=== PATIENT | male | born 1945 | race Caucasian/White ===

== ENCOUNTER → 2018-01-15 | Outpatient (CLI) | payer OTHER ==
--- NOTE | 2018-01-15 17:44 | DIAGNOSTIC IMAGING REPORT ---
ULTRASOUND BILATERAL LOWER EXTREMITY VENOUS CLINICAL HISTORY: Lower extremity edema. COMPARISON STUDY: No priors. TECHNIQUE: Real-time, grayscale, and color Doppler sonography of the deep veins of the right and left lower extremity was performed from the inguinal crease to the calf. Compression and augmentation were utilized. FINDINGS: There is no sonographic evidence of deep venous thrombosis identified in the right or left lower extremity. The common femoral, superficial femoral, and popliteal veins are patent and normally compressible bilaterally. The greater saphenous vein and the profunda femoris vein at the junction with the common femoral vein are clear in both legs. The visualized calf veins are patent bilaterally. IMPRESSION: There is no sonographic evidence of deep venous thrombosis identified in the right or left lower extremity. Electronically signed by: Abdirashid Santana M.D. 01/15/2018 5:43 PM Dictated Date/Time: 01/15/2018 5:43 PM
== END | disposition home or self-care (01) ==
LOC: C.ULTR 16:15
PROVIDERS: ATTEND Internal Medicine
DX: M79.89 Other specified soft tissue disorders (principal); R79.89 Other specified abnormal findings of blood chemistry

== ENCOUNTER 2020-04-12 11:17 | Observation (INO) ==
--- NOTE | 2020-04-12 11:36 | Emergency Department Note ---
Impression & Plan Acute GI bleeding, Current use of [employer] anticoagulation, Chronic atrial fibrillation, Melena, Supratherapeutic INR ED Provider Note NAME: VEL CAPUTO AGE: 74 SEX: M : 1945 ARRIVES VIA: Ambulance INFORMANT: Patient ED PROVIDER(S): Parth Salcido DO CHIEF COMPLAINT: weak HPI: Patient is a 74-year-old gentleman who was seen and evaluated by his PCP today. He has been feeling very weak and rundown. He gets lightheaded/dizzy as well when he is up moving around. He has noted some dark tarry stools as well. He takes Coumadin for his A. fib. PCP performed a rectal exam and notes he is grossly heme positive. He was referred into the ER. He also admits that he has been having belly pain in the right lower quadrant for the past 5 days. Notes it has gradually getting worse each day. No vomiting. ROS: See above HPI for pertinent positives & negatives. A total of 10 systems reviewed and were otherwise negative. PAST MEDICAL HISTORY:See Below PAST SURGICAL HISTORY:See Below FAMILY HISTORY:See Below SOCIAL HISTORY:See Below HOME MEDICATIONS:See Below ALLERGIES:See Below VITALS:See Below PHYSICAL EXAMINATION: GENERAL: Sitting up in bed, alert, well appearing, well nourished, no distress, non-toxic EYE EXAM: normal conjunctiva. OROPHARYNX: no exudate, no erythema, lips, buccal mucosa, and tongue normal and mucous membranes are moist NECK: supple, no nuchal rigidity, no adenopathy, non-tender LUNGS: Clear to auscultation. Normal chest wall mechanics HEART: no murmurs, S1 normal and S2 normal ABDOMEN: abdomen soft, acutely tender in right lower quadrant, normo-active bowel sounds, no masses, no rebound or guarding. BACK: Back is symmetrical on inspection and there is no deformity, no midline tenderness, no CVA tenderness. SKIN: no rashes and no bruising UPPER EXTREMITIES: upper extremities are grossly normal. LOWER EXTREMITIES: No pitting edema. NEURO EXAM: Normal sensorium, cranial nerves II-XII grossly intact, normal speech, no gross weakness of arms, no gross weakness of legs. MEDICAL DECISION MAKING: Patient is a 74-year-old male sent in by his PCP with heme positive stools and feeling weak and rundown and dizzy for the past 3 days. IV was established blood work was obtained. Labs show a mild leukopenia at 3.3 thousand. Mild anemia 12,000. INR was significantly elevated at 7.4 and is on Coumadin for A. fib. BMP with mild hypokalemia. Magnesium was slightly low as well. LFTs bilirubin and troponin was negative. TSH was elevated. Patient was typed and screened. Patient was given 10 units IV vitamin K with the elevated INR and heme positive stools after discussion at bedside. Patient was updated and given a dose of Zosyn as the CT abdomen pelvis showed diverticulitis. Do favor that this is likely the cause of the bleeding. Held on Protonix secondary to this. Pain has been present for 5 days. Patient was updated and discussed with hospitalist for further evaluation. Triage Nursing notes reviewed. Prior medical records reviewed Vital Signs: reviewed and remarkable for no significant abnormalities Differential diagnosis: Differential diagnoses includes but is not limited to gastritis, peptic ulcer disease, GERD, gallbladder disease, pancreatitis, small bowel obstruction, acute coronary syndrome, pericarditis, ischemic bowel, irritable bowel disease, irritable bowel syndrome, appendicitis, diverticulitis, malignancy, hernia, urinary tract infection, torsion, perforation, trauma, infectious. ER treatment provided: See below Diagnostics interpreted by me: ECG: A. fib rate of 63 Normal axis No PVCs Normal QTC Cardiac Monitoring: An order was placed for continuous cardiac monitoring. The monitor shows a rate of 68 with sinus rhythm. Laboratory studies: As stated above and show below. Imaging studies: CT abdomen pelvis is unremarkable with exception of diverticulitis Consultation(s): D/w the hospitalist for further evaluation ED COURSE: Procedures: none Critical Care: None Past Med/Surg History Medical History (Updated 04/12/20 @ 16:39 by Parth Salcido DO) BPH (benign prostatic hyperplasia) Chronic atrial fibrillation Chronic heart failure with preserved ejection fraction (HFpEF) COPD (chronic obstructive pulmonary disease) Current use of shelter anticoagulation Depression with anxiety HLD (hyperlipidemia) HTN (hypertension) ALLEY (obstructive sleep apnea) Intolerant to CPAP Prolonged QT interval Surgical History (Updated 04/12/20 @ 15:00 by Cristina Roberto PA-C) History of cataract extraction History of colonoscopy History of total left hip arthroplasty Family History (Updated 04/12/20 @ 15:00 by Cristina Roberto PA-C) Father Stroke Mother Stroke Social History (Updated 04/12/20 @ 15:20 by Cristina Roberto PA-C) Smoking Status: Former smoker Tobacco Type: Cigarettes Years Smoked: 18; Cigarettes Per Day: 15; Smoking End Date: 1986; Hx Alcohol Use: Yes Alcohol type: hard liquor Alcohol Intake Frequency: 4 or More x per/Week Alcohol Intake Frequency Comment: 3-4 drinks nightly Hx Substance Use: No Preferred Language: Moroccan Feels Safe at Home: Yes Allergies Allergies Allergy/AdvReac Type Severity Reaction Status Date / Time cephalexin [From Keflex] AdvReac Hives Unverified 04/12/20 13:19 Home Meds Home Medications Medication Instructions Recorded Confirmed albuterol sulfate 2 puff INHALATION Q4H PRN 04/12/20 04/12/20 atorvastatin 10 mg PO DAILY 04/12/20 04/12/20 azelastine 1 spray INTRANASAL BID 04/12/20 04/12/20 buspirone 15 mg PO BID 04/12/20 04/12/20 cetirizine [Zyrtec] 5 mg PO DAILY 04/12/20 04/12/20 cyanocobalamin (vitamin B-12) 1,000 mcg PO DAILY 04/12/20 04/12/20 [Vitamin B-12] fluoxetine 10 mg PO DAILY 04/12/20 04/12/20 fluticasone propionate [Flovent 2 puff INHALATION BID 04/12/20 04/12/20 HFA] furosemide 20 mg PO DAILY 04/12/20 04/12/20 gabapentin 100 mg PO BID 04/12/20 04/12/20 levothyroxine 50 mcg PO MOTUWETHFRSA 04/12/20 04/12/20 levothyroxine 100 mcg PO CARBAJAL 04/12/20 04/12/20 magnesium oxide 400 mg PO DAILY 04/12/20 04/12/20 multivitamin with minerals 1 tab PO DAILY 04/12/20 04/12/20 [Multiple Vitamin-Minerals] potassium chloride 20 meq PO DAILY 04/12/20 04/12/20 tamsulosin 0.4 mg PO HS 04/12/20 04/12/20 trazodone 100 mg PO HS 04/12/20 04/12/20 triamcinolone acetonide 1 applic TOPICAL BID 04/12/20 04/12/20 umeclidinium-vilanterol [Anoro 1 inh INHALATION DAILY 04/12/20 04/12/20 Ellipta] verapamil 180 mg PO BID 04/12/20 04/12/20 warfarin See Rx Instructions .ROUTE .COMPLEX 04/12/20 04/12/20 Results & Data (ED) Vital Signs Vital Signs - 24 hr 04/12/20 11:22 04/12/20 11:24 04/12/20 11:47 Temperature 36.2 C L Temperature Source Oral Pulse Rate 64 70 70 Pulse Rate from SpO2 Sensor 63 68 Pulse Rhythm Irregular Pulse Strength Normal Respiratory Rate 17 24 20 Respiratory Effort / Characteristics Non-Labored Respiratory Depth Normal Respiratory Pattern Regular Blood Pressure 127/71 127/71 Blood Pressure Mean 86 89 Blood Pressure Position Sitting Pulse Oximetry 93 94 93 Oxygen Delivery Method Room Air Sepsis Recent Fever Within 48 Hours No Sepsis New/Unexplained Change in Mental Status No Sepsis Action Taken by Nursing No Action Required 04/12/20 11:50 04/12/20 12:00 04/12/20 12:10 Temperature Temperature Source Pulse Rate 65 85 63 Pulse Rate from SpO2 Sensor 64 64 Pulse Rhythm Pulse Strength Respiratory Rate 19 23 19 Respiratory Effort / Characteristics Respiratory Depth Respiratory Pattern Blood Pressure Blood Pressure Mean Blood Pressure Position Pulse Oximetry 94 95 Oxygen Delivery Method Sepsis Recent Fever Within 48 Hours Sepsis New/Unexplained Change in Mental Status Sepsis Action Taken by Nursing 04/12/20 12:20 04/12/20 12:30 04/12/20 12:40 Temperature Temperature Source Pulse Rate 66 64 67 Pulse Rate from SpO2 Sensor 69 62 67 Pulse Rhythm Pulse Strength Respiratory Rate 16 17 14 Respiratory Effort / Characteristics Respiratory Depth Respiratory Pattern Blood Pressure Blood Pressure Mean Blood Pressure Position Pulse Oximetry 90 94 91 Oxygen Delivery Method Sepsis Recent Fever Within 48 Hours Sepsis New/Unexplained Change in Mental Status Sepsis Action Taken by Nursing 04/12/20 12:50 04/12/20 13:00 04/12/20 13:31 Temperature Temperature Source Pulse Rate 65 104 H 96 H Pulse Rate from SpO2 Sensor 65 70 63 Pulse Rhythm Pulse Strength Respiratory Rate 20 24 17 Respiratory Effort / Characteristics Respiratory Depth Respiratory Pattern Blood Pressure 134/66 Blood Pressure Mean 87 Blood Pressure Position Pulse Oximetry 94 93 96 Oxygen Delivery Method Sepsis Recent Fever Within 48 Hours Sepsis New/Unexplained Change in Mental Status Sepsis Action Taken by Nursing 04/12/20 13:38 04/12/20 13:40 04/12/20 13:50 Temperature Temperature Source Pulse Rate 67 66 62 Pulse Rate from SpO2 Sensor 65 64 66 Pulse Rhythm Pulse Strength Respiratory Rate 18 18 18 Respiratory Effort / Characteristics Respiratory Depth Respiratory Pattern Blood Pressure 126/66 Blood Pressure Mean 86 Blood Pressure Position Pulse Oximetry 96 96 95 Oxygen Delivery Method Sepsis Recent Fever Within 48 Hours Sepsis New/Unexplained Change in Mental Status Sepsis Action Taken by Nursing 04/12/20 14:00 04/12/20 14:01 Temperature Temperature Source Pulse Rate 64 65 Pulse Rate from SpO2 Sensor 69 63 Pulse Rhythm Pulse Strength Respiratory Rate 17 17 Respiratory Effort / Characteristics Respiratory Depth Respiratory Pattern Blood Pressure 124/68 Blood Pressure Mean 80 Blood Pressure Position Pulse Oximetry 95 95 Oxygen Delivery Method Sepsis Recent Fever Within 48 Hours Sepsis New/Unexplained Change in Mental Status Sepsis Action Taken by Nursing Laboratory Data Result diagrams: 04/12/20 Unknown 04/12/20 Unknown Lab Results 04/12/20 Range/Units 11:30 Blood Type O Positive Antibody Screen NEGATIVE Administered Medications Potassium Chloride/Sodium Chloride (Normal Saline W/20 Meq Kcl) 20 meq in 1,000 mls @ 75 mls/hr IV .[id number] MAXIMILIANO Stop: 04/13/20 05:19 Last Admin: 04/12/20 16:13 Dose: 75 mls/hr Documented by: [id number] Discontinued Medications Gabapentin (Gabapentin 600 Mg Tab) 1,200 mg PO NOW ONE Stop: 04/12/20 16:01 Last Admin: 04/12/20 16:18 Dose: 1,200 mg Documented by: [id number] Phytonadione 10 mg/ Sodium (Chloride) 51 mls @ 102 mls/hr IV ONE ONE Stop: 04/12/20 13:58 Last Infusion: 04/12/20 14:54 Dose: 0 mls/hr Documented by: [id number] Admin: 04/12/20 14:08 Dose: 102 mls/hr Documented by: [id number] Piperacillin Sod/Tazobactam Sod (Zosyn) 4.5 gm in 120 mls @ 240 mls/hr IV NOW ONE Stop: 04/12/20 14:24 Last Infusion: 04/12/20 15:26 Dose: 0 mls/hr Documented by: [id number] Admin: 04/12/20 14:12 Dose: 240 mls/hr Documented by: [id number] Ioversol (Ioversol 100ml) 93 ml IV ONCE ONE Stop: 04/12/20 13:30 Last Admin: 04/12/20 13:29 Dose: 93 ml Documented by: [id number] Discharge Plan Visit Data Chief Complaint: Abdominal Pain Stated Complaint: abdominal pain ED Provider: Parth Salcido Discharge Problem: Acute GI bleeding, Current use of shelter anticoagulation, Chronic atrial fibrillation, Melena, Supratherapeutic INR Patient Disposition: Admitted As Inpatient Discharge Instructions Interventions: ED Discharge Assessment Last Done: 04/12/20 15:01
[2020-04-12 12:22] LABS: Basophils # (auto) 0.01 K/uL (0-0.2); Basophils % (auto) 0.3 %; Eosinophils # (auto) 0.11 K/uL (0-0.5); Eosinophils % (auto) 3.3 %; Hematocrit (blood only) 35.9 % (42-52); Hemoglobin 12.1 g/dL (14.0-18.0); Lymphocytes # (auto) 1.09 K/uL (1.2-3.4); Mean Corpuscular Hemoglobin 36.2 pg (25-34); Mean Corpuscular Hgb Conc 33.7 g/dL (32-36); Mean Corpuscular Volume 107.5 fL (80-100); Mean Platelet Volume 9.6 fL (7.4-10.4); Monocytes # (auto) 0.42 K/uL (0.11-0.59); Monocytes % (auto) 12.7 %; Neutrophils # (auto) 1.67 K/uL (1.4-6.5); Neutrophils % (auto) 50.7 %; Nucleated RBC # (auto) 0.04 K/uL (0-0); Nucleated RBC % (auto) 1.2 %; Platelet Count 167 K/uL (130-400); RDW Coefficient of Variation 14.5 % (11.5-14.5); RDW Standard Deviation 56.2 fL (36.4-46.3); Red Blood Count 3.34 M/uL (4.7-6.1)
[2020-04-12 12:42] LABS: Partial Thromboplastin Ratio 2.8; Prothrombin Time 70.3 Seconds (9.0-12.0)
[2020-04-12 12:45] LABS: Alanine Aminotransferase 30 U/L (12-78); Albumin Level 2.7 gm/dl (3.4-5.0); Aspartate Aminotransferase 55 U/L (15-37); BUN Creatinine Ratio 7.4 (10-20); Blood Urea Nitrogen 8 mg/dl (7-18); Calcium 8.4 mg/dl (8.5-10.1); Carbon Dioxide 30 mmol/L (21-32); Chloride 96 mmol/L (98-107); Creatinine Clr Calc Pharmacy 69.8 ml/min; Est GFR (African American) 75.9; Est GFR (Non-African American) 65.5; Glucose 122 mg/dl (70-99); Lipase 31 U/L (73-393); Potassium 3.3 mmol/L (3.5-5.1); Sodium 135 mmol/L (136-145)
[2020-04-12 12:49] LABS: Albumin Globulin Ratio 0.8 (0.9-2); Alkaline Phosphatase 144 U/L (45-117); Globulin 3.4 gm/dl (2.5-4.0); Total Protein 6.1 gm/dl (6.4-8.2); Troponin I < 0.015 ng/ml (0-0.045)
[2020-04-12 13:01] LABS: INR 7.4 (0.9-1.1)
[2020-04-12] MEDS ORDERED: PHYTONADIONE 10 MG in SODIUM CHLORIDE 0.9% 50 ML IV ONE (13:29)
[2020-04-12] MEDS ORDERED: IOVERSOL 100ml IV ONE (13:29)
--- NOTE | 2020-04-12 13:40 | CT Scan Report ---
CT abd pelvis IV con only CLINICAL HISTORY: Right lower quadrant abdominal pain. Gastrointestinal hemorrhage. COMPARISON STUDY: None. TECHNIQUE: Patient was scanned in a dynamic helical fashion during intravenous administration of 93 c c of Optiray 320 A dose lowering technique was utilized adhering to the principles of ALARA. CT DOSE: 882.67 mGy.cm FINDINGS: Lower chest: There is a small left pleural effusion and trace right pleural effusion. There are basil ar opacities, likely atelectatic. Liver: There is hepatic steatosis. The portal and hepatic veins appear patent. Gallbladder: Unremarkable. Spleen: Normal in size and attenuation. Pancreas: Unremarkable. Adrenal glands: Unremarkable. Kidneys: There is a 2.5 mm upper pole right renal calculus. There is lower pole left renal scarring. There is a 4 cm left renal cyst. A 9 mm left renal hypodensity likely represents an additional cyst. Bowel: There are no transition zones indicate bowel obstruction. There is no evidence of acute append icitis. There is andrade colonic diverticulosis. Minimal diverticulitis is suspected at the descending si gmoid junction. Peritoneum: There is no intraperitoneal free air or abdominal ascites. Vasculature: There is no evidence of abdominal aortic aneurysm. There are moderate aorta iliac athero matous changes. Adenopathy: None. Pelvic viscera: The bladder, and pelvic viscera are unremarkable. Skeletal structures: There are postsurgical changes of a total left hip arthroplasty. There is a jorge ggressive appearing mixed lytic and sclerotic lesion within the right femoral head. IMPRESSION: 1. No evidence of bowel obstruction. No evidence of free air 2. Nonobstructing 2.5 mm upper pole right renal calculus 3. Normal appendix 4. Pandiverticulosis. Minimal diverticulitis at the descending sigmoid junction 5. Small left pleural effusion and trace right pleural effusion. 6. Hepatic steatosis ACT 112: Negative or not required by law. Electronically signed by: Jeremías Palomo M.D. 04/12/2020 1:39 PM
[2020-04-12] MEDS ORDERED: PIPERACILL/TAZOBAC CONSULT ACTIVE PRN (13:55)
[2020-04-12] MEDS ORDERED: PIPERACILLIN/TAZOBACTAM 4.5 GM/120 ML BAG IV ONE (13:55)
[2020-04-12] MEDS ORDERED: POTASSIUM CHLORIDE / WTR 10 MEQ/100 ML PLCT IV SCH (14:30)
--- NOTE | 2020-04-12 14:47 | History & Physical Report ---
Date of Service April 12, 2020 Assessment & Plan (1) Melena: (2) Supratherapeutic INR: (3) Sigmoid diverticulitis: This is a 74-year-old male who has significant past medical history of chronic atrial fibrillation anticoagulated on warfarin, chronic HFpEF, HTN, HLD, COPD, ALLEY intolerant to CPAP, BPH, depression with anxiety, prolonged QT syndrome who presents to ED secondary to fatigue and melena x3 weeks. Concern for GIB in setting of supratherapeutic INR, anemia, alcohol abuse and [address] with evidence of sigmoid diverticulitis. admit to med tele received 10mg IV vit K in ED repeat H/H q6h - first at 1900, repeat INR @ 1900 IV zosyn - dosed per pharmacy consult GI NPO except sips/chips with strict NPO after midnight covid 19 screen in event pt requires endoscopy gentle IVF while NPO stools for FOBT (4) Anemia: H/H 15.4/42.2 12/2019 H&H 12.1 and 35.9 today, macrocytic hyperchromic anemia work up with 1900 labs folate, b12, iron studies H/H likely reduced in setting of melena x 3 weeks and supratherapeutic INR (5) Chronic atrial fibrillation: Rate controlled atrial fibrillation On warfarin for thrombotic control INR supratherapeutic at 7.4 Hold warfarin, IV vitamin K given in ED Repeat INR at 1900, goal 2-3 (6) Chronic heart failure with preserved ejection fraction (HFpEF): Currently patient euvolemic Daily weights, strict I's and O's -heart healthy and low-sodium diet when able to tolerate p.o. Patient is on verapamil and Lasix Hold Lasix for now in setting of volume depletion due to suspected GI bleed Monitor daily and resume as able (7) HTN (hypertension): Blood pressure controlled on verapamil and Lasix Hold Lasix (8) Alcohol abuse: encourage ETOH cessation AWSS protocol gabapentin taper, prn ativan hold home dose of gabapentin while on taper (9) HLD (hyperlipidemia): Continue statin (10) COPD (chronic obstructive pulmonary disease): No acute exacerbation Continue Flovent and Anoro (11) BPH (benign prostatic hyperplasia): Continue Flomax (12) Prolonged QT interval: QTC 589ms avoid QTC prolonging medications follows [facility] (13) DVT prophylaxis: SCD/TEDS hold wafarin Disposition: admit to [facility] tele Follow up: PCP Dr. Faulkner upon discharge PT was seen and examined in collaboration with Dr. Plunkett, please see addendum History of Present Illness Chief Complaint: Fatigue and melena x 3 weeks. Primary Care Provider: Lidia Faulkner MD This is a 74-year-old male who has significant past medical history of chronic atrial fibrillation anticoagulated on warfarin, chronic HFpEF, HTN, HLD, COPD, ALLEY intolerant to CPAP, BPH, depression with anxiety, prolonged QT syndrome who presents to ED secondary to fatigue and melena x3 weeks. He was initially seen by PCP today due to the above complaints had positive FOBT and was referred to ED for further evaluation. He states he has not felt well for the past few months. Over the last 3 weeks he has had increased fatigue and melena. He was having approximately 1 bowel movement daily until the past week where he has been having loose diarrhea. Over the past 2 to 3 days he also developed subsequent left lower quadrant abdominal discomfort. Pain was nonradiating, nothing made it better or worse and he denies any hematochezia. Yesterday when he wiped he did notice scant bright red blood on toilet paper but associated that to hemorrhoid. Otherwise no bright red blood per rectum. He denies any recent fever, chills, sweats, chest pain, shortness breath at rest, emesis, hemoptysis, hematemesis, dysuria, increased urgency or frequency with urination. He does have history of COPD and therefore he does have a chronic cough. He feels cough is at baseline. He does have chronic SIDDIQUI and feels this is slightly worse than usual. Approximately 6 weeks ago he admits to a syncopal episode and he did not seek medical treatment. He feels it was for a few minutes. He denies hitting his head, but had rosanna loss of consciousness. He admits to occasionally feeling, "woozy." Symptoms occur whenever he goes from sitting to standing too quickly. He believes this is what happened when he passed out 6 weeks ago. In ED patient remained hemodynamically stable. H&H 12.1 and 35.9, platelet 167, INR elevated 7.4, K3.3, sodium 135, BUN 8, creatinine 1.11, albumin 2.7. CT abdomen pelvis revealed minimal sigmoid diverticulitis, pandiverticulosis, no free air or obstruction. In ED he received 10 mg IV vitamin K and was started on IV Zosyn. Allergies Allergy/AdvReac Type Severity Reaction Status Date / Time cephalexin [From Keflex] AdvReac Hives Unverified 04/12/20 13:19 Home Medications Home Medications Medication Instructions Recorded Confirmed Type albuterol sulfate 2 puff INHALATION Q4H PRN 04/12/20 04/12/20 History atorvastatin 10 mg PO DAILY 04/12/20 04/12/20 History azelastine 1 spray INTRANASAL BID 04/12/20 04/12/20 History buspirone 15 mg PO BID 04/12/20 04/12/20 History cetirizine [Zyrtec] 5 mg PO DAILY 04/12/20 04/12/20 History cyanocobalamin (vitamin B-12) 1,000 mcg PO DAILY 04/12/20 04/12/20 History [Vitamin B-12] fluoxetine 10 mg PO DAILY 04/12/20 04/12/20 History fluticasone propionate [Flovent 2 puff INHALATION BID 04/12/20 04/12/20 History HFA] furosemide 20 mg PO DAILY 04/12/20 04/12/20 History gabapentin 100 mg PO BID 04/12/20 04/12/20 History levothyroxine 50 mcg PO MOTUWETHFRSA 04/12/20 04/12/20 History levothyroxine 100 mcg PO CARBAJAL 04/12/20 04/12/20 History magnesium oxide 400 mg PO DAILY 04/12/20 04/12/20 History multivitamin with minerals 1 tab PO DAILY 04/12/20 04/12/20 History [Multiple Vitamin-Minerals] potassium chloride 20 meq PO DAILY 04/12/20 04/12/20 History tamsulosin 0.4 mg PO HS 04/12/20 04/12/20 History trazodone 100 mg PO HS 04/12/20 04/12/20 History triamcinolone acetonide 1 applic TOPICAL BID 04/12/20 04/12/20 History umeclidinium-vilanterol [Anoro 1 inh INHALATION DAILY 04/12/20 04/12/20 History Ellipta] verapamil 180 mg PO BID 04/12/20 04/12/20 History warfarin See Rx Instructions .ROUTE .COMPLEX 04/12/20 04/12/20 History Past Med/Surg History Medical History (Updated 04/12/20 @ 15:25 by Cristina Roberto PA-C) BPH (benign prostatic hyperplasia) Chronic atrial fibrillation Chronic heart failure with preserved ejection fraction (HFpEF) COPD (chronic obstructive pulmonary disease) 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 Depression with anxiety HLD (hyperlipidemia) HTN (hypertension) ALLEY (obstructive sleep apnea) Intolerant to CPAP Prolonged QT interval Surgical History (Updated 04/12/20 @ 15:00 by Cristina Roberto PA-C) History of cataract extraction History of colonoscopy History of total left hip arthroplasty Family History (Updated 04/12/20 @ 15:00 by Cristina Roberto PA-C) Father Stroke Mother Stroke Social History (Updated 04/12/20 @ 15:20 by Cristina Roberto PA-C) Smoking Status: Former smoker Tobacco Type: Cigarettes Years Smoked: 18; Cigarettes Per Day: 15; Smoking End Date: 1986; Hx Alcohol Use: Yes Alcohol type: hard liquor Alcohol Intake Frequency: 4 or More x per/Week Alcohol Intake Frequency Comment: 3-4 drinks nightly Hx Substance Use: No Preferred Language: Kyrgyz Feels Safe at Home: Yes Review of Systems Review of Systems: All systems reviewed & are unremarkable except as noted in HPI & below Physical Exam Physical Exam: Constitutional: WD/WN, male, vitals as above, NAD, sitting up in bed, pleasant, conversing easily Head: Normocephalic, Atraumatic Eyes: PERRL, conjunctivae normal on right, left lateral subconjunctival hemorrhage, anicteric sclerae ENMT: external ear and nose normal, oropharynx normal Neck: trachea midline, no thyromegaly normal visual inspection Respiratory: normal respiratory effort, lungs clear to auscultation, no wheeze, rales, rhonchi. Normal insp/exp effort, no accessory muscle use Cardiovascular: Irregular rate, irregular rhythm, no murmur, no edema Vessels: no JVD or carotid bruit Chest: normal inspection of chest Abdomen: Distended abdomen, normal bowel sounds, firm, tender to palpation left lower quadrant, no rebound, no guarding, no rigidity, no hepatosplenomegaly Musculoskeletal: no cyanosis or clubbing, extremities motor strength 5/5 Skin: no rashes, warm and dry normal turgor Neurologic: PERRL, EOMI, accommodation nl, no face palsy, no dysarthria CN's II-XI intact bilaterally and moves all extremities Psychiatric: A+Ox3, euthymic affect : deferred Results & Data Results & Data ([facility]) Vital Signs (Past 12 Hours) Vital Signs Temp Pulse Resp BP Pulse Ox 04/12/20 14:20 60 16 96 04/12/20 14:13 60 19 116/60 94 04/12/20 14:10 67 13 94 04/12/20 14:01 65 17 95 04/12/20 14:00 64 17 124/68 95 04/12/20 13:50 62 18 95 04/12/20 13:40 66 18 96 04/12/20 13:38 67 18 126/66 96 04/12/20 13:31 96 H 17 96 04/12/20 13:00 104 H 24 134/66 93 04/12/20 12:50 65 20 94 04/12/20 12:40 67 14 91 04/12/20 12:30 64 17 94 04/12/20 12:20 66 16 90 04/12/20 12:10 63 19 95 04/12/20 12:00 85 23 04/12/20 11:50 65 19 94 04/12/20 11:47 70 20 93 04/12/20 11:24 36.2 C L 70 24 127/71 94 04/12/20 11:22 64 17 127/71 93 Laboratory Results Short CBC 04/12/20 04/12/20 Range/Units Unknown Unknown WBC 3.30 L (4.8-10.8) K/uL Hgb 12.1 L (14.0-18.0) g/dL Hct 35.9 L (42-52) % Plt Count 167 (130-400) K/uL Creatinine 1.11 (0.6-1.4) mg/dl BMP 04/12/20 Unknown Sodium 135 L Potassium 3.3 L Chloride 96 L Carbon Dioxide 30 BUN 8 Creatinine 1.11 Glucose 122 H Calcium 8.4 L Cardiac Enzymes 04/12/20 Range/Units Unknown Troponin I < 0.015 (0-0.045) ng/ml Liver Function 04/12/20 Range/Units Unknown Total Bilirubin 1.0 (0.2-1) mg/dl AST 55 H (15-37) U/L ALT 30 (12-78) U/L Alkaline Phosphatase 144 H (45-117) U/L Albumin 2.7 L (3.4-5.0) gm/dl Diagnostic Findings CT abd/pelvis: FINDINGS: Lower chest: There is a small left pleural effusion and trace right pleural effusion. There are basilar opacities, likely atelectatic. Liver: There is hepatic steatosis. The portal and hepatic veins appear patent. Gallbladder: Unremarkable. Spleen: Normal in size and attenuation. Pancreas: Unremarkable. Adrenal glands: Unremarkable. Kidneys: There is a 2.5 mm upper pole right renal calculus. There is lower pole left renal scarring. There is a 4 cm left renal cyst. A 9 mm left renal hypodensity likely represents an additional cyst. Bowel: There are no transition zones indicate bowel obstruction. There is no evidence of acute appendicitis. There is andrade colonic diverticulosis. Minimal diverticulitis is suspected at the descending sigmoid junction. Peritoneum: There is no intraperitoneal free air or abdominal ascites. Vasculature: There is no evidence of abdominal aortic aneurysm. There are moderate aorta iliac atheromatous changes. Adenopathy: None. Pelvic viscera: The bladder, and pelvic viscera are unremarkable. Skeletal structures: There are postsurgical changes of a total left hip arthroplasty. There is a nonaggressive appearing mixed lytic and sclerotic lesion within the right femoral head. IMPRESSION: 1. No evidence of bowel obstruction. No evidence of free air 2. Nonobstructing 2.5 mm upper pole right renal calculus 3. Normal appendix 4. Pandiverticulosis. Minimal diverticulitis at the descending sigmoid junction 5. Small left pleural effusion and trace right pleural effusion. 6. Hepatic steatosis Medications Administered Discontinued Medications Phytonadione 10 mg/ Sodium (Chloride) 51 mls @ 102 mls/hr IV ONE ONE Stop: 04/12/20 13:58 Last Infusion: 04/12/20 14:54 Dose: 0 mls/hr Documented by: [id number] Admin: 04/12/20 14:08 Dose: 102 mls/hr Documented by: [id number] Piperacillin Sod/Tazobactam Sod (Zosyn) 4.5 gm in 120 mls @ 240 mls/hr IV NOW ONE Stop: 04/12/20 14:24 Last Admin: 04/12/20 14:12 Dose: 240 mls/hr Documented by: [id number] Ioversol (Ioversol 100ml) 93 ml IV ONCE ONE Stop: 04/12/20 13:30 Last Admin: 04/12/20 13:29 Dose: 93 ml Documented by: [id number] ECG Rate (beats per minute): 63 Rhythm: atrial fibrillation Findings: + prolonged QT (589ms) Code Status & VTE Plan Code Status Full Code VTE Prophylaxis Plan VTE Prophylaxis will be ordered: Yes Reason for no VTE drug order: Contraindicated Supervising Physician Co-Signing Physician Notes Attending addendum The patient was seen and examined in the emergency room He has been complaining of melena for the last 2 to 3 weeks and one occasion of bright red blood after wiping He complains some abdominal discomfort specially right lower quadrant without any fever and/or chills On examination He is obese and lying in bed without any apparent distress He has been hemodynamically stable Chest-clear to auscultate bilaterally Heart-S1-S2, irregular, no murmur appreciated Abdomen-mildly distended but soft, mildly tender in the right lower quadrant without any guarding and no rigidity Extremities-trace to 1+ edema bilaterally 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
[2020-04-12 15:36] LABS: Thyroid Stimulating Hormone 13.6 uIu/ml (0.300-4.500)
[2020-04-12] MEDS ORDERED: LORazepam 1 MG TAB PO PRN (15:41)
[2020-04-12] MEDS ORDERED: GABAPENTIN 1200MG ALCOHOL WITHDRAWAL LOAD PO STA (15:41)
[2020-04-12] MEDS ORDERED: ALBUTEROL HFA 8 GM INHALER INH PRN (15:41)
[2020-04-12 15:55] LABS: Magnesium 1.7 mg/dl (1.8-2.4)
[2020-04-12] MEDS ORDERED: NSS + 20MEQ KCL 20 MEQ/1,000 ML BAG IV SCH (16:00)
[2020-04-12] MEDS ORDERED: GABAPENTIN 600 MG TAB PO ONE (16:00)
[2020-04-12] MEDS ORDERED: PANTOPRAZOLE BOLUS/DRIP 1 EA IV STA (16:03)
[2020-04-12] MEDS ORDERED: PANTOprazole 80 MG in DEXTROSE 5% 100 ML IV ONE (16:15)
[2020-04-12] MEDS: PANTOprazole 40 MG in DEXTROSE 5% 100 ML IV SCH ×2 (17:29→23:38)
[2020-04-12] MEDS: POTASSIUM CHLORIDE / WTR 10 MEQ/100 ML PLCT IV SCH ×2 (17:30→18:52)
[2020-04-12] MEDS ORDERED: MAGNESIUM SULFATE / D5W 1 GM/100 ML BAG IV ONE (18:00)
[2020-04-12] MEDS: ACETAMINOPHEN 325 MG TAB PO PRN (18:22)
[2020-04-12 19:18] LABS: Hematocrit (blood only) 32.6 % (42-52); Hemoglobin 11.2 g/dL (14.0-18.0)
[2020-04-12 19:26] LABS: Prothrombin Time 30.2 Seconds (9.0-12.0)
[2020-04-12 19:40] LABS: Ferritin 239.5 ng/ml (8-388)
[2020-04-12] MEDS: busPIRone 15 MG TAB PO SCH (20:56)
[2020-04-12] MEDS: PIPERACILLIN/TAZOBACTAM 3.375 GM in DEXTROSE 5% 100 ML IV SCH (20:56)
[2020-04-12] MEDS: VERAPAMIL HCL 180 MG TABCR PO SCH (20:57)
[2020-04-12] MEDS: TAMSULOSIN HCL 0.4 MG CAP PO SCH (20:57)
[2020-04-12] MEDS: traZODone HCL 100 MG TAB PO SCH (20:57)
[2020-04-12] MEDS: GABAPENTIN 600 MG TAB PO SCH (20:58)
[2020-04-12] MEDS ORDERED: GABAPENTIN 100 MG CAP PO SCH ×2 (21:00)
[2020-04-13 01:14] LABS: Hematocrit (blood only) 33.7 % (42-52); Hemoglobin 11.1 g/dL (14.0-18.0)
[2020-04-13 01:15] LABS: Hematocrit (blood only) 32.8 % (42-52); Hemoglobin 11.1 g/dL (14.0-18.0); Mean Corpuscular Hemoglobin 36.3 pg (25-34); Mean Corpuscular Hgb Conc 33.8 g/dL (32-36); Mean Corpuscular Volume 107.2 fL (80-100); Mean Platelet Volume 9.2 fL (7.4-10.4); Nucleated RBC # (auto) 0.04 K/uL (0-0); Nucleated RBC % (auto) 1.4 %; Platelet Count 143 K/uL (130-400); RDW Coefficient of Variation 14.9 % (11.5-14.5); RDW Standard Deviation 56.3 fL (36.4-46.3); Red Blood Count 3.06 M/uL (4.7-6.1); White Blood Count 3.08 K/uL (4.8-10.8)
[2020-04-13 01:29] LABS: INR 2.2 (0.9-1.1); Prothrombin Time 21.9 Seconds (9.0-12.0)
[2020-04-13 01:34] LABS: Albumin Level 2.3 gm/dl (3.4-5.0); BUN Creatinine Ratio 6.7 (10-20); Creatinine Clr Calc Pharmacy 71.7 ml/min; Est GFR (African American) 78.5; Est GFR (Non-African American) 67.7; Potassium 3.2 mmol/L (3.5-5.1)
[2020-04-13 01:37] LABS: Albumin Globulin Ratio 0.8 (0.9-2); Bilirubin,Total 0.9 mg/dl (0.2-1); Total Protein 5.3 gm/dl (6.4-8.2)
[2020-04-13] MEDS ORDERED: Nursing to Pharmacy Communication SCH (03:15)
[2020-04-13] MEDS: PANTOprazole 40 MG in DEXTROSE 5% 100 ML IV SCH ×2 (04:52→15:35)
[2020-04-13] MEDS: GABAPENTIN 600 MG TAB PO SCH ×3 (04:52→20:17)
[2020-04-13] MEDS: PIPERACILLIN/TAZOBACTAM 3.375 GM in DEXTROSE 5% 100 ML IV SCH ×3 (04:52→20:17)
[2020-04-13] MEDS: LEVOTHYROXINE SODIUM 50 MCG TABLET PO SCH (05:47)
--- NOTE | 2020-04-13 06:24 | Electrocardiogram Report ---
Test Reason : Blood Pressure : / mmHG Vent. Rate : 063 BPM Atrial Rate : 234 BPM P-R Int : 000 ms QRS Dur : 092 ms QT Int : 576 ms P-R-T Axes : 000 033 017 degrees QTc Int : 589 ms Atrial fibrillation Prolonged QT Abnormal ECG When compared with ECG of 29-MAY-1999 09:49, Atrial fibrillation has replaced Sinus rhythm Questionable change in QRS duration QT has lengthened Confirmed by Dinesh Webster ([id number]) on 04/13/2020 6:23:58 AM Referred By: Confirmed By:Dinesh Webster
--- NOTE | 2020-04-13 08:53 | Gastrointestinal Consultation ---
Date of Consultation April 13, 2020 Assessment & Plan (1) Melena: (2) Supratherapeutic INR: (3) Sigmoid diverticulitis: (4) Anemia: Pt is a 74 y/o male admitted for symptomatic anemia, melena in setting of Coumadin use for Afib and supratherapeutic INR which had since been reversed. Incidentally noted on CT scan is also L sided uncomplicated diverticulitis. Risk factors for GI bleed - ETOH uses, denies NSAIDs or hx of PUD - Monitor blood ct, transfuse prn - Keep NPO for EGD eval by Dr. Fields today - Continue PPI gtt - Avoid NSAIDs - Recommend ETOH cessation - F/U FA, B12 levels, iron studies for anemia workup - Cipro/Flagyl IV antibx for diverticulitis which can be converted to PO upon DC. Would recommend repeat colonoscopy in 4-6 weeks given exam last year was done w/o adequate prep - TSH 13, defer Levothyroxine adjustment to primary team/PCP Supervising Physician Co-Signing Physician Notes I performed a history and physical examination of the patient today, including specifically on physical exam - soft abdomen. I have discussed the patient's management with the advanced practitioner. Please refer to the nurse practitioner's note for the documented findings and plan of care. EGD today. Colonoscopy as OP in 6 weeks. History of Present Illness Reason for Consultation: Melena, Diverticulitis Requesting Physician: Dr. Stevie Helton Attending Physician: Dr. Carlos Fields History of Present Illness Pt is a 74 y/o male, w PMHx of Afib on Coumadin, HTN, HLD, COPD, ALLEY , BPH, depression, anxiety who was referred by PCP today after seen in clinic for fatigue for last 3 weeks and noted to have also black soft stools x 1 week. Stools were FOBT + when checked in PCP's office. He denies associated fever, chills, dizziness, CP, increased SOB from baseline. He does c/o mild L sided abd pain. Needed to take laxatives last week but denies iron or PeptoBismol uses. Upon evaluation, noted to have macrocytic anemia - baseline Hgb 13, now 11. INR supratherapeutic at 7, reversed w Vit K now down to 2.2. Overnight, blood ct remains stable. BUN/Cr normal. CT abd/pelvis showed signs of mild descending & sigmoid junction diverticulitis. His last colonoscopy was in 08/2018 - hyperplastic polyps found but suggested 2 yr recall due to inadequate prep. Pt denies current tobacco uses. + 2-3 wine at night. Denies NSAIDs uses Denies hx of colorectal ca or PUD. Allergies Allergy/AdvReac Type Severity Reaction Status Date / Time cephalexin [From Keflex] AdvReac Hives Unverified 04/12/20 13:19 Home Medications Home Medications Medication Instructions Recorded Confirmed Type albuterol sulfate 2 puff INHALATION Q4H PRN 04/12/20 04/12/20 History atorvastatin 10 mg PO DAILY 04/12/20 04/12/20 History azelastine 1 spray INTRANASAL BID 04/12/20 04/12/20 History buspirone 15 mg PO BID 04/12/20 04/12/20 History cetirizine [Zyrtec] 5 mg PO DAILY 04/12/20 04/12/20 History cyanocobalamin (vitamin B-12) 1,000 mcg PO DAILY 04/12/20 04/12/20 History [Vitamin B-12] fluoxetine 10 mg PO DAILY 04/12/20 04/12/20 History fluticasone propionate [Flovent 2 puff INHALATION BID 04/12/20 04/12/20 History HFA] furosemide 20 mg PO DAILY 04/12/20 04/12/20 History gabapentin 100 mg PO BID 04/12/20 04/12/20 History levothyroxine 50 mcg PO MOTUWETHFRSA 04/12/20 04/12/20 History levothyroxine 100 mcg PO CARBAJAL 04/12/20 04/12/20 History magnesium oxide 400 mg PO DAILY 04/12/20 04/12/20 History multivitamin with minerals 1 tab PO DAILY 04/12/20 04/12/20 History [Multiple Vitamin-Minerals] potassium chloride 20 meq PO DAILY 04/12/20 04/12/20 History tamsulosin 0.4 mg PO HS 04/12/20 04/12/20 History trazodone 100 mg PO HS 04/12/20 04/12/20 History triamcinolone acetonide 1 applic TOPICAL BID 04/12/20 04/12/20 History umeclidinium-vilanterol [Anoro 1 inh INHALATION DAILY 04/12/20 04/12/20 History Ellipta] verapamil 180 mg PO BID 04/12/20 04/12/20 History warfarin See Rx Instructions .ROUTE .COMPLEX 04/12/20 04/12/20 History Patient History Medical History BPH (benign prostatic hyperplasia) Chronic atrial fibrillation Chronic heart failure with preserved ejection fraction (HFpEF) COPD (chronic obstructive pulmonary disease) Current use of custodial anticoagulation Depression with anxiety HLD (hyperlipidemia) HTN (hypertension) ALLEY (obstructive sleep apnea) Intolerant to CPAP Prolonged QT interval Surgical History History of cataract extraction History of colonoscopy History of total left hip arthroplasty Family History Father Stroke Mother Stroke Social History Smoking Status: Former smoker Tobacco Type: Cigarettes Years Smoked: 18; Smoking End Date: 1986; Hx Alcohol Use: Yes Alcohol type: wine and hard liquor Alcohol Intake Frequency: 4 or More x per/Week Alcohol Intake Frequency Comment: 3-4 drinks nightly Hx Substance Use: No Preferred Language: Chinese Communication Ability: Effective Load Blocker Required: No Beliefs That Will Affect Care: None Current Living Situation: Alone Other Information That Helps Us Care for You: No Feels Safe at Home: Yes Safety Concerns: Feels Safe At This Time Assistive Devices: Cane and Glasses Review of Systems Review of Systems: All systems reviewed & are unremarkable except as noted in HPI & below Physical Exam Constitutional: WD/WN, vitals as above well groomed, cooperative and comfortable Eyes: PERRL, conjunctivae normal, anicteric sclerae ENMT: external ear and nose normal, oropharynx normal Respiratory: normal respiratory effort, lungs clear to auscultation Cardiovascular: RRR, no murmur, no edema Gastrointestinal (Abdomen): Inspection/Auscultation: + hypoactive bowel sounds Percussion/Palpation: + abdomen tender (LLQ, RLQ areas) and abdomen soft Skin: no rashes, warm and dry no jaundice Neurologic: Motor/Sensory: + tremor (resting tremor on R hand noted) and + asterixis Psychiatric: A+Ox3, euthymic affect Lymphatic: no lymphedema Results & Data ([facility]) Vital Signs (Past 12 Hours) Vital Signs Temp Pulse Resp BP Pulse Ox 04/13/20 07:37 36.6 C 68 18 115/68 91 04/13/20 04:00 36.5 C 68 20 109/66 92 04/12/20 23:25 37.1 C 68 20 108/68 92 04/12/20 20:42 36.5 C 63 18 109/61 92
--- NOTE | 2020-04-13 09:10 | Anesthesiology Consultation ---
Date of Service April 13, 2020 Assessment & Plan Chart Review Chart Review: Acceptable Risk for Surgery Consults Requested none History Surgery Operation Date: 04/13/20 16:00 Proposed Procedures p Esophagogastroduodenoscopy Dr Fields - Carlos Fields MD Height/Weight Height: 5 ft 11 in Weight: 92.5 kg Allergies Allergy/AdvReac Type Severity Reaction Status Date / Time cephalexin [From Keflex] AdvReac Hives Unverified 04/12/20 13:19 Medications Home Medications Medication Instructions Recorded Confirmed Last Taken albuterol sulfate 2 puff INHALATION Q4H PRN 04/12/20 04/12/20 Unknown atorvastatin 10 mg PO DAILY 04/12/20 04/12/20 Unknown azelastine 1 spray INTRANASAL BID 04/12/20 04/12/20 Unknown buspirone 15 mg PO BID 04/12/20 04/12/20 Unknown cetirizine [Zyrtec] 5 mg PO DAILY 04/12/20 04/12/20 Unknown cyanocobalamin (vitamin B-12) 1,000 mcg PO DAILY 04/12/20 04/12/20 Unknown [Vitamin B-12] fluoxetine 10 mg PO DAILY 04/12/20 04/12/20 Unknown fluticasone propionate [Flovent 2 puff INHALATION BID 04/12/20 04/12/20 Unknown HFA] furosemide 20 mg PO DAILY 04/12/20 04/12/20 Unknown gabapentin 100 mg PO BID 04/12/20 04/12/20 Unknown levothyroxine 50 mcg PO MOTUWETHFRSA 04/12/20 04/12/20 Unknown levothyroxine 100 mcg PO CARBAJAL 04/12/20 04/12/20 Unknown magnesium oxide 400 mg PO DAILY 04/12/20 04/12/20 Unknown multivitamin with minerals 1 tab PO DAILY 04/12/20 04/12/20 Unknown [Multiple Vitamin-Minerals] potassium chloride 20 meq PO DAILY 04/12/20 04/12/20 Unknown tamsulosin 0.4 mg PO HS 04/12/20 04/12/20 Unknown trazodone 100 mg PO HS 04/12/20 04/12/20 Unknown triamcinolone acetonide 1 applic TOPICAL BID 04/12/20 04/12/20 Unknown umeclidinium-vilanterol [Anoro 1 inh INHALATION DAILY 04/12/20 04/12/20 Unknown Ellipta] verapamil 180 mg PO BID 04/12/20 04/12/20 Unknown warfarin See Rx Instructions .ROUTE .COMPLEX 04/12/20 04/12/20 Unknown Active Medications Generic Name Dose Route Start Last Admin Trade Name Freq PRN Reason Stop Dose Admin Acetaminophen 650 mg 04/12/20 15:41 04/12/20 18:22 Acetaminophen 325 Mg Tab PO 05/12/20 15:40 650 mg Q4H PRN Administration Pain or Fever Buspirone HCl 15 mg 04/12/20 21:00 04/12/20 20:56 Buspirone 15 Mg Tab PO 05/12/20 20:59 15 mg BID MAXIMILIANO Administration Piperacillin Sod/Tazobactam 115 mls @ 28.75 mls/hr 04/12/20 20:00 04/13/20 04:52 Sod 3.375 gm/ Dextrose IV 04/22/20 19:59 28.8 mls/hr Q8H MAXIMILIANO Administration Protocol Pantoprazole Sodium 40 mg/ 100 mls @ 20 mls/hr 04/12/20 16:19 04/13/20 04:52 Dextrose IV 05/12/20 16:18 8 mg/hr Q5H MAXIMILIANO 20 mls/hr Administration 8 MG/HR Levothyroxine Sodium 50 mcg 04/13/20 06:30 04/13/20 05:47 Levothyroxine Sodium 50 Mcg Tablet PO 05/13/20 06:29 50 mcg [id number] MAXIMILIANO Administration Miscellaneous 1 ea 04/12/20 16:00 04/13/20 00:23 Azelastine 137 Mcg - Order Awaiting Action N/A 05/12/20 15:59 Not Given QS MAXIMILIANO Tamsulosin HCl 0.4 mg 04/12/20 21:00 04/12/20 20:57 Tamsulosin Hcl 0.4 Mg Cap PO 05/12/20 20:59 0.4 mg HS MAXIMILIANO Administration Trazodone HCl 100 mg 04/12/20 21:00 04/12/20 20:57 Trazodone Hcl 100 Mg Tab PO 05/12/20 20:59 100 mg HS MAXIMILIANO Administration Verapamil HCl 180 mg 04/12/20 21:00 04/12/20 20:57 Verapamil Hcl 180 Mg Tabcr PO 05/12/20 20:59 180 mg BID MAXIMILIANO Administration NPO Date Last Intake of Fluids: 04/12/20 Time Last Intake of Fluids: 23:00 Date Last Intake of Solids: 04/11/20 Time Last Intake of Solids: 14:00 Past Medical History Medical History BPH (benign prostatic hyperplasia) Chronic atrial fibrillation Chronic heart failure with preserved ejection fraction (HFpEF) COPD (chronic obstructive pulmonary disease) Current use of assisted anticoagulation Depression with anxiety HLD (hyperlipidemia) HTN (hypertension) ALLEY (obstructive sleep apnea) Intolerant to CPAP Prolonged QT interval Past Family History Family History Father Stroke Mother Stroke Past Surgical History Surgical History History of cataract extraction History of colonoscopy History of total left hip arthroplasty Social History Smoking Status: Former smoker Smoking End Date: 1986 Hx Alcohol Use: Yes Alcohol type: wine and hard liquor alcohol intake frequency: 0-2 drinks per day Alcohol Intake Frequency Comment: glass or two of wine with supper, sometimes a "hardball" Hx Substance Use: No substance use type: does not use Physical Exam Vital Signs Last Vital Signs Temp 36.5 C 04/13/20 09:07 Pulse 64 04/13/20 09:07 Resp 18 04/13/20 09:07 BP 112/66 04/13/20 09:07 Pulse Ox 93 04/13/20 09:07 Testing Laboratory Results 04/13/20 00:58 04/13/20 00:58 PT 21.9 Seconds (9.0-12.0) H 04/13/20 00:58 INR 2.2 (0.9-1.1) H 04/13/20 00:58 APTT 79.0 Seconds (21.0-31.0) H* 04/12/20 Unknown Blood Type O Positive 04/12/20 11:30 Antibody Screen NEGATIVE 04/12/20 11:30
--- NOTE | 2020-04-13 09:28 | History & Physical Bridge Note ---
Date of Service April 13, 2020 History & Physical Bridge Note I have examined the patient, reviewed the History & Physical and in the interval since the performance of the History & Physical I have noted the following changes of clinical significance: no changes noted
[2020-04-13] MEDS ORDERED: LIDOCAINE HCL 2% 2 ML VIAL/AMP(20MG/ML) INFIL ONE (10:07)
[2020-04-13] MEDS ORDERED: PROPOFOL IV EMULSION 10 MG/ML 20 ML VIAL IV ONE (10:07)
--- NOTE | 2020-04-13 10:45 | GI REPORT ---
Patient Name: Wilber Isbell Procedure Date: 04/13/2020 10:02 AM Date of : 1945 Admit Type: Inpatient Age: 74 Gender: Male Attending MD: Carlos Fields MD Procedure: Upper GI endoscopy Providers: Carlos Fields MD Referring MD: Stevie Helton Indications: Melena Medicines: Propofol per Anesthesia Complications: No immediate complications. Estimated Blood Loss: Estimated blood loss: none. Procedure: Pre-Anesthesia Assessment: - Prior to the procedure, a History and Physical was performed, and patient medications, allergies and sensitivities were reviewed. The patient's tolerance of previous anesthesia was reviewed. - The risks and benefits of the procedure and the sedation options and risks were discussed with the patient. All questions were answered and informed consent was obtained. - Patient identification and proposed procedure were verified prior to the procedure by the physician and the nurse. The procedure was verified in the procedure room. - Pre-procedure physical examination revealed no contraindications to sedation. After obtaining informed consent, the endoscope was passed under direct vision. Throughout the procedure, the patient's blood pressure, pulse, and oxygen saturations were monitored continuously.The upper GI endoscopy was accomplished without difficulty. The patient tolerated the procedure well. The Endoscope was introduced through the mouth, and advanced to the second part of duodenum. Findings: The Z-line was irregular and was found 40 cm from the incisors. Biopsies were taken with a cold forceps for histology. Verification of patient identification for the specimen was done by the physician and nurse using the patient's name and date. A few localized small erosions with no bleeding and no stigmata of recent bleeding were found in the gastric antrum. Otherwise, the body has erythema consistent with gastritis. The duodenal bulb and second portion of the duodenum were normal. Impression: - Z-line irregular, 40 cm from the incisors. Biopsied to r/o Arana's. - Erosive gastropathy with no bleeding and no stigmata of recent bleeding. - Normal duodenal bulb and second portion of the duodenum. Recommendation: - Return patient to hospital weeks for ongoing care. - Avoid NSAIDs. - PO PPI for 4 weeks. - Recall GI if needed. Carlos Fields MD 04/13/2020 10:45:08 AM This report has been signed electronically. Note Initiated On: 04/13/2020 10:02 AM Number of Addenda: 0 I attest to the content of the Intraoperative Record and orders documented therein, exceptions below {[id number]}
[2020-04-13] MEDS: CETIRIZINE HCL 10 MG TABLET PO SCH (11:19)
[2020-04-13] MEDS: UMECLIDINIUM/VILANTEROL 62.5/25MCG 7 PUFFS/INHALER INH SCH (11:19)
[2020-04-13] MEDS: FLUTICASONE FUROATE 200MCG 14 PUFFS/INHALER INH SCH (11:19)
[2020-04-13] MEDS: FLUoxetine HCL 10 MG CAP PO SCH (11:20)
[2020-04-13] MEDS: CYANOCOBALAMIN 500 MCG TABLET (VITAMIN B-12) PO SCH (11:20)
[2020-04-13] MEDS: VERAPAMIL HCL 180 MG TABCR PO SCH ×2 (11:21→20:18)
[2020-04-13] MEDS: ATORVASTATIN 10 MG TAB PO SCH (11:21)
[2020-04-13] MEDS: busPIRone 15 MG TAB PO SCH ×2 (11:21→20:18)
[2020-04-13] MEDS: MAGNESIUM OXIDE 400 MG TAB PO SCH (11:22)
[2020-04-13] MEDS: MULTIVITAMIN TAB PO SCH (11:22)
[2020-04-13] MEDS: POTASSIUM CHLORIDE 20 MEQ TABCR PO SCH (11:22)
[2020-04-13 13:01] LABS: Hematocrit (blood only) 33.8 % (42-52); Hemoglobin 11.2 g/dL (14.0-18.0)
--- NOTE | 2020-04-13 13:15 | Anesthesiology Progress Note ---
Date of Service April 13, 2020 Anesthesia Post Procedure Vital Signs Vital Signs: Temp Pulse Pulse Resp BP BP BP 04/13/20 11:38 36.8 C 85 20 115/77 04/13/20 11:02 80 17 120/67 04/13/20 10:48 70 16 100/55 L 04/13/20 10:37 73 18 101/60 04/13/20 09:07 36.5 C 64 18 112/66 04/13/20 07:37 36.6 C 68 18 115/68 04/13/20 04:00 36.5 C 68 20 109/66 04/12/20 23:25 37.1 C 68 20 108/68 04/12/20 20:42 36.5 C 63 18 109/61 04/12/20 16:00 80 04/12/20 15:36 36.7 C 70 18 120/65 04/12/20 14:20 60 16 04/12/20 14:13 60 19 116/60 04/12/20 14:10 67 13 04/12/20 14:01 65 17 04/12/20 14:00 64 17 124/68 04/12/20 13:50 62 18 04/12/20 13:40 66 18 04/12/20 13:38 67 18 126/66 04/12/20 13:31 96 H 17 Pulse Ox 04/13/20 11:38 93 04/13/20 11:02 98 04/13/20 10:48 98 04/13/20 10:37 94 04/13/20 09:07 93 04/13/20 07:37 91 04/13/20 04:00 92 04/12/20 23:25 92 04/12/20 20:42 92 04/12/20 16:00 04/12/20 15:36 93 04/12/20 14:20 96 04/12/20 14:13 94 04/12/20 14:10 94 04/12/20 14:01 95 04/12/20 14:00 95 04/12/20 13:50 95 04/12/20 13:40 96 04/12/20 13:38 96 04/12/20 13:31 96 Pain Intensity Right Upper Abdomen: Pain Intensity: 2 Transfer of Care Handoff Completed per policy Notes Mental Status: alert / awake / arousable and participated in evaluation Patient Amnestic to Procedure: Yes Nausea / Vomiting: adequately controlled Pain: adequately controlled Airway Patency, RR, SpO2: stable & adequate BP & HR: stable & adequate Hydration State: stable & adequate Anesthetic Complications: no major complications apparent
[2020-04-13 15:32] LABS: Folate (Folic Acid) 5.96 ng/ml (>5.38)
[2020-04-13] MEDS: traZODone HCL 100 MG TAB PO SCH (20:18)
[2020-04-13] MEDS: PANTOprazole 40 MG TAB PO SCH (20:19)
[2020-04-13] MEDS: TAMSULOSIN HCL 0.4 MG CAP PO SCH (20:20)
--- NOTE | 2020-04-13 23:21 | Hospitalist Progress Note ---
Date of Service April 13, 2020 Assessment & Plan (1) Acute GI bleeding: Recent melena with documented heme + stools. On warfarin for AF with elevated INR. Hemorrhagic disorder due to extrinsic circulating anticoagulants. Daily alcohol consumption. Received IV pantoprazole. Hgb 12.1 --> 11.1. GI consulted. EGD demonstrated irregular Z-line and erosive gastropathy without active bleeding. Continue PPI. Avoidance of alcoholic beverages. (2) Sigmoid diverticulitis: CT demonstrated sigmoid diverticulitis without evidence of abscess or perfora tion. Continue piperacillin / tazobactam. (3) Supratherapeutic INR: INR 7.4 day of admission. Received vitamin K. INR today 2.2. Follow. (4) Chronic heart failure with preserved ejection fraction (HFpEF): Compensated. (5) Chronic atrial fibrillation: Rate controlled on verapamil. Warfarin on hold due to GI bleeding. (6) HTN (hypertension): Continue verapamil. (7) COPD (chronic obstructive pulmonary disease): Stable. (8) Hypokalemia: K 3.2. IV and PO replacement. Follow. (9) Alcohol abuse: No signs / symptoms of withdrawal. Continue alcohol withdrawal protocol. (10) DVT prophylaxis: On warfarin, initially with supratherapeutic INR. SCD's when INR < 2. Ambulate. (11) Discharge planning issues: Anticipated discharge to home. Internal Medicine follow-up with Dr. Lidia Faulkner. Admission and Anticipated Discharge Date Admission Date: April 12, 2020 Subjective Recheck for GI bleeding and abdominal pain. Patient seen in their room around 1520. EGD went well today. No nausea or vomiting. LLQ abdominal pain improved. No bowel movement today. Review of Systems: Constitutional- no fever. Cardiac- no chest pain. Pulmonary- no cough; chronic dyspnea secondary to COPD GI- as noted above. - no urinary symptoms. Otherwise, as noted above. Physical Exam Constitutional: no acute distress Respiratory: no respiratory distress Auscultation: lungs clear to auscultation bilaterally Cardiovascular: Rate/Rhythm: regular rate and regular rhythm Vessels: no JVD Extremities: no calf tenderness and no edema Gastrointestinal (Abdomen): Inspection/Auscultation: normal bowel sounds Percussion/Palpation: + abdomen tender (mild LLQ tenderness without rebound or guarding) and abdomen soft Musculoskeletal: Extremities: no cyanosis Skin: no rashes, warm and dry Psychiatric: Orientation: alert and oriented x 3 Results & Data Results & Data ([facility]) Vital Signs (Past 12 Hours) Vital Signs Temp Pulse Pulse Resp BP BP Pulse Ox 04/13/20 19:00 36.4 C L 67 18 107/68 96 04/13/20 16:44 69 04/13/20 15:00 36.4 C L 67 18 100/61 94 04/13/20 11:38 36.8 C 85 20 115/77 93 Laboratory Results 04/13/20 12:53 04/13/20 00:58
[2020-04-14] MEDS ORDERED: ZOLPIDEM TARTRATE 5 MG TAB PO PRN (00:15)
[2020-04-14] MEDS: PIPERACILLIN/TAZOBACTAM 3.375 GM in DEXTROSE 5% 100 ML IV SCH ×3 (04:15→20:40)
[2020-04-14] MEDS: GABAPENTIN 600 MG TAB PO SCH ×2 (04:16→15:56)
--- NOTE | 2020-04-14 05:12 | Electrocardiogram Report ---
Test Reason : Blood Pressure : / mmHG Vent. Rate : 066 BPM Atrial Rate : 000 BPM P-R Int : 000 ms QRS Dur : 088 ms QT Int : 512 ms P-R-T Axes : 000 040 014 degrees QTc Int : 537 ms Atrial fibrillation Cannot rule out Anterior infarct , age undetermined Prolonged QT Abnormal ECG When compared with ECG of 12-APR-2020 11:37, Nonspecific T wave abnormality, worse in Anterior leads Confirmed by Dinesh Webster ([id number]) on 04/14/2020 5:11:52 AM Referred By: REFERRED SELF Confirmed By:Dinesh Webster
[2020-04-14] MEDS: LEVOTHYROXINE SODIUM 50 MCG TABLET PO SCH (06:23)
[2020-04-14 06:39] LABS: Hematocrit (blood only) 34.8 % (42-52); Hemoglobin 11.5 g/dL (14.0-18.0); Mean Corpuscular Hemoglobin 35.9 pg (25-34); Mean Corpuscular Volume 108.8 fL (80-100); Mean Platelet Volume 9.3 fL (7.4-10.4); Nucleated RBC # (auto) 0.02 K/uL (0-0); Nucleated RBC % (auto) 0.5 %; Platelet Count 137 K/uL (130-400); RDW Coefficient of Variation 15.1 % (11.5-14.5); RDW Standard Deviation 58.8 fL (36.4-46.3); White Blood Count 4.16 K/uL (4.8-10.8)
[2020-04-14 07:12] LABS: BUN Creatinine Ratio 6.5 (10-20); Calcium 7.7 mg/dl (8.5-10.1); Creatinine Clr Calc Pharmacy 67.7 ml/min; Est GFR (African American) 76.8; Est GFR (Non-African American) 66.2; Magnesium 2.2 mg/dl (1.8-2.4); Potassium 3.5 mmol/L (3.5-5.1)
[2020-04-14 07:14] LABS: INR 2.3 (0.9-1.1); Prothrombin Time 22.9 Seconds (9.0-12.0)
[2020-04-14] MEDS: VERAPAMIL HCL 180 MG TABCR PO SCH ×2 (08:07→20:37)
[2020-04-14] MEDS: CYANOCOBALAMIN 500 MCG TABLET (VITAMIN B-12) PO SCH (08:07)
[2020-04-14] MEDS: ATORVASTATIN 10 MG TAB PO SCH (08:07)
[2020-04-14] MEDS: busPIRone 15 MG TAB PO SCH ×2 (08:07→20:36)
[2020-04-14] MEDS: POTASSIUM CHLORIDE 20 MEQ TABCR PO SCH (08:07)
[2020-04-14] MEDS: FLUoxetine HCL 10 MG CAP PO SCH (08:07)
[2020-04-14] MEDS: UMECLIDINIUM/VILANTEROL 62.5/25MCG 7 PUFFS/INHALER INH SCH (08:08)
[2020-04-14] MEDS: CETIRIZINE HCL 10 MG TABLET PO SCH (08:08)
[2020-04-14] MEDS: MAGNESIUM OXIDE 400 MG TAB PO SCH (08:08)
[2020-04-14] MEDS: FLUTICASONE FUROATE 200MCG 14 PUFFS/INHALER INH SCH (08:08)
[2020-04-14] MEDS: MULTIVITAMIN TAB PO SCH (08:08)
[2020-04-14] MEDS: PANTOprazole 40 MG TAB PO SCH ×2 (08:17→20:38)
[2020-04-14] MEDS: FUROSEMIDE 20 MG TAB PO SCH (10:21)
[2020-04-14] MEDS: ACETAMINOPHEN 325 MG TAB PO PRN (15:57)
[2020-04-14 18:03] LABS: Cdiff Antigen Positive; Cdiff Toxin A+B Negative Cdiff Toxin (Negative)
[2020-04-14] MEDS: TAMSULOSIN HCL 0.4 MG CAP PO SCH (20:38)
[2020-04-14] MEDS: traZODone HCL 100 MG TAB PO SCH (20:38)
[2020-04-14] MEDS ORDERED: DIPHENOXYLATE/ATROPINE 2.5/0.025MG TAB PO PRN (21:12)
--- NOTE | 2020-04-14 21:12 | Hospitalist Progress Note ---
Date of Service April 14, 2020 Assessment & Plan (1) Acute GI bleeding: Recent melena with documented heme + stools. On warfarin for AF with elevated INR. Hemorrhagic disorder due to extrinsic circulating anticoagulants. Daily alcohol consumption. Received IV pantoprazole. Hgb 12.1 --> 11.1. GI consulted. EGD demonstrated irregular Z-line and erosive gastropathy without active bleeding. Hgb today = 11.5. Continue PPI. Avoidance of alcoholic beverages. (2) Sigmoid diverticulitis: CT demonstrated sigmoid diverticulitis without evidence of abscess or perforation. Continue piperacillin / tazobactam. (3) Supratherapeutic INR: INR 7.4 day of admission. Received vitamin K. INR today 2.3. Follow. (4) Chronic heart failure with preserved ejection fraction (HFpEF): Compensated. (5) Chronic atrial fibrillation: Rate controlled on verapamil. Warfarin on hold due to GI bleeding. (6) HTN (hypertension): Continue verapamil. (7) COPD (chronic obstructive pulmonary disease): Stable. (8) Hypokalemia: K as low as 3.2. IV and PO replacement.\ K today = 3.5. Follow. (9) Alcohol abuse: No signs / symptoms of withdrawal. Continue alcohol withdrawal protocol. (10) Diarrhea: Had some diarrhea prior to admission. 4 loose stools today. Check stool for C diff. (11) DVT prophylaxis: On warfarin, initially with supratherapeutic INR. SCD's when INR < 2. Ambulate. (12) Discharge planning issues: Anticipated discharge to home. Internal Medicine follow-up with Dr. Lidia Faulkner. Admission and Anticipated Discharge Date Admission Date: April 12, 2020 Subjective Recheck for GI bleeding and abdominal pain. Patient seen in their room around 1530. No nausea or vomiting. LLQ abdominal pain persists. 4 loose bowel movements today with fecal incontinence. Stools not as dark as they were; no gross blood. No tremors or sweats. Review of Systems: Constitutional- no fever. Cardiac- no chest pain. Pulmonary- no cough; chronic dyspnea secondary to COPD GI- as noted above. - no urinary symptoms. Otherwise, as noted above. Physical Exam Constitutional: no acute distress Respiratory: no respiratory distress Auscultation: lungs clear to auscultation bilaterally Cardiovascular: Rate/Rhythm: regular rate and regular rhythm Vessels: no JVD Extremities: no calf tenderness and no edema Gastrointestinal (Abdomen): Inspection/Auscultation: normal bowel sounds Percussion/Palpation: + abdomen tender (mild LLQ tenderness without rebound or guarding) and abdomen soft Musculoskeletal: Extremities: no cyanosis Skin: no rashes, warm and dry Psychiatric: Orientation: alert and oriented x 3 Results & Data Results & Data ([facility]) Vital Signs (Past 12 Hours) Vital Signs Temp Pulse Pulse Resp BP Pulse Ox 04/14/20 20:25 36.6 C 75 23 112/67 95 04/14/20 15:13 69 04/14/20 11:28 36.5 C 78 18 104/66 92 Laboratory Results 04/14/20 06:25 04/14/20 06:25
[2020-04-15] MEDS: ACETAMINOPHEN 325 MG TAB PO PRN ×3 (00:19→22:37)
[2020-04-15] MEDS: PIPERACILLIN/TAZOBACTAM 3.375 GM in DEXTROSE 5% 100 ML IV SCH ×3 (05:04→20:21)
[2020-04-15] MEDS: GABAPENTIN 600 MG TAB PO SCH (05:04)
[2020-04-15] MEDS: LEVOTHYROXINE SODIUM 50 MCG TABLET PO SCH (05:05)
[2020-04-15 06:26] LABS: Hemoglobin 11.6 g/dL (14.0-18.0); Mean Corpuscular Hemoglobin 36.4 pg (25-34); Mean Corpuscular Hgb Conc 33.1 g/dL (32-36); Mean Corpuscular Volume 109.7 fL (80-100); Mean Platelet Volume 9.5 fL (7.4-10.4); Nucleated RBC # (auto) 0.02 K/uL (0-0); Nucleated RBC % (auto) 0.4 %; Platelet Count 152 K/uL (130-400); RDW Coefficient of Variation 15.6 % (11.5-14.5); RDW Standard Deviation 60.1 fL (36.4-46.3); Red Blood Count 3.19 M/uL (4.7-6.1); White Blood Count 5.06 K/uL (4.8-10.8)
[2020-04-15 06:37] LABS: INR 1.7 (0.9-1.1); Prothrombin Time 17.8 Seconds (9.0-12.0)
[2020-04-15 07:02] LABS: BUN Creatinine Ratio 8.1 (10-20); Calcium 8.1 mg/dl (8.5-10.1); Creatinine Clr Calc Pharmacy 70.5 ml/min; Est GFR (African American) 78.5; Est GFR (Non-African American) 67.7; Potassium 3.4 mmol/L (3.5-5.1)
[2020-04-15] MEDS: UMECLIDINIUM/VILANTEROL 62.5/25MCG 7 PUFFS/INHALER INH SCH (08:09)
[2020-04-15] MEDS: PANTOprazole 40 MG TAB PO SCH ×2 (08:09→20:22)
[2020-04-15] MEDS: FLUoxetine HCL 10 MG CAP PO SCH (08:09)
[2020-04-15] MEDS: MULTIVITAMIN TAB PO SCH (08:09)
[2020-04-15] MEDS: VERAPAMIL HCL 180 MG TABCR PO SCH ×2 (08:09→20:22)
[2020-04-15] MEDS: CYANOCOBALAMIN 500 MCG TABLET (VITAMIN B-12) PO SCH (08:09)
[2020-04-15] MEDS: FUROSEMIDE 20 MG TAB PO SCH (08:09)
[2020-04-15] MEDS: ATORVASTATIN 10 MG TAB PO SCH (08:09)
[2020-04-15] MEDS: POTASSIUM CHLORIDE 20 MEQ TABCR PO SCH (08:09)
[2020-04-15] MEDS: MAGNESIUM OXIDE 400 MG TAB PO SCH (08:09)
[2020-04-15] MEDS: busPIRone 15 MG TAB PO SCH ×2 (08:09→20:22)
[2020-04-15] MEDS: CETIRIZINE HCL 10 MG TABLET PO SCH (08:09)
[2020-04-15] MEDS: FLUTICASONE FUROATE 200MCG 14 PUFFS/INHALER INH SCH (08:09)
--- NOTE | 2020-04-15 19:14 | Hospitalist Progress Note ---
Date of Service April 15, 2020 Assessment & Plan (1) Acute GI bleeding: Recent melena with documented heme + stools. On warfarin for AF with elevated INR. Hemorrhagic disorder due to extrinsic circulating anticoagulants. Daily alcohol consumption. Received IV pantoprazole. Hgb 12.1 --> 11.1. GI consulted. EGD demonstrated irregular Z-line and erosive gastropathy without active bleeding. Hgb today = 11.6. Continue PPI. Avoidance of alcoholic beverages recommended. (2) Sigmoid diverticulitis: CT demonstrated sigmoid diverticulitis without evidence of abscess or perforation. Continue piperacillin / tazobactam. (3) Supratherapeutic INR: INR 7.4 day of admission. Received vitamin K. INR today 1.7. Follow. (4) Chronic heart failure with preserved ejection fraction (HFpEF): Compensated. (5) Chronic atrial fibrillation: Rate controlled on verapamil. Warfarin on hold due to GI bleeding. (6) HTN (hypertension): Continue verapamil. (7) COPD (chronic obstructive pulmonary disease): Stable. (8) Hypokalemia: K as low as 3.2. IV and PO replacement.\ K today = 3.4. Follow. (9) Alcohol abuse: More anxious today. Also has headache and diffuse body aches. Last drink was about 5 days ago. Continue alcohol withdrawal protocol. (10) Diarrhea: Several loose stools 04/14. C diff gene +, but toxin negative. Probably does not have C diff colitis. Diarrhea improved. (11) DVT prophylaxis: On warfarin, initially with supratherapeutic INR. SCD's when INR < 2. Ambulate. (12) Discharge planning issues: Anticipated discharge to home. Internal Medicine follow-up with Dr. Lidia Faulkner. Admission and Anticipated Discharge Date Admission Date: April 12, 2020 Subjective Recheck for GI bleeding and other problems. Patient seen in their room around 1140. Headache. Anxious. Diffuse myalgias. No nausea or vomiting. LLQ abdominal pain improved. No loose stools this morning. Review of Systems: Constitutional- no fever. Cardiac- no chest pain. Pulmonary- no cough; chronic dyspnea secondary to COPD GI- as noted above. - no urinary symptoms. Otherwise, as noted above. Physical Exam Constitutional: no acute distress Respiratory: no respiratory distress Auscultation: lungs clear to auscultation bilaterally Cardiovascular: Rate/Rhythm: regular rate and regular rhythm Vessels: no JVD Extremities: no calf tenderness and no edema Gastrointestinal (Abdomen): Inspection/Auscultation: normal bowel sounds Percussion/Palpation: + abdomen tender (mild LLQ tenderness without rebound or guarding) and abdomen soft Musculoskeletal: Extremities: no cyanosis Skin: no rashes, warm and dry Psychiatric: Orientation: alert and oriented x 3 Affect: + anxious affect Results & Data Results & Data ([facility]) Vital Signs (Past 12 Hours) Vital Signs Temp Pulse Pulse Resp BP Pulse Ox 04/15/20 16:26 36.4 C L 71 18 122/69 93 04/15/20 15:09 66 04/15/20 12:06 36.6 C 65 17 109/64 94 04/15/20 08:17 36.6 C 73 17 114/68 93 04/15/20 08:00 70 Laboratory Results Laboratory Results - last 24 hr 04/15/20 04/15/20 04/15/20 05:54 05:54 05:54 WBC 5.06 RBC 3.19 L Hgb 11.6 L Hct 35.0 L MCV 109.7 H MCH 36.4 H MCHC 33.1 RDW Std Deviation 60.1 H RDW Coeff of Vijaya 15.6 H Plt Count 152 MPV 9.5 Absolute Nucleated RBC 0.02 H Nucleated RBC % (auto) 0.4 PT 17.8 H INR 1.7 H Sodium 136 Potassium 3.4 L Chloride 100 Carbon Dioxide 30 Anion Gap 6.0 BUN 9 Creatinine 1.08 Est Cr Clr Drug Dosing 70.5 Est GFR ( Amer) 78.5 Est GFR (Non-Af Amer) 67.7 BUN/Creatinine Ratio 8.1 L Glucose 92 Calcium 8.1 L
[2020-04-15] MEDS: traZODone HCL 100 MG TAB PO SCH (20:23)
[2020-04-15] MEDS: TAMSULOSIN HCL 0.4 MG CAP PO SCH (20:23)
[2020-04-16] MEDS: PIPERACILLIN/TAZOBACTAM 3.375 GM in DEXTROSE 5% 100 ML IV SCH ×3 (03:11→20:33)
[2020-04-16] MEDS ORDERED: GABAPENTIN 600 MG TAB PO SCH (04:00)
[2020-04-16 05:43] LABS: Hematocrit (blood only) 32.6 % (42-52); Hemoglobin 10.9 g/dL (14.0-18.0); Mean Corpuscular Hemoglobin 36.7 pg (25-34); Mean Corpuscular Hgb Conc 33.4 g/dL (32-36); Mean Corpuscular Volume 109.8 fL (80-100); Mean Platelet Volume 9.4 fL (7.4-10.4); Platelet Count 137 K/uL (130-400); RDW Coefficient of Variation 15.8 % (11.5-14.5); RDW Standard Deviation 61.7 fL (36.4-46.3); Red Blood Count 2.97 M/uL (4.7-6.1); White Blood Count 5.48 K/uL (4.8-10.8)
[2020-04-16 06:08] LABS: BUN Creatinine Ratio 10.6 (10-20); Calcium 7.8 mg/dl (8.5-10.1); Creatinine Clr Calc Pharmacy 74.8 ml/min; Est GFR (African American) 86.2; Est GFR (Non-African American) 74.3; Potassium 3.7 mmol/L (3.5-5.1)
[2020-04-16] MEDS ORDERED: LEVOTHYROXINE SODIUM 100 MCG TABLET PO SCH (06:30)
[2020-04-16] MEDS: FLUTICASONE FUROATE 200MCG 14 PUFFS/INHALER INH SCH (07:45)
[2020-04-16] MEDS: VERAPAMIL HCL 180 MG TABCR PO SCH ×2 (07:45→22:35)
[2020-04-16] MEDS: UMECLIDINIUM/VILANTEROL 62.5/25MCG 7 PUFFS/INHALER INH SCH (07:45)
[2020-04-16] MEDS: busPIRone 15 MG TAB PO SCH ×2 (07:45→22:36)
[2020-04-16] MEDS: MAGNESIUM OXIDE 400 MG TAB PO SCH (07:46)
[2020-04-16] MEDS: FUROSEMIDE 20 MG TAB PO SCH (07:46)
[2020-04-16] MEDS: CETIRIZINE HCL 10 MG TABLET PO SCH (07:46)
[2020-04-16] MEDS: PANTOprazole 40 MG TAB PO SCH ×2 (07:46→22:34)
[2020-04-16] MEDS: CYANOCOBALAMIN 500 MCG TABLET (VITAMIN B-12) PO SCH (07:46)
[2020-04-16] MEDS: FLUoxetine HCL 10 MG CAP PO SCH (07:46)
[2020-04-16] MEDS: ATORVASTATIN 10 MG TAB PO SCH (07:46)
[2020-04-16] MEDS: POTASSIUM CHLORIDE 20 MEQ TABCR PO SCH (07:46)
[2020-04-16] MEDS: MULTIVITAMIN TAB PO SCH (07:46)
--- NOTE | 2020-04-16 13:14 | XRay Report ---
XR chest 2V PA/lateral HISTORY: 74 years-old Male cough acute cough COMPARISON: CT abdomen and pelvis 04/12/2020 TECHNIQUE: PA and lateral views of the chest FINDINGS: Cardiac silhouette is mildly enlarged. Calcified plaque of the thoracic aortic arch. Small pleural ef fusions. No pneumothorax, overt pulmonary edema or airspace consolidation typical for pneumonia. Mild dependent left lung base opacities. Degenerative changes of the shoulders and spine. Bones appear gr ossly intact. IMPRESSION: 1. Cardiomegaly without overt pulmonary edema. 2. Small pleural effusions with left lung base opacities suggestive of probable atelectasis. ACT 112: Negative or not required by law. The above report was generated using voice recognition software. It may contain grammatical, syntax o r spelling errors. Electronically signed by: Soren Lorenzo M.D. 04/16/2020 1:13 PM
[2020-04-16] MEDS: ACETAMINOPHEN 325 MG TAB PO PRN ×2 (13:30→22:34)
--- NOTE | 2020-04-16 19:10 | Hospitalist Progress Note ---
Date of Service April 16, 2020 Assessment & Plan (1) Acute GI bleeding: Recent melena with documented heme + stools. On warfarin for AF with elevated INR. Hemorrhagic disorder due to extrinsic circulating anticoagulants. Daily alcohol consumption. Received IV pantoprazole. Hgb 12.1 --> 11.1. GI consulted. EGD demonstrated irregular Z-line and erosive gastropathy without active bleeding. Hgb today = 10.9. Continue PPI. Avoidance of alcoholic beverages recommended. (2) Sigmoid diverticulitis: CT demonstrated sigmoid diverticulitis without evidence of abscess or perforation. Continue piperacillin / tazobactam. (3) Supratherapeutic INR: INR 7.4 day of admission. Received vitamin K. INR yesterday 1.7. Follow. (4) Chronic heart failure with preserved ejection fraction (HFpEF): Compensated. Continue furosemide. (5) Chronic atrial fibrillation: Rate controlled on verapamil. Warfarin on hold due to GI bleeding. (6) HTN (hypertension): Continue verapamil. (7) COPD (chronic obstructive pulmonary disease): Stable. (8) Hypokalemia: K as low as 3.2. IV and PO replacement. K today = 3.7. Follow. (9) Alcohol abuse: Headache and anxiety possibly due to alcohol withdrawal. Last drink was about 6 days ago. Symptoms improved. Continue alcohol withdrawal protocol. (10) Diarrhea: Several loose stools 04/14. C diff gene +, but toxin negative. Probably does not have C diff colitis. Diarrhea improved. (11) Cough: New complaint of cough 04/16. SARS-CoV-2 negative x 2. No infiltrates on chest x-ray. Basilar atelectasis was noted. Incentive spirometry. (12) DVT prophylaxis: On warfarin, initially with supratherapeutic INR. SCD's when INR < 2. Ambulate. (13) Discharge planning issues: Anticipated discharge to home. Internal Medicine follow-up with Dr. Lidia Faulkner. Admission and Anticipated Discharge Date Admission Date: April 12, 2020 Subjective Recheck for GI bleeding and other problems. Patient seen in their room around 1010. Headache improved. Less anxious. Myalgias improved. No nausea or vomiting. LLQ abdominal pain persists. Soft stools this morning without melena or hematochezia. Nonproductive cough- new. Dyspnea at baseline. Review of Systems: Constitutional- no fever. Cardiac- no chest pain. Pulmonary- as noted above GI- as noted above. - chronic urinary hesitancy and frequency. Otherwise, as noted above. Physical Exam Constitutional: no acute distress Respiratory: no respiratory distress Auscultation: + rhonchi (few) and + wheezes (mild) Cardiovascular: Rate/Rhythm: regular rate and regular rhythm Vessels: no JVD Extremities: no calf tenderness and no edema Gastrointestinal (Abdomen): Inspection/Auscultation: normal bowel sounds Percussion/Palpation: + abdomen tender (mild LLQ tenderness without rebound or guarding) and abdomen soft Musculoskeletal: Extremities: no cyanosis Skin: no rashes, warm and dry Psychiatric: Orientation: alert and oriented x 3 Affect: + anxious affect Results & Data Results & Data ([facility]) Vital Signs (Past 12 Hours) Vital Signs Temp Pulse Pulse Resp BP Pulse Ox 04/16/20 14:51 72 04/16/20 10:21 65 04/16/20 07:38 36.5 C 71 18 124/72 95 Laboratory Results Laboratory Results - last 24 hr 04/16/20 04/16/20 04/16/20 05:26 05:26 Unknown WBC 5.48 RBC 2.97 L Hgb 10.9 L Hct 32.6 L MCV 109.8 H MCH 36.7 H MCHC 33.4 RDW Std Deviation 61.7 H RDW Coeff of Vijaya 15.8 H Plt Count 137 MPV 9.4 Sodium 136 Potassium 3.7 Chloride 102 Carbon Dioxide 30 Anion Gap 4.0 BUN 11 Creatinine 1.00 Est Cr Clr Drug Dosing 74.8 Est GFR ( Amer) 86.2 Est GFR (Non-Af Amer) 74.3 BUN/Creatinine Ratio 10.6 Glucose 97 Calcium 7.8 L Total Creatine Kinase 44 COVID-19 Eval Order Covid19 Done at [facility] COVID-19 PCR 04/16/20 Unknown WBC RBC Hgb Hct MCV MCH MCHC RDW Std Deviation RDW Coeff of Vijaya Plt Count MPV Sodium Potassium Chloride Carbon Dioxide Anion Gap BUN Creatinine Est Cr Clr Drug Dosing Est GFR ( Amer) Est GFR (Non-Af Amer) BUN/Creatinine Ratio Glucose Calcium Total Creatine Kinase COVID-19 Eval Order COVID-19 PCR NEGATIVE Diagnostic Findings CHEST X-RAY (reviewed by undersigned and formally interpreted by Radiology) FINDINGS: Cardiac silhouette is mildly enlarged. Calcified plaque of the thoracic aortic arch. Small pleural effusions. No pneumothorax, overt pulmonary edema or airspace consolidation typical for pneumonia. Mild dependent left lung base opacities. Degenerative changes of the shoulders and spine. Bones appear grossly intact. IMPRESSION: 1. Cardiomegaly without overt pulmonary edema. 2. Small pleural effusions with left lung base opacities suggestive of probable atelectasis. Electronically signed by: Soren Lorenzo M.D. 04/16/2020 1:13 PM
[2020-04-16] MEDS ORDERED: LORazepam 0.5 MG/1 ML VIAL IV STA (20:58)
[2020-04-16] MEDS: TAMSULOSIN HCL 0.4 MG CAP PO SCH (22:36)
[2020-04-16] MEDS: traZODone HCL 100 MG TAB PO SCH (22:37)
[2020-04-17] MEDS: ACETAMINOPHEN 325 MG TAB PO PRN ×2 (02:55→11:52)
[2020-04-17] MEDS: PIPERACILLIN/TAZOBACTAM 3.375 GM in DEXTROSE 5% 100 ML IV SCH (04:45)
[2020-04-17] MEDS: LEVOTHYROXINE SODIUM 50 MCG TABLET PO SCH (06:50)
[2020-04-17 07:24] LABS: Hematocrit (blood only) 33.8 % (42-52); Hemoglobin 11.2 g/dL (14.0-18.0); Mean Corpuscular Hemoglobin 36.5 pg (25-34); Mean Corpuscular Hgb Conc 33.1 g/dL (32-36); Mean Corpuscular Volume 110.1 fL (80-100); Mean Platelet Volume 9.4 fL (7.4-10.4); Platelet Count 173 K/uL (130-400); RDW Coefficient of Variation 15.7 % (11.5-14.5); RDW Standard Deviation 62.7 fL (36.4-46.3); Red Blood Count 3.07 M/uL (4.7-6.1); White Blood Count 4.58 K/uL (4.8-10.8)
[2020-04-17 07:58] LABS: BUN Creatinine Ratio 12.2 (10-20); Calcium 8.7 mg/dl (8.5-10.1); Creatinine Clr Calc Pharmacy 75.6 ml/min; Est GFR (African American) 87.2; Est GFR (Non-African American) 75.2; Potassium 3.5 mmol/L (3.5-5.1)
[2020-04-17] MEDS: UMECLIDINIUM/VILANTEROL 62.5/25MCG 7 PUFFS/INHALER INH SCH (08:44)
[2020-04-17] MEDS: CETIRIZINE HCL 10 MG TABLET PO SCH (08:44)
[2020-04-17] MEDS: FLUTICASONE FUROATE 200MCG 14 PUFFS/INHALER INH SCH (08:44)
[2020-04-17] MEDS: CYANOCOBALAMIN 500 MCG TABLET (VITAMIN B-12) PO SCH (08:44)
[2020-04-17] MEDS: FUROSEMIDE 20 MG TAB PO SCH (08:44)
[2020-04-17] MEDS: MAGNESIUM OXIDE 400 MG TAB PO SCH (08:45)
[2020-04-17] MEDS: PANTOprazole 40 MG TAB PO SCH (08:45)
[2020-04-17] MEDS: ATORVASTATIN 10 MG TAB PO SCH (08:45)
[2020-04-17] MEDS: MULTIVITAMIN TAB PO SCH (08:45)
[2020-04-17] MEDS: VERAPAMIL HCL 180 MG TABCR PO SCH (08:45)
[2020-04-17] MEDS: POTASSIUM CHLORIDE 20 MEQ TABCR PO SCH (08:45)
[2020-04-17] MEDS: FLUoxetine HCL 10 MG CAP PO SCH (08:45)
[2020-04-17] MEDS: busPIRone 15 MG TAB PO SCH (09:04)
--- NOTE | 2020-04-17 12:48 | Hospitalist Progress Note ---
Date of Service April 17, 2020 Assessment & Plan (1) Acute GI bleeding: Recent melena with documented heme + stools. On warfarin for AF with elevated INR. Hemorrhagic disorder due to extrinsic circulating anticoagulants. Daily alcohol consumption. Received IV pantoprazole. Hgb 12.1 --> 11.1. GI consulted. EGD demonstrated irregular Z-line and erosive gastropathy without active bleeding. Day of discharge = 10.9. Continue PPI x 1 month per GI. Avoidance of ASA, NSAID's, and alcoholic beverages recommended. (2) Sigmoid diverticulitis: CT demonstrated sigmoid diverticulitis without evidence of abscess or perforation. Received piperacillin / tazobactam with improvement. Discharge on amoxicillin / clavulanic acid to complete 10 day course of therapy. Colonoscopy recommended in 4-6 weeks. (3) Supratherapeutic INR: INR 7.4 day of admission. Received vitamin K. INR 04/15 was 1.7. Follow. (4) Chronic heart failure with preserved ejection fraction (HFpEF): Compensated. Continue furosemide. (5) Chronic atrial fibrillation: Rate controlled on verapamil. Warfarin held due to GI bleeding. Resuming warfarin at time of discharge. Ongoing monitoring and management per [facility]. (6) HTN (hypertension): Continue verapamil. (7) COPD (chronic obstructive pulmonary disease): Stable. (8) Hypokalemia: K as low as 3.2. IV and PO replacement. K today = 3.5. Continue KCl 20 mEq daily. Follow. (9) Alcohol abuse: Drinks on a daily basis. Headache and anxiety possibly due to alcohol withdrawal. Managed per alcohol withdrawal protocol with gabapentin taper. Symptoms improved. Abstention recommended. (10) Diarrhea: Several loose stools 04/14. C diff gene +, but toxin negative. Probably does not have C diff colitis (per negative toxin). Diarrhea improved. (11) Cough: New complaint of cough 04/16. SARS-CoV-2 negative x 2. No infiltrates on chest x-ray. Basilar atelectasis was noted. Incentive spirometry. Prescribed doxycycline for bronchitis. (12) DVT prophylaxis: On warfarin, initially with supratherapeutic INR. SCD's initiated when INR < 2. Ambulate. (13) Discharge planning issues: Discharge to home. Internal Medicine follow-up with Dr. Lidia Faulkner. Ongoing INR monitoring and management of warfarin per [facility]. Outpatient colonoscopy in 4-6 weeks to be arranged. Admission and Anticipated Discharge Date Admission Date: April 12, 2020 Subjective Recheck for GI bleeding and other problems. Patient seen in their room around 1040. Headache essentially resolved. Less anxious. No nausea or vomiting. LLQ abdominal pain resolved. Passed stool this morning without diarrhea, melena, or hematochezia. Mild nonproductive cough. Dyspnea at baseline. Review of Systems: Constitutional- no fever. Cardiac- no chest pain. Pulmonary- as noted above GI- as noted above. - chronic urinary hesitancy and frequency. Otherwise, as noted above. Physical Exam Constitutional: no acute distress Respiratory: no respiratory distress Auscultation: + wheezes (mild) Cardiovascular: Rate/Rhythm: regular rate and regular rhythm Vessels: no JVD Extremities: no calf tenderness and no edema Gastrointestinal (Abdomen): normal bowel sounds, soft, nontender, no hepatosplenomegaly Musculoskeletal: Extremities: no cyanosis Skin: no rashes, warm and dry Psychiatric: Orientation: alert and oriented x 3 Results & Data Results & Data ([facility]) Vital Signs (Past 12 Hours) Vital Signs Temp Pulse Resp BP Pulse Ox 04/17/20 11:20 74 18 145/69 H 97 04/17/20 07:29 36.4 C L 64 18 142/65 H 95 04/17/20 02:56 36.4 C L 68 18 134/80 95 04/17/20 02:02 36.4 C L 82 20 120/69 94 Laboratory Results 04/17/20 07:00 04/17/20 07:00
--- NOTE | 2020-04-18 02:43 | Discharge Summary ---
Date of Service Date of Admission: 04/12/20 Date of Discharge: 04/17/20 Admission HPI Per Admitting Provider This is a 74-year-old male who has significant past medical history of chronic atrial fibrillation anticoagulated on warfarin, chronic HFpEF, HTN, HLD, COPD, ALLEY intolerant to CPAP, BPH, depression with anxiety, prolonged QT syndrome who presents to ED secondary to fatigue and melena x3 weeks. He was initially seen by PCP today due to the above complaints had positive FOBT and was referred to ED for further evaluation. He states he has not felt well for the past few months. Over the last 3 weeks he has had increased fatigue and melena. He was having approximately 1 bowel movement daily until the past week where he has been having loose diarrhea. Over the past 2 to 3 days he also developed subsequent left lower quadrant abdominal discomfort. Pain was nonradiating, nothing made it better or worse and he denies any hematochezia. Yesterday when he wiped he did notice scant bright red blood on toilet paper but associated that to hemorrhoid. Otherwise no bright red blood per rectum. He denies any recent fever, chills, sweats, chest pain, shortness breath at rest, emesis, hemoptysis, hematemesis, dysuria, increased urgency or frequency with urination. He does have history of COPD and therefore he does have a chronic cough. He feels cough is at baseline. He does have chronic SIDDIQUI and feels this is slightly worse than usual. Approximately 6 weeks ago he admits to a syncopal episode and he did not seek medical treatment. He feels it was for a few minutes. He denies hitting his head, but had rosanna loss of consciousness. He admits to occasionally feeling, "woozy." Symptoms occur whenever he goes from sitting to standing too quickly. He believes this is what happened when he passed out 6 weeks ago. In ED patient remained hemodynamically stable. H&H 12.1 and 35.9, platelet 167, INR elevated 7.4, K3.3, sodium 135, BUN 8, creatinine 1.11, albumin 2.7. CT abdomen pelvis revealed minimal sigmoid diverticulitis, pandiverticulosis, no free air or obstruction. In ED he received 10 mg IV vitamin K and was started on IV Zosyn. Principal Diagnosis gastrointestinal bleeding associated with elevated INR due to warfarin therapy OTHER ACUTE DIAGNOSES: elevated INR sigmoid diverticulitis hypokalemia Discharge Data Allergies Allergy/AdvReac Type Severity Reaction Status Date / Time cephalexin [From Keflex] AdvReac Hives Unverified 04/12/20 13:19 Consultations 04/12/20 13:55 ED Decision to Admit Stat 04/12/20 14:38 Consult Gastroenterology Routine Procedures Performed Operation Date: 04/13/20 16:00 Actual Procedures p EGD Biopsy Cytology - Carlos Fields MD Ordered Studies 04/12/20 11:38 CT abd pelvis IV con only Stat Hospital Course (1) Acute GI bleeding: Recent melena with documented heme + stools. On warfarin for AF with elevated INR of 7.4.. Hemorrhagic disorder due to extrinsic circulating anticoagulants. Daily alcohol consumption. Received vitamin K and IV pantoprazole. Hgb 12.1 --> 11.1. GI consulted. EGD demonstrated irregular Z-line and erosive gastropathy without active bleeding. Day of discharge = 11.2. Continue PPI x 1 month per GI. Avoidance of ASA, NSAID's, and alcoholic beverages recommended. (2) Sigmoid diverticulitis: CT demonstrated sigmoid diverticulitis without evidence of abscess or perforation. Received piperacillin / tazobactam with improvement. Discharge on amoxicillin / clavulanic acid to complete 10 day course of therapy. Colonoscopy recommended in 4-6 weeks. (3) Supratherapeutic INR: INR 7.4 day of admission. Received vitamin K. INR 04/15 was 1.7. Follow. (4) Chronic heart failure with preserved ejection fraction (HFpEF): Compensated. Continue furosemide. (5) Chronic atrial fibrillation: Rate controlled on verapamil. Warfarin held due to GI bleeding. Resuming warfarin at time of discharge at reduced dose of 2.5 mg daily. Ongoing monitoring and management per [facility]. (6) HTN (hypertension): Continue verapamil. (7) COPD (chronic obstructive pulmonary disease): Stable. (8) Hypokalemia: K as low as 3.2. IV and PO replacement. K today = 3.5. Continue KCl 20 mEq daily. Follow. (9) Alcohol abuse: Drinks on a daily basis. Headache and anxiety possibly due to alcohol withdrawal. Managed per alcohol withdrawal protocol with gabapentin taper. Symptoms improved. Abstention recommended. (10) Diarrhea: Several loose stools 04/14. C diff gene +, but toxin negative. Probably does not have C diff colitis (per negative toxin). Diarrhea improved. (11) Cough: New complaint of cough 04/16. SARS-CoV-2 negative x 2. No infiltrates on chest x-ray. Basilar atelectasis was noted. Incentive spirometry. Prescribed doxycycline for bronchitis. (12) DVT prophylaxis: On warfarin, initially with supratherapeutic INR. SCD's initiated when INR < 2. Ambulate. (13) Discharge planning issues: Discharge to home. Internal Medicine follow-up with Dr. Lidia Faulkner. Ongoing INR monitoring and management of warfarin per [facility]. Outpatient colonoscopy in 4-6 weeks to be arranged. Total Time Total Time Spent Total Time Spent (In Minutes): 40 Discharge Plan Discharge Items Patient Disposition: Home - Self-Care Reason For Visit: abdominal pain Discharge Diagnosis: gastritis- inflammation of stomach diverticulitis Activity: Resume your previous activity Non-emergency contact: Primary Care Provider, Hospitalist and Archeologist Classical Call non-emergency contact if: you have any medication questions and your symptoms worsen Follow-up/Referrals: Lidia Faulkner MD [Primary Care Provider] - (Date & Time 04/20/2020 11:00 AM Provider Lidia Faulkner MD Department General Internal Medicine [facility] ) Diet: Heart Healthy Addtl Attending Provider Instructions: MEDICATION CHANGES: Resume warfarin (Coumadin) on Friday04/18/20 at new dose of 2.5 mg daily. Further instructions per [facility]. amoxicillin / clavulanic acid (Augmentin) 875 mg twice a day with food (for diverticulitis) doxycycline 100 mg twice a day (for bronchitis) pantoprazole (Protonix) 40 mg daily for 1 month SUMMARY OF TEST RESULTS: INR was 7.4 on 04/12/20. INR was 1.7 on 04/15/20. EGD (upper endoscopy) showed gastritis (irritation of stomach lining). CT scan showed diverticulitis of colon. It also showed a small stone in the right kidney and cysts in the left kidney. COVID-19 tests on 04/12/20 and 04/16/20 were negative. TSH (thyroid test) was abnormal, but this could be temporary. Continue the same dose of levothyroxine for now. Please ask Dr. Faulkner to recheck thyroid testing in 1 month. RECOMMENDATIONS FOR FOLLOW-UP: Colonoscopy recommended in 4-6 weeks. OTHER INSTRUCTIONS: Best to avoid alcoholic beverages because of your stomach problems. If you drink, no not drink excessively. Avoid medications that can irritate the stomach like aspirin, ibuprofen (Advil and Motrin), naproxen (Aleve), and similar medications. Most antibiotics can cause diarrhea, sometimes due to a type of bacteria called C diff. Your stool test showed that you carry the bacteria in your intestine, but that toxin was not being produced. Eating yogurt or taking probiotics may help prevent diarrhea. A stool sample should be checked if you have 3 or more loose stools / day. Seek medical attention if you have: * temperature above 101 * chest pain or trouble breathing * abdominal pain, nausea, vomiting * diarrhea, dark stools or bloody stools * any unanswered questions or concerns Call 911 if symptoms are severe. Please take good care of yourself. Call if you have any questions or problems. You can reach a [facility] hospitalist on duty at [facility] 24 hours a day by calling [phone]. My cell # is [phone]. Pending Studies at Discharge: No Stand-Alone Forms: My [facility], Smoking Cessation Medications and DC Order Prescriptions: New amoxicillin-pot clavulanate 875-125 mg tablet 1 tab PO BID Qty: 10 RF: 0 doxycycline monohydrate 100 mg capsule 100 mg PO BID Qty: 10 RF: 0 pantoprazole 40 mg tablet,delayed release (DR/EC) 40 mg PO DAILY Qty: 30 RF: 0 Continued cetirizine [Zyrtec] 10 mg Tablet 5 mg PO DAILY RF: 0 atorvastatin 10 mg tablet 10 mg PO DAILY RF: 0 verapamil 180 mg tablet extended release 180 mg PO BID RF: 0 cyanocobalamin (vitamin B-12) [Vitamin B-12] 1,000 mcg Tablet 1,000 mcg PO DAILY RF: 0 triamcinolone acetonide 0.1 % cream 1 applic TOPICAL BID RF: 0 potassium chloride 20 mEq tablet,ER particles/crystals 20 meq PO DAILY RF: 0 tamsulosin 0.4 mg capsule 0.4 mg PO HS RF: 0 trazodone 100 mg Tablet 100 mg PO HS RF: 0 levothyroxine 50 mcg tablet 50 mcg PO MOTUWETHFRSA RF: 0 fluoxetine 10 mg capsule 10 mg PO DAILY RF: 0 furosemide 20 mg tablet 20 mg PO DAILY RF: 0 gabapentin 100 mg capsule 100 mg PO BID RF: 0 azelastine 137 mcg (0.1 %) aerosol,spray 1 spray INTRANASAL BID RF: 0 multivitamin with minerals [Multiple Vitamin-Minerals] Tablet 1 tab PO DAILY RF: 0 albuterol sulfate 90 mcg/actuation HFA aerosol inhaler 2 puff INHALATION Q4H PRN (Reason: Wheezing) RF: 0 Flovent HFA 110 mcg/actuation HFA aerosol inhaler 2 puff INHALATION BID RF: 0 buspirone 15 mg tablet 15 mg PO BID RF: 0 Anoro Ellipta 62.5-25 mcg/actuation Blister With Device 1 inh INHALATION DAILY RF: 0 magnesium oxide 400 mg magnesium Tablet 400 mg PO DAILY RF: 0 levothyroxine 50 mcg Tablet 100 mcg PO CARBAJAL RF: 0 Changed warfarin 5 mg tablet See Rx Instructions .ROUTE .COMPLEX Qty: 0 RF: 0 Discharge Orders: Discharge Order (Routine); Ordered 04/17/20 Ordered By: Stevie Helton Admission Data Admit Date/Time: 04/12/20 14:08 Attending Provider: Stevie Helton Admit Provider: Kaushik Plunkett Primary Care Provider: Lidia Faulkner Other Providers: Kaushik Plunkett ; Carlos Fields Other Interventions: Discharge Summary Assessment (RN) Last Done: 04/17/20 13:11
== END 2020-04-17 14:05 | disposition home or self-care (01) ==
LOC: ED 11:17 → INTOOBSV 14:08 → 2N 14:08 → SUATTDRO 14:08
DX: G47.33 Obstructive sleep apnea (adult) (pediatric); Z88.1 Allergy status to other antibiotic agents; D68.8 Other specified coagulation defects; J44.9 Chronic obstructive pulmonary disease, unspecified; Z79.899 Other long term (current) drug therapy; R05 Cough; Z79.52 Long term (current) use of systemic steroids; I48.20 Chronic atrial fibrillation, unspecified; K57.32 Diverticulitis of large intestine without perforation or abscess without bleeding; I10 Essential (primary) hypertension; K29.70 Gastritis, unspecified, without bleeding; I50.9 Heart failure, unspecified; Z79.890 Hormone replacement therapy; N40.0 Benign prostatic hyperplasia without lower urinary tract symptoms; Z79.51 Long term (current) use of inhaled steroids; K31.9 Disease of stomach and duodenum, unspecified; Z87.891 Personal history of nicotine dependence; E78.5 Hyperlipidemia, unspecified; E87.6 Hypokalemia; Z79.01 Long term (current) use of anticoagulants; R94.31 Abnormal electrocardiogram [ECG] [EKG]

== ENCOUNTER 2020-05-15 10:18 | Observation (INO) ==
[2020-05-15 11:09] LABS: Basophils # (auto) 0.02 K/uL (0-0.2); Basophils % (auto) 0.4 %; Eosinophils # (auto) 0.12 K/uL (0-0.5); Eosinophils % (auto) 2.4 %; Hematocrit (blood only) 38.1 % (42-52); Hemoglobin 13.1 g/dL (14.0-18.0); Immature Granulocytes # (auto) 0.02 K/uL (0.00-0.02); Immature Granulocytes % (auto) 0.4 %; Lymphocytes # (auto) 1.11 K/uL (1.2-3.4); Lymphocytes % (auto) 22.2 %; Mean Corpuscular Hemoglobin 35.8 pg (25-34); Mean Corpuscular Hgb Conc 34.4 g/dL (32-36); Mean Corpuscular Volume 104.1 fL (80-100); Mean Platelet Volume 10.5 fL (7.4-10.4); Monocytes # (auto) 0.44 K/uL (0.11-0.59); Monocytes % (auto) 8.8 %; Neutrophils # (auto) 3.28 K/uL (1.4-6.5); Neutrophils % (auto) 65.8 %; Nucleated RBC # (auto) 0.03 K/uL (0-0); Nucleated RBC % (auto) 0.7 %; Platelet Count 147 K/uL (130-400); RDW Coefficient of Variation 14.1 % (11.5-14.5); RDW Standard Deviation 53.3 fL (36.4-46.3); Red Blood Count 3.66 M/uL (4.7-6.1); White Blood Count 4.99 K/uL (4.8-10.8)
--- NOTE | 2020-05-15 11:12 | Electrocardiogram Report ---
Test Reason : Blood Pressure : / mmHG Vent. Rate : 062 BPM Atrial Rate : 062 BPM P-R Int : 000 ms QRS Dur : 088 ms QT Int : 512 ms P-R-T Axes : 000 022 004 degrees QTc Int : 519 ms Atrial fibrillation Prolonged QT Abnormal ECG When compared with ECG of 13-APR-2020 07:19, Nonspecific T wave abnormality no longer evident in Anterior leads Confirmed by Eugene Beckham ([id number]) on 05/15/2020 11:12:20 AM Referred By: Lidia Faulkner Confirmed By:Adrián Beckham
[2020-05-15 11:16] LABS: iSTAT Creatinine 1.1 mg/dl (0.6-1.3); iSTAT Hemoglobin 12.6 g/dl (14.0-18.0); iSTAT Ionized Calcium 1.12 mmol/l (1.12-1.32); iSTAT Potassium 3.9 mmol/L (3.3-5.0)
[2020-05-15] MEDS ORDERED: PANTOprazole 80 MG in DEXTROSE 5% 100 ML IV ONE (11:16)
[2020-05-15] MEDS ORDERED: PANTOPRAZOLE BOLUS/DRIP 1 EA IV STA (11:16)
[2020-05-15 11:30] LABS: Alanine Aminotransferase 28 U/L (12-78); Albumin Level 3.1 gm/dl (3.4-5.0); Aspartate Aminotransferase 45 U/L (15-37); BUN Creatinine Ratio 17.2 (10-20); Blood Urea Nitrogen 17 mg/dl (7-18); Calcium 9.3 mg/dl (8.5-10.1); Carbon Dioxide 28 mmol/L (21-32); Chloride 98 mmol/L (98-107); Creatinine Clr Calc Pharmacy 75.8 ml/min; Est GFR (African American) 86.6; Est GFR (Non-African American) 74.7; Glucose 122 mg/dl (70-99); Partial Thromboplastin Ratio 2.3; Prothrombin Time 70.8 Seconds (9.0-12.0); Sodium 135 mmol/L (136-145)
[2020-05-15 11:34] LABS: Albumin Globulin Ratio 0.9 (0.9-2); Alkaline Phosphatase 130 U/L (45-117); Bilirubin,Total 0.9 mg/dl (0.2-1); Globulin 3.6 gm/dl (2.5-4.0); INR 7.5 (0.9-1.1); Partial Thromboplastin Time 64.6 Seconds (21.0-31.0); Total Protein 6.7 gm/dl (6.4-8.2); Troponin I < 0.015 ng/ml (0-0.045)
[2020-05-15] MEDS ORDERED: IOVERSOL 100ml IV ONE (11:47)
[2020-05-15] MEDS ORDERED: PHYTONADIONE 10 MG in SODIUM CHLORIDE 0.9% 50 ML IV ONE (11:55)
--- NOTE | 2020-05-15 12:03 | CT Scan Report ---
CT abd pelvis IV con only CLINICAL HISTORY: Abdominal pain and bloody stools COMPARISON STUDY: 04/12/2020 TECHNIQUE: The patient was scanned in a dynamic helical fashion during intravenous administration of 93 cc of Optiray 320 A dose lowering technique was utilized adhering to the principles of ALARA. CT DOSE: 925.51 mGycm FINDINGS: Lower chest: There is a small left pleural effusion. There is a 5 mm solid left lower lobe pulmonary nodule. There is a 6 mm groundglass opacity within the right middle lobe. Liver: There is hepatic steatosis. There is mild hepatomegaly. No focal hepatic masses are visualized . Gallbladder: Unremarkable. Spleen: Spleen is top normal in size. There is a stable very subtle 1 cm hypodensity within the centr al spleen. Pancreas: Unremarkable. Adrenal glands: Unremarkable. Kidneys: There are foci of left renal cortical scarring. There is upper pole left renal cyst. There i s a 3 mm upper pole right renal calculus. There is no hydronephrosis. Bowel: There are no transition zones indicate bowel obstruction. There is colonic diverticulosis. The re is no evidence of acute diverticulitis. There is no evidence of acute appendicitis. Peritoneum: There is no intraperitoneal free air or abdominal ascites. There is a small fat-containin g umbilical hernia Vasculature: There is no evidence of abdominal aortic aneurysm. There are moderate aortoiliac atherom atous changes. Adenopathy: Left-sided mesenteric lymph nodes are the upper limits of normal in size. Pelvic viscera: There is mild prostatomegaly. There is bladder wall thickening with minimal perivesic al stranding. Skeletal structures: No destructive lesions are visualized. There are postsurgical changes of a total left hip arthroplasty. IMPRESSION: 1. No evidence of bowel obstruction. No evidence of free air 2. Right-sided nephrolithiasis 3. No evidence of acute appendicitis 4. Diverticulosis. No current evidence of acute diverticulitis 5. Hepatic steatosis 6. Small left pleural effusion 7. Bladder wall thickening and minimal perivesical stranding. While this is likely secondary to chron ic bladder outlet obstruction, cystitis cannot be excluded. ACT 112: Negative or not required by law. Electronically signed by: Jeremías Palomo M.D. 05/15/2020 12:02 PM
[2020-05-15] MEDS: PANTOprazole 40 MG in DEXTROSE 5% 100 ML IV SCH ×3 (12:10→21:15)
--- NOTE | 2020-05-15 13:00 | History & Physical Report ---
Date of Service May 15, 2020 Assessment & Plan (1) Melena: (2) Supratherapeutic INR: This is a 75 yo M with a PMH of chronic A fib on anticoagulation, diastolic heart failure, depression, COPD, BPH and other medical problems listed below who presents from coumadin clinic with supratherapeutic INR and melena x 3 weeks. -Melena x 3 weeks - coumadin held for past 6 days but INR >7 -Admitted last month for GI bleed, found to have erosive gastropathy with no bleeding on EGD -On coumadin for chronic A Fib- dose reduced on previous discharge -Today's H/H stable at 13.1/38.1 Discussed with GI who plan for EGD in AM -Reverse coumadin with goal INR <2 for procedure. IV Vitamin K 10mg IV x 1 given in ED -Covid-19 antigen test negative -Repeat H&H and INR labwork pending for 1800 -Clear liquids today, strict NPO after midnight -Continue PPI bolus and drip -GI planning for outpatient colonoscopy as scheduled (3) Alcohol abuse: Endorsing 2 mixed drinks every night with heavier alcohol use in the past. -Alcohol withdrawal protocol,banana bag, gabapentin protocol, PRN IV ativan at risk protocol (4) Chronic atrial fibrillation: Holding coumadin. Continue verapamil BID (5) Chronic heart failure with preserved ejection fraction (HFpEF): Appears euvolemic on exam. CXR pending. Has been taking Lasix 20mg daily -Awaiting orthostatics, CXR before determining need for IV fluids (6) Depression with anxiety: Continue SSRI, buspirone (7) BPH (benign prostatic hyperplasia): Continue tamsulosin (8) COPD (chronic obstructive pulmonary disease): At baseline. Continue home Anoro Ellipta and Flovent (9) HLD (hyperlipidemia): Continue statin (10) ALLEY (obstructive sleep apnea): Intolerant to CPAP (11) DVT prophylaxis: SCDs in setting of melena Code status: FULL PCP: Lucie Dispo: Admitted to PCU. Patient seen in collaboration with Dr. Helton. Please see addendum. History of Present Illness Chief Complaint: Melena Primary Care Provider: Lidia Faulkner MD This is a 75 yo M with a PMH of chronic A fib on anticoagulation, diastolic heart failure, depression, COPD, BPH and other medical problems listed below who presents from coumadin clinic with supratherapeutic INR and dark stool x 3 weeks. Was recently hospitalized for GI bleed in setting of elevated INR and EGD showed erosive gastropathy with no bleeding. Was discharged home at reduced dose of Coumadin with arrangements made for outpatient colonoscopy. Since then, patient reports dark stools for the past few weeks. Was instructed to stop coumadin 1 week ago in setting of dark stools. Today, had large bowel movement that was black and tarry. INR >7. Has also felt "woozy". Denies any visual changes, chest pain or palpitations. No shortness of breath beyond baseline COPD. Has some fullness in abdomen but denies any pain. No nausea or vomiting. No dysuria. History of heavy alcohol use. Endorsing 2 mixed drinks each night, with last drink at 2100 last evening. Denies tobacco use. Follows with [facility] gastroenterology. Last EGD was on admission in March with erosive gastropathy with no bleeding. Most recent colonoscopy was in August 2018 with hyperplastic polyps. Allergies Allergy/AdvReac Type Severity Reaction Status Date / Time trazodone AdvReac Severe prolonged Verified 05/15/20 15:21 QTc cephalexin [From Keflex] AdvReac Hives Unverified 05/15/20 10:41 Home Medications Medication Instructions Recorded Confirmed Type Anoro Ellipta 1 inh INHALATION DAILY 04/12/20 05/15/20 History Flovent HFA 2 puff INHALATION BID 04/12/20 05/15/20 History albuterol sulfate 2 puff INHALATION Q4H PRN 04/12/20 05/15/20 History atorvastatin 10 mg PO DAILY 04/12/20 05/15/20 History azelastine 1 spray INTRANASAL BID 04/12/20 05/15/20 History buspirone 15 mg PO BID 04/12/20 05/15/20 History cetirizine [Zyrtec] 5 mg PO DAILY 04/12/20 05/15/20 History cyanocobalamin (vitamin B-12) 1,000 mcg PO DAILY 04/12/20 05/15/20 History [Vitamin B-12] fluoxetine 10 mg PO DAILY 04/12/20 05/15/20 History furosemide 20 mg PO DAILY 04/12/20 05/15/20 History gabapentin 100 mg PO BID 04/12/20 05/15/20 History magnesium oxide 400 mg PO DAILY 04/12/20 05/15/20 History multivitamin with minerals 1 tab PO DAILY 04/12/20 05/15/20 History [Multiple Vitamin-Minerals] potassium chloride 20 - 40 meq PO DAILY 04/12/20 05/15/20 History tamsulosin 0.4 mg PO HS 04/12/20 05/15/20 History trazodone 100 mg PO HS 04/12/20 05/15/20 History triamcinolone acetonide 1 applic TOPICAL BID 04/12/20 05/15/20 History verapamil 180 mg PO BID 04/12/20 05/15/20 History pantoprazole 40 mg PO DAILY #30 tab 04/17/20 05/15/20 Rx warfarin See Rx Instructions .ROUTE 04/17/20 05/15/20 Rx .COMPLEX #0 tab levothyroxine 88 mcg PO DAILY 05/15/20 05/15/20 History spironolactone 12.5 mg PO DAILY 05/15/20 05/15/20 History Past Med/Surg History Medical History BPH (benign prostatic hyperplasia) Chronic atrial fibrillation Chronic heart failure with preserved ejection fraction (HFpEF) COPD (chronic obstructive pulmonary disease) 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 Depression with anxiety HLD (hyperlipidemia) HTN (hypertension) ALLEY (obstructive sleep apnea) Intolerant to CPAP Prolonged QT interval Surgical History History of cataract extraction History of colonoscopy History of total left hip arthroplasty Family History Father Stroke Mother Stroke Social History Smoking Status: Former smoker Tobacco Type: Cigarettes Years Smoked: 18; Hx Alcohol Use: Yes Alcohol type: wine and hard liquor Alcohol Intake Frequency: 4 or More x per/Week Alcohol Intake Frequency Comment: 3-4 drinks nightly Hx Substance Use: No Preferred Language: Montenegrin Communication Ability: Effective 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 Physical Exam Physical Exam: General Appearance: WD/WN, vitals as above, NAD, sitting up in bed, pleasant, conversing easily Head: normocephalic, atraumatic Eyes: normal inspection, PERRL, conjunctivae normal, anicteric sclerae ENT: external ear and nose normal, oropharynx normal Neck: normal visual inspection, trachea midline, no thyromegaly Respiratory: normal respiratory effort, lungs clear to auscultation, no wheeze, rales, rhonchi. No accessory muscle use Cardiovascular: irregular rate & rhythm, no murmur appreciated, normal p eripheral pulses, no BLE edema. Vessels: no JVD Chest: normal inspection of chest Abdomen/GI: normal bowel sounds, soft with mild distension, nontender, no hepatosplenomegaly Extremities/Musculoskeletal: no cyanosis or clubbing, extremities motor strength 5/5 Neurologic: PERRL, EOMI, accommodation nl, no face palsy, no dysarthria, CN's II-XI intact bilaterally and moves all extremities Psychiatric: A+Ox3, euthymic affect Skin: no rashes, normal color, warm/dry Results & Data Results & Data ([facility]) Vital Signs (Past 12 Hours) Vital Signs Temp Pulse Pulse Resp BP BP Pulse Ox 05/15/20 12:26 75 18 133/65 92 05/15/20 10:56 95 05/15/20 10:23 36.5 C 74 20 160/94 H 95 Laboratory Results Short CBC 05/15/20 05/15/20 05/15/20 Range/Units 10:55 10:55 10:55 WBC 4.99 (4.8-10.8) K/uL RBC 3.66 L (4.7-6.1) M/uL Hgb 13.1 L (14.0-18.0) g/dL POC Hgb (14.0-18.0) g/dl Hct 38.1 L (42-52) % POC Hct (42-52) % MCV 104.1 H (80-100) fL MCH 35.8 H (25-34) pg MCHC 34.4 (32-36) g/dL RDW Std Deviation 53.3 H (36.4-46.3) fL RDW Coeff of Vijaya 14.1 (11.5-14.5) % Plt Count 147 (130-400) K/uL MPV 10.5 H (7.4-10.4) fL Immature Gran % (Auto) 0.4 % Neut % (Auto) 65.8 % Lymph % (Auto) 22.2 % [place] % (Auto) 8.8 % Eos % (Auto) 2.4 % Baso % (Auto) 0.4 % Neut # (Auto) 3.28 (1.4-6.5) K/uL Lymph # (Auto) 1.11 L (1.2-3.4) K/uL [place] # (Auto) 0.44 (0.11-0.59) K/uL Eos # (Auto) 0.12 (0-0.5) K/uL Baso # (Auto) 0.02 (0-0.2) K/uL Immature Gran # (Auto) 0.02 (0.00-0.02) K/uL Absolute Nucleated RBC 0.03 H (0-0) K/uL Nucleated RBC % (auto) 0.7 % PT 70.8 H (9.0-12.0) Seconds INR 7.5 H* (0.9-1.1) APTT 64.6 H* (21.0-31.0) Seconds PTT Ratio 2.3 POC Sodium (135-144) mmol/L Sodium (136-145) mmol/L POC Potassium (3.3-5.0) mmol/L Potassium (3.5-5.1) mmol/L POC Chloride (101-112) mmol/L Chloride (98-107) mmol/L Carbon Dioxide (21-32) mmol/L POC Total CO2 (24-31) mmol/L Anion Gap (3-11) POC Anion Gap (16-25) mmol/L POC BUN (7-18) mg/dl BUN (7-18) mg/dl Creatinine (0.6-1.4) mg/dl POC Creatinine (0.6-1.3) mg/dl Est Cr Clr Drug Dosing ml/min Est GFR ( Amer) Est GFR (Non-Af Amer) BUN/Creatinine Ratio (10-20) Glucose (70-99) mg/dl POC Glucose (other) (70-99) mg/dl Calcium (8.5-10.1) mg/dl POC Ioniz Calcium Zoie (1.12-1.32) mmol/l Total Bilirubin (0.2-1) mg/dl AST (15-37) U/L ALT (12-78) U/L Alkaline Phosphatase (45-117) U/L Troponin I (0-0.045) ng/ml Total Protein (6.4-8.2) gm/dl Albumin (3.4-5.0) gm/dl Globulin (2.5-4.0) gm/dl Albumin/Globulin Ratio (0.9-2) POC Stool Occult Blood (Negative) SARS-CoV-2 Ag (Rapid) (Negative) Blood Type O Positive Antibody Screen NEGATIVE 05/15/20 05/15/20 05/15/20 Range/Units 10:55 11:04 11:26 WBC (4.8-10.8) K/uL RBC (4.7-6.1) M/uL Hgb (14.0-18.0) g/dL POC Hgb 12.6 L (14.0-18.0) g/dl Hct (42-52) % POC Hct 37 L (42-52) % MCV (80-100) fL MCH (25-34) pg MCHC (32-36) g/dL RDW Std Deviation (36.4-46.3) fL RDW Coeff of Vijaya (11.5-14.5) % Plt Count (130-400) K/uL MPV (7.4-10.4) fL Immature Gran % (Auto) % Neut % (Auto) % Lymph % (Auto) % [place] % (Auto) % Eos % (Auto) % Baso % (Auto) % Neut # (Auto) (1.4-6.5) K/uL Lymph # (Auto) (1.2-3.4) K/uL [place] # (Auto) (0.11-0.59) K/uL Eos # (Auto) (0-0.5) K/uL Baso # (Auto) (0-0.2) K/uL Immature Gran # (Auto) (0.00-0.02) K/uL Absolute Nucleated RBC (0-0) K/uL Nucleated RBC % (auto) % PT (9.0-12.0) Seconds INR (0.9-1.1) APTT (21.0-31.0) Seconds PTT Ratio POC Sodium 132 L (135-144) mmol/L Sodium 135 L (136-145) mmol/L POC Potassium 3.9 (3.3-5.0) mmol/L Potassium 4.0 (3.5-5.1) mmol/L POC Chloride 95 L (101-112) mmol/L Chloride 98 (98-107) mmol/L Carbon Dioxide 28 (21-32) mmol/L POC Total CO2 30 (24-31) mmol/L Anion Gap 9.0 (3-11) POC Anion Gap 12.0 L (16-25) mmol/L POC BUN 16 (7-18) mg/dl BUN 17 (7-18) mg/dl Creatinine 0.99 (0.6-1.4) mg/dl POC Creatinine 1.1 (0.6-1.3) mg/dl Est Cr Clr Drug Dosing 75.8 ml/min Est GFR ( Amer) 86.6 Est GFR (Non-Af Amer) 74.7 BUN/Creatinine Ratio 17.2 (10-20) Glucose 122 H (70-99) mg/dl POC Glucose (other) 128 H (70-99) mg/dl Calcium 9.3 (8.5-10.1) mg/dl POC Ioniz Calcium Zoie 1.12 (1.12-1.32) mmol/l Total Bilirubin 0.9 (0.2-1) mg/dl AST 45 H (15-37) U/L ALT 28 (12-78) U/L Alkaline Phosphatase 130 H (45-117) U/L Troponin I < 0.015 (0-0.045) ng/ml Total Protein 6.7 (6.4-8.2) gm/dl Albumin 3.1 L (3.4-5.0) gm/dl Globulin 3.6 (2.5-4.0) gm/dl Albumin/Globulin Ratio 0.9 (0.9-2) POC Stool Occult Blood (Negative) SARS-CoV-2 Ag (Rapid) Negative (Negative) Blood Type Antibody Screen 05/15/20 Range/Units 11:40 WBC (4.8-10.8) K/uL RBC (4.7-6.1) M/uL Hgb (14.0-18.0) g/dL POC Hgb (14.0-18.0) g/dl Hct (42-52) % POC Hct (42-52) % MCV (80-100) fL MCH (25-34) pg MCHC (32-36) g/dL RDW Std Deviation (36.4-46.3) fL RDW Coeff of Vijaya (11.5-14.5) % Plt Count (130-400) K/uL MPV (7.4-10.4) fL Immature Gran % (Auto) % Neut % (Auto) % Lymph % (Auto) % [place] % (Auto) % Eos % (Auto) % Baso % (Auto) % Neut # (Auto) (1.4-6.5) K/uL Lymph # (Auto) (1.2-3.4) K/uL [place] # (Auto) (0.11-0.59) K/uL Eos # (Auto) (0-0.5) K/uL Baso # (Auto) (0-0.2) K/uL Immature Gran # (Auto) (0.00-0.02) K/uL Absolute Nucleated RBC (0-0) K/uL Nucleated RBC % (auto) % PT (9.0-12.0) Seconds INR (0.9-1.1) APTT (21.0-31.0) Seconds PTT Ratio POC Sodium (135-144) mmol/L Sodium (136-145) mmol/L POC Potassium (3.3-5.0) mmol/L Potassium (3.5-5.1) mmol/L POC Chloride (101-112) mmol/L Chloride (98-107) mmol/L Carbon Dioxide (21-32) mmol/L POC Total CO2 (24-31) mmol/L Anion Gap (3-11) POC Anion Gap (16-25) mmol/L POC BUN (7-18) mg/dl BUN (7-18) mg/dl Creatinine (0.6-1.4) mg/dl POC Creatinine (0.6-1.3) mg/dl Est Cr Clr Drug Dosing ml/min Est GFR ( Amer) Est GFR (Non-Af Amer) BUN/Creatinine Ratio (10-20) Glucose (70-99) mg/dl POC Glucose (other) (70-99) mg/dl Calcium (8.5-10.1) mg/dl POC Ioniz Calcium Zoie (1.12-1.32) mmol/l Total Bilirubin (0.2-1) mg/dl AST (15-37) U/L ALT (12-78) U/L Alkaline Phosphatase (45-117) U/L Troponin I (0-0.045) ng/ml Total Protein (6.4-8.2) gm/dl Albumin (3.4-5.0) gm/dl Globulin (2.5-4.0) gm/dl Albumin/Globulin Ratio (0.9-2) POC Stool Occult Blood Positive A (Negative) SARS-CoV-2 Ag (Rapid) (Negative) Blood Type Antibody Screen [facility] 05/15/20 10:55 Sodium 135 L Potassium 4.0 Chloride 98 Carbon Dioxide 28 BUN 17 Creatinine 0.99 Glucose 122 H Calcium 9.3 Cardiac Enzymes 05/15/20 Range/Units 10:55 Troponin I < 0.015 (0-0.045) ng/ml Liver Function 05/15/20 Range/Units 10:55 Total Bilirubin 0.9 (0.2-1) mg/dl AST 45 H (15-37) U/L ALT 28 (12-78) U/L Alkaline Phosphatase 130 H (45-117) U/L Albumin 3.1 L (3.4-5.0) gm/dl Diagnostic Findings Ct abd/pelvis: IMPRESSION: 1. No evidence of bowel obstruction. No evidence of free air 2. Right-sided nephrolithiasis 3. No evidence of acute appendicitis 4. Diverticulosis. No current evidence of acute diverticulitis 5. Hepatic steatosis 6. Small left pleural effusion 7. Bladder wall thickening and minimal perivesical stranding. While this is likely secondary to chronic bladder outlet obstruction, cystitis cannot be excluded. ECG Rhythm: atrial fibrillation Findings: + prolonged QT Change: no significant change Supervising Physician Co-Signing Physician Notes HISTORY: Record reviewed. Patient interviewed and examined in his room. Care coordinated with Mami Tan PA-C. Please refer to her documentation for complete history. Briefly, 75 YO male with history of chronic AF on warfarin, diastolic heart failure, and other problems as noted. Hospitalized at [facility] 04/12/20 with GI bleeding. INR was elevated. Warfarin was held and then resumed at reduced dose. EGD demonstrated gastritis. CT demonstrated diverticulitis and pt was treated with course of antibiotics. Arrangements were made for colonoscopy in 4-6 weeks. Had some loose stools. C diff gene + / toxin negative. Therefore, not treated for C diff colitis. Discharged to home 04/17. Returned to ED today with several days of dark stools and black stools today. Feels weak and lightheaded. + nausea, no emesis. Drinks daily. Uses occasional ibuprofen. EXAM: General- no distress Lungs- clear to auscultation; no respiratory distress Cardiovascular- RRR; no murmur; no gallop; no JVD; no pretibial edema Abdomen- + bowel sounds, distended, soft, nontender Extremities- no cyanosis; no calf tenderness Neuro- alert, oriented Skin- warm & dry DATA: Hgb 13.1 Plts 147,000 INR 7.5 Na 135 BUN 17, creat 0.99. Other lab studies as noted EKG performed at 1053 reviewed and demonstrated AF at 60 / minute, QTc 520 msec. ASSESSMENT AND PLAN: GI BLEED Recurrent GI bleed with melena. Recent EGD demonstrated gastritis. No history of cirrhosis or portal hypertension. Continues to drink daily and uses occasional ibuprofen. INR elevated on warfarin. H/H stable. Hemodynamically stable; not orthostatic. Received vitamin K for elevated INR. Received IV pantoprazole bolus / infusion. Monitor H/H. GI consulted. CHRONIC AF Rate controlled on verapamil. On warfarin with elevated INR & GI bleed. Resume warfarin at reduced dose when OK from GI perspective. DIASTOLIC CHF Clinically compensated. Hold furosemide in light of GI bleed. ALCOHOL CONSUMPTION Drinks daily. Had moderate alcohol withdrawal during last hospitalization. IV thiamine & MVI. Gabapentin protocol for alcohol withdrawal. Importance of abstinence discussed- will need ongoing support. PROLONGED QTc QTc 519 msec. Avoid meds with QT prolongation whenever possible. Currently on trazodone 100 mg daily- taper and discontinue. Please refer to EVELYN Tan's documentation for discussion of other issues.
--- NOTE | 2020-05-15 13:35 | Communication Note ---
Date of Service: May 15, 2020 HISTORY: Record reviewed. Patient interviewed and examined. Care coordinated with Mami Tan PA-C. Please refer to her documentation for complete history. Briefly, 75 YO male with history of chronic AF on warfarin, diastolic heart failure, and other problems as noted. Hospitalized at [facility] 04/12/20 with GI bleeding. INR was elevated. Warfarin was held and then resumed at reduced dose. EGD demonstrated gastritis. CT demonstrated diverticulitis and pt was treated with course of antibiotics. Arrangements were made for colonoscopy in 4-6 weeks. Had some loose stools. C diff gene + / toxin negative. Therefore, not treated for C diff colitis. Discharged to home 11.2. Returned to ED today with several days of dark stools and black stools today. Feels weak and lightheaded. + nausea, no emesis. Drinks daily. Uses occasional ibuprofen. EXAM: General- no distress Lungs- clear to auscultation; no respiratory distress Cardiovascular- RRR; no murmur; no gallop; no JVD; no pretibial edema Abdomen- + bowel sounds, distended, soft, nontender Extremities- no cyanosis; no calf tenderness Neuro- alert, oriented Skin- warm & dry DATA: Hgb 13.1 Plts 147,000 INR 7.5 Na 135 BUN 17, creat 0.99. Other lab studies as noted EKG performed at 1053 reviewed and demonstrated AF at 60 / minute, QTc 520 msec. ASSESSMENT AND PLAN: GI BLEED Recurrent GI bleed with melena. Recent EGD demonstrated gastritis. No history of cirrhosis or portal hypertension. Continues to drink daily and uses occasional ibuprofen. INR elevated on warfarin. H/H stable. Hemodynamically stable; not orthostatic. Received vitamin K for elevated INR. Received IV pantoprazole bolus / infusion. Monitor H/H. GI consulted. CHRONIC AF Rate controlled on verapamil. On warfarin with elevated INR & GI bleed. Resume warfarin at reduced dose when OK from GI perspective. DIASTOLIC CHF Clinically compensated. Hold furosemide in light of GI bleed. ALCOHOL CONSUMPTION Drinks daily. Had moderate alcohol withdrawal during last hospitalization. IV thiamine & MVI. Gabapentin protocol for alcohol withdrawal. Importance of abstinence discussed- will need ongoing support. PROLONGED QTc QTc 519 msec. Avoid meds with QT prolongation whenever possible. Currently on trazodone 100 mg daily- taper and discontinue. Please refer to EVEYLN Tan's documentation for discussion of other issues.
--- NOTE | 2020-05-15 14:08 | Gastrointestinal Consultation ---
Date of Consultation May 15, 2020 Assessment & Plan (1) Acute GI bleedin75 year old male admitted w/ melena x 1 months, supratherapeutic INR > 7, stable HGB and vital signs. He had EGD last month with similar presentation and was planned for OP colonoscopy next week here with fatigue, dark tarry stools NPO after midnight COVID-19 test Hold coumadin Reverse INR < 2 Trend HGB Monitor and document stools Transfuse HGB less than 7 IV PPI bolus and drip No NSAIDs Plan for EGD 05/16/2020 Will plan for colonoscopy as scheduled for OP Thank you for allowing us to participate in the care of this patient. Please call with any acute changes, questions or concerns. Please see addendum below with additional recommendation from my supervising physician. Supervising Physician Co-Signing Physician Notes I have seen and examined the patient and discussed the management with BREA Delgado. Consult for melena - ? recent nsaid use. PE - alert and oriented, heent - perrla, Pulm - normal excursion of lungs, abd - soft nt nd +bs Hgb stable, no bun rise, INR supratherapeutic covid negative EGD tomorrow if INR is reversed to goal of 1.5-2 for further evaluation of melena. Last egd in 03/05. History of Present Illness Reason for Consultation: dark stools Requesting Physician: Danie Attending Physician: Stevie Helton MD History of Present Illness 75 year old male w/ PMHx of Afib on Coumadin, HTN, HLD, COPD, ALLEY , BPH, depression, anxiety who presents through the ED for evaluation of dark stools - GI asked to evaluate as ED noted melena. Pt was seen and evaluated, chart r aletha. notes dark stools x 1 months. Last admission reviewed. Underwent CT at that time which showed diverticulitis. Had EGD inpatient w/ plan for OP Colonoscopy which is scheduled next week. notes he went home and had continued dark, tarry stools which appeared worse last evening. Fatigued. No lightheadedness dizziness, CP, SOB. No fever, chills, CP. HGB 13, BUN WNL, INR 7 His last EGD was in 03/2020 Z-line irregular, 40 cm from the incisors. Biopsied to r/o Arana's. Erosive gastropathy with no bleeding and no stigmata of recent bleeding.Normal duodenal bulb and second portion of the duodenum. His last colonoscopy was in 08/2018 - hyperplastic polyps found but suggested 2 yr recall due to inadequate prep. Pt denies current tobacco uses. Previously reported ETOH use wine at night Denies NSAIDs uses Denies hx of colorectal ca or PUD. Allergies Allergy/AdvReac Type Severity Reaction Status Date / Time cephalexin [From Keflex] AdvReac Hives Unverified 05/15/20 10:41 Home Medications Medication Instructions Recorded Confirmed Type Anoro Ellipta 1 inh INHALATION DAILY 04/12/20 05/15/20 History Flovent HFA 2 puff INHALATION BID 04/12/20 05/15/20 History albuterol sulfate 2 puff INHALATION Q4H PRN 04/12/20 05/15/20 History atorvastatin 10 mg PO DAILY 04/12/20 05/15/20 History azelastine 1 spray INTRANASAL BID 04/12/20 05/15/20 History buspirone 15 mg PO BID 04/12/20 05/15/20 History cetirizine [Zyrtec] 5 mg PO DAILY 04/12/20 05/15/20 History cyanocobalamin (vitamin B-12) 1,000 mcg PO DAILY 04/12/20 05/15/20 History [Vitamin B-12] fluoxetine 10 mg PO DAILY 04/12/20 05/15/20 History furosemide 20 mg PO DAILY 04/12/20 05/15/20 History gabapentin 100 mg PO BID 04/12/20 05/15/20 History magnesium oxide 400 mg PO DAILY 04/12/20 05/15/20 History multivitamin with minerals 1 tab PO DAILY 04/12/20 05/15/20 History [Multiple Vitamin-Minerals] potassium chloride 20 - 40 meq PO DAILY 04/12/20 05/15/20 History tamsulosin 0.4 mg PO HS 04/12/20 05/15/20 History trazodone 100 mg PO HS 04/12/20 05/15/20 History triamcinolone acetonide 1 applic TOPICAL BID 04/12/20 05/15/20 History verapamil 180 mg PO BID 04/12/20 05/15/20 History pantoprazole 40 mg PO DAILY #30 tab 04/17/20 05/15/20 Rx warfarin See Rx Instructions .ROUTE 04/17/20 05/15/20 Rx .COMPLEX #0 tab levothyroxine 88 mcg PO DAILY 05/15/20 05/15/20 History spironolactone 12.5 mg PO DAILY 05/15/20 05/15/20 History Patient History Medical History BPH (benign prostatic hyperplasia) Chronic atrial fibrillation Chronic heart failure with preserved ejection fraction (HFpEF) COPD (chronic obstructive pulmonary disease) Current use of shelter anticoagulation Depression with anxiety HLD (hyperlipidemia) HTN (hypertension) ALLEY (obstructive sleep apnea) Intolerant to CPAP Prolonged QT interval Surgical History History of cataract extraction History of colonoscopy History of total left hip arthroplasty Family History Father Stroke Mother Stroke Social History Smoking Status: Former smoker Tobacco Type: Cigarettes Years Smoked: 18; Hx Alcohol Use: Yes Alcohol type: wine and hard liquor Alcohol Intake Frequency: 4 or More x per/Week Alcohol Intake Frequency Comment: 3-4 drinks nightly Hx Substance Use: No Preferred Language: Slovenian Communication Ability: Effective [employer] Consultant Required: No Beliefs That Will Affect Care: None marital status: Current Living Situation: Alone Feels Safe at Home: Yes Safety Concerns: Feels Safe At This Time Assistive Devices: Cane and Glasses Review of Systems Constitutional: + fatigue; no fever and no chills Respiratory: no cough Cardiovascular: no chest pain Gastrointestinal: + change in stools and + melena; no abdominal pain, no coffee ground emesis, no hematemesis and no blood in stools Physical Exam Constitutional: well nourished; no acute distress Neck: trachea midline Respiratory: normal respiratory effort Cardiovascular: Rate/Rhythm: regular rate Gastrointestinal (Abdomen): normal bowel sounds, soft, nontender, no hepatosplenomegaly Results & Data ([facility]) Vital Signs (Past 12 Hours) Vital Signs Temp Pulse Pulse Resp BP BP Pulse Ox 05/15/20 12:26 75 18 133/65 92 05/15/20 10:56 95 05/15/20 10:23 36.5 C 74 20 160/94 H 95 Laboratory Results 05/15/20 05/15/20 05/15/20 Range/Units 11:40 11:26 11:04 WBC (4.8-10.8) K/uL RBC (4.7-6.1) M/uL Hgb (14.0-18.0) g/dL POC Hgb 12.6 L (14.0-18.0) g/dl Hct (42-52) % POC Hct 37 L (42-52) % MCV (80-100) fL MCH (25-34) pg MCHC (32-36) g/dL RDW Std Deviation (36.4-46.3) fL RDW Coeff of Vijaya (11.5-14.5) % Plt Count (130-400) K/uL MPV (7.4-10.4) fL Immature Gran % (Auto) % Neut % (Auto) % Lymph % (Auto) % [place] % (Auto) % Eos % (Auto) % Baso % (Auto) % Neut # (Auto) (1.4-6.5) K/uL Lymph # (Auto) (1.2-3.4) K/uL [place] # (Auto) (0.11-0.59) K/uL Eos # (Auto) (0-0.5) K/uL Baso # (Auto) (0-0.2) K/uL Immature Gran # (Auto) (0.00-0.02) K/uL Absolute Nucleated RBC (0-0) K/uL Nucleated RBC % (auto) % PT (9.0-12.0) Seconds INR (0.9-1.1) APTT (21.0-31.0) Seconds PTT Ratio POC Sodium 132 L (135-144) mmol/L Sodium (136-145) mmol/L POC Potassium 3.9 (3.3-5.0) mmol/L Potassium (3.5-5.1) mmol/L POC Chloride 95 L (101-112) mmol/L Chloride (98-107) mmol/L Carbon Dioxide (21-32) mmol/L POC Total CO2 30 (24-31) mmol/L Anion Gap (3-11) POC Anion Gap 12.0 L (16-25) mmol/L POC BUN 16 (7-18) mg/dl BUN (7-18) mg/dl Creatinine (0.6-1.4) mg/dl POC Creatinine 1.1 (0.6-1.3) mg/dl Est Cr Clr Drug Dosing ml/min Est GFR ( Amer) Est GFR (Non-Af Amer) BUN/Creatinine Ratio (10-20) Glucose (70-99) mg/dl POC Glucose (other) 128 H (70-99) mg/dl Calcium (8.5-10.1) mg/dl POC Ioniz Calcium Zoie 1.12 (1.12-1.32) mmol/l Total Bilirubin (0.2-1) mg/dl AST (15-37) U/L ALT (12-78) U/L Alkaline Phosphatase (45-117) U/L Troponin I (0-0.045) ng/ml Total Protein (6.4-8.2) gm/dl Albumin (3.4-5.0) gm/dl Globulin (2.5-4.0) gm/dl Albumin/Globulin Ratio (0.9-2) POC Stool Occult Blood Positive A (Negative) SARS-CoV-2 Ag (Rapid) Negative (Negative) Blood Type Antibody Screen 05/15/20 05/15/20 05/15/20 Range/Units 10:55 10:55 10:55 WBC 4.99 (4.8-10.8) K/uL RBC 3.66 L (4.7-6.1) M/uL Hgb 13.1 L (14.0-18.0) g/dL POC Hgb (14.0-18.0) g/dl Hct 38.1 L (42-52) % POC Hct (42-52) % MCV 104.1 H (80-100) fL MCH 35.8 H (25-34) pg MCHC 34.4 (32-36) g/dL RDW Std Deviation 53.3 H (36.4-46.3) fL RDW Coeff of Vijaya 14.1 (11.5-14.5) % Plt Count 147 (130-400) K/uL MPV 10.5 H (7.4-10.4) fL Immature Gran % (Auto) 0.4 % Neut % (Auto) 65.8 % Lymph % (Auto) 22.2 % [place] % (Auto) 8.8 % Eos % (Auto) 2.4 % Baso % (Auto) 0.4 % Neut # (Auto) 3.28 (1.4-6.5) K/uL Lymph # (Auto) 1.11 L (1.2-3.4) K/uL [place] # (Auto) 0.44 (0.11-0.59) K/uL Eos # (Auto) 0.12 (0-0.5) K/uL Baso # (Auto) 0.02 (0-0.2) K/uL Immature Gran # (Auto) 0.02 (0.00-0.02) K/uL Absolute Nucleated RBC 0.03 H (0-0) K/uL Nucleated RBC % (auto) 0.7 % PT 70.8 H (9.0-12.0) Seconds INR 7.5 H* (0.9-1.1) APTT 64.6 H* (21.0-31.0) Seconds PTT Ratio 2.3 POC Sodium (135-144) mmol/L Sodium 135 L (136-145) mmol/L POC Potassium (3.3-5.0) mmol/L Potassium 4.0 (3.5-5.1) mmol/L POC Chloride (101-112) mmol/L Chloride 98 (98-107) mmol/L Carbon Dioxide 28 (21-32) mmol/L POC Total CO2 (24-31) mmol/L Anion Gap 9.0 (3-11) POC Anion Gap (16-25) mmol/L POC BUN (7-18) mg/dl BUN 17 (7-18) mg/dl Creatinine 0.99 (0.6-1.4) mg/dl POC Creatinine (0.6-1.3) mg/dl Est Cr Clr Drug Dosing 75.8 ml/min Est GFR ( Amer) 86.6 Est GFR (Non-Af Amer) 74.7 BUN/Creatinine Ratio 17.2 (10-20) Glucose 122 H (70-99) mg/dl POC Glucose (other) (70-99) mg/dl Calcium 9.3 (8.5-10.1) mg/dl POC Ioniz Calcium Zoie (1.12-1.32) mmol/l Total Bilirubin 0.9 (0.2-1) mg/dl AST 45 H (15-37) U/L ALT 28 (12-78) U/L Alkaline Phosphatase 130 H (45-117) U/L Troponin I < 0.015 (0-0.045) ng/ml Total Protein 6.7 (6.4-8.2) gm/dl Albumin 3.1 L (3.4-5.0) gm/dl Globulin 3.6 (2.5-4.0) gm/dl Albumin/Globulin Ratio 0.9 (0.9-2) POC Stool Occult Blood (Negative) SARS-CoV-2 Ag (Rapid) (Negative) Blood Type Antibody Screen 05/15/20 Range/Units 10:55 WBC (4.8-10.8) K/uL RBC (4.7-6.1) M/uL Hgb (14.0-18.0) g/dL POC Hgb (14.0-18.0) g/dl Hct (42-52) % POC Hct (42-52) % MCV (80-100) fL MCH (25-34) pg MCHC (32-36) g/dL RDW Std Deviation (36.4-46.3) fL RDW Coeff of Vijaya (11.5-14.5) % Plt Count (130-400) K/uL MPV (7.4-10.4) fL Immature Gran % (Auto) % Neut % (Auto) % Lymph % (Auto) % [place] % (Auto) % Eos % (Auto) % Baso % (Auto) % Neut # (Auto) (1.4-6.5) K/uL Lymph # (Auto) (1.2-3.4) K/uL [place] # (Auto) (0.11-0.59) K/uL Eos # (Auto) (0-0.5) K/uL Baso # (Auto) (0-0.2) K/uL Immature Gran # (Auto) (0.00-0.02) K/uL Absolute Nucleated RBC (0-0) K/uL Nucleated RBC % (auto) % PT (9.0-12.0) Seconds INR (0.9-1.1) APTT (21.0-31.0) Seconds PTT Ratio POC Sodium (135-144) mmol/L Sodium (136-145) mmol/L POC Potassium (3.3-5.0) mmol/L Potassium (3.5-5.1) mmol/L POC Chloride (101-112) mmol/L Chloride (98-107) mmol/L Carbon Dioxide (21-32) mmol/L POC Total CO2 (24-31) mmol/L Anion Gap (3-11) POC Anion Gap (16-25) mmol/L POC BUN (7-18) mg/dl BUN (7-18) mg/dl Creatinine (0.6-1.4) mg/dl POC Creatinine (0.6-1.3) mg/dl Est Cr Clr Drug Dosing ml/min Est GFR ( Amer) Est GFR (Non-Af Amer) BUN/Creatinine Ratio (10-20) Glucose (70-99) mg/dl POC Glucose (other) (70-99) mg/dl Calcium (8.5-10.1) mg/dl POC Ioniz Calcium Zoie (1.12-1.32) mmol/l Total Bilirubin (0.2-1) mg/dl AST (15-37) U/L ALT (12-78) U/L Alkaline Phosphatase (45-117) U/L Troponin I (0-0.045) ng/ml Total Protein (6.4-8.2) gm/dl Albumin (3.4-5.0) gm/dl Globulin (2.5-4.0) gm/dl Albumin/Globulin Ratio (0.9-2) POC Stool Occult Blood (Negative) SARS-CoV-2 Ag (Rapid) (Negative) Blood Type O Positive Antibody Screen NEGATIVE
[2020-05-15] MEDS ORDERED: LORazepam 1 MG/2 ML VIAL IV PRN (14:11)
[2020-05-15] MEDS ORDERED: GABAPENTIN 1200MG ALCOHOL WITHDRAWAL LOAD PO STA (14:11)
[2020-05-15] MEDS ORDERED: GABAPENTIN 600 MG TAB PO ONE (14:30)
[2020-05-15] MEDS ORDERED: MULTI-VITAMIN INFUSION 10 ML, THIAMINE HCL 100 MG, FOLIC ACID 1 MG in SODIUM CHLORIDE 0... IV ONE (14:45)
[2020-05-15] MEDS ORDERED: ALBUTEROL HFA 8 GM INHALER INH PRN (15:27)
[2020-05-15] MEDS ORDERED: LORazepam 0.5 MG/1 ML VIAL IV PRN (15:42)
--- NOTE | 2020-05-15 16:15 | XRay Report ---
SINGLE VIEW CHEST CLINICAL HISTORY: GI bleeding. Generalized abdominal pain. FINDINGS: An AP, portable, upright chest radiograph is compared to study dated 04/16/2020 and correlat ed with abdominal CT performed the same day 05/15/2020. The heart is enlarged noting atherosclerotic calcification of the thoracic aorta. The pulmonary vasculature is noncongested. There is a small left pleural effusion and bibasilar atelectasis. No airspace consolidation is seen typical for pneumonia No pneumothorax is identified. The skeletal structures are osteopenic. The bony thorax is grossly int act. IMPRESSION: 1. Cardiomegaly without radiographic evidence of congestive failure. 2. Small left pleural effusion. This has decreased from 04/16/2020. ACT 112: Negative or not required by law. Electronically signed by: Abdirashid Santana M.D. 05/15/2020 4:14 PM
[2020-05-15 18:54] LABS: Hematocrit (blood only) 34.7 % (42-52); Hemoglobin 11.6 g/dL (14.0-18.0)
[2020-05-15 19:10] LABS: INR 2.3 (0.9-1.1); Prothrombin Time 23.5 Seconds (9.0-12.0)
[2020-05-15] MEDS: TRIAMCINOLONE ACET 0.1% CR 15 GM TUBE TOP SCH (20:47)
[2020-05-15] MEDS: traZODone HCL 50 MG TAB PO SCH (20:47)
[2020-05-15] MEDS: VERAPAMIL HCL 180 MG TABCR PO SCH (20:47)
[2020-05-15] MEDS: GABAPENTIN 100 MG CAP PO SCH (20:48)
[2020-05-15] MEDS: busPIRone 15 MG TAB PO SCH (20:49)
[2020-05-15] MEDS: GABAPENTIN 600 MG TAB PO SCH (20:49)
[2020-05-15] MEDS: TAMSULOSIN HCL 0.4 MG CAP PO SCH (20:50)
[2020-05-15] MEDS ORDERED: traZODone HCL 100 MG TAB PO SCH (21:00)
[2020-05-15] MEDS ORDERED: PHYTONADIONE 5 MG TAB PO ONE (21:00)
[2020-05-16] MEDS: PANTOprazole 40 MG in DEXTROSE 5% 100 ML IV SCH ×2 (01:47→07:20)
[2020-05-16] MEDS: LEVOTHYROXINE SODIUM 88 MCG TABLET PO SCH (06:47)
[2020-05-16] MEDS: GABAPENTIN 600 MG TAB PO SCH ×3 (06:47→22:20)
[2020-05-16 07:37] LABS: Hematocrit (blood only) 34.7 % (42-52); Hemoglobin 11.6 g/dL (14.0-18.0); Mean Corpuscular Hemoglobin 35.4 pg (25-34); Mean Corpuscular Hgb Conc 33.4 g/dL (32-36); Mean Corpuscular Volume 105.8 fL (80-100); Mean Platelet Volume 9.9 fL (7.4-10.4); Nucleated RBC # (auto) 0.02 K/uL (0-0); Nucleated RBC % (auto) 0.6 %; Platelet Count 109 K/uL (130-400); RDW Coefficient of Variation 14.5 % (11.5-14.5); Red Blood Count 3.28 M/uL (4.7-6.1); White Blood Count 3.87 K/uL (4.8-10.8)
[2020-05-16 07:43] LABS: INR 1.4 (0.9-1.1); Prothrombin Time 14.2 Seconds (9.0-12.0)
[2020-05-16 08:17] LABS: Albumin Globulin Ratio 0.8 (0.9-2); Albumin Level 2.6 gm/dl (3.4-5.0); BUN Creatinine Ratio 14.7 (10-20); Bilirubin,Total 1.1 mg/dl (0.2-1); Calcium 8.7 mg/dl (8.5-10.1); Creatinine Clr Calc Pharmacy 89.8 ml/min; Est GFR (Non-African American) 87.1; Globulin 3.1 gm/dl (2.5-4.0); Potassium 3.4 mmol/L (3.5-5.1); Total Protein 5.7 gm/dl (6.4-8.2)
--- NOTE | 2020-05-16 08:21 | Gastroenterology Progress Note ---
Date of Service May 16, 2020 Assessment & Plan Admission and Anticipated Discharge Date Admission Date: May 15, 2020 Supervising Physician Co-Signing Physician Notes I have seen and examined the patient. Slight drop in hgb, inr reversed. EGD for evaluation of melena on admission - none since admission, hgb drop from 13 to 11, normal bun, inr normal this morning. Subjective No concerns NPO no further BM INR reversed HGB trickling down No abd pain, nausea, vomiting Review of Systems Constitutional: no fever and no chills Respiratory: no cough Cardiovascular: no chest pain Gastrointestinal: no abdominal pain Physical Exam Constitutional: well nourished; no acute distress Neck: trachea midline Respiratory: normal respiratory effort Cardiovascular: Rate/Rhythm: regular rate Gastrointestinal (Abdomen): normal bowel sounds, soft, nontender, no hepatosplenomegaly Results & Data ([facility]) Vital Signs (Past 12 Hours) Vital Signs Temp Pulse Pulse Resp BP Pulse Ox 05/16/20 08:16 36.8 C 78 18 141/63 H 96 05/16/20 02:55 36.5 C 72 18 133/63 92 05/15/20 23:50 36.2 C L 68 64 18 116/64 93 Laboratory Results 05/16/20 05/16/20 05/16/20 Range/Units 07:18 07:17 07:17 WBC (4.8-10.8) K/uL RBC (4.7-6.1) M/uL Hgb (14.0-18.0) g/dL POC Hgb (14.0-18.0) g/dl Hct (42-52) % POC Hct (42-52) % MCV (80-100) fL MCH (25-34) pg MCHC (32-36) g/dL RDW Std Deviation (36.4-46.3) fL RDW Coeff of Vijaya (11.5-14.5) % Plt Count (130-400) K/uL MPV (7.4-10.4) fL Immature Gran % (Auto) % Neut % (Auto) % Lymph % (Auto) % [place] % (Auto) % Eos % (Auto) % Baso % (Auto) % Neut # (Auto) (1.4-6.5) K/uL Lymph # (Auto) (1.2-3.4) K/uL [place] # (Auto) (0.11-0.59) K/uL Eos # (Auto) (0-0.5) K/uL Baso # (Auto) (0-0.2) K/uL Immature Gran # (Auto) (0.00-0.02) K/uL Absolute Nucleated RBC (0-0) K/uL Nucleated RBC % (auto) % PT 14.2 H (9.0-12.0) Seconds INR 1.4 H (0.9-1.1) APTT (21.0-31.0) Seconds PTT Ratio POC Sodium (135-144) mmol/L Sodium 137 (136-145) mmol/L POC Potassium (3.3-5.0) mmol/L Potassium 3.4 L (3.5-5.1) mmol/L POC Chloride (101-112) mmol/L Chloride 99 (98-107) mmol/L Carbon Dioxide 29 (21-32) mmol/L POC Total CO2 (24-31) mmol/L Anion Gap 9.0 (3-11) POC Anion Gap (16-25) mmol/L POC BUN (7-18) mg/dl BUN 12 (7-18) mg/dl Creatinine 0.82 (0.6-1.4) mg/dl POC Creatinine (0.6-1.3) mg/dl Est Cr Clr Drug Dosing 89.8 ml/min Est GFR ( Amer) 101.0 Est GFR (Non-Af Amer) 87.1 BUN/Creatinine Ratio 14.7 (10-20) Glucose 116 H (70-99) mg/dl POC Glucose 129 H (70-99) mg/dl POC Glucose (other) (70-99) mg/dl Calcium 8.7 (8.5-10.1) mg/dl POC Ioniz Calcium Zoie (1.12-1.32) mmol/l Total Bilirubin 1.1 H (0.2-1) mg/dl AST 33 (15-37) U/L ALT 20 (12-78) U/L Alkaline Phosphatase 96 (45-117) U/L Troponin I (0-0.045) ng/ml Total Protein 5.7 L (6.4-8.2) gm/dl Albumin 2.6 L (3.4-5.0) gm/dl Globulin 3.1 (2.5-4.0) gm/dl Albumin/Globulin Ratio 0.8 L (0.9-2) POC Stool Occult Blood (Negative) Hepatitis C Ab Screen (Neg) SARS-CoV-2 Ag (Rapid) (Negative) Blood Type Antibody Screen 05/16/20 05/15/20 05/15/20 Range/Units 07:17 Unknown 18:33 WBC 3.87 L (4.8-10.8) K/uL RBC 3.28 L (4.7-6.1) M/uL Hgb 11.6 L (14.0-18.0) g/dL POC Hgb (14.0-18.0) g/dl Hct 34.7 L (42-52) % POC Hct (42-52) % MCV 105.8 H (80-100) fL MCH 35.4 H (25-34) pg MCHC 33.4 (32-36) g/dL RDW Std Deviation 56.0 H (36.4-46.3) fL RDW Coeff of Vijaya 14.5 (11.5-14.5) % Plt Count 109 L (130-400) K/uL MPV 9.9 (7.4-10.4) fL Immature Gran % (Auto) % Neut % (Auto) % Lymph % (Auto) % [place] % (Auto) % Eos % (Auto) % Baso % (Auto) % Neut # (Auto) (1.4-6.5) K/uL Lymph # (Auto) (1.2-3.4) K/uL [place] # (Auto) (0.11-0.59) K/uL Eos # (Auto) (0-0.5) K/uL Baso # (Auto) (0-0.2) K/uL Immature Gran # (Auto) (0.00-0.02) K/uL Absolute Nucleated RBC 0.02 H (0-0) K/uL Nucleated RBC % (auto) 0.6 % PT 23.5 H (9.0-12.0) Seconds INR 2.3 H (0.9-1.1) APTT (21.0-31.0) Seconds PTT Ratio POC Sodium (135-144) mmol/L Sodium (136-145) mmol/L POC Potassium (3.3-5.0) mmol/L Potassium (3.5-5.1) mmol/L POC Chloride (101-112) mmol/L Chloride (98-107) mmol/L Carbon Dioxide (21-32) mmol/L POC Total CO2 (24-31) mmol/L Anion Gap (3-11) POC Anion Gap (16-25) mmol/L POC BUN (7-18) mg/dl BUN (7-18) mg/dl Creatinine (0.6-1.4) mg/dl POC Creatinine (0.6-1.3) mg/dl Est Cr Clr Drug Dosing ml/min Est GFR ( Amer) Est GFR (Non-Af Amer) BUN/Creatinine Ratio (10-20) Glucose (70-99) mg/dl POC Glucose (70-99) mg/dl POC Glucose (other) (70-99) mg/dl Calcium (8.5-10.1) mg/dl POC Ioniz Calcium Zoie (1.12-1.32) mmol/l Total Bilirubin (0.2-1) mg/dl AST (15-37) U/L ALT (12-78) U/L Alkaline Phosphatase (45-117) U/L Troponin I (0-0.045) ng/ml Total Protein (6.4-8.2) gm/dl Albumin (3.4-5.0) gm/dl Globulin (2.5-4.0) gm/dl Albumin/Globulin Ratio (0.9-2) POC Stool Occult Blood (Negative) Hepatitis C Ab Screen Neg (Neg) SARS-CoV-2 Ag (Rapid) (Negative) Blood Type Antibody Screen 05/15/20 05/15/20 05/15/20 Range/Units 18:33 11:40 11:26 WBC (4.8-10.8) K/uL RBC (4.7-6.1) M/uL Hgb 11.6 L (14.0-18.0) g/dL POC Hgb (14.0-18.0) g/dl Hct 34.7 L (42-52) % POC Hct (42-52) % MCV (80-100) fL MCH (25-34) pg MCHC (32-36) g/dL RDW Std Deviation (36.4-46.3) fL RDW Coeff of Vijaya (11.5-14.5) % Plt Count (130-400) K/uL MPV (7.4-10.4) fL Immature Gran % (Auto) % Neut % (Auto) % Lymph % (Auto) % [place] % (Auto) % Eos % (Auto) % Baso % (Auto) % Neut # (Auto) (1.4-6.5) K/uL Lymph # (Auto) (1.2-3.4) K/uL [place] # (Auto) (0.11-0.59) K/uL Eos # (Auto) (0-0.5) K/uL Baso # (Auto) (0-0.2) K/uL Immature Gran # (Auto) (0.00-0.02) K/uL Absolute Nucleated RBC (0-0) K/uL Nucleated RBC % (auto) % PT (9.0-12.0) Seconds INR (0.9-1.1) APTT (21.0-31.0) Seconds PTT Ratio POC Sodium (135-144) mmol/L Sodium (136-145) mmol/L POC Potassium (3.3-5.0) mmol/L Potassium (3.5-5.1) mmol/L POC Chloride (101-112) mmol/L Chloride (98-107) mmol/L Carbon Dioxide (21-32) mmol/L POC Total CO2 (24-31) mmol/L Anion Gap (3-11) POC Anion Gap (16-25) mmol/L POC BUN (7-18) mg/dl BUN (7-18) mg/dl Creatinine (0.6-1.4) mg/dl POC Creatinine (0.6-1.3) mg/dl Est Cr Clr Drug Dosing ml/min Est GFR ( Amer) Est GFR (Non-Af Amer) BUN/Creatinine Ratio (10-20) Glucose (70-99) mg/dl POC Glucose (70-99) mg/dl POC Glucose (other) (70-99) mg/dl Calcium (8.5-10.1) mg/dl POC Ioniz Calcium Zoie (1.12-1.32) mmol/l Total Bilirubin (0.2-1) mg/dl AST (15-37) U/L ALT (12-78) U/L Alkaline Phosphatase (45-117) U/L Troponin I (0-0.045) ng/ml Total Protein (6.4-8.2) gm/dl Albumin (3.4-5.0) gm/dl Globulin (2.5-4.0) gm/dl Albumin/Globulin Ratio (0.9-2) POC Stool Occult Blood Positive A (Negative) Hepatitis C Ab Screen (Neg) SARS-CoV-2 Ag (Rapid) Negative (Negative) Blood Type Antibody Screen 05/15/20 05/15/20 05/15/20 Range/Units 11:04 10:55 10:55 WBC (4.8-10.8) K/uL RBC (4.7-6.1) M/uL Hgb (14.0-18.0) g/dL POC Hgb 12.6 L (14.0-18.0) g/dl Hct (42-52) % POC Hct 37 L (42-52) % MCV (80-100) fL MCH (25-34) pg MCHC (32-36) g/dL RDW Std Deviation (36.4-46.3) fL RDW Coeff of Vijaya (11.5-14.5) % Plt Count (130-400) K/uL MPV (7.4-10.4) fL Immature Gran % (Auto) % Neut % (Auto) % Lymph % (Auto) % [place] % (Auto) % Eos % (Auto) % Baso % (Auto) % Neut # (Auto) (1.4-6.5) K/uL Lymph # (Auto) (1.2-3.4) K/uL [place] # (Auto) (0.11-0.59) K/uL Eos # (Auto) (0-0.5) K/uL Baso # (Auto) (0-0.2) K/uL Immature Gran # (Auto) (0.00-0.02) K/uL Absolute Nucleated RBC (0-0) K/uL Nucleated RBC % (auto) % PT 70.8 H (9.0-12.0) Seconds INR 7.5 H* (0.9-1.1) APTT 64.6 H* (21.0-31.0) Seconds PTT Ratio 2.3 POC Sodium 132 L (135-144) mmol/L Sodium 135 L (136-145) mmol/L POC Potassium 3.9 (3.3-5.0) mmol/L Potassium 4.0 (3.5-5.1) mmol/L POC Chloride 95 L (101-112) mmol/L Chloride 98 (98-107) mmol/L Carbon Dioxide 28 (21-32) mmol/L POC Total CO2 30 (24-31) mmol/L Anion Gap 9.0 (3-11) POC Anion Gap 12.0 L (16-25) mmol/L POC BUN 16 (7-18) mg/dl BUN 17 (7-18) mg/dl Creatinine 0.99 (0.6-1.4) mg/dl POC Creatinine 1.1 (0.6-1.3) mg/dl Est Cr Clr Drug Dosing 75.8 ml/min Est GFR ( Amer) 86.6 Est GFR (Non-Af Amer) 74.7 BUN/Creatinine Ratio 17.2 (10-20) Glucose 122 H (70-99) mg/dl POC Glucose (70-99) mg/dl POC Glucose (other) 128 H (70-99) mg/dl Calcium 9.3 (8.5-10.1) mg/dl POC Ioniz Calcium [place] 1.12 (1.12-1.32) mmol/l Total Bilirubin 0.9 (0.2-1) mg/dl AST 45 H (15-37) U/L ALT 28 (12-78) U/L Alkaline Phosphatase 130 H (45-117) U/L Troponin I < 0.015 (0-0.045) ng/ml Total Protein 6.7 (6.4-8.2) gm/dl Albumin 3.1 L (3.4-5.0) gm/dl Globulin 3.6 (2.5-4.0) gm/dl Albumin/Globulin Ratio 0.9 (0.9-2) POC Stool Occult Blood (Negative) Hepatitis C Ab Screen (Neg) SARS-CoV-2 Ag (Rapid) (Negative) Blood Type Antibody Screen 05/15/20 05/15/20 Range/Units 10:55 10:55 WBC 4.99 (4.8-10.8) K/uL RBC 3.66 L (4.7-6.1) M/uL Hgb 13.1 L (14.0-18.0) g/dL POC Hgb (14.0-18.0) g/dl Hct 38.1 L (42-52) % POC Hct (42-52) % MCV 104.1 H (80-100) fL MCH 35.8 H (25-34) pg MCHC 34.4 (32-36) g/dL RDW Std Deviation 53.3 H (36.4-46.3) fL RDW Coeff of Vijaya 14.1 (11.5-14.5) % Plt Count 147 (130-400) K/uL MPV 10.5 H (7.4-10.4) fL Immature Gran % (Auto) 0.4 % Neut % (Auto) 65.8 % Lymph % (Auto) 22.2 % [place] % (Auto) 8.8 % Eos % (Auto) 2.4 % Baso % (Auto) 0.4 % Neut # (Auto) 3.28 (1.4-6.5) K/uL Lymph # (Auto) 1.11 L (1.2-3.4) K/uL [place] # (Auto) 0.44 (0.11-0.59) K/uL Eos # (Auto) 0.12 (0-0.5) K/uL Baso # (Auto) 0.02 (0-0.2) K/uL Immature Gran # (Auto) 0.02 (0.00-0.02) K/uL Absolute Nucleated RBC 0.03 H (0-0) K/uL Nucleated RBC % (auto) 0.7 % PT (9.0-12.0) Seconds INR (0.9-1.1) APTT (21.0-31.0) Seconds PTT Ratio POC Sodium (135-144) mmol/L Sodium (136-145) mmol/L POC Potassium (3.3-5.0) mmol/L Potassium (3.5-5.1) mmol/L POC Chloride (101-112) mmol/L Chloride (98-107) mmol/L Carbon Dioxide (21-32) mmol/L POC Total CO2 (24-31) mmol/L Anion Gap (3-11) POC Anion Gap (16-25) mmol/L POC BUN (7-18) mg/dl BUN (7-18) mg/dl Creatinine (0.6-1.4) mg/dl POC Creatinine (0.6-1.3) mg/dl Est Cr Clr Drug Dosing ml/min Est GFR ( Amer) Est GFR (Non-Af Amer) BUN/Creatinine Ratio (10-20) Glucose (70-99) mg/dl POC Glucose (70-99) mg/dl POC Glucose (other) (70-99) mg/dl Calcium (8.5-10.1) mg/dl POC Ioniz Calcium [place] (1.12-1.32) mmol/l Total Bilirubin (0.2-1) mg/dl AST (15-37) U/L ALT (12-78) U/L Alkaline Phosphatase (45-117) U/L Troponin I (0-0.045) ng/ml Total Protein (6.4-8.2) gm/dl Albumin (3.4-5.0) gm/dl Globulin (2.5-4.0) gm/dl Albumin/Globulin Ratio (0.9-2) POC Stool Occult Blood (Negative) Hepatitis C Ab Screen (Neg) SARS-CoV-2 Ag (Rapid) (Negative) Blood Type O Positive Antibody Screen NEGATIVE
--- NOTE | 2020-05-16 08:25 | Anesthesiology Consultation ---
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 Mendy Brooke MD Operation Date: 05/16/20 16:40 Proposed Procedures p Esophagogastroduodenoscopy Dr Diamond Fields MD Height/Weight Height: 5 ft 10 in Weight: 91.4 kg Allergies Allergy/AdvReac Type Severity Reaction Status Date / Time trazodone AdvReac Severe prolonged Verified 05/15/20 15:21 QTc cephalexin [From Keflex] AdvReac Hives Verified 05/15/20 15:31 Medications Home Medications Medication Instructions Recorded Confirmed Last Taken Anoro Ellipta 1 inh INHALATION DAILY 04/12/20 05/15/20 05/15/20 Flovent HFA 2 puff INHALATION BID 04/12/20 05/15/20 05/15/20 albuterol sulfate 2 puff INHALATION Q4H PRN 04/12/20 05/15/20 Unknown atorvastatin 10 mg PO DAILY 04/12/20 05/15/20 05/15/20 azelastine 1 spray INTRANASAL BID 04/12/20 05/15/20 05/15/20 buspirone 15 mg PO BID 04/12/20 05/15/20 05/15/20 cetirizine [Zyrtec] 5 mg PO DAILY 04/12/20 05/15/20 05/15/20 cyanocobalamin (vitamin B-12) 1,000 mcg PO DAILY 04/12/20 05/15/20 05/15/20 [Vitamin B-12] fluoxetine 10 mg PO DAILY 04/12/20 05/15/20 05/15/20 furosemide 20 mg PO DAILY 04/12/20 05/15/20 05/15/20 gabapentin 100 mg PO BID 04/12/20 05/15/20 05/15/20 magnesium oxide 400 mg PO DAILY 04/12/20 05/15/20 05/15/20 multivitamin with minerals 1 tab PO DAILY 04/12/20 05/15/20 05/15/20 [Multiple Vitamin-Minerals] potassium chloride 20 - 40 meq PO DAILY 04/12/20 05/15/2005/15/20 tamsulosin 0.4 mg PO HS 04/12/20 05/15/20 05/14/20 trazodone 100 mg PO HS 04/12/20 05/15/20 05/14/20 triamcinolone acetonide 1 applic TOPICAL BID 04/12/20 05/15/20 05/15/20 verapamil 180 mg PO BID 04/12/20 05/15/20 05/15/20 pantoprazole 40 mg PO DAILY #30 tab 04/17/20 05/15/20 05/15/20 levothyroxine 88 mcg PO DAILY 05/15/20 05/15/20 05/15/20 spironolactone 12.5 mg PO DAILY 05/15/20 05/15/20 05/15/20 warfarin 2.5 mg PO SUMOTUWETHSA@1600 05/15/20 05/15/20 Unknown warfarin [Coumadin] 5 mg PO FR@1600 05/15/20 05/15/20 Unknown Active Medications Generic Name Dose Route Start Last Admin Trade Name Freq PRN Reason Stop Dose Admin Buspirone HCl 15 mg 05/15/20 21:00 05/15/20 20:49 Buspirone 15 Mg Tab PO 06/14/20 20:59 15 mg BID MAXIMILIANO Administration Gabapentin 100 mg 05/15/20 21:00 05/15/20 20:48 Gabapentin 100 Mg Cap PO 06/14/20 20:59 100 mg BID MAXIMILIANO Administration Pantoprazole Sodium 40 mg/ 100 mls @ 20 mls/hr 05/15/20 11:31 05/16/20 07:20 Dextrose IV 06/14/20 11:30 8 mg/hr Q5H MAXIMILIANO 20 mls/hr Administration 8 MG/HR Levothyroxine Sodium 88 mcg 05/16/20 06:30 05/16/20 06:47 Levothyroxine Sodium 88 Mcg Tablet PO 06/15/20 06:29 Not Given DAILYBB MAXIMILIANO Miscellaneous 1 ea 05/15/20 16:00 05/16/20 00:17 Azelastine- Order Awaiting Action N/A 06/14/20 15:59 Not Given QS MAXIMILIANO Tamsulosin HCl 0.4 mg 05/15/20 21:00 05/15/20 20:50 Tamsulosin Hcl 0.4 Mg Cap PO 06/14/20 20:59 0.4 mg HS MAXIMILIANO Administration Trazodone HCl 50 mg 05/15/20 21:00 05/15/20 20:47 Trazodone Hcl 50 Mg Tab PO 06/14/20 20:59 50 mg HS MAXIMILIANO Administration Triamcinolone Acetonide 1 appln 05/15/20 21:00 05/15/20 20:47 Triamcinolone Acet 0.1% Cr 15 Gm Tube TOP 06/14/20 20:59 Not Given BID MAXIMILIANO Verapamil HCl 180 mg 05/15/20 21:00 05/15/20 20:47 Verapamil Hcl 180 Mg Tabcr PO 06/14/20 20:59 180 mg BID MAXIMILIANO Administration Past Medical History Medical History BPH (benign prostatic hyperplasia) Chronic atrial fibrillation Chronic heart failure with preserved ejection fraction (HFpEF) COPD (chronic obstructive pulmonary disease) 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 Depression with anxiety HLD (hyperlipidemia) HTN (hypertension) ALLEY (obstructive sleep apnea) Intolerant to CPAP Prolonged QT interval Past Family History Family History Father Stroke Mother Stroke Past Surgical History Surgical History History of cataract extraction History of colonoscopy History of total left hip arthroplasty Social History Smoking Status: Former smoker Hx Alcohol Use: Yes Alcohol type: wine and hard liquor alcohol intake frequency: 0-2 drinks per day Hx Substance Use: No substance use type: does not use Physical Exam Vital Signs Last Vital Signs Temp 98.2 F 05/16/20 08:16 Pulse 78 05/16/20 08:16 Resp 18 05/16/20 08:16 BP 141/63 H 05/16/20 08:16 Pulse Ox 96 05/16/20 08:16 Testing Laboratory Results 05/16/20 07:17 05/16/20 07:17 PT 14.2 Seconds (9.0-12.0) H 05/16/20 07:17 INR 1.4 (0.9-1.1) H 05/16/20 07:17 APTT 64.6 Seconds (21.0-31.0) H* 05/15/20 10:55 Blood Type O Positive 05/15/20 10:55 Antibody Screen NEGATIVE 05/15/20 10:55 05/16/20 07:18 POC Glucose 129 H Electrocardiogram Date: 05/16/20 Atrial fibrillation, rate 62 bpm Prolonged QT Abnormal ECG When compared with ECG of 13-APR-2020 07:19, Nonspecific T wave abnormality no longer evident in Anterior leads Confirmed by Eugene Beckham ([id number]) on 05/15/2020 11:12:20 AM
[2020-05-16] MEDS ORDERED: PROPOFOL IV EMULSION 10 MG/ML 20 ML VIAL IV ONE (08:58)
[2020-05-16] MEDS ORDERED: LIDOCAINE HCL 2% 2 ML VIAL/AMP(20MG/ML) INFIL ONE (08:58)
[2020-05-16] MEDS ORDERED: LEVOTHYROXINE SODIUM 88 MCG TABLET PO SCH (09:00)
[2020-05-16] MEDS ORDERED: FLUoxetine HCL 10 MG CAP PO SCH (09:00)
[2020-05-16] MEDS ORDERED: FUROSEMIDE 20 MG TAB PO SCH (09:00)
--- NOTE | 2020-05-16 09:16 | GI REPORT ---
Patient Name: Wilber Isbell Procedure Date: 05/16/2020 8:46 AM Date of : 1945 Admit Type: Inpatient Age: 75 Gender: Male Attending MD: Belkys Brooke M.d. Procedure: Upper GI endoscopy Providers: Belkys Brooke M.d. Referring MD: Arely Feldman Md Indications: Melena Medicines: Propofol per Anesthesia, Lidocaine Complications: No immediate complications. Estimated Blood Loss: Estimated blood loss: none. Procedure: Pre-Anesthesia Assessment: - Patient identification and proposed procedure were verified prior to the procedure by the physician, the nurse and the anesthesiologist. The procedure was verified in the pre-procedure area. - Prior to the procedure, a History and Physical was performed, and patient medications, allergies and sensitivities were reviewed. The patient's tolerance of previous anesthesia was reviewed. - The risks and benefits of the procedure and the sedation options and risks were discussed with the patient. All questions were answered and informed consent was obtained. After obtaining informed consent, the endoscope was passed under direct vision. Throughout the procedure, the patient's blood pressure, pulse, and oxygen saturations were monitored continuously. The Endoscope was introduced through the mouth and advanced to the second part of duodenum. The upper GI endoscopy was accomplished without difficulty. The patient tolerated the procedure well. Findings: The examined esophagus appeared normal, variable Z line the variability that appeared to be less than 1 cm. No evidence of varices. The examined stomach appeared normal. No evidence of varices. Localized mild inflammation characterized by erythema was found in the gastric antrum. The duodenal bulb and second portion of the duodenum appeared normal. Impression: - Normal esophagus. - Normal stomach. - Antral gastritis. - Normal duodenal bulb and second portion of the duodenum. Recommendation: - Return to the floor. - Continue PPI once daily. - Advance diet today. Davidson Villalta M.d. 05/16/2020 9:16:00 AM This report has been signed electronically. Note Initiated On: 05/16/2020 8:46 AM Number of Addenda: 0 I attest to the content of the Intraoperative Record and orders documented therein, exceptions below {[id number]}
--- NOTE | 2020-05-16 09:37 | Anesthesiology Progress Note ---
Date of Service May 16, 2020 Anesthesia Post Procedure Vital Signs Vital Signs: Temp Pulse Pulse Pulse Resp BP BP 05/16/20 09:36 63 05/16/20 09:33 65 16 05/16/20 09:18 79 16 05/16/20 08:32 98.2 F 64 18 05/16/20 08:16 98.2 F 78 18 05/16/20 02:55 97.7 F 72 18 05/15/20 23:50 97.2 F L 68 64 18 05/15/20 20:00 98.4 F 63 18 05/15/20 15:35 98.2 F 66 18 132/68 05/15/20 13:50 97.7 F 67 20 133/73 05/15/20 12:26 75 18 133/65 05/15/20 10:56 05/15/20 10:23 97.7 F 74 20 160/94 H BP Pulse Ox 05/16/20 09:36 05/16/20 09:33 125/68 94 05/16/20 09:18 114/53 L 93 05/16/20 08:32 125/62 92 05/16/20 08:16 141/63 H 96 05/16/20 02:55 133/63 92 05/15/20 23:50 116/64 93 05/15/20 20:00 116/67 90 05/15/20 15:35 95 05/15/20 13:50 94 05/15/20 12:26 92 05/15/20 10:56 95 05/15/20 10:23 95 Pain Intensity Abdomen: Pain Intensity: 3 Left Abdomen: Pain Intensity: 3 Transfer of Care Handoff Completed per policy Notes Mental Status: alert / awake / arousable and participated in evaluation Patient Amnestic to Procedure: Yes Nausea / Vomiting: adequately controlled Pain: adequately controlled Airway Patency, RR, SpO2: stable & adequate BP & HR: stable & adequate Hydration State: stable & adequate Anesthetic Complications: no major complications apparent and Pt Satisfied with anesthetic care
[2020-05-16] MEDS: POTASSIUM CHLORIDE CRTAB 20 MEQ TABCR PO SCH (10:23)
[2020-05-16] MEDS: CETIRIZINE HCL 10 MG TABLET PO SCH (10:23)
[2020-05-16] MEDS: MULTIVITAMIN TAB PO SCH (10:24)
[2020-05-16] MEDS: GABAPENTIN 100 MG CAP PO SCH ×2 (10:24→20:27)
[2020-05-16] MEDS: busPIRone 15 MG TAB PO SCH ×2 (10:24→20:27)
[2020-05-16] MEDS: VERAPAMIL HCL 180 MG TABCR PO SCH ×2 (10:25→20:27)
[2020-05-16] MEDS: SPIRONOLACTONE 12.5 MG TAB PO SCH (10:25)
[2020-05-16] MEDS: ATORVASTATIN 10 MG TAB PO SCH (10:25)
[2020-05-16] MEDS: CYANOCOBALAMIN 500 MCG TABLET (VITAMIN B-12) PO SCH (10:25)
[2020-05-16] MEDS: MAGNESIUM OXIDE 400 MG TAB PO SCH (10:26)
[2020-05-16] MEDS: TRIAMCINOLONE ACET 0.1% CR 15 GM TUBE TOP SCH ×2 (10:26→20:26)
[2020-05-16] MEDS: UMECLIDINIUM/VILANTEROL 62.5/25MCG 7 PUFFS/INHALER INH SCH (10:26)
[2020-05-16] MEDS: FLUTICASONE FUROATE 200MCG 14 PUFFS/INHALER INH SCH (10:27)
--- NOTE | 2020-05-16 11:29 | Emergency Department Note ---
History of Present Illness General Chief complaint: GI Assessment Stated complaint: BLACK STOOL, REF BY DOC Time Seen by Provider: 05/15/20 10:32 Source: patient, RN notes reviewed and old records reviewed Mode of arrival: ambulatory Limitations: no limitations History of Present Illness Provider Complaint: + melena Onset (ago): 3 day(s) Pain Consistency: + intermittent Severity: mild Maximum Pain Intensity: 4 Current Pain Intensity: 4 Relieved By: + rest Exacerbated By: + movement Context: + history of GI bleed, + alcohol abuse and + anticoagulant use Associated symptoms: + abdominal pain; no vomiting, no fever, no chills, no headaches and no loss of appetite Treatments Prior to Arrival: + none HPI Narrative: This 75-year-old male who presents emergency department over concerns of the patient has melena. Patient has known alcohol abuse. He was sent in from the Coumadin clinic over concerns about the melena. The patient was admitted to the hospital over a month ago for the same things. The patient is complaining of abdominal pain on physical examination that radiates into his back. He reports movement makes the pain worse he describes the pain as a burning sensation. Home Medications Medication Instructions Recorded Confirmed Type Anoro Ellipta 1 inh INHALATION DAILY 04/12/20 05/15/20 History Flovent HFA 2 puff INHALATION BID 04/12/20 05/15/20 History albuterol sulfate 2 puff INHALATION Q4H PRN 04/12/20 05/15/20 History atorvastatin 10 mg PO DAILY 04/12/20 05/15/20 History azelastine 1 spray INTRANASAL BID 04/12/20 05/15/20 History buspirone 15 mg PO BID 04/12/20 05/15/20 History cetirizine [Zyrtec] 5 mg PO DAILY 04/12/20 05/15/20 History cyanocobalamin (vitamin B-12) 1,000 mcg PO DAILY 04/12/20 05/15/20 History [Vitamin B-12] fluoxetine 10 mg PO DAILY 04/12/20 05/15/20 History furosemide 20 mg PO DAILY 04/12/20 05/15/20 History gabapentin 100 mg PO BID 04/12/20 05/15/20 History magnesium oxide 400 mg PO DAILY 04/12/20 05/15/20 History multivitamin with minerals 1 tab PO DAILY 04/12/20 05/15/20 History [Multiple Vitamin-Minerals] potassium chloride 20 - 40 meq PO DAILY 04/12/20 05/15/20 History tamsulosin 0.4 mg PO HS 04/12/20 05/15/20 History trazodone 100 mg PO HS 04/12/20 05/15/20 History triamcinolone acetonide 1 applic TOPICAL BID 04/12/20 05/15/20 History verapamil 180 mg PO BID 04/12/20 05/15/20 History pantoprazole 40 mg PO DAILY #30 tab 04/17/20 05/15/20 Rx levothyroxine 88 mcg PO DAILY 05/15/20 05/15/20 History spironolactone 12.5 mg PO DAILY 05/15/20 05/15/20 History warfarin 2.5 mg PO SUMOTUWETHSA@1600 05/15/20 05/15/20 History warfarin [Coumadin] 5 mg PO FR@1600 05/15/20 05/15/20 History Allergies Allergy/AdvReac Type Severity Reaction Status Date / Time trazodone AdvReac Severe prolonged Verified 05/16/20 08:38 QTc cephalexin [From Keflex] AdvReac Hives Verified 05/16/20 08:38 Past Med/Surg History Medical History BPH (benign prostatic hyperplasia) Chronic atrial fibrillation Chronic heart failure with preserved ejection fraction (HFpEF) COPD (chronic obstructive pulmonary disease) Current use of fpc anticoagulation Depression with anxiety HLD (hyperlipidemia) HTN (hypertension) ALLEY (obstructive sleep apnea) Intolerant to CPAP Prolonged QT interval Surgical History History of cataract extraction History of colonoscopy History of total left hip arthroplasty Family History Father Stroke Mother Stroke Social History Smoking Status: Former smoker Tobacco Type: Cigarettes Years Smoked: 18; Hx Alcohol Use: Yes Alcohol type: wine and hard liquor Alcohol Intake Frequency: 4 or More x per/Week Alcohol Intake Frequency Comment: 3-4 drinks nightly Hx Substance Use: No Preferred Language: Indonesian Communication Ability: Effective Building Carpenter Required: No Beliefs That Will Affect Care: None marital status: Current Living Situation: Alone Feels Safe at Home: Yes Safety Concerns: Feels Safe At This Time Assistive Devices: Denture - Upper, Denture - Lower and Glasses Review of Systems A total of 10 systems reviewed and were otherwise negative Physical Exam Vital Signs: Vital Signs - 24 hr 05/15/20 12:26 Pulse Rate [Left F genesis] 75 Respiratory Rate 18 Blood Pressure [Le ft Arm] 133/65 Blood Pressure Sheryl n [Left Arm] 87 Pulse Oximetry 92 Oxygen Delivery Me thod Room Air Physical Exam: VITAL SIGNS - Vital signs and nursing notes were reviewed. GENERAL - 75-year-old male appearing stated age who is in no acute distress. Communicates well with provider and answers questions appropriately. SKIN - Without rashes. HEAD - NC/AT. EYES - PERRL with EOMI bilaterally. Sclera anicteric. Palpebral conjunctiva pink and moist with no injection noted. EARS - No deformities of external structures noted on gross examination bilaterally. No pain elicited with palpation of the tragus bilaterally. External auditory canals without discharge or otorrhea. Tympanic membranes pearly pang without retraction or bulging. No fluid or purulent material visualized behind the TM. Handle of malleus, umbo, cone of light, pars tensa/flaccid all easily visualized. NOSE - Midline and without cyanosis. No epistaxis or purulent drainage noted. Septum midline without deviation or septal hematoma noted. MOUTH/OROPHARYNX - Without perioral cyanosis. Buccal mucosa pink and moist and without leukoplakia. Tongue midline with equal elevation of palate bilaterally. No tonsillar hypertrophy, erythema, or exudates noted. dentition noted. NECK - Neck with FROM. Supple to palpation. lymphadenopathy noted. No nuchal rigidity. LUNGS - Chest wall symmetric without accessory muscle use, intercostals retractions, or central cyanosis. Normal vesicular breath sounds CTA B/L. No wheezes, rales, or rhonchi appreciated. CARDIAC - RRR with S1/S2. No murmur, rubs, or gallops appreciated. ABDOMEN - Abdominal contour without pulsations or visible masses. BS normoactive all four quadrants. No tenderness, palpable masses, hepatosplenome gino, or ascites noted. RECTAL: Black tarry stool on exam, heme positive EXTREMITIES - No clubbing or peripheral cyanosis. No pretibial edema present. +3/5 radial, posterior tibial, and dorsalis pedis pulses palpated throughout. +5/5 strength noted in UE/LE bilaterally. NEUROLOGIC - Cranial nerves II through XII grossly intact. Sensory intact to light touch throughout. Patellar reflexes +2/4. PSYCH - A&Ox3 and cooperates fully with examiner. Pt is very pleasant and interacts well with examiner. Course Administered Medications Atorvastatin Calcium (Atorvastatin 10 Mg Tab) 10 mg PO DAILY MAXIMILIANO Stop: 06/15/20 08:59 Last Admin: 05/16/20 10:25 Dose: 10 mg Documented by: [id number] Buspirone HCl (Buspirone 15 Mg Tab) 15 mg PO BID MAXIMILIANO Stop: 06/14/20 20:59 Last Admin: 05/16/20 10:24 Dose: 15 mg Documented by: [id number] Admin: 05/15/20 20:49 Dose: 15 mg Documented by: [id number] Cetirizine HCl (Cetirizine Hcl 10 Mg Tablet) 5 mg PO DAILY MAXIMILIANO Stop: 06/15/20 08:59 Last Admin: 05/16/20 10:23 Dose: 5 mg Documented by: [id number] Cyanocobalamin (Cyanocobalamin 500 Mcg Tablet (Vitamin B-12)) 1,000 mcg PO DAILY MAXIMILIANO Stop: 06/15/20 08:59 Last Admin: 05/16/20 10:25 Dose: 1,000 mcg Documented by: [id number] Fluoxetine HCl (Fluoxetine Hcl 10 Mg Cap) 10 mg PO DAILY MAXIMILIANO Stop: 06/15/20 08:59 Last Admin: 05/16/20 10:23 Dose: 10 mg Documented by: [id number] Fluticasone Furoate (Fluticasone Furoate 200mcg 14 Puffs/Inhaler) 1 puffs INH DAILY MAXIMILIANO Stop: 06/15/20 08:59 Last Admin: 05/16/20 10:27 Dose: 1 puffs Documented by: [id number] Gabapentin (Gabapentin 100 Mg Cap) 100 mg PO BID MAXIMILIANO Stop: 06/14/20 20:59 Last Admin: 05/16/20 10:24 Dose: 100 mg Documented by: [id number] Admin: 05/15/20 20:48 Dose: 100 mg Documented by: [id number] Pantoprazole Sodium 40 mg/ (Dextrose) 100 mls @ 20 mls/hr IV Q5H MAXIMILIANO Stop: 06/14/20 11:30 Last Infusion: 05/16/20 10:00 Dose: 8 mg/hr, 20 mls/hr Documented by: [id number] Infusion: 05/16/20 08:15 Dose: 0 mg/hr, 0 mls/hr Documented by: [id number] Admin: 05/16/20 07:20 Dose: 8 mg/hr, 20 mls/hr Documented by: [id number] Infusion: 05/16/20 06:47 Dose: 8 mg/hr, 20 mls/hr Documented by: [id number] Admin: 05/16/20 01:47 Dose: 8 mg/hr, 20 mls/hr Documented by: [id number] Infusion: 05/16/20 01:47 Dose: 8 mg/hr, 20 mls/hr Documented by: [id number] Admin: 05/15/20 21:15 Dose: 8 mg/hr, 20 mls/hr Documented by: [id number] Infusion: 05/15/20 21:15 Dose: 8 mg/hr, 20 mls/hr Documented by: [id number] Admin: 05/15/20 16:55 Dose: 8 mg/hr, 20 mls/hr Documented by: [id number] Infusion: 05/15/20 16:55 Dose: 8 mg/hr, 20 mls/hr Documented by: [id number] Admin: 05/15/20 12:10 Dose: 8 mg/hr, 20 mls/hr Documented by: [id number] Levothyroxine Sodium (Levothyroxine Sodium 88 Mcg Tablet) 88 mcg PO DAILYBB MAXIMILIANO Stop: 06/15/20 06:29 Last Admin: 05/16/20 06:47 Dose: Not Given Documented by: [id number] Magnesium Oxide (Magnesium Oxide 400 Mg Tab) 400 mg PO DAILY MAXIMILIANO Stop: 06/15/20 08:59 Last Admin: 05/16/20 10:26 Dose: 400 mg Documented by: [id number] Miscellaneous (Azelastine- Order Awaiting Action) 1 ea N/A QS MAXIMILIANO Stop: 06/14/20 15:59 Last Admin: 05/16/20 09:39 Dose: Not Given Documented by: [id number] Admin: 05/16/20 00:17 Dose: Not Given Documented by: [id number] Admin: 05/15/20 16:56 Dose: Not Given Documented by: [id number] Multivitamins (Multivitamin Tab) 1 tab PO QAM MAXIMILIANO Stop: 06/15/20 08:59 Last Admin: 05/16/20 10:24 Dose: 1 tab Documented by: [id number] Potassium Chloride (Potassium Chloride Crtab 20 Meq Tabcr) 20 meq PO DAILY MAXIMILIANO Stop: 06/15/20 08:59 Last Admin: 05/16/20 10:23 Dose: 20 meq Documented by: [id number] Spironolactone (Spironolactone 12.5 Mg Tab) 12.5 mg PO DAILY MAXIMILIANO Stop: 06/15/20 08:59 Last Admin: 05/16/20 10:25 Dose: 12.5 mg Documented by: [id number] Tamsulosin HCl (Tamsulosin Hcl 0.4 Mg Cap) 0.4 mg PO HS MAXIMILIANO Stop: 06/14/20 20:59 Last Admin: 05/15/20 20:50 Dose: 0.4 mg Documented by: [id number] Trazodone HCl (Trazodone Hcl 50 Mg Tab) 50 mg PO HS MAXIMILIANO Stop: 06/14/20 20:59 Last Admin: 05/15/20 20:47 Dose: 50 mg Documented by: [id number] Triamcinolone Acetonide (Triamcinolone Acet 0.1% Cr 15 Gm Tube) 1 appln TOP BID MAXIMILIANO Stop: 06/14/20 20:59 Last Admin: 05/16/20 10:26 Dose: Not Given Documented by: [id number] Admin: 05/15/20 20:47 Dose: Not Given Documented by: [id number] Umeclidinium/Vilanterol (Umeclidinium/Vilanterol 62.5/25mcg 7 Puffs/Inhaler) 1 puffs INH DAILY MAXIMILIANO Stop: 06/15/20 08:59 Last Admin: 05/16/20 10:26 Dose: 1 puffs Documented by: [id number] Verapamil HCl (Verapamil Hcl 180 Mg Tabcr) 180 mg PO BID MAXIMILIANO Stop: 06/14/20 20:59 Last Admin: 05/16/20 10:25 Dose: 180 mg Documented by: [id number] Admin: 05/15/20 20:47 Dose: 180 mg Documented by: [id number] Discontinued Medications Gabapentin (Gabapentin 600 Mg Tab) 1,200 mg PO NOW ONE Stop: 05/15/20 14:31 Last Admin: 05/15/20 16:11 Dose: 1,200 mg Documented by: [id number] Gabapentin (Gabapentin 600 Mg Tab) 600 mg PO [id number] MAXIMILIANO Stop: 05/16/20 06:01 Last Admin: 05/16/20 06:47 Dose: Not Given Documented by: [id number] Admin: 05/15/20 20:49 Dose: 600 mg Documented by: [id number] Pantoprazole Sodium (Protonix Bolus/Drip) 0 mls @ 1 mls/hr IV ONE STA Stop: 05/15/20 11:17 Last Admin: 05/15/20 12:13 Dose: Not Given Documented by: [id number] Pantoprazole Sodium 80 mg/ (Dextrose) 120 mls @ 400 mls/hr IV NOW ONE Stop: 05/15/20 11:33 Last Infusion: 05/15/20 12:25 Dose: 0 mls/hr, 0 mls/hr Documented by: [id number] Admin: 05/15/20 12:10 Dose: 400 mls/hr, 400 mls/hr Documented by: [id number] Phytonadione 10 mg/ Sodium (Chloride) 51 mls @ 102 mls/hr IV ONE ONE Stop: 05/15/20 12:24 Last Infusion: 05/15/20 13:15 Dose: 0 mls/hr Documented by: [id number] Admin: 05/15/20 12:40 Dose: 102 mls/hr Documented by: [id number] Multivitamins 10 ml/ Thiamine HCl 100 mg/ Folic Acid 1 mg/Sodium Chloride 1,011.2 mls @ 200 mls/hr IV .Q5H4M ONE Stop: 05/15/20 19:48 Last Infusion: 05/15/20 19:54 Dose: 0 mls/hr Documented by: [id number] Admin: 05/15/20 14:46 Dose: 200 mls/hr Documented by: [id number] Ioversol (Ioversol 100ml) 93 ml IV ONCE ONE Stop: 05/15/20 11:48 Last Admin: 05/15/20 11:47 Dose: 93 ml Documented by: [id number] Lidocaine HCl (Lidocaine Hcl 2% 2 Ml Vial/Amp(20mg/Ml)) Confirm Administered Dose 4 ml INFIL .STK-MED ONE Stop: 05/16/20 08:59 Last Admin: 05/16/20 10:27 Dose: Not Given Documented by: [id number] Phytonadione (Phytonadione 5 Mg Tab) 5 mg PO NOW ONE Stop: 05/15/20 21:01 Last Admin: 05/15/20 20:46 Dose: 5 mg Documented by: [id number] Propofol (Propofol Iv Emulsion 10 Mg/Ml 20 Ml Vial) Confirm Administered Dose 400 mg IV .STK-MED ONE Stop: 05/16/20 08:59 Last Admin: 05/16/20 10:27 Dose: Not Given Documented by: [id number] Medical Decision Making Differential Diagnosis + hemorrhoids, + infectious diarrhea, + esophageal varices, + gastritis, + Sarah-Page syndrome, + Upper gastrointestinal hemorrhage, + Lower gastrointestinal hemorrhage, + hematochezia, + melena, + AVM, + coagulopathy, + colitis, + inflammatory bowel disease, + esophagitis, + peptic ulcer disease, + variceal bleed and + epistaxis Medical Records Attestation: I reviewed the patient's medical records. Home Medications Current Medication List: was personally reviewed by me Laboratory Data Attestation: I reviewed the patient's lab results. Result diagrams: 05/16/20 07:17 05/16/20 07:17 Lab Results 05/15/20 05/15/20 05/15/20 Range/Units 10:55 10:55 10:55 WBC 4.99 (4.8-10.8) K/uL RBC 3.66 L (4.7-6.1) M/uL Hgb 13.1 L (14.0-18.0) g/dL POC Hgb (14.0-18.0) g/dl Hct 38.1 L (42-52) % POC Hct (42-52) % MCV 104.1 H (80-100) fL MCH 35.8 H (25-34) pg MCHC 34.4 (32-36) g/dL RDW Std Deviation 53.3 H (36.4-46.3) fL RDW Coeff of Vijaya 14.1 (11.5-14.5) % Plt Count 147 (130-400) K/uL MPV 10.5 H (7.4-10.4) fL Immature Gran % (Auto) 0.4 % Neut % (Auto) 65.8 % Lymph % (Auto) 22.2 % [place] % (Auto) 8.8 % Eos % (Auto) 2.4 % Baso % (Auto) 0.4 % Neut # (Auto) 3.28 (1.4-6.5) K/uL Lymph # (Auto) 1.11 L (1.2-3.4) K/uL [place] # (Auto) 0.44 (0.11-0.59) K/uL Eos # (Auto) 0.12 (0-0.5) K/uL Baso # (Auto) 0.02 (0-0.2) K/uL Immature Gran # (Auto) 0.02 (0.00-0.02) K/uL Absolute Nucleated RBC 0.03 H (0-0) K/uL Nucleated RBC % (auto) 0.7 % PT 70.8 H (9.0-12.0) Seconds INR 7.5 H* (0.9-1.1) APTT 64.6 H* (21.0-31.0) Seconds PTT Ratio 2.3 POC Sodium (135-144) mmol/L Sodium (136-145) mmol/L POC Potassium (3.3-5.0) mmol/L Potassium (3.5-5.1) mmol/L POC Chloride (101-112) mmol/L Chloride (98-107) mmol/L Carbon Dioxide (21-32) mmol/L POC Total CO2 (24-31) mmol/L Anion Gap (3-11) POC Anion Gap (16-25) mmol/L POC BUN (7-18) mg/dl BUN (7-18) mg/dl Creatinine (0.6-1.4) mg/dl POC Creatinine (0.6-1.3) mg/dl Est Cr Clr Drug Dosing ml/min Est GFR ( Amer) Est GFR (Non-Af Amer) BUN/Creatinine Ratio (10-20) Glucose (70-99) mg/dl POC Glucose (other) (70-99) mg/dl Calcium (8.5-10.1) mg/dl POC Ioniz Calcium Zoie (1.12-1.32) mmol/l Total Bilirubin (0.2-1) mg/dl AST (15-37) U/L ALT (12-78) U/L Alkaline Phosphatase (45-117) U/L Troponin I (0-0.045) ng/ml Total Protein (6.4-8.2) gm/dl Albumin (3.4-5.0) gm/dl Globulin (2.5-4.0) gm/dl Albumin/Globulin Ratio (0.9-2) POC Stool Occult Blood (Negative) SARS-CoV-2 Ag (Rapid) (Negative) Blood Type O Positive Antibody Screen NEGATIVE 05/15/20 05/15/20 05/15/20 Range/Units 10:55 11:04 11:26 WBC (4.8-10.8) K/uL RBC (4.7-6.1) M/uL Hgb (14.0-18.0) g/dL POC Hgb 12.6 L (14.0-18.0) g/dl Hct (42-52) % POC Hct 37 L (42-52) % MCV (80-100) fL MCH (25-34) pg MCHC (32-36) g/dL RDW Std Deviation (36.4-46.3) fL RDW Coeff of Vijaya (11.5-14.5) % Plt Count (130-400) K/uL MPV (7.4-10.4) fL Immature Gran % (Auto) % Neut % (Auto) % Lymph % (Auto) % [place] % (Auto) % Eos % (Auto) % Baso % (Auto) % Neut # (Auto) (1.4-6.5) K/uL Lymph # (Auto) (1.2-3.4) K/uL [place] # (Auto) (0.11-0.59) K/uL Eos # (Auto) (0-0.5) K/uL Baso # (Auto) (0-0.2) K/uL Immature Gran # (Auto) (0.00-0.02) K/uL Absolute Nucleated RBC (0-0) K/uL Nucleated RBC % (auto) % PT (9.0-12.0) Seconds INR (0.9-1.1) APTT (21.0-31.0) Seconds PTT Ratio POC Sodium 132 L (135-144) mmol/L Sodium 135 L (136-145) mmol/L POC Potassium 3.9 (3.3-5.0) mmol/L Potassium 4.0 (3.5-5.1) mmol/L POC Chloride 95 L (101-112) mmol/L Chloride 98 (98-107) mmol/L Carbon Dioxide 28 (21-32) mmol/L POC Total CO2 30 (24-31) mmol/L Anion Gap 9.0 (3-11) POC Anion Gap 12.0 L (16-25) mmol/L POC BUN 16 (7-18) mg/dl BUN 17 (7-18) mg/dl Creatinine 0.99 (0.6-1.4) mg/dl POC Creatinine 1.1 (0.6-1.3) mg/dl Est Cr Clr Drug Dosing 75.8 ml/min Est GFR ( Amer) 86.6 Est GFR (Non-Af Amer) 74.7 BUN/Creatinine Ratio 17.2 (10-20) Glucose 122 H (70-99) mg/dl POC Glucose (other) 128 H (70-99) mg/dl Calcium 9.3 (8.5-10.1) mg/dl POC Ioniz Calcium Zoie 1.12 (1.12-1.32) mmol/l Total Bilirubin 0.9 (0.2-1) mg/dl AST 45 H (15-37) U/L ALT 28 (12-78) U/L Alkaline Phosphatase 130 H (45-117) U/L Troponin I < 0.015 (0-0.045) ng/ml Total Protein 6.7 (6.4-8.2) gm/dl Albumin 3.1 L (3.4-5.0) gm/dl Globulin 3.6 (2.5-4.0) gm/dl Albumin/Globulin Ratio 0.9 (0.9-2) POC Stool Occult Blood (Negative) SARS-CoV-2 Ag (Rapid) Negative (Negative) Blood Type Antibody Screen 05/15/20 Range/Units 11:40 WBC (4.8-10.8) K/uL RBC (4.7-6.1) M/uL Hgb (14.0-18.0) g/dL POC Hgb (14.0-18.0) g/dl Hct (42-52) % POC Hct (42-52) % MCV (80-100) fL MCH (25-34) pg MCHC (32-36) g/dL RDW Std Deviation (36.4-46.3) fL RDW Coeff of Vijaya (11.5-14.5) % Plt Count (130-400) K/uL MPV (7.4-10.4) fL Immature Gran % (Auto) % Neut % (Auto) % Lymph % (Auto) % [place] % (Auto) % Eos % (Auto) % Baso % (Auto) % Neut # (Auto) (1.4-6.5) K/uL Lymph # (Auto) (1.2-3.4) K/uL [place] # (Auto) (0.11-0.59) K/uL Eos # (Auto) (0-0.5) K/uL Baso # (Auto) (0-0.2) K/uL Immature Gran # (Auto) (0.00-0.02) K/uL Absolute Nucleated RBC (0-0) K/uL Nucleated RBC % (auto) % PT (9.0-12.0) Seconds INR (0.9-1.1) APTT (21.0-31.0) Seconds PTT Ratio POC Sodium (135-144) mmol/L Sodium (136-145) mmol/L POC Potassium (3.3-5.0) mmol/L Potassium (3.5-5.1) mmol/L POC Chloride (101-112) mmol/L Chloride (98-107) mmol/L Carbon Dioxide (21-32) mmol/L POC Total CO2 (24-31) mmol/L Anion Gap (3-11) POC Anion Gap (16-25) mmol/L POC BUN (7-18) mg/dl BUN (7-18) mg/dl Creatinine (0.6-1.4) mg/dl POC Creatinine (0.6-1.3) mg/dl Est Cr Clr Drug Dosing ml/min Est GFR ( Amer) Est GFR (Non-Af Amer) BUN/Creatinine Ratio (10-20) Glucose (70-99) mg/dl POC Glucose (other) (70-99) mg/dl Calcium (8.5-10.1) mg/dl POC Ioniz Calcium Zoie (1.12-1.32) mmol/l Total Bilirubin (0.2-1) mg/dl AST (15-37) U/L ALT (12-78) U/L Alkaline Phosphatase (45-117) U/L Troponin I (0-0.045) ng/ml Total Protein (6.4-8.2) gm/dl Albumin (3.4-5.0) gm/dl Globulin (2.5-4.0) gm/dl Albumin/Globulin Ratio (0.9-2) POC Stool Occult Blood Positive A (Negative) SARS-CoV-2 Ag (Rapid) (Negative) Blood Type Antibody Screen Imaging Data My Impression: [facility], [phone] XRay Report Patient: VEL CAPUTOAdmit Date: 05/15/20MR#: [id number]: [address]Acct ID:[id number]: Date: 6City Zip: [place] [id number]: 75Location: 2SSex: MRoom/Bed: [id number] Phy: Stevie Helton, GALAiagnosis: MELENA, SUPRATHERAPEUTIC INRPri Phy: Lidia Faulkner MDService Date: 05/15/20Fam Phy:Interpreting Phy: Abdirashid Santana MDAdmit Phy: Stevie Helton MD Ordering Phy: Mami Tan PA-C cc: ~ SINGLE VIEW CHEST CLINICAL HISTORY: GI bleeding. Generalized abdominal pain. FINDINGS: An AP, portable, upright chest radiograph is compared to study dated 04/16/2020 and correlated with abdominal CT performed the same day 05/15/2020. The heart is enlarged noting atherosclerotic calcification of the thoracic aorta. The pulmonary vasculature is noncongested. There is a small left pleural effusion and bibasilar atelectasis. No airspace consolidation is seen typical for pneumonia No pneumothorax is identified. The skeletal structures are osteopenic. The bony thorax is grossly intact. IMPRESSION: 1. Cardiomegaly without radiographic evidence of congestive failure. 2. Small left pleural effusion. This has decreased from 04/16/2020. ACT 112: Negative or not required by law. Electronically signed by: Abdirashid Santana M.D. 05/15/2020 4:14 PM Dictated: 05/15/20 1612Transcribed: 05/15/20 1612 [facility], [phone] CT Scan Report Patient: VEL CAPUTOAdmit Date: 05/15/20#: [id number]: [address]Acct ID:[id number]: [facility] Zip[facility] [place] [phone]: 75Location: EDSex: MRoom/Bed:Att Phy:Diagnosis: BLACK STOOL, REF BY DOCPri Phy: Lidia Faulkner MDService Date: 05/15/20Fam Phy:Interpreting Phy: Jeremías Palomo MDAdmit Phy: Ordering Phy: Cruz Stokes MD cc: ~ CT abd pelvis IV con only CLINICAL HISTORY: Abdominal pain and bloody stools COMPARISON STUDY: 04/12/2020 TECHNIQUE: The patient was scanned in a dynamic helical fashion during intravenous administration of 93 cc of Optiray 320 A dose lowering technique was utilized adhering to the principles of ALARA. CT DOSE: 925.51 mGycm FINDINGS: Lower chest: There is a small left pleural effusion. There is a 5 mm solid left lower lobe pulmonary nodule. There is a 6 mm groundglass opacity within the right middle lobe. Liver: There is hepatic steatosis. There is mild hepatomegaly. No focal hepatic masses are visualized. Gallbladder: Unremarkable. Spleen: Spleen is top normal in size. There is a stable very subtle 1 cm hypodensity within the central spleen. Pancreas: Unremarkable. Adrenal glands: Unremarkable. Kidneys: There are foci of left renal cortical scarring. There is upper pole left renal cyst. There is a 3 mm upper pole right renal calculus. There is no hydronephrosis. Bowel: There are no transition zones indicate bowel obstruction. There is colonic diverticulosis. There is no evidence of acute diverticulitis. There is no evidence of acute appendicitis. Peritoneum: There is no intraperitoneal free air or abdominal ascites. There is a small fat-containing umbilical hernia Vasculature: There is no evidence of abdominal aortic aneurysm. There are moderate aortoiliac atheromatous changes. Adenopathy: Left-sided mesenteric lymph nodes are the upper limits of normal in size. Pelvic viscera: There is mild prostatomegaly. There is bladder wall thickening with minimal perivesical stranding. Skeletal structures: No destructive lesions are visualized. There are postsurgical changes of a total left hip arthroplasty. IMPRESSION: 1. No evidence of bowel obstruction. No evidence of free air 2. Right-sided nephrolithiasis 3. No evidence of acute appendicitis 4. Diverticulosis. No current evidence of acute diverticulitis 5. Hepatic steatosis 6. Small left pleural effusion 7. Bladder wall thickening and minimal perivesical stranding. While this is likely secondary to chronic bladder outlet obstruction, cystitis cannot be excluded. ACT 112: Negative or not required by law. Electronically signed by: Jeremías Palomo M.D. 05/15/2020 12:02 PM Dictated: 05/15/20 1152Transcribed: 05/15/20 115 ECG Data Indication: other Rate (beats per minute): 62 Rhythm: atrial fibrillation Findings: no ST depression and no ST elevation Comparison ECG Date: from (04/13/2020) Change: no significant change MDM Narrative This 75-year-old male sent in from the Coumadin clinic over concerns with the patient has melena on physical examination. His INR was found to be grossly elevated at over 7. Based on this the patient was given 10 mg of vitamin K. He was typed and screened and started on a Protonix bolus and drip. I did discuss the case with gastroenterology. They are requesting that the patient be admitted to the medicine service. Patient is in agreement with the treatment plan. Patient was seen and evaluated as above in room A11. Review was performed of nursing notes and vital signs. I did review pertinent previous visits and patient history. After obtaining a thorough history and physical examination the above work up was performed. An order was placed for continuous cardiac monitoring. The monitor shows a rate of 62 with Afib rhythm. The patient was evaluated during a period of high volume and high acuity while the hospital was at overcapacity during the global COVID-19 pandemic, and that diagnosis was suspected/considered upon their initial presentation. Their evaluation, treatment and testing was consistent with current guidelines for patients who present with complaints or symptoms that may be related to COVID- 19. Impression & Plan Melena, Chronic atrial fibrillation, Current use of fpc anticoagulation, Supratherapeutic INR Critical Care Time I have personally spent greater than 30 minutes of critical care time in the direct management of this patient. This includes bedside care, interpretation of diagnostic studies, and testing, discussion with consultants, patient, and family members, and other required patient management activities. This 30 minutes is in excess of all separately billable procedures. 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
--- NOTE | 2020-05-16 11:33 | Hospitalist Progress Note ---
Date of Service May 16, 2020 Assessment & Plan (1) Melena: (2) Supratherapeutic INR: Upper GI bleed in a patient on warfarin therapy 75 yo M with a PMH of chronic A fib on anticoagulation, diastolic heart failure, depression, COPD, BPH and other medical problems listed below who presents from coumadin clinic with supratherapeutic INR and melena x 3 weeks. -Melena x 3 weeks - coumadin held for past 6 days but INR >7 -Admitted last month for GI bleed, found to have erosive gastropathy with no bleeding on EGD -On coumadin for chronic A Fib- dose reduced on previous discharge -On admission, H/H stable at 13.1/38.1 -Got Vit K for reversal -Covid-19 antigen test negative -Was started on PPI drip -Got EGD this morning. Reports noted gastritis -GI recommendations noted - To do PPI daily, resume anticoagulation and f/u outpatient for colonoscopy. - IV PPI discontinued and po started -Will hold off resuming warfarin today and monitor Hb -Patient reports he already has colonoscopy schedule on 05/26 (3) Alcohol abuse: Endorsing 2 mixed drinks every night with heavier alcohol use in the past. -Counselled patient about staying away from alcohol. He stated he plans to quit (4) Chronic atrial fibrillation: Holding coumadin. Rate controlled Continue verapamil BID (5) Chronic heart failure with preserved ejection fraction (HFpEF): Currently euvolemic Continue home meds Furosemide on hold for now (6) Depression with anxiety: Continue SSRI, buspirone (7) BPH (benign prostatic hyperplasia): Continue tamsulosin (8) COPD (chronic obstructive pulmonary disease): Stable Continue home Anoro Ellipta and Flovent (9) HLD (hyperlipidemia): Continue statin (10) ALLEY (obstructive sleep apnea): Intolerant to CPAP (11) DVT prophylaxis: SCDs in setting of melena Code status: FULL Admission and Anticipated Discharge Date Admission Date: May 15, 2020 Subjective Patient seen and examined this morning on returning from EGD Patient currently reports only mild left sided upper abd pain No chest pain, cough, SOB Has not had BM this morning Denied palpitations Reports chronic exertional dyspnea due to his COPD Denied dizziness or headache Denied nausea, vomiting Physical Exam Constitutional: + well hydrated; no acute distress Eyes: PERRL, conjunctivae normal, anicteric sclerae ENMT: external ear and nose normal, oropharynx normal Respiratory: normal respiratory effort, lungs clear to auscultation Cardiovascular: Rate/Rhythm: + irregularly irregular Extremities: no edema S1 S2 Gastrointestinal (Abdomen): normal bowel sounds, soft, nontender, no hepatosplenomegaly Musculoskeletal: no cyanosis or clubbing, extremities motor strength 5/5 Neurologic: PERRL, EOMI, accommodation nl, no face palsy, no dysarthria Psychiatric: A+Ox3, euthymic affect Results & Data Results & Data ([facility]) Vital Signs (Past 12 Hours) Vital Signs Temp Pulse Pulse Pulse Resp BP BP 05/16/20 10:03 36.6 C 62 18 125/69 05/16/20 09:48 60 16 108/59 L 05/16/20 09:36 63 05/16/20 09:33 65 16 125/68 05/16/20 09:18 79 16 114/53 L 05/16/20 08:32 36.8 C 64 18 125/62 05/16/20 08:16 36.8 C 78 18 141/63 H 05/16/20 02:55 36.5 C 72 18 133/63 05/15/20 23:50 36.2 C L 68 64 18 116/64 Pulse Ox 05/16/20 10:03 93 05/16/20 09:48 94 05/16/20 09:36 05/16/20 09:33 94 05/16/20 09:18 93 05/16/20 08:32 92 05/16/20 08:16 96 05/16/20 02:55 92 05/15/20 23:50 93 Laboratory Results Laboratory Results - last 24 hr 05/15/20 05/15/20 05/15/20 10:55 10:55 10:55 WBC RBC Hgb Hct MCV MCH MCHC RDW Std Deviation RDW Coeff of Vijaya Plt Count MPV Absolute Nucleated RBC Nucleated RBC % (auto) PT 70.8 H INR 7.5 H* APTT 64.6 H* PTT Ratio 2.3 Sodium 135 L Potassium 4.0 Chloride 98 Carbon Dioxide 28 Anion Gap 9.0 BUN 17 Creatinine 0.99 Est Cr Clr Drug Dosing 75.8 Est GFR ( Amer) 86.6 Est GFR (Non-Af Amer) 74.7 BUN/Creatinine Ratio 17.2 Glucose 122 H POC Glucose Calcium 9.3 Total Bilirubin 0.9 AST 45 H ALT 28 Alkaline Phosphatase 130 H Troponin I < 0.015 Total Protein 6.7 Albumin 3.1 L Globulin 3.6 Albumin/Globulin Ratio 0.9 POC Stool Occult Blood Hepatitis C Ab Screen SARS-CoV-2 Ag (Rapid) Blood Type O Positive Antibody Screen NEGATIVE 05/15/20 05/15/20 05/15/20 11:26 11:40 18:33 WBC RBC Hgb 11.6 L Hct 34.7 L MCV MCH MCHC RDW Std Deviation RDW Coeff of Vijaya Plt Count MPV Absolute Nucleated RBC Nucleated RBC % (auto) PT INR APTT PTT Ratio Sodium Potassium Chloride Carbon Dioxide Anion Gap BUN Creatinine Est Cr Clr Drug Dosing Est GFR ( Amer) Est GFR (Non-Af Amer) BUN/Creatinine Ratio Glucose POC Glucose Calcium Total Bilirubin AST ALT Alkaline Phosphatase Troponin I Total Protein Albumin Globulin Albumin/Globulin Ratio POC Stool Occult Blood Positive A Hepatitis C Ab Screen SARS-CoV-2 Ag (Rapid) Negative Blood Type Antibody Screen 05/15/20 05/15/20 05/16/20 18:33 Unknown 07:17 WBC 3.87 L RBC 3.28 L Hgb 11.6 L Hct 34.7 L MCV 105.8 H MCH 35.4 H MCHC 33.4 RDW Std Deviation 56.0 H RDW Coeff of Vijaya 14.5 Plt Count 109 L MPV 9.9 Absolute Nucleated RBC 0.02 H Nucleated RBC % (auto) 0.6 PT 23.5 H INR 2.3 H APTT PTT Ratio Sodium Potassium Chloride Carbon Dioxide Anion Gap BUN Creatinine Est Cr Clr Drug Dosing Est GFR ( Amer) Est GFR (Non-Af Amer) BUN/Creatinine Ratio Glucose POC Glucose Calcium Total Bilirubin AST ALT Alkaline Phosphatase Troponin I Total Protein Albumin Globulin Albumin/Globulin Ratio POC Stool Occult Blood Hepatitis C Ab Screen Neg SARS-CoV-2 Ag (Rapid) Blood Type Antibody Screen 05/16/20 05/16/20 05/16/20 07:17 07:17 07:18 WBC RBC Hgb Hct MCV MCH MCHC RDW Std Deviation RDW Coeff of Vijaya Plt Count MPV Absolute Nucleated RBC Nucleated RBC % (auto) PT 14.2 H INR 1.4 H APTT PTT Ratio Sodium 137 Potassium 3.4 L Chloride 99 Carbon Dioxide 29 Anion Gap 9.0 BUN 12 Creatinine 0.82 Est Cr Clr Drug Dosing 89.8 Est GFR ( Amer) 101.0 Est GFR (Non-Af Amer) 87.1 BUN/Creatinine Ratio 14.7 Glucose 116 H POC Glucose 129 H Calcium 8.7 Total Bilirubin 1.1 H AST 33 ALT 20 Alkaline Phosphatase 96 Troponin I Total Protein 5.7 L Albumin 2.6 L Globulin 3.1 Albumin/Globulin Ratio 0.8 L POC Stool Occult Blood Hepatitis C Ab Screen SARS-CoV-2 Ag (Rapid) Blood Type Antibody Screen
[2020-05-16] MEDS: PANTOprazole 40 MG TAB PO SCH (12:12)
[2020-05-16] MEDS: ACETAMINOPHEN 325 MG TAB PO PRN ×2 (13:05→20:31)
--- NOTE | 2020-05-16 15:44 | Electrocardiogram Report ---
Test Reason : Blood Pressure : / mmHG Vent. Rate : 064 BPM Atrial Rate : 075 BPM P-R Int : 000 ms QRS Dur : 090 ms QT Int : 544 ms P-R-T Axes : 000 023 014 degrees QTc Int : 561 ms Atrial fibrillation Prolonged QT Abnormal ECG Confirmed by Eugene Beckham ([id number]) on 05/16/2020 3:44:01 PM Referred By: Lidia Faulkner Confirmed By:Adrián Beckham
--- NOTE | 2020-05-16 16:32 | XRay Report ---
ABDOMEN 2 VIEWS HISTORY: Assess left abd pain. Got EGD this AM COMPARISON: Abdomen and pelvis CT 05/15/2020. FINDINGS: There is no pneumoperitoneum or pneumatosis. A few mildly dilated gas-filled loops of large and small bowel are seen within the abdomen. This could represent a mild ileus. No evidence for rena l obstruction. No change in the left total hip arthroplasty with the extruded cement. Calcifications in the deep pelvis likely represent phleboliths. Vascular calcifications are noted. Small left pleura l effusion, unchanged. Right upper quadrant density density likely corresponds to the enlarged liver as seen on the recent CT. IMPRESSION: A few mildly dilated gas-filled loops of large and small bowel are seen within the abdomen. This coul d represent a mild ileus. No evidence for bowel obstruction. ACT 112: Negative or not required by law. Electronically signed by: Tavon Faulkner M.D. 05/16/2020 4:31 PM
--- NOTE | 2020-05-16 16:36 | XRay Report ---
XR chest 2V PA/lateral HISTORY: Please get upright XR. Assess left sided pain. EGD COMPARISON: Chest 05/15/2020. FINDINGS: No pneumothorax. Small bilateral pleural effusions. The heart remains mildly enlarged. Biba silar linear densities favor subsegmental atelectasis. The upper lung zones are clear. No evidence fo r pulmonary edema. IMPRESSION: 1. Small bilateral pleural effusions. 2. Stable mild cardiomegaly. ACT 112: Negative or not required by law. Electronically signed by: Tavon Faulkner M.D. 05/16/2020 4:34 PM
[2020-05-16] MEDS: traZODone HCL 50 MG TAB PO SCH (20:27)
[2020-05-16] MEDS: TAMSULOSIN HCL 0.4 MG CAP PO SCH (20:27)
[2020-05-17] MEDS: GABAPENTIN 600 MG TAB PO SCH ×2 (06:43→17:46)
[2020-05-17] MEDS: LEVOTHYROXINE SODIUM 88 MCG TABLET PO SCH (06:44)
[2020-05-17 08:10] LABS: Hematocrit (blood only) 36.1 % (42-52); Hemoglobin 12.2 g/dL (14.0-18.0); Mean Corpuscular Hemoglobin 36.2 pg (25-34); Mean Corpuscular Hgb Conc 33.8 g/dL (32-36); Mean Corpuscular Volume 107.1 fL (80-100); Platelet Count 121 K/uL (130-400); RDW Coefficient of Variation 14.7 % (11.5-14.5); RDW Standard Deviation 56.8 fL (36.4-46.3); Red Blood Count 3.37 M/uL (4.7-6.1); White Blood Count 3.62 K/uL (4.8-10.8)
[2020-05-17 08:18] LABS: INR 1.1 (0.9-1.1); Prothrombin Time 11.9 Seconds (9.0-12.0)
[2020-05-17] MEDS: GABAPENTIN 100 MG CAP PO SCH ×2 (08:25→21:16)
[2020-05-17] MEDS: CETIRIZINE HCL 10 MG TABLET PO SCH (08:25)
[2020-05-17] MEDS: ATORVASTATIN 10 MG TAB PO SCH (08:25)
[2020-05-17] MEDS: busPIRone 15 MG TAB PO SCH ×2 (08:25→21:15)
[2020-05-17] MEDS: PANTOprazole 40 MG TAB PO SCH (08:25)
[2020-05-17] MEDS: CYANOCOBALAMIN 500 MCG TABLET (VITAMIN B-12) PO SCH (08:25)
[2020-05-17] MEDS: MULTIVITAMIN TAB PO SCH (08:26)
[2020-05-17] MEDS: POTASSIUM CHLORIDE CRTAB 20 MEQ TABCR PO SCH (08:26)
[2020-05-17] MEDS: SPIRONOLACTONE 12.5 MG TAB PO SCH (08:26)
[2020-05-17] MEDS: MAGNESIUM OXIDE 400 MG TAB PO SCH (08:26)
[2020-05-17] MEDS: VERAPAMIL HCL 180 MG TABCR PO SCH ×2 (08:26→21:16)
[2020-05-17] MEDS: FLUTICASONE FUROATE 200MCG 14 PUFFS/INHALER INH SCH (08:26)
[2020-05-17] MEDS: UMECLIDINIUM/VILANTEROL 62.5/25MCG 7 PUFFS/INHALER INH SCH (08:26)
[2020-05-17] MEDS: TRIAMCINOLONE ACET 0.1% CR 15 GM TUBE TOP SCH ×2 (08:27→21:17)
[2020-05-17 08:40] LABS: BUN Creatinine Ratio 10.5 (10-20); Calcium 9.1 mg/dl (8.5-10.1); Creatinine Clr Calc Pharmacy 85.9 ml/min; Est GFR (Non-African American) 85.4; Potassium 3.4 mmol/L (3.5-5.1)
[2020-05-17] MEDS ORDERED: POTASSIUM CHLORIDE CRTAB 20 MEQ TABCR PO ONE (09:18)
[2020-05-17] MEDS: THIAMINE HCL 100 MG TAB PO SCH (10:41)
[2020-05-17] MEDS: FOLIC ACID 1 MG TAB PO SCH (10:41)
--- NOTE | 2020-05-17 12:52 | CT Scan Report ---
ABDOMEN AND PELVIS CT WITHOUT CONTRAST CT DOSE: 875.39 mGycm HISTORY: Acute left lower quadrant abdominal pain LLQ abdominal pain/tenderness TECHNIQUE: Multiaxial CT images of the abdomen and pelvis were performed without contrast. A dose lo wering technique was utilized adhering to the principles of ALARA. COMPARISON STUDY: CT abdomen and pelvis 05/15/2020 FINDINGS: Small pleural effusions have mildly increased in size from comparison. Dependent bibasilar opacities favor compressive atelectasis. There is an indeterminate irregular 10 mm opacity of the medial basal segment right lower lobe on image 40 series 3, possibly reflective of atelectasis/scarring. No pneuma tosis or pneumoperitoneum. Cardiomegaly. Trace pericardial effusion. Coronary artery calcifications. Spleen measures the upper limits of normal in size. Limited evaluation of the solid abdominal organs without the use of IV contrast. Mildly atrophic pancreas. Unremarkable adrenal glands. Hepatic steato sis with hepatomegaly. Unremarkable gallbladder. Mild nonspecific bilateral perinephric stranding. 3 mm nonobstructing calculus of the superior pole r ight kidney. No ureteral calculi or obstructive uropathy. Cortical scarring and parenchymal thinning of the lateral left kidney. 4.1 cm cyst of the superior pole left kidney. Prostate is upper limits of normal in size. Mild urinary bladder wall thickening. Streak artifact from left hip total joint arth roplasty limits evaluation of the pelvis. Extensive calcified plaque of the abdominal aorta. There is no aneurysm or adenopathy. No bowel obstruction or bowel wall thickening. Colonic diverticulosis. There is no CT evidence of acu te diverticulitis. Visualized appendix appears noninflamed. Small fat filled periumbilical hernia. Le ft hip total joint arthroplasty. There is chronic appearing dehiscence involving the medial wall of t he left acetabulum with surrounding cement material extending into the left hemipelvis. There is asso ciated atrophy of the left obturator internus. Subchondral sclerosis of the right femoral head sugges ts avascular necrosis without articular collapse. IMPRESSION: 1. No bowel obstruction or bowel wall thickening. 2. Nonobstructing right nephrolithiasis. 3. Colonic diverticulosis without acute diverticulitis. 4. Hepatomegaly with hepatic steatosis. 5. Increased size of the small pleural effusions with dependent bibasilar consolidation suggestive of compressive atelectasis. 6. Additional findings as above. ACT 112: Negative or not required by law. The above report was generated using voice recognition software. It may contain grammatical, syntax o r spelling errors. Electronically signed by: Soren Lorenzo M.D. 05/17/2020 12:51 PM
[2020-05-17] MEDS: DOCUSATE SODIUM 100 MG CAP PO SCH ×2 (12:59→21:15)
[2020-05-17] MEDS ORDERED: FUROSEMIDE 20 MG in SYRINGE 0 ML IV ONE (13:30)
--- NOTE | 2020-05-17 14:24 | Electrocardiogram Report ---
Test Reason : Blood Pressure : / mmHG Vent. Rate : 074 BPM Atrial Rate : 000 BPM P-R Int : 000 ms QRS Dur : 082 ms QT Int : 450 ms P-R-T Axes : 000 -05 008 degrees QTc Int : 499 ms Atrial fibrillation Prolonged QT Nonspecific ST abnormality Abnormal ECG When compared with ECG of 16-MAY-2020 06:19, Nonspecific T wave abnormality now evident in Anterior leads QT has shortened Confirmed by Eugene Beckham ([id number]) on 05/17/2020 2:24:07 PM Referred By: Lidia Faulkner Confirmed By:Adrián Beckham
[2020-05-17] MEDS ORDERED: WARFARIN SOD 2 MG TAB PO SCH (16:00)
--- NOTE | 2020-05-17 19:23 | Hospitalist Progress Note ---
Date of Service May 17, 2020 Assessment & Plan (1) Melena: (2) Supratherapeutic INR: Patient is a 75-year-old male with H/O chronic A fib on anticoagulation, diastolic heart failure, depression, COPD, BPH and other medical problems listed below who presents from coumadin clinic with supratherapeutic INR and melena x 3 weeks. Melena Supratherapeutic INR Hemorrhagic disorder d/t extrinsic circulating anticoagulant/Coumadin -CT ABD:No evidence of bowel obstruction. No evidence of free air. Right-sided nephrolithiasis. No evidence of acute appendicitis. Diverticulosis. No current evidence of acute diverticulitis. Hepatic steatosis. Small left pleural effusion. Bladder wall thickening and minimal perivesical stranding. While this is likely secondary to chronic bladder outlet obstruction, cystitis cannot be excluded. --S/P EGD:Normal esophagus. Normal stomach. Antral gastritis. Normal duodenal bulb and second portion of the duodenum. --Appreciate GI input --Received vitamin K --Was on PPI drip Continue PPI daily Plan for colonoscopy as outpatient Okay to resume Coumadin as per GI Monitor H&H Needs follow-up with GI and Coumadin clinic upon discharge Monitor INR (3) Alcohol abuse: Consult to quit drinking Continue thiamine, folic acid Monitor for any withdrawal (4) Chronic atrial fibrillation: Continue verapamil BID Resume Coumadin (5) Chronic heart failure with preserved ejection fraction (HFpEF): Currently euvolemic Continue home meds Resume Furosemide (6) Depression with anxiety: Continue SSRI, buspirone (7) BPH (benign prostatic hyperplasia): Continue tamsulosin (8) COPD (chronic obstructive pulmonary disease): Stable No signs of exacerbation Continue home Anoro Ellipta and Flovent (9) HLD (hyperlipidemia): Continue statin (10) ALLEY (obstructive sleep apnea): Intolerant to CPAP (11) DVT prophylaxis: SCDs Re: Melena Code status: FULL Disposition Expected discharge home when medically stable. Admission and Anticipated Discharge Date Admission Date: May 15, 2020 Subjective Patient is seen and examined at bedside Reports constipation No melena today States having left upper quadrant minimal discomfort Discussed with gastroenterology today Denies chest pain, shortness of breath, dizziness, nausea Hemoglobin stable Offers no other complaints Review of Systems Review of Systems: All systems reviewed & are unremarkable except as noted in HPI & below Physical Exam Physical Exam: Physical Exam: Vitals signs as noted above General Appearance:Moderately built and nourished, no apparent distress Head: normocephalic, Atraumatic Eyes: normal inspection, EOMI Neck: supple, Trachea midline Respiratory/Chest: Decreased breath sounds, CTA, No accessory muscle use Cardiovascular: Irregularly irregular,No murmur Abdomen/GI:Soft, Non tender, mildly distended, Bowel sounds present Extremities/Musculoskelatal:normal inspection, trace edema Neurologic/Psych:AAOX3, grossly no focal neurological deficits Skin: normal color, warm Results & Data Results & Data ([facility]) Vital Signs (Past 12 Hours) Vital Signs Temp Pulse Pulse Pulse Resp BP Pulse Ox 05/17/20 19:13 36.5 C 71 14 126/66 95 05/17/20 15:09 65 05/17/20 15:00 36.7 C 67 16 132/76 98 05/17/20 11:00 36.6 C 74 18 131/60 96 Laboratory Results Short CBC 05/17/20 Range/Units 07:49 WBC 3.62 L (4.8-10.8) K/uL Hgb 12.2 L (14.0-18.0) g/dL Hct 36.1 L (42-52) % Plt Count 121 L (130-400) K/uL BMP 05/17/20 07:49 Sodium 136 Potassium 3.4 L Chloride 100 Carbon Dioxide 29 BUN 9 Creatinine 0.86 Glucose 129 H Calcium 9.1
[2020-05-17] MEDS: ACETAMINOPHEN 325 MG TAB PO PRN (21:14)
[2020-05-17] MEDS: TAMSULOSIN HCL 0.4 MG CAP PO SCH (21:16)
[2020-05-18] MEDS: GABAPENTIN 600 MG TAB PO SCH (05:27)
[2020-05-18] MEDS: LEVOTHYROXINE SODIUM 88 MCG TABLET PO SCH (05:27)
[2020-05-18 07:09] LABS: Hematocrit (blood only) 36.1 % (42-52); Hemoglobin 11.9 g/dL (14.0-18.0); Mean Corpuscular Hemoglobin 35.3 pg (25-34); Mean Corpuscular Volume 107.1 fL (80-100); Mean Platelet Volume 9.7 fL (7.4-10.4); Platelet Count 129 K/uL (130-400); RDW Coefficient of Variation 15.1 % (11.5-14.5); RDW Standard Deviation 57.9 fL (36.4-46.3); Red Blood Count 3.37 M/uL (4.7-6.1); White Blood Count 4.54 K/uL (4.8-10.8)
[2020-05-18 07:25] LABS: INR 1.1 (0.9-1.1); Prothrombin Time 11.4 Seconds (9.0-12.0)
[2020-05-18 07:36] LABS: BUN Creatinine Ratio 13.7 (10-20); Calcium 9.2 mg/dl (8.5-10.1); Creatinine Clr Calc Pharmacy 82.8 ml/min; Est GFR (African American) 97.6; Est GFR (Non-African American) 84.2; Potassium 3.7 mmol/L (3.5-5.1)
[2020-05-18] MEDS: TRIAMCINOLONE ACET 0.1% CR 15 GM TUBE TOP SCH (07:49)
[2020-05-18] MEDS: PANTOprazole 40 MG TAB PO SCH (07:50)
[2020-05-18] MEDS: CETIRIZINE HCL 10 MG TABLET PO SCH (07:50)
[2020-05-18] MEDS: GABAPENTIN 100 MG CAP PO SCH (07:50)
[2020-05-18] MEDS: THIAMINE HCL 100 MG TAB PO SCH (07:51)
[2020-05-18] MEDS: MULTIVITAMIN TAB PO SCH (07:51)
[2020-05-18] MEDS: ATORVASTATIN 10 MG TAB PO SCH (07:51)
[2020-05-18] MEDS: POTASSIUM CHLORIDE CRTAB 20 MEQ TABCR PO SCH (07:51)
[2020-05-18] MEDS: CYANOCOBALAMIN 500 MCG TABLET (VITAMIN B-12) PO SCH (07:52)
[2020-05-18] MEDS: MAGNESIUM OXIDE 400 MG TAB PO SCH (07:52)
[2020-05-18] MEDS: FOLIC ACID 1 MG TAB PO SCH (07:52)
[2020-05-18] MEDS: SPIRONOLACTONE 12.5 MG TAB PO SCH (07:52)
[2020-05-18] MEDS: VERAPAMIL HCL 180 MG TABCR PO SCH (07:53)
[2020-05-18] MEDS: FLUTICASONE FUROATE 200MCG 14 PUFFS/INHALER INH SCH (07:53)
[2020-05-18] MEDS: UMECLIDINIUM/VILANTEROL 62.5/25MCG 7 PUFFS/INHALER INH SCH (07:53)
[2020-05-18] MEDS: busPIRone 15 MG TAB PO SCH (07:53)
[2020-05-18] MEDS: DOCUSATE SODIUM 100 MG CAP PO SCH (07:53)
[2020-05-18] MEDS ORDERED: POLYETHYLENE (MIRALAX) 17 GM PACK PO PRN (09:13)
--- NOTE | 2020-05-18 14:09 | Hospitalist Progress Note ---
Date of Service May 18, 2020 Assessment & Plan (1) Melena: (2) Supratherapeutic INR: Patient is a 75-year-old male with H/O chronic A fib on anticoagulation, diastolic heart failure, depression, COPD, BPH and other medical problems listed below who presents from coumadin clinic with supratherapeutic INR and melena x 3 weeks. Melena Supratherapeutic INR Hemorrhagic disorder d/t extrinsic circulating anticoagulant/Coumadin -CT ABD:No evidence of bowel obstruction. No evidence of free air. Right-sided nephrolithiasis. No evidence of acute appendicitis. Diverticulosis. No current evidence of acute diverticulitis. Hepatic steatosis. Small left pleural effusion. Bladder wall thickening and minimal perivesical stranding. While this is likely secondary to chronic bladder outlet obstruction, cystitis cannot be excluded. --S/P EGD:Normal esophagus. Normal stomach. Antral gastritis. Normal duodenal bulb and second portion of the duodenum. --Appreciate GI input --Received vitamin K --Was on PPI drip Continue PPI daily Plan for colonoscopy as outpatient--Scheduled on 05/26/20 Okay to resume Coumadin as per GI Monitor H&H Needs follow-up with GI and Coumadin clinic upon discharge Monitor INR:1.1 Counseled to quit drinking alcohol Hemoglobin stable No recurrence of bleeding after starting Coumadin (3) Alcohol abuse: Continue thiamine, folic acid Counseled to quit drinking alcohol No withdrawal symptoms noted currently (4) Chronic atrial fibrillation: Continue verapamil BID Resumed Coumadin Needs follow-up with Coumadin clinic upon discharge (5) Chronic heart failure with preserved ejection fraction (HFpEF): Currently euvolemic Continue home meds Continue home lasix (6) Depression with anxiety: Continue SSRI, buspirone (7) BPH (benign prostatic hyperplasia): Continue tamsulosin (8) COPD (chronic obstructive pulmonary disease): Stable No signs of exacerbation Continue home Anoro Ellipta and Flovent (9) HLD (hyperlipidemia): Continue statin (10) ALLEY (obstructive sleep apnea): Intolerant to CPAP (11) DVT prophylaxis: SCDs Re: Melena Code status: FULL Disposition Home with Home Health Admission and Anticipated Discharge Date Admission Date: May 15, 2020 Subjective Patient is seen and examined at bedside States feeling better today Denies any black stools, bright red blood per rectum Discussed with patient's family in detail over the phone Denies chest pain, shortness of breath, dizziness, nausea, abd pain Eager to get discharged Offers no other complaints Review of Systems Review of Systems: All systems reviewed & are unremarkable except as noted in HPI & below Physical Exam Physical Exam: Physical Exam: Vitals signs as noted above General Appearance:Moderately built and nourished, no apparent distress Head: normocephalic, Atraumatic Eyes: normal inspection, EOMI Neck: supple, Trachea midline Respiratory/Chest: Decreased breath sounds, CTA, No accessory muscle use Cardiovascular: Irregularly irregular,No murmur Abdomen/GI:Soft, Non tender, Bowel sounds present Extremities/Musculoskelatal:normal inspection, trace edema Neurologic/Psych:AAOX3, grossly no focal neurological deficits Skin: normal color, warm Results & Data Results & Data ([facility]) Vital Signs (Past 12 Hours) Vital Signs Temp Pulse Pulse Pulse Resp BP BP 05/18/20 11:31 36.4 C L 70 20 128/70 05/18/20 08:00 64 05/18/20 07:38 36.4 C L 71 16 123/66 05/18/20 03:07 36.8 C 72 16 121/72 Pulse Ox 05/18/20 11:31 95 05/18/20 08:00 05/18/20 07:38 96 05/18/20 03:07 94 Laboratory Results Short CBC 05/18/20 Range/Units 06:46 WBC 4.54 L (4.8-10.8) K/uL Hgb 11.9 L (14.0-18.0) g/dL Hct 36.1 L (42-52) % Plt Count 129 L (130-400) K/uL BMP 05/18/20 06:46 Sodium 135 L Potassium 3.7 Chloride 101 Carbon Dioxide 29 BUN 12 Creatinine 0.89 Glucose 106 H Calcium 9.2
--- NOTE | 2020-05-18 14:21 | Discharge Summary ---
Date of Service May 18, 2020 Admission HPI Per Admitting Provider This is a 75 yo M with a PMH of chronic A fib on anticoagulation, diastolic heart failure, depression, COPD, BPH and other medical problems listed below who presents from coumadin clinic with supratherapeutic INR and dark stool x 3 weeks. Was recently hospitalized for GI bleed in setting of elevated INR and EGD showed erosive gastropathy with no bleeding. Was discharged home at reduced dose of Coumadin with arrangements made for outpatient colonoscopy. Since then, patient reports dark stools for the past few weeks. Was instructed to stop coumadin 1 week ago in setting of dark stools. Today, had large bowel movement that was black and tarry. INR >7. Has also felt "woozy". Denies any visual changes, chest pain or palpitations. No shortness of breath beyond baseline COPD. Has some fullness in abdomen but denies any pain. No nausea or vomiting. No dysuria. History of heavy alcohol use. Endorsing 2 mixed drinks each night, with last drink at 2100 last evening. Denies tobacco use. Follows with [facility] gastroenterology. Last EGD was on admission in March with erosive gastropathy with no bleeding. Most recent colonoscopy was in August 2018 with hyperplastic polyps. Admission Exam Per Admitting Provider Physical Exam Physical Exam: General Appearance: WD/WN, vitals as above, NAD, sitting up in bed, pleasant, conversing easily Head: normocephalic, atraumatic Eyes: normal inspection, PERRL, conjunctivae normal, anicteric sclerae ENT: external ear and nose normal, oropharynx normal Neck: normal visual inspection, trachea midline, no thyromegaly Respiratory: normal respiratory effort, lungs clear to auscultation, no wheeze, rales, rhonchi. No accessory muscle use Cardiovascular: irregular rate & rhythm, no murmur appreciated, normal peripheral pulses, no BLE edema. Vessels: no JVD Chest: normal inspection of chest Abdomen/GI: normal bowel sounds, soft with mild distension, nontender, no hepatosplenomegaly Extremities/Musculoskeletal: no cyanosis or clubbing, extremities motor strength 5/5 Neurologic: PERRL, EOMI, accommodation nl, no face palsy, no dysarthria, CN's II-XI intact bilaterally and moves all extremities Psychiatric: A+Ox3, euthymic affect Skin: no rashes, normal color, warm/dry Principal Diagnosis Melena Supratherapeutic INR: Alcohol abuse Discharge Data Allergies Allergy/AdvReac Type Severity Reaction Status Date / Time trazodone AdvReac Severe prolonged Verified 05/16/20 08:38 QTc cephalexin [From Keflex] AdvReac Hives Verified 05/16/20 08:38 Consultations 05/15/20 12:48 ED Decision to Admit Stat 05/15/20 14:01 Consult Gastroenterology Routine Procedures Performed Operation Date: 05/15/20 16:00 <No data on this case meets the specified criteria> Operation Date: 05/16/20 16:40 Actual Procedures p Esophagogastroduodenoscopy - Belkys Brooke MD -CT ABD:No evidence of bowel obstruction. No evidence of free air. Right-sided nephrolithiasis. No evidence of acute appendicitis. Diverticulosis. No current evidence of acute diverticulitis. Hepatic steatosis. Small left pleural effusion. Bladder wall thickening and minimal perivesical stranding. While this is likely secondary to chronic bladder outlet obstruction, cystitis cannot be excluded. --S/P EGD:Normal esophagus. Normal stomach. Antral gastritis. Normal duodenal bulb and second portion of the duodenum. Ordered Studies 05/15/20 11:16 CT abd pelvis IV con only Stat 05/17/20 11:52 CT abd pelvis wo con Urgent Hospital Course (1) Melena: (2) Supratherapeutic INR: Patient is a 75-year-old male with H/O chronic A fib on anticoagulation, diastolic heart failure, depression, COPD, BPH and other medical problems listed below who presents from coumadin clinic with supratherapeutic INR and melena x 3 weeks. Melena Supratherapeutic INR Hemorrhagic disorder d/t extrinsic circulating anticoagulant/Coumadin -CT ABD:No evidence of bowel obstruction. No evidence of free air. Right-sided nephrolithiasis. No evidence of acute appendicitis. Diverticulosis. No current evidence of acute diverticulitis. Hepatic steatosis. Small left pleural effusion. Bladder wall thickening and minimal perivesical stranding. While this is likely secondary to chronic bladder outlet obstruction, cystitis cannot be excluded. --S/P EGD:Normal esophagus. Normal stomach. Antral gastritis. Normal duodenal bulb and second portion of the duodenum. --Appreciate GI input --Received vitamin K --Was on PPI drip Continue PPI daily Plan for colonoscopy as outpatient--Scheduled on 05/26/20 Okay to resume Coumadin as per GI Monitor H&H Needs follow-up with GI and Coumadin clinic upon discharge Monitor INR:1.1 Counseled to quit drinking alcohol Hemoglobin stable No recurrence of bleeding after starting Coumadin (3) Alcohol abuse: Continue thiamine, folic acid Counseled to quit drinking alcohol No withdrawal symptoms noted currently (4) Chronic atrial fibrillation: Continue verapamil BID Resumed Coumadin Needs follow-up with Coumadin clinic upon discharge (5) Chronic heart failure with preserved ejection fraction (HFpEF): Currently euvolemic Continue home meds Continue home lasix (6) Depression with anxiety: Continue SSRI, buspirone (7) BPH (benign prostatic hyperplasia): Continue tamsulosin (8) COPD (chronic obstructive pulmonary disease): Stable No signs of exacerbation Continue home Anoro Ellipta and Flovent (9) HLD (hyperlipidemia): Continue statin (10) ALLEY (obstructive sleep apnea): Intolerant to CPAP (11) DVT prophylaxis: SCDs Re: Melena Code status: FULL Disposition Home with Home Health Total Time Total Time Spent Total Time Spent (In Minutes): 42 minutes Total Time Includes: Examination of the Patient, Discharge Planning, Medication Reconciliation, Communication With Other Providers and Other Discharge Plan Discharge Items Patient Disposition: Home - Home Health Services Reason For Visit: MELENA, SUPRATHERAPEUTIC INR Discharge Diagnosis: Melena Supratherapeutic INR: Alcohol abuse Activity: Resume your previous activity Exercise/Sports: Gradually increase as tolerated Non-emergency contact: Primary Care Provider and Mixing Machine Feeder Call non-emergency contact if: you have any medication questions, your symptoms worsen, your pain is not controlled, your pain is worsening, your pain is unusual for you, your pain is concerning for you and you have a fever Follow-up/Referrals: Lidia Faulkner MD [Primary Care Provider] - 05/25/20 11:00 am (Date & Time 05/25/2020 11:00 AM Provider Lidia Faulkner MD Department General Internal Medicine [facility] ) Carlos Fields MD [Hospitalist] - (Procedure: COLONOSCOPY FLEXIBLE PROXIMAL DIAGNOSTIC (34783) 05/26/2020 You will be called with instructions for preparation and time.) Diet: Heart Healthy Ambulatory Orders: Prothrombin Time INR (Timed) Timeframe: 1 Day Location: Determined by Patient Ordered By: Yaakov Silver Attending Provider Instructions: Follow-up with your primary care physician Dr. Faulkner on 05/25/2020 11:00 AM Follow-up with your automotive exhaust emissions technician Dr. Fields for colonoscopy as scheduled on 05/26/2020 Follow-up with your Coumadin clinic for management of Coumadin dosing and monitoring your PT/INR Get Blood Test (PT/INR) on 05/19/20 and follow-up with Coumadin clinic for adjustment of your Coumadin dosing. Your PT/INR is 1.1 today (05/18/20). Take 2 mg Coumadin today further instructions as per Coumadin clinic. Quit drinking alcohol as advised Take pantoprazole 40 mg daily as advised by your automotive exhaust emissions technician Avoid taking any aspirin, [id number] NSAIDs--ibuprofen, Aleve etc. Continue taking Colace, MiraLAX as needed for constipation. Seek immediate medical attention if your symptoms reoccur or worsen Pending Studies at Discharge: No Stand-Alone Forms: [facility], Smoking Cessation Medications and DC Order Prescriptions: New polyethylene glycol 3350 [Miralax] 17 gram Powder In Packet 17 g PO DAILY PRN (Reason: constipation) Qty: 30 RF: 0 docusate sodium 100 mg Capsule 100 mg PO BID PRN (Reason: Constipation) Qty: 30 RF: 0 thiamine HCl (vitamin B1) [Vitamin B-1] 100 mg Tablet 100 mg PO QAM Qty: 30 RF: 0 folic acid 1 mg Tablet 1 mg PO QAM Qty: 30 RF: 0 warfarin 1 mg tablet 1 mg PO UD Qty: 100 RF: 0 Continued spironolactone 25 mg tablet 12.5 mg PO DAILY RF: 0 levothyroxine 88 mcg tablet 88 mcg PO DAILY RF: 0 cetirizine [Zyrtec] 10 mg Tablet 5 mg PO DAILY RF: 0 atorvastatin 10 mg tablet 10 mg PO DAILY RF: 0 verapamil 180 mg tablet extended release 180 mg PO BID RF: 0 cyanocobalamin (vitamin B-12) [Vitamin B-12] 1,000 mcg Tablet 1,000 mcg PO DAILY RF: 0 triamcinolone acetonide 0.1 % cream 1 applic TOPICAL BID RF: 0 potassium chloride 20 mEq tablet,ER particles/crystals 20 - 40 meq PO DAILY RF: 0 tamsulosin 0.4 mg capsule 0.4 mg PO HS RF: 0 trazodone 100 mg Tablet 100 mg PO HS RF: 0 fluoxetine 10 mg capsule 10 mg PO DAILY RF: 0 furosemide 20 mg tablet 20 mg PO DAILY RF: 0 gabapentin 100 mg capsule 100 mg PO BID RF: 0 azelastine 137 mcg (0.1 %) aerosol,spray 1 spray INTRANASAL BID RF: 0 multivitamin with minerals [Multiple Vitamin-Minerals] Tablet 1 tab PO DAILY RF: 0 albuterol sulfate 90 mcg/actuation HFA aerosol inhaler 2 puff INHALATION Q4H PRN (Reason: Wheezing) RF: 0 Flovent HFA 110 mcg/actuation HFA aerosol inhaler 2 puff INHALATION BID RF: 0 buspirone 15 mg tablet 15 mg PO BID RF: 0 Anoro Ellipta 62.5-25 mcg/actuation Blister With Device 1 inh INHALATION DAILY RF: 0 magnesium oxide 400 mg magnesium Tablet 400 mg PO DAILY RF: 0 pantoprazole 40 mg tablet,delayed release (DR/EC) 40 mg PO DAILY Qty: 30 RF: 0 Changed warfarin 5 mg Tablet 2 mg PO DAILY Qty: 0 RF: 0 Discontinued warfarin [Coumadin] 5 mg Tablet 5 mg PO FR@1600 RF: 0 Discharge Orders: Discharge Order (Routine); Ordered 05/18/20 Ordered By: aYakov Spann Admission Data Admit Date/Time: 05/15/20 13:08 Attending Provider: Yaakov Spann Admit Provider: Stevie Helton Primary Care Provider: Lidia Faulkner Other Providers: Stevie Helton ; Belkys Brooke ; [facility] Other Interventions: Discharge Summary Assessment (RN) Last Done: 05/18/20 14:48
[2020-05-19] MEDS ORDERED: GABAPENTIN 600 MG TAB PO SCH (06:00)
== END 2020-05-18 16:15 | disposition home health service (06) ==
LOC: ED 10:18 → 2S 13:08 → SUATTDRO 13:08 → INTOOBSV 13:08 → 2S 13:28

== ENCOUNTER 2020-07-05 05:18 | Inpatient (IN) ==
[2020-07-05] MEDS ORDERED: ONDANSETRON INJ 2 MG/ML 2 ML VIAL IV STA (05:41)
[2020-07-05] MEDS ORDERED: HYDROmorphone INJ 0.5 MG/0.5 ML SYR IV PRN (05:41)
[2020-07-05] MEDS ORDERED: ACETAMINOPHEN 1,000 MG/100 ML VIAL IV STA (05:41)
[2020-07-05 05:57] LABS: Basophils # (auto) 0.03 K/uL (0-0.2); Basophils % (auto) 0.4 %; Hematocrit (blood only) 30.2 % (42-52); Hemoglobin 10.3 g/dL (14.0-18.0); Immature Granulocytes # (auto) 0.03 K/uL (0.00-0.02); Immature Granulocytes % (auto) 0.4 %; Lymphocytes # (auto) 1.55 K/uL (1.2-3.4); Lymphocytes % (auto) 23.1 %; Mean Corpuscular Hemoglobin 34.8 pg (25-34); Mean Corpuscular Hgb Conc 34.1 g/dL (32-36); Mean Platelet Volume 9.9 fL (7.4-10.4); Monocytes # (auto) 0.58 K/uL (0.11-0.59); Monocytes % (auto) 8.6 %; Neutrophils # (auto) 4.52 K/uL (1.4-6.5); Neutrophils % (auto) 67.5 %; Platelet Count 311 K/uL (130-400); RDW Coefficient of Variation 15.7 % (11.5-14.5); RDW Standard Deviation 57.3 fL (36.4-46.3); Red Blood Count 2.96 M/uL (4.7-6.1); White Blood Count 6.71 K/uL (4.8-10.8)
--- NOTE | 2020-07-05 06:20 | Emergency Department Note ---
History of Present Illness General Chief complaint: GI Bleed Stated complaint: GI BLEED Time Seen by Provider: 07/05/20 05:20 Source: patient, EMS, RN notes reviewed and old records reviewed Mode of arrival: EMS Limitations: no limitations History of Present Illness Provider complaint: Tarry stool, abd pain Onset (ago): day(s) 1 Location: abdomen and left Radiation: back Severity: mild Pain Consistency: + intermittent Maximum Pain Intensity: 1 Current Pain Intensity: 1 Quality: + aching Relieved By: + immobilization Exacerbated By: + movement Associated symptoms: no chest pain, no fever/chills, no headaches, no nausea/vomiting, no shortness of breath and no weakness Treatments prior to arrival: none This is a 75-year-old male who has a history of GI bleed who presents emergency department with dark red blood per rectum. In addition to the dark red blood patient is also having left lower quadrant abdominal pain. He reports the pain is made worse with movement however rest makes the pain better. He has not taken anything for the pain prior to arrival. The patient is also on Coumadin. Home Medications Medication Instructions Recorded Confirmed Type Flovent HFA 2 puff INHALATION BID 04/12/20 07/05/20 History albuterol sulfate 2 puff INHALATION Q4H PRN 04/12/20 07/05/20 History azelastine 1 spray INTRANASAL BID 04/12/20 07/05/20 History buspirone 15 mg PO BID 04/12/20 07/05/20 History cetirizine [Zyrtec] 10 mg PO DAILY 04/12/20 07/05/20 History cyanocobalamin (vitamin B-12) 1,000 mcg PO DAILY 04/12/20 07/05/20 History [Vitamin B-12] fluoxetine 10 mg PO DAILY 04/12/20 07/05/20 History furosemide 20 mg PO DAILY 04/12/20 07/05/20 History gabapentin 100 mg PO BID 04/12/20 07/05/20 History magnesium oxide 400 mg PO DAILY 04/12/20 07/05/20 History multivitamin with minerals 1 tab PO DAILY 04/12/20 07/05/20 History [Multiple Vitamin-Minerals] potassium chloride 20 meq PO DAILY 04/12/20 07/05/20 History tamsulosin 0.4 mg PO HS 04/12/20 07/05/20 History verapamil 180 mg PO BID 04/12/20 07/05/20 History pantoprazole 40 mg PO DAILY #30 tab 04/17/20 07/05/20 Rx spironolactone 12.5 mg PO DAILY 05/15/20 07/05/20 History docusate sodium 100 mg PO BID PRN #30 cap 05/18/20 07/05/20 Rx folic acid 1 mg PO QAM #30 tab 05/18/20 07/05/20 Rx polyethylene glycol 3350 [Miralax] 17 g PO DAILY PRN #30 ea 05/18/20 07/05/20 Rx thiamine HCl (vitamin B1) [Vitamin 100 mg PO QAM #30 tab 05/18/20 07/05/20 Rx B-1] ferrous sulfate 325 mg PO DAILY 06/15/20 07/05/20 History levothyroxine 100 mcg PO QAM 07/05/20 07/05/20 History tiotropium-olodaterol [Stiolto 1 spray INHALATION DAILY PRN 07/05/20 07/05/20 History Respimat] trazodone 100 mg PO HS 07/05/20 07/05/20 History warfarin 5 mg PO UD 07/05/20 07/05/20 History Allergies Allergy/AdvReac Type Severity Reaction Status Date / Time trazodone AdvReac Severe prolonged Verified 07/05/20 06:14 QTc cephalexin [From Keflex] AdvReac Hives Verified 07/05/20 06:14 Past Med/Surg History Medical History BPH (benign prostatic hyperplasia) Chronic atrial fibrillation Chronic heart failure with preserved ejection fraction (HFpEF) COPD (chronic obstructive pulmonary disease) 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 Depression with anxiety HLD (hyperlipidemia) HTN (hypertension) ALLEY (obstructive sleep apnea) Intolerant to CPAP Prolonged QT interval Surgical History History of cataract extraction History of colonoscopy History of total left hip arthroplasty Family History Father Stroke Mother Stroke Social History Smoking Status: Never smoker Tobacco Type: Cigarettes Years Smoked: 18; Second Hand Exposure: No; Do You Dip or Chew Tobacco: No; Tobacco Cessation Education Requested by Patient: No Hx Alcohol Use: Yes Alcohol type: beer Alcohol Intake Frequency: 4 or More x per/Week Alcohol Intake Frequency Comment: 3-4 drinks nightly Hx Substance Use: No Preferred Language: Persian Communication Ability: Effective 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 Beliefs That Will Affect Care: None marital status: Current Living Situation: Spouse Other Information That Helps Us Care for You: No Feels Safe at Home: Yes Safety Concerns: Feels Safe At This Time Assistive Devices: Glasses Review of Systems A total of 10 systems reviewed and were otherwise negative Physical Exam Vital Signs Vital Signs - 24 hr 07/05/20 05:26 07/05/20 05:50 07/05/20 06:27 Temperature 36.7 C Temperature Source Oral Pulse Rate 104 H Pulse Rate [Right] 112 H Pulse Rhythm [Right] Irregular Pulse Strength [Right] Normal Respiratory Rate 16 20 Respiratory Effort / Characteristics Non-Labored Spontaneous Non-Labored Spontaneous Respiratory Depth Normal Normal Blood Pressure 118/66 Blood Pressure [Right Arm] 105/60 Blood Pressure Mean 83 Blood Pressure Mean [Right Arm] 75 Blood Pressure Position Lying Blood Pressure Position [Right Arm] Lying Pulse Oximetry 97 96 98 Oxygen Delivery Method Room Air Room Air Room Air Sepsis Recent Fever Within 48 Hours No Sepsis New/Unexplained Change in Mental Status N/A Sepsis Action Taken by Nursing No Action Required 07/05/20 07:49 Temperature Temperature Source Pulse Rate 98 H Pulse Rate [Right] Pulse Rhythm [Right] Pulse Strength [Right] Respiratory Rate 18 Respiratory Effort / Characteristics Respiratory Depth Blood Pressure 123/64 Blood Pressure [Right Arm] Blood Pressure Mean 93 Blood Pressure Mean [Right Arm] Blood Pressure Position Blood Pressure Position [Right Arm] Pulse Oximetry 96 Oxygen Delivery Method Sepsis Recent Fever Within 48 Hours Sepsis New/Unexplained Change in Mental Status Sepsis Action Taken by Nursing VITAL SIGNS - Vital signs and nursing notes were reviewed. GENERAL - 75-year-old male appearing stated age who is in no acute distress. Communicates well with provider and answers questions appropriately. SKIN - Without rashes. HEAD - NC/AT. EYES - PERRL with EOMI bilaterally. Sclera anicteric. Palpebral conjunctiva pink and moist with no injection noted. EARS - No deformities of external structures noted on gross examination bilaterally. No pain elicited with palpation of the tragus bilaterally. External auditory canals without discharge or otorrhea. Tympanic membranes pearly pang without retraction or bulging. No fluid or purulent material visualized behind the TM. Handle of malleus, umbo, cone of light, pars tensa/flaccid all easily visualized. NOSE - Midline and without cyanosis. No epistaxis or purulent drainage noted. Septum midline without deviation or septal hematoma noted. MOUTH/OROPHARYNX - Without perioral cyanosis. Buccal mucosa pink and moist and without leukoplakia. Tongue midline with equal elevation of palate bilaterally. No tonsillar hypertrophy, erythema, or exudates noted. dentition noted. NECK - Neck with FROM. Supple to palpation. lymphadenopathy noted. No nuchal rigidity. LUNGS - Chest wall symmetric without accessory muscle use, intercostals retractions, or central cyanosis. Normal vesicular breath sounds CTA B/L. No wheezes, rales, or rhonchi appreciated. CARDIAC - RRR with S1/S2. No murmur, rubs, or gallops appreciated. ABDOMEN - Abdominal contour without pulsations or visible masses. BS normoactive all four quadrants. No tenderness, palpable masses, hepatosple nomegaly, or ascites noted. RECTAL: Dark red blood on exam EXTREMITIES - No clubbing or peripheral cyanosis. No pretibial edema present. +3/5 radial, posterior tibial, and dorsalis pedis pulses palpated throughout. +5/5 strength noted in UE/LE bilaterally. NEUROLOGIC - Cranial nerves II through XII grossly intact. Sensory intact to light touch throughout. Patellar reflexes +2/4. PSYCH - A&Ox3 and cooperates fully with examiner. Pt is very pleasant and interacts well with examiner. Procedures Stool Hemoccult Procedural Steps Taken: stool placed in appropriate test area and developer placed on stool and control areas Hemoccult result: positive Additional Comments: Dark red blood Course Administered Medications Buspirone HCl (Buspirone 15 Mg Tab) 15 mg PO BID [facility] Stop: 08/04/20 20:59 Last Admin: 07/05/20 21:03 Dose: 15 mg Documented by: [id number] Fluoxetine HCl (Fluoxetine Hcl 10 Mg Cap) 10 mg PO DAILY [facility] Stop: 08/04/20 11:59 Last Admin: 07/05/20 13:19 Dose: 10 mg Documented by: [id number] Folic Acid (Folic Acid 1 Mg Tab) [facility] [place]: 08/04/20 11:59 Last Admin: 07/05/20 13:18 Dose: 1 mg Documented by: [id number] Gabapentin (Gabapentin 100 Mg Cap) 100 mg PO BID [facility] Stop: 08/04/20 11:59 Last Admin: 07/05/20 21:03 Dose: 100 mg Documented by: [id number] Admin: 07/05/20 13:18 Dose: 100 mg Documented by: [id number] Hydromorphone HCl (Hydromorphone Inj 0.5 Mg/0.5 Ml Syr) 0.5 mg IV Q15M PRN PRN Reason: Pain Stop: 07/19/20 05:40 Last Admin: 07/05/20 11:40 Dose: 0.5 mg Documented by: [id number] Pantoprazole Sodium 40 mg/ (Dextrose) 100 mls @ 20 mls/hr IV Q5H [facility] Stop: 08/04/20 08:29 Last Admin: 07/05/20 21:55 Dose: 8 mg/hr, 20 mls/hr Documented by: [id number] Infusion: 07/05/20 21:55 Dose: 8 mg/hr, 20 mls/hr Documented by: [id number] Admin: 07/05/20 17:12 Dose: 8 mg/hr, 20 mls/hr Documented by: [id number] Infusion: 07/05/20 14:17 Dose: 0 mg/hr, 0 mls/hr Documented by: [id number] Admin: 07/05/20 09:00 Dose: 8 mg/hr, 20 mls/hr Documented by: [id number] Miscellaneous (Azelastine- Order Awaiting Action) 1 ea N/A QS [facility] Stop: 08/04/20 15:59 Last Admin: 07/05/20 21:58 Dose: Not Given Documented by: [id number] Tamsulosin HCl (Tamsulosin Hcl 0.4 Mg Cap) 0.4 mg PO HS [facility] Stop: 08/04/20 20:59 Last Admin: 07/05/20 21:03 Dose: 0.4 mg Documented by: [id number] Thiamine HCl (Thiamine Hcl 100 Mg Tab) 100 mg PO QAM [facility] Stop: 08/04/20 11:59 Last Admin: 07/05/20 13:19 Dose: 100 mg Documented by: [id number] Verapamil HCl (Verapamil Hcl 180 Mg Tabcr) 180 mg PO BID [facility] Stop: 08/04/20 11:59 Last Admin: 07/05/20 21:03 Dose: 180 mg Documented by: [id number] Admin: 07/05/20 13:17 Dose: 180 mg Documented by: [id number] Discontinued Medications Bisacodyl (Bisacodyl 5 Mg Tabec) 10 mg PO NOW ONE Stop: 07/05/20 12:57 Last Admin: 07/05/20 13:20 Dose: 10 mg Documented by: [id number] Acetaminophen (Ofirmev) 1,000 mg in 100 mls @ 400 mls/hr IV NOW STA Stop: 07/05/20 05:55 Last Infusion: 07/05/20 06:05 Dose: 0 mls/hr Documented by: [id number] Admin: 07/05/20 05:49 Dose: 400 mls/hr Documented by: [id number] Sodium Chloride (Nss 1000ml) 1,000 mls @ 999 mls/hr IV .Q1H1M ONE Stop: 07/05/20 08:31 Last Infusion: 07/05/20 09:00 Dose: 0 mls/hr Documented by: [id number] Admin: 07/05/20 07:51 Dose: 999 mls/hr Documented by: [id number] Pantoprazole Sodium 80 mg/ (Dextrose) 120 mls @ 400 mls/hr IV NOW ONE Stop: 07/05/20 08:32 Last Infusion: 07/05/20 09:19 Dose: 0 mls/hr Documented by: [id number] Admin: 07/05/20 09:00 Dose: 400 mls/hr Documented by: [id number] Phytonadione 5 mg/ Sodium (Chloride) 50.5 mls @ 101 mls/hr IV ONE ONE Stop: 07/05/20 08:44 Last Infusion: 07/05/20 09:00 Dose: 0 mls/hr Documented by: [id number] Admin: 07/05/20 08:32 Dose: 101 mls/hr Documented by: [id number] Phytonadione 5 mg/ Sodium (Chloride) 50.5 mls @ 101 mls/hr IV NOW STA Stop: 07/05/20 17:06 Last Infusion: 07/05/20 17:57 Dose: 0 mls/hr Documented by: [id number] Admin: 07/05/20 17:12 Dose: 101 mls/hr Documented by: [id number] Phytonadione 5 mg/ Sodium (Chloride) 50.5 mls @ 101 mls/hr IV NOW STA Stop: 07/05/20 19:25 Last Infusion: 07/05/20 20:20 Dose: 0 mls/hr Documented by: [id number] Admin: 07/05/20 19:41 Dose: 101 mls/hr Documented by: [id number] Ioversol (Ioversol 100ml) 94 ml IV ONCE ONE Stop: 07/05/20 07:38 Last Admin: 07/05/20 07:37 Dose: 94 ml Documented by: [id number] Ondansetron HCl (Ondansetron Inj 2 Mg/Ml 2 Ml Vial) 4 mg IV NOW STA Stop: 07/05/20 05:42 Last Admin: 07/05/20 05:49 Dose: 4 mg Documented by: [id number] Polyethylene Glycol (Polyethylene (Miralax) 17 Gm Pack) 136 gm PO TODAY@1315 [facility] Stop: 07/05/20 17:15 Last Admin: 07/05/20 17:12 Dose: 136 gm Documented by: [id number] Medical Decision Making Differential Diagnosis Appendicitis, testicular torsion, infections, diverticulitis, UTI, obstruction, mesenteric ischemia, aortic pathology, inflammatory bowel disease, renal colic, PUD, pancreatitis, biliary pathology, hernia, volvulus, constipation, as well as other pathologies. Medical Records Attestation: I reviewed the patient's medical records. Home Medications Current Medication List: was personally reviewed by me Laboratory Data Attestation: I reviewed the patient's lab results. Result diagrams: 07/05/20 18:08 07/05/20 05:23 Lab Results 07/05/20 07/05/20 07/05/20 Range/Units 05:23 05:23 05:23 WBC 6.71 (4.8-10.8) K/uL RBC 2.96 L (4.7-6.1) M/uL Hgb 10.3 L (14.0-18.0) g/dL Hct 30.2 L (42-52) % MCV 102.0 H (80-100) fL MCH 34.8 H (25-34) pg MCHC 34.1 (32-36) g/dL RDW Std Deviation 57.3 H (36.4-46.3) fL RDW Coeff of Vijaya 15.7 H (11.5-14.5) % Plt Count 311 (130-400) K/uL MPV 9.9 (7.4-10.4) fL Immature Gran % (Auto) 0.4 % Neut % (Auto) 67.5 % Lymph % (Auto) 23.1 % [place] % (Auto) 8.6 % Eos % (Auto) 0.0 % Baso % (Auto) 0.4 % Neut # (Auto) 4.52 (1.4-6.5) K/uL Lymph # (Auto) 1.55 (1.2-3.4) K/uL [place] # (Auto) 0.58 (0.11-0.59) K/uL Eos # (Auto) 0.00 (0-0.5) K/uL Baso # (Auto) 0.03 (0-0.2) K/uL Immature Gran # (Auto) 0.03 H (0.00-0.02) K/uL PT Cancelled INR Cancelled APTT Cancelled PTT Ratio Cancelled Sodium 138 (136-145) mmol/L Potassium 4.8 (3.5-5.1) mmol/L Chloride 102 (98-107) mmol/L Carbon Dioxide 25 (21-32) mmol/L Anion Gap 12.0 H (3-11) BUN 21 H (7-18) mg/dl Creatinine 1.17 (0.6-1.4) mg/dl Est Cr Clr Drug Dosing 73.0 ml/min Est GFR ( Amer) 70.8 Est GFR (Non-Af Amer) 61.1 BUN/Creatinine Ratio 17.8 (10-20) Glucose 194 H (70-99) mg/dl Calcium 8.6 (8.5-10.1) mg/dl Total Bilirubin 0.5 (0.2-1) mg/dl AST 27 (15-37) U/L ALT 17 (12-78) U/L Alkaline Phosphatase 109 (45-117) U/L Troponin I < 0.015 (0-0.045) ng/ml Total Protein 5.8 L (6.4-8.2) gm/dl Albumin 2.6 L (3.4-5.0) gm/dl Globulin 3.2 (2.5-4.0) gm/dl Albumin/Globulin Ratio 0.8 L (0.9-2) Specimen Hemolysis POC Stool Occult Blood (Negative) Blood Type Antibody Screen 07/05/20 07/05/20 07/05/20 Range/Units 05:55 06:06 07:15 WBC (4.8-10.8) K/uL RBC (4.7-6.1) M/uL Hgb (14.0-18.0) g/dL Hct (42-52) % MCV (80-100) fL MCH (25-34) pg MCHC (32-36) g/dL RDW Std Deviation (36.4-46.3) fL RDW Coeff of Vijaya (11.5-14.5) % Plt Count (130-400) K/uL MPV (7.4-10.4) fL Immature Gran % (Auto) % Neut % (Auto) % Lymph % (Auto) % [place] % (Auto) % Eos % (Auto) % Baso % (Auto) % Neut # (Auto) (1.4-6.5) K/uL Lymph # (Auto) (1.2-3.4) K/uL [place] # (Auto) (0.11-0.59) K/uL Eos # (Auto) (0-0.5) K/uL Baso # (Auto) (0-0.2) K/uL Immature Gran # (Auto) (0.00-0.02) K/uL PT > 90.0 H INR > 9.7 H* APTT 83.4 H* PTT Ratio 3.0 Sodium (136-145) mmol/L Potassium (3.5-5.1) mmol/L Chloride (98-107) mmol/L Carbon Dioxide (21-32) mmol/L Anion Gap (3-11) BUN (7-18) mg/dl Creatinine (0.6-1.4) mg/dl Est Cr Clr Drug Dosing ml/min Est GFR ( Amer) Est GFR (Non-Af Amer) BUN/Creatinine Ratio (10-20) Glucose (70-99) mg/dl Calcium (8.5-10.1) mg/dl Total Bilirubin (0.2-1) mg/dl AST (15-37) U/L ALT (12-78) U/L Alkaline Phosphatase (45-117) U/L Troponin I (0-0.045) ng/ml Total Protein (6.4-8.2) gm/dl Albumin (3.4-5.0) gm/dl Globulin (2.5-4.0) gm/dl Albumin/Globulin Ratio (0.9-2) Specimen Hemolysis POC Stool Occult Blood Positive A (Negative) Blood Type O Positive Antibody Screen NEGATIVE Imaging Data Radiologist's Impression: [facility], [phone] CT Scan Report Patient: VEL CAPUTOAdmit Date: 07/05/20#: [id number]: [address]Acct ID:[id number]: Date: 1945[facility] Zip: [place] [id number]: [id number]: EDSex: MRoom/Bed:Att Phy:Diagnosis: GI BLEEDPri Phy: Lidia Faulkner MDService Date: 07/05/20Fa Phy:Interpreting Phy: Abdirashid Santana MDAdmit Phy: Ordering Phy: Cruz Stokes MD cc: ~ CT SCAN OF THE ABDOMEN AND PELVIS WITH IV CONTRAST CLINICAL HISTORY: Left lower quadrant abdominal pain. COMPARISON STUDY: Abdominal CT dated 05/17/2020. TECHNIQUE: Following the IV administration of 94 cc of Optiray 320, CT scan of the abdomen and pelvis is performed from the lung bases to the proximal femora. Images are reviewed in the axial, sagittal, and coronal planes. IV contrast was administered without complication. A dose lowering technique was utilized adhering to the principles of ALARA. CT DOSE: 879.34 mGycm FINDINGS: Lung bases: The heart is enlarged and without pericardial effusion. The coronary arteries are densely calcified. There is a small hiatal hernia. The lung bases are clear noting bibasilar scarring/atelectasis. Liver: The contrast-enhanced liver is enlarged, measuring 18.4 cm in length. The liver demonstrates diffusely diminished attenuation consistent with hepatic steatosis. There is no intrahepatic biliary ductal dilatation. The hepatic veins and portal veins are patent. Gallbladder: Unremarkable. Spleen: Normal in size and attenuation. Pancreas: Moderately atrophic and grossly unremarkable. Adrenal glands: Unremarkable. Kidneys: The contrast enhanced kidneys demonstrate cortical atrophy and are without hydronephrosis. The kidneys enhance symmetrically. Foci of cortical scarring are noted in the left kidney. A 4.[address] arises from left upper pole. There is a 4 mm nonobstructing calculus in the right upper pole. Abdominal vasculature: There is advanced atherosclerotic calcification and mild ectasia of the abdominal aorta. Bowel: There is no bowel obstruction. There is mild colonic diverticulosis without CT evidence of acute diverticulitis. The appendix is well-visualized and normal. Peritoneum: There is no intraperitoneal free air or abdominal ascites. There is a fat-containing umbilical hernia. Lymphadenopathy: None. Pelvic viscera: Evaluation of the pelvis is degraded by streak artifact from a left hip arthroplasty. The prostate gland is enlarged and heterogeneous noting median lobe hypertrophy. The bladder wall is thickened and trabeculated indicating chronic outlet obstruction. Skeletal structures: The skeletal structures are osteopenic. No lytic or blastic lesions are seen. A left hip arthroplasty is in place. There is disruption of the medial wall of the left acetabulum with cement material present along the left pelvic sidewall. This is unchanged from previous. No acute fracture is clearly identified. 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 IMPRESSION: 1. There are no acute infectious or inflammatory findings in the abdomen or pelvis. 2. Mild colonic diverticulosis without CT evidence of acute diverticulitis. 3. Right-sided nephrolithiasis. 4. Cardiomegaly. 5. Hepatomegaly and hepatic steatosis. 6. Chronic changes involving the proximal femora/left acetabulum as above. 7. Additional findings as above. ACT 112: Negative or not required by law. Electronically signed by: Abdirashid Santana M.D. 07/05/2020 8:07 AM Dictated: 07/05/20 0800Transcribed: 07/05/20 0800 ECG Data Attestation: I personally reviewed and interpreted this ECG as follows: Indication: + abdominal pain Rate (beats per minute): 102 Rhythm: + atrial fibrillation (with RVR) ECG Intervals/blocks: + Normal QT-c (450) ECG [place]: + Normal ECG ST segments: no ST depression and no ST elevation ECG Findings: + Q waves (Inferior) Comparison ECG Date: from (05/17/2020) Change: the following changes noted (new inferior infarct ) MDM Narrative Patient was seen and evaluated as above in room C9. Review was performed of nursing notes and vital signs. I did review pertinent previous visits and patient history. After obtaining a thorough history and physical examination the above work up was performed. This 75-year-old male who presents emergency department planing of bright red blood per rectum. The patient's INR was found to be grossly elevated. In addition the patient's hemoglobin has dropped at least 3 units. Based on all these findings I do feel the patient should be admitted to the hospital. CT of the abdomen pelvis does not show any evidence of diverticulitis. I did discuss the case with the hospitalist service who did agree to meet the patient. While in the department, I personally reevaluated the patient several times and each time the patient was found to be resting comfortably. The patient was educated upon management, educated upon todays findings/results, educated upon importance of follow up from today's visit, educated upon symptoms in which to return, had questions answered prior to discharge, verbalized understanding, and was discharged home in good condition. An order was placed for continuous cardiac monitoring. The monitor shows a rate of 85 with normal Sinus rhythm. The patient was evaluated during a period of high volume and high acuity while the hospital was at overcapacity during the global COVID-19 pandemic, and that diagnosis was suspected/considered upon their initial presentation. Their evaluation, treatment and testing was consistent with current guidelines for patients who present with complaints or symptoms that may be related to COVID- 19. Impression & Plan Atrial fibrillation with RVR, Rectal bleeding, Supratherapeutic INR, Acute blood loss anemia Discharge Plan Visit Data Chief Complaint: GI Bleed Stated Complaint: GI BLEED ED Provider: Cruz Stokes Discharge Problem: Atrial fibrillation with RVR, Rectal bleeding, Supratherapeutic INR, Acute blood loss anemia Patient Disposition: Admitted As Inpatient Discharge Instructions Interventions: ED Discharge Assessment Last Done: 07/05/20 10:48
[2020-07-05 06:32] LABS: Alanine Aminotransferase 17 U/L (12-78); Albumin Globulin Ratio 0.8 (0.9-2); Albumin Level 2.6 gm/dl (3.4-5.0); Alkaline Phosphatase 109 U/L (45-117); Aspartate Aminotransferase 27 U/L (15-37); BUN Creatinine Ratio 17.8 (10-20); Bilirubin,Total 0.5 mg/dl (0.2-1); Blood Urea Nitrogen 21 mg/dl (7-18); Calcium 8.6 mg/dl (8.5-10.1); Carbon Dioxide 25 mmol/L (21-32); Chloride 102 mmol/L (98-107); Est GFR (African American) 70.8; Est GFR (Non-African American) 61.1; Globulin 3.2 gm/dl (2.5-4.0); Glucose 194 mg/dl (70-99); Potassium 4.8 mmol/L (3.5-5.1); Sodium 138 mmol/L (136-145); Total Protein 5.8 gm/dl (6.4-8.2); Troponin I < 0.015 ng/ml (0-0.045)
[2020-07-05] MEDS ORDERED: SODIUM CHLORIDE 0.9% 1000ML 1,000 ML IV ONE (07:31)
[2020-07-05] MEDS ORDERED: IOVERSOL 100ml IV ONE (07:37)
[2020-07-05 07:46] LABS: Prothrombin Time > 90.0 Seconds (9.0-12.0)
[2020-07-05 07:54] LABS: INR > 9.7 (0.9-1.1); Partial Thromboplastin Time 83.4 Seconds (21.0-31.0)
--- NOTE | 2020-07-05 08:02 | History & Physical Report ---
Date of Service July 05, 2020 Assessment & Plan (1) Gastrointestinal hemorrhage on warfarin therapy: Supratherapeutic INR >9.7 with active bleeding, given IV vitamin K with INR reassessment later in the day. Currently NPO pending GI assessment and recommendations. CT abd/pel reviewed-no evidence of infection/inflammation, however, abx may be prudent to prevent bacterial translocation with ongoing active process. Will discuss with GI once they have evaluated him. Cont resuscitation efforts as needed. With 1+ weeks of symptoms, this is not likely a brisk bleed and reversing INR will hopefully slow things down. Trend H/H today and monitor in PCU. He did receive a Liter of IVF in the ER with improvement in his tachycardia. Aspirin on board and contributing some per history. Alcohol use history also contributing. PPI drip started in the ER. (2) Atrial fibrillation with RVR: chronic atrial fibrillation on warfarin with recent changes to dosing per patient. Some tachycardia initially, likely related to hypovolemia in setting of acute GI bleed. This is improved after 1 L IVF in the ER and patient was ordered his morning dose of verapamil, which he didn't take this morning. (3) Acute blood loss anemia: Hb down to 10 from baseline 13 2/2 acute GI bleed. Cont to trend H/H and transfuse if necessary. (4) Supratherapeutic INR: 2/2 warfarin use. IV vitamin K given in ER. Repeat this evening and redose if needed. (5) Alcohol abuse: Monitor closely for Withdrawal symptoms and Ativan PRN. Cont home gabapentin. (6) ALLEY (obstructive sleep apnea): Known issue for him but he is intolerant of CPAP. (7) BPH (benign prostatic hyperplasia): Cont tamsulosin per home regimen. (8) COPD (chronic obstructive pulmonary disease): chronic, stable. Cont home inhaler therapy. (9) Chronic heart failure with preserved ejection fraction (HFpEF): Holding Lasix in setting of acute bleed. (10) DVT prophylaxis: chemoprophylaxis contraindicated in setting of acute GI bleeding Full Code per my discussion with the patient on admission. He states his daughter Ramandeep is his POA if he were not able to speak for himself. Patient lives alone. Dispo-[facility]. [facility] History of Present Illness Chief Complaint: acute GI bleeding Primary Care Provider: Lidia Faulkner MD 75 yo man with a h/o consistent alcohol use (3 vodka drinks per night) presents with dark red blood per rectum. He reports waking up from sleep around 0400 with th eurge to have a BM which was dark red in color. He had a subsequent bloody BM 30 minutes later and this was associated with lightheadedness and generalized weakness impeding his ability to ambulate. He was just admitted for melena two months ago. At that time, and today he had an elevated INR as he is on coumadin for stroke prophylaxis in atrial fibrillation. He reports adjustments being made to his coumadin recently, and he reports generalized joint pain for which he has taken 650mg ASA 4 days out of the last 10 for increased pain control above typical use of Tylenol. Hb is 10 with a baseline of 13. INR was >9.7 and he was given vitamin K 5mg IV x one dose in the ER. Review of the records reveals a recent EGD with [facility] on 05.16.20 revealing antral gastritis without evidence of bleeding or esophageal or gastric varices. Recent colonoscopy was on 05/26/2020 revealing a 6mm polyp in the ascending colon, diverticulosis in the ascending and sigmoid colon and nonbleeding internal hemorrhoids. He was advised to take a PPI once daily with which he reports compliance. ROS reveals no blood per rectum until today since colonoscopy in May. He does reports epistaxis from his left nare that began one month ago. He packs it with gauze and this resolves spontaneously. He denies taking aspirin today or yesterday but still reports generalized joint pain which began approximately two months ago. He reports feeling dizzy and lightheaded for the past 1.5 weeks, worse in the past couple of days. He has a small area of ecchymosis over his right eyebrow and on his left upper eyelid and reports a fall on 06/15/20. He was evaluated in the ER with ribs xray, head CT, c-spine CT and face CT all within normal limits and without evidence of acute trauma from that fall outside of a soft tissue contusion. He denies any stroke like symptoms. He reports a headache around the crown of his head this morning. He denies chest pain or shortness of breath. Although record reports he has an allergy to trazodone (prolonged QTc) he takes 100mg regularly every night. Allergies Allergy/AdvReac Type Severity Reaction Status Date / Time trazodone AdvReac Severe prolonged Verified 07/05/20 06:14 QTc cephalexin [From Keflex] AdvReac Hives Verified 07/05/20 06:14 Home Medications Medication Instructions Recorded Confirmed Type Flovent HFA 2 puff INHALATION BID 04/12/20 07/05/20 History albuterol sulfate 2 puff INHALATION Q4H PRN 04/12/20 07/05/20 History azelastine 1 spray INTRANASAL BID 04/12/20 07/05/20 History buspirone 15 mg PO BID 04/12/20 07/05/20 History cetirizine [Zyrtec] 10 mg PO DAILY 04/12/20 07/05/20 History cyanocobalamin (vitamin B-12) 1,000 mcg PO DAILY 04/12/20 07/05/20 History [Vitamin B-12] fluoxetine 10 mg PO DAILY 04/12/20 07/05/20 History furosemide 20 mg PO DAILY 04/12/20 07/05/20 History gabapentin 100 mg PO BID 04/12/20 07/05/20 History magnesium oxide 400 mg PO DAILY 04/12/20 07/05/20 History multivitamin with minerals 1 tab PO DAILY 04/12/20 07/05/20 History [Multiple Vitamin-Minerals] potassium chloride 20 meq PO DAILY 04/12/20 07/05/20 History tamsulosin 0.4 mg PO HS 04/12/20 07/05/20 History verapamil 180 mg PO BID 04/12/20 07/05/20 History pantoprazole 40 mg PO DAILY #30 tab 04/17/20 07/05/20 Rx spironolactone 12.5 mg PO DAILY 05/15/20 07/05/20 History docusate sodium 100 mg PO BID PRN #30 cap 05/18/20 07/05/20 Rx folic acid 1 mg PO QAM #30 tab 05/18/20 07/05/20 Rx polyethylene glycol 3350 [Miralax] 17 g PO DAILY PRN #30 ea 05/18/20 07/05/20 Rx thiamine HCl (vitamin B1) [Vitamin 100 mg PO QAM #30 tab 05/18/20 07/05/20 Rx B-1] ferrous sulfate 325 mg PO DAILY 06/15/20 07/05/20 History levothyroxine 100 mcg PO QAM 07/05/20 07/05/20 History tiotropium-olodaterol [Stiolto 1 spray INHALATION DAILY PRN 07/05/20 07/05/20 History Respimat] trazodone 100 mg PO HS 07/05/20 07/05/20 History warfarin 5 mg PO UD 07/05/20 07/05/20 History Past Med/Surg History Medical History BPH (benign prostatic hyperplasia) Chronic atrial fibrillation Chronic heart failure with preserved ejection fraction (HFpEF) COPD (chronic obstructive pulmonary disease) 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 use of manager product marketing anticoagulation Depression with anxiety HLD (hyperlipidemia) HTN (hypertension) ALLEY (obstructive sleep apnea) Intolerant to CPAP Prolonged QT interval Surgical History History of cataract extraction History of colonoscopy History of total left hip arthroplasty Family History Father Stroke Mother Stroke Social History (Updated 07/05/20 @ 11:25 by Nasrin Anderson DO) Smoking Status: Former smoker Tobacco Type: Cigarettes Years Smoked: 18; Hx Alcohol Use: Yes Alcohol type: wine and hard liquor Alcohol Intake Frequ ency: 4 or More x per/Week Alcohol Intake Frequency Comment: 3-4 drinks nightly Hx Substance Use: No Preferred Language: Guyanese Communication Ability: Effective Picture Enlarger Required: No Beliefs That Will Affect Care: None marital status: Current Living Situation: Alone Feels Safe at Home: Yes Assistive Devices: Glasses Review of Systems Review of Systems: All systems reviewed & are unremarkable except as noted in HPI & below Physical Exam Physical Exam: CONSTITUTIONAL: WNWD, vitals as above, generally well- appearing EYES: EOMI bilaterally, PERRL, normal conjunctivae, no scleral icterus ENT: external ear and nose normal, MMM NECK: trachea midline RESPIRATORY: clear to auscultation bilaterally, no crackles, rales or wheezes, normal respiratory effort CARDIOVASCULAR: regular rate and irregular rhythm, S1 and 2 heard without murmurs, gallops or rubs, no JVD, no peripheral edema GASTROINTESTINAL: soft, generalized tenderness to palpation, worse in the LLQ area. Nondistended and no guarding. MUSCULOSKELETAL: strength 5/5 throughout, head is normocephalic with traumatic ecchymosis to supraorbital area of right eye and periorbital area of left eye. some palpation of tenderness to right anterior chest wall along lower intercostal spaces. SKIN: warm and dry, ecchymosis noted that is significant along left leg, especially posteriorly. NEUROLOGIC: No facial palsy, no dysarthria. Touch, pain and proprioception normal. CN 2-12 grossly intact except for possible CN 7 nerve palsy on the right side (cannot lift eyebrow), no sensory deficit, normal cognition, normal speech, no tremor PSYCHIATRIC: alert cooperative and oriented to person, place and time. Results & Data Results & Data ([facility]) Vital Signs (Past 12 Hours) Vital Signs Temp Pulse Pulse Resp BP BP Pulse Ox 07/05/20 06:27 112 H 20 105/60 98 07/05/20 05:50 96 07/05/20 05:26 36.7 C 104 H 16 118/66 97 Laboratory Results Short CBC 07/05/20 Range/Units 05:23 WBC 6.71 (4.8-10.8) K/uL Hgb 10.3 L (14.0-18.0) g/dL Hct 30.2 L (42-52) % Plt Count 311 (130-400) K/uL BMP 07/05/20 05:23 Sodium 138 Potassium 4.8 Chloride 102 Carbon Dioxide 25 BUN 21 H Creatinine 1.17 Glucose 194 H Calcium 8.6 Cardiac Enzymes 07/05/20 Range/Units 05:23 Troponin I < 0.015 (0-0.045) ng/ml Liver Function 07/05/20 Range/Units 05:23 Total Bilirubin 0.5 (0.2-1) mg/dl AST 27 (15-37) U/L ALT 17 (12-78) U/L Alkaline Phosphatase 109 (45-117) U/L Albumin 2.6 L (3.4-5.0) gm/dl INR>9.7 Diagnostic Findings [facility], [phone] CT Scan Report Patient: VEL CAPUTOAdmit Date: 07/05/20MR#: [id number]: SONIYA TEJADA 372Acct ID:[id number]: [facility]: [facility] Zip: [place] [id number]: [id number]: EDSex: MRoom/Bed:Att Phy:Diagnosis: GI BLEEDPri Phy: Lidia Faulkner MDService Date: 07/05/20Fam Phy:Interpreting Phy: Abdirashid Santana MDAdmit Phy: Ordering Phy: Cruz Stokes MD cc: ~ CT SCAN OF THE ABDOMEN AND PELVIS WITH IV CONTRAST CLINICAL HISTORY: Left lower quadrant abdominal pain. COMPARISON STUDY: Abdominal CT dated 05/17/2020. TECHNIQUE: Following the IV administration of 94 cc of Optiray 320, CT scan of the abdomen and pelvis is performed from the lung bases to the proximal femora. Images are reviewed in the axial, sagittal, and coronal planes. IV contrast was administered without complication. A dose lowering technique was utilized adhering to the principles of ALARA. CT DOSE: 879.34 mGycm FINDINGS: Lung bases: The heart is enlarged and without pericardial effusion. The coronary arteries are densely calcified. There is a small hiatal hernia. The lung bases are clear noting bibasilar scarring/atelectasis. Liver: The contrast-enhanced liver is enlarged, measuring 18.4 cm in length. The liver demonstrates diffusely diminished attenuation consistent with hepatic steatosis. There is no intrahepatic biliary ductal dilatation. The hepatic veins and portal veins are patent. Gallbladder: Unremarkable. Spleen: Normal in size and attenuation. Pancreas: Moderately atrophic and grossly unremarkable. Adrenal glands: Unremarkable. Kidneys: The contrast enhanced kidneys demonstrate cortical atrophy and are without hydronephrosis. The kidneys enhance symmetrically. Foci of cortical scarring are noted in the left kidney. A 4.[address] arises from left upper pole. There is a 4 mm nonobstructing calculus in the right upper pole. Abdominal vasculature: There is advanced atherosclerotic calcification and mild ectasia of the abdominal aorta. Bowel: There is no bowel obstruction. There is mild colonic diverticulosis without CT evidence of acute diverticulitis. The appendix is well-visualized and normal. Peritoneum: There is no intraperitoneal free air or abdominal ascites. There is a fat-containing umbilical hernia. Lymphadenopathy: None. Pelvic viscera: Evaluation of the pelvis is degraded by streak artifact from a left hip arthroplasty. The prostate gland is enlarged and heterogeneous noting median lobe hypertrophy. The bladder wall is thickened and trabeculated indicating chronic outlet obstruction. Skeletal structures: The skeletal structures are osteopenic. No lytic or blastic lesions are seen. A left hip arthroplasty is in place. There is disruption of the medial wall of the left acetabulum with cement material present along the left pelvic sidewall. This is unchanged from previous. No acute fracture is clearly identified. 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 IMPRESSION: 1. There are no acute infectious or inflammatory findings in the abdomen or pelvis. 2. Mild colonic diverticulosis without CT evidence of acute diverticulitis. 3. Right-sided nephrolithiasis. 4. Cardiomegaly. 5. Hepatomegaly and hepatic steatosis. 6. Chronic changes involving the proximal femora/left acetabulum as above. 7. Additional findings as above. ACT 112: Negative or not required by law. Electronically signed by: Abdirashid Santana M.D. 07/05/2020 8:07 AM Dictated: 07/05/20 0800Transcribed: 07/05/20 0800 Medications Administered Zofran 4mg IV x 1 APAP 1gm IV x 1 dose Code Status & VTE Plan VTE Prophylaxis Plan VTE Prophylaxis will be ordered: Yes
[2020-07-05] MEDS ORDERED: PANTOPRAZOLE BOLUS/DRIP 1 EA IV STA (08:05)
--- NOTE | 2020-07-05 08:08 | CT Scan Report ---
CT SCAN OF THE ABDOMEN AND PELVIS WITH IV CONTRAST CLINICAL HISTORY: Left lower quadrant abdominal pain. COMPARISON STUDY: Abdominal CT dated 05/17/2020. TECHNIQUE: Following the IV administration of 94 cc of Optiray 320, CT scan of the abdomen and pelvi s is performed from the lung bases to the proximal femora. Images are reviewed in the axial, sagittal , and coronal planes. IV contrast was administered without complication. A dose lowering technique wa s utilized adhering to the principles of ALARA. CT DOSE: 879.34 mGycm FINDINGS: Lung bases: The heart is enlarged and without pericardial effusion. The coronary arteries are densely calcified. There is a small hiatal hernia. The lung bases are clear noting bibasilar scarring/atelec tasis. Liver: The contrast-enhanced liver is enlarged, measuring 18.4 cm in length. The liver demonstrates d iffusely diminished attenuation consistent with hepatic steatosis. There is no intrahepatic biliary d uctal dilatation. The hepatic veins and portal veins are patent. Gallbladder: Unremarkable. Spleen: Normal in size and attenuation. Pancreas: Moderately atrophic and grossly unremarkable. Adrenal glands: Unremarkable. Kidneys: The contrast enhanced kidneys demonstrate cortical atrophy and are without hydronephrosis. T he kidneys enhance symmetrically. Foci of cortical scarring are noted in the left kidney. A 4.[address] arises from left upper pole. There is a 4 mm nonobstructing calculus in the right upper pole. Abdominal vasculature: There is advanced atherosclerotic calcification and mild ectasia of the abdomi nal aorta. Bowel: There is no bowel obstruction. There is mild colonic diverticulosis without CT evidence of acu te diverticulitis. The appendix is well-visualized and normal. Peritoneum: There is no intraperitoneal free air or abdominal ascites. There is a fat-containing umbi lical hernia. Lymphadenopathy: None. Pelvic viscera: Evaluation of the pelvis is degraded by streak artifact from a left hip arthroplasty. The prostate gland is enlarged and heterogeneous noting median lobe hypertrophy. The bladder wall is thickened and trabeculated indicating chronic outlet obstruction. Skeletal structures: The skeletal structures are osteopenic. No lytic or blastic lesions are seen. A left hip arthroplasty is in place. There is disruption of the medial wall of the left acetabulum with cement material present along the left pelvic sidewall. This is unchanged from previous. No acute fr acture is clearly identified. 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 IMPRESSION: 1. There are no acute infectious or inflammatory findings in the abdomen or pelvis. 2. Mild colonic diverticulosis without CT evidence of acute diverticulitis. 3. Right-sided nephrolithiasis. 4. Cardiomegaly. 5. Hepatomegaly and hepatic steatosis. 6. Chronic changes involving the proximal femora/left acetabulum as above. 7. Additional findings as above. ACT 112: Negative or not required by law. Electronically signed by: Abdirashid Santana M.D. 07/05/2020 8:07 AM
[2020-07-05] MEDS ORDERED: PHYTONADIONE 5 MG in SODIUM CHLORIDE 0.9% 50 ML IV ONE (08:15)
[2020-07-05] MEDS ORDERED: PANTOprazole 80 MG in DEXTROSE 5% 100 ML IV ONE (08:15)
[2020-07-05] MEDS: PANTOprazole 40 MG in DEXTROSE 5% 100 ML IV SCH ×3 (09:00→21:55)
--- NOTE | 2020-07-05 10:52 | Gastrointestinal Consultation ---
Date of Consultation July 05, 2020 Assessment & Plan (1) Melena: Mr. Isbell is a 75 yr old male with black/red loose BMs in the setting of a supratherapeutic INR. Suspect diverticular bleeding though ischemic colitis, gastritis, ulcers and small bowel AVMs are also considered. Plan for EGD/Colonoscopy tomorrow. Will prep today. Continue PPI Drip. Recheck Hb/HCt, BUN/Cr Q12 and document outputs carefully. Present on Admission?: Yes (2) Rectal bleeding: (3) Atrial fibrillation with RVR: Appreciate primary hospitalists management of reversing the INR. Goal < 1.4 to go forward with EGD/Colonoscopy tomorrow. Present on Admission?: Yes Supervising Physician Co-Signing Physician Notes I performed a history and physical examination of the patient today, including specifically on physical exam - soft abdomen. I have discussed the patient's management with the advanced practitioner. Please refer to the nurse practitioner's note for the documented findings and plan of care. Correct INR EGD/Colonoscopy tomorrow PPI for now. History of Present Illness Reason for Consultation: Rectal bleeding Requesting Physician: Dr. Anderson Attending Physician: Nasrin Anderson, DO History of Present Illness Mr. Wilber Isbell is a 75 yr old male pt of Dr. Deon Ugarte with a hx of HTN, COPD, depression, Afib on warfarin who presented to the ED for black/bright red rectal bleeding. He was awakened with cramping early this morning soon followed by passing the red/black loose BM. During this episode, he had lightheadedness on ambulation to/from the BR. Since then, he has had 4 more similar BMs, one that I witnessed in the ED around 11AM. He also reports diffuse abdomen discomfort Rt>Lt, present for about 3 weeks, moderate intensity, not severe. On arrival, INR supratherapeutic at 9.3 CT with diverticulosis. Had some tachycardia at 112, now in the 90's but has otherwise been hemodynamically stable and has been awake, alert, oriented. An IV PPI drip was started and he is kept NPO except sips of clear liquid. He is known to our GI group as we were consulted for melena in Nov (also at that time with supratherapeutic INR). EGD on 05/16/[address] Brooke with gastritis. Most recent colonoscopy was in 2019 with mention of diverticulosis and with two 6mm polyps. He admits to drinking about 2 Gin and tonics/day for years. He quit smoking many yrs ago. Allergies Allergy/AdvReac Type Severity Reaction Status Date / Time trazodone AdvReac Severe prolonged Verified 07/05/20 06:14 QTc cephalexin [From Keflex] AdvReac Hives Verified 07/05/20 06:14 Home Medications Medication Instructions Recorded Confirmed Type Flovent HFA 2 puff INHALATION BID 04/12/20 07/05/20 History albuterol sulfate 2 puff INHALATION Q4H PRN 04/12/20 07/05/20 History azelastine 1 spray INTRANASAL BID 04/12/20 07/05/20 History buspirone 15 mg PO BID 04/12/20 07/05/20 History cetirizine [Zyrtec] 10 mg PO DAILY 04/12/20 07/05/20 History cyanocobalamin (vitamin B-12) 1,000 mcg PO DAILY 04/12/20 07/05/20 History [Vitamin B-12] fluoxetine 10 mg PO DAILY 04/12/20 07/05/20 History furosemide 20 mg PO DAILY 04/12/20 07/05/20 History gabapentin 100 mg PO BID 04/12/20 07/05/20 History magnesium oxide 400 mg PO DAILY 04/12/20 07/05/20 History multivitamin with minerals 1 tab PO DAILY 04/12/20 07/05/20 History [Multiple Vitamin-Minerals] potassium chloride 20 meq PO DAILY 04/12/20 07/05/20 History tamsulosin 0.4 mg PO HS 04/12/20 07/05/20 History verapamil 180 mg PO BID 04/12/20 07/05/20 History pantoprazole 40 mg PO DAILY #30 tab 04/17/20 07/05/20 Rx spironolactone 12.5 mg PO DAILY 05/15/20 07/05/20 History docusate sodium 100 mg PO BID PRN #30 cap 05/18/20 07/05/20 Rx folic acid 1 mg PO QAM #30 tab 05/18/20 07/05/20 Rx polyethylene glycol 3350 [Miralax] 17 g PO DAILY PRN #30 ea 05/18/20 07/05/20 Rx thiamine HCl (vitamin B1) [Vitamin 100 mg PO QAM #30 tab 05/18/20 07/05/20 Rx B-1] ferrous sulfate 325 mg PO DAILY 06/15/20 07/05/20 History levothyroxine 100 mcg PO QAM 07/05/20 07/05/20 History tiotropium-olodaterol [Stiolto 1 spray INHALATION DAILY PRN 07/05/20 07/05/20 H istory Respimat] trazodone 100 mg PO HS 07/05/20 07/05/20 History warfarin 5 mg PO UD 07/05/20 07/05/20 History Patient History Medical History BPH (benign prostatic hyperplasia) Chronic atrial fibrillation Chronic heart failure with preserved ejection fraction (HFpEF) COPD (chronic obstructive pulmonary disease) Current use of intermediate card tender anticoagulation Depression with anxiety HLD (hyperlipidemia) HTN (hypertension) ALLEY (obstructive sleep apnea) Intolerant to CPAP Prolonged QT interval Surgical History History of cataract extraction History of colonoscopy History of total left hip arthroplasty Family History Father Stroke Mother Stroke Social History (Updated 07/05/20 @ 11:25 by Nasrin Anderson DO) Smoking Status: Never smoker Tobacco Type: Cigarettes Years Smoked: 18; Second Hand Exposure: No; Do You Dip or Chew Tobacco: No; Tobacco Cessation Education Requested by Patient: No Hx Alcohol Use: Yes Alcohol type: beer Alcohol Intake Frequency: 4 or More x per/Week Alcohol Intake Frequency Comment: 3-4 drinks nightly Hx Substance Use: No Preferred Language: Citizen Of [place] Communication Ability: Effective [employer] Operator Required: No Beliefs That Will Affect Care: None marital status: Current Living Situation: Spouse Other Information That Helps Us Care for You: No Feels Safe at Home: Yes Safety Concerns: Feels Safe At This Time Assistive Devices: Glasses Review of Systems Review of Systems: ROS: Gen: Denies weakness, fevers, weight loss Eyes: No eye redness, or pain, no recent vision changes Resp: No SOB, no cough Cardio: Had a fast HR, no irregular beats; no chest pain GI: See HPI : Denies pain on urination Skin: No jaundice, itching or new rashes Physical Exam Constitutional: WD/WN, vitals as above Eyes: PERRL, conjunctivae normal, anicteric sclerae ENMT: external ear and nose normal, oropharynx normal Neck: trachea midline, no thyromegaly Respiratory: normal respiratory effort, lungs clear to auscultation Cardiovascular: Rate/Rhythm: regular rhythm and + tachycardic Vessels: no JVD Extremities: + edema (mild bilat ankle) HR to 110; normal sinus Gastrointestinal (Abdomen): Inspection/Auscultation: abdomen normal to inspection; abdomen not distended Percussion/Palpation: + abdomen tender (mild, diffuse) and abdomen soft Musculoskeletal: no cyanosis or clubbing, extremities motor strength 5/5 Skin: no rashes, warm and dry few telangiectasias Neurologic: PERRL, EOMI, accommodation nl, no face palsy, no dysarthria Psychiatric: A+Ox3, euthymic affect Lymphatic: no cervical or axillary lymphadenopathy Results & Data ([facility]) Vital Signs (Past 12 Hours) Vital Signs Temp Pulse Pulse Resp BP BP Pulse Ox 07/05/20 10:31 94 H 27 H 07/05/20 10:30 94 H 22 134/65 97 07/05/20 10:00 90 15 121/59 L 96 07/05/20 09:30 94 H 22 121/66 96 07/05/20 09:00 97 H 18 114/58 L 98 07/05/20 08:30 95 H 17 125/66 96 07/05/20 08:00 89 18 126/65 98 07/05/20 07:49 98 H 18 123/64 96 07/05/20 06:27 112 H 20 105/60 98 07/05/20 05:50 96 07/05/20 05:26 36.7 C 104 H 16 118/[address] 07/05/20 with IV contrast: 1. There are no acute infectious or inflammatory findings in the abdomen or pelvis. 2. Mild colonic diverticulosis without CT evidence of acute diverticulitis. 3. Right-sided nephrolithiasis. 4. Cardiomegaly. 5. Hepatomegaly and hepatic steatosis. 6. Chronic changes involving the proximal femora/left acetabulum as above. 7. Additional findings as above.
[2020-07-05] MEDS ORDERED: ALBUTEROL HFA 8 GM INHALER INH PRN (11:28)
[2020-07-05] MEDS ORDERED: UMECLIDINIUM/VILANTEROL 62.5/25MCG 7 PUFFS/INHALER INH PRN (11:35)
[2020-07-05] MEDS ORDERED: LORazepam 1 MG/2 ML VIAL IV PRN (11:44)
[2020-07-05] MEDS ORDERED: LORazepam 1 MG TAB PO PRN (11:44)
[2020-07-05] MEDS ORDERED: bisacodyL 5 MG TABEC PO ONE (12:56)
[2020-07-05] MEDS ORDERED: POLYETHYLENE (MIRALAX) 17 GM PACK PO SCH (13:15)
[2020-07-05] MEDS: VERAPAMIL HCL 180 MG TABCR PO SCH ×2 (13:17→21:03)
[2020-07-05] MEDS: FOLIC ACID 1 MG TAB PO SCH (13:18)
[2020-07-05] MEDS: GABAPENTIN 100 MG CAP PO SCH ×2 (13:18→21:03)
[2020-07-05] MEDS: FLUoxetine HCL 10 MG CAP PO SCH (13:19)
[2020-07-05] MEDS: THIAMINE HCL 100 MG TAB PO SCH (13:19)
[2020-07-05 14:48] LABS: Amphetamines+Metham, Urine Neg (Neg); Barbiturates, Urine Neg (Neg); Benzodiazepine, Urine Neg (Neg); Cocaine, Urine Neg (Neg); MDMA (Ecstacy), Urine Pos (Neg); Methadone, Urine Neg (Neg); Opiate, Urine Pos (Neg); Phencyclidine, Urine Neg (Neg)
[2020-07-05] MEDS ORDERED: PHYTONADIONE 5 MG in SODIUM CHLORIDE 0.9% 50 ML IV STA ×2 (16:37→18:56)
[2020-07-05 18:22] LABS: Hematocrit (blood only) 25.7 % (42-52); Hemoglobin 8.8 g/dL (14.0-18.0)
[2020-07-05 18:41] LABS: INR 3.7 (0.9-1.1); Prothrombin Time 36.4 Seconds (9.0-12.0)
[2020-07-05] MEDS: TAMSULOSIN HCL 0.4 MG CAP PO SCH (21:03)
[2020-07-05] MEDS: busPIRone 15 MG TAB PO SCH (21:03)
[2020-07-06] MEDS: PANTOprazole 40 MG in DEXTROSE 5% 100 ML IV SCH ×5 (02:57→20:42)
[2020-07-06 05:36] LABS: Hematocrit (blood only) 23.3 % (42-52); Hemoglobin 7.8 g/dL (14.0-18.0); Mean Corpuscular Hemoglobin 34.7 pg (25-34); Mean Corpuscular Hgb Conc 33.5 g/dL (32-36); Mean Corpuscular Volume 103.6 fL (80-100); Mean Platelet Volume 9.4 fL (7.4-10.4); Nucleated RBC # (auto) 0.03 K/uL (0-0); Nucleated RBC % (auto) 0.9 %; Platelet Count 187 K/uL (130-400); RDW Coefficient of Variation 16.3 % (11.5-14.5); Red Blood Count 2.25 M/uL (4.7-6.1); White Blood Count 3.81 K/uL (4.8-10.8)
--- NOTE | 2020-07-06 05:40 | Electrocardiogram Report ---
Test Reason : Blood Pressure : / mmHG Vent. Rate : 102 BPM Atrial Rate : 108 BPM P-R Int : 000 ms QRS Dur : 074 ms QT Int : 400 ms P-R-T Axes : 000 -12 005 degrees QTc Int : 522 ms Atrial fibrillation with rapid ventricular response Inferior infarct , age undetermined Prolonged QT Nonspecific ST abnormality Abnormal ECG When compared with ECG of 17-MAY-2020 07:39, Inferior infarct is now Present Confirmed by Dinesh Webster ([id number]) on 07/06/2020 5:39:42 AM Referred By: REFERRED SELF Confirmed By:Dinesh Webster
[2020-07-06 05:46] LABS: INR 1.4 (0.9-1.1); Prothrombin Time 14.7 Seconds (9.0-12.0)
[2020-07-06 06:13] LABS: BUN Creatinine Ratio 18.3 (10-20); Calcium 8.1 mg/dl (8.5-10.1); Creatinine Clr Calc Pharmacy 88.5 ml/min; Est GFR (African American) 103.1; Est GFR (Non-African American) 88.9; Magnesium 1.5 mg/dl (1.8-2.4); Potassium 3.5 mmol/L (3.5-5.1)
[2020-07-06] MEDS: LEVOTHYROXINE SODIUM 100 MCG TABLET PO SCH (06:32)
[2020-07-06] MEDS: FLUTICASONE FUROATE 200MCG 14 PUFFS/INHALER INH SCH (07:42)
[2020-07-06] MEDS: VERAPAMIL HCL 180 MG TABCR PO SCH ×2 (08:59→19:41)
[2020-07-06] MEDS: MAGNESIUM OXIDE 400 MG TAB PO SCH (08:59)
[2020-07-06] MEDS: busPIRone 15 MG TAB PO SCH ×2 (08:59→19:41)
[2020-07-06] MEDS: GABAPENTIN 100 MG CAP PO SCH ×2 (08:59→19:41)
[2020-07-06] MEDS: FLUoxetine HCL 10 MG CAP PO SCH (09:05)
--- NOTE | 2020-07-06 09:31 | Gastroenterology Progress Note ---
Date of Service July 06, 2020 Assessment & Plan (1) Melena: 75 yr old male with black/red loose BMs in the setting of a supratherapeutic INR. Suspect diverticular bleeding though ischemic colitis, gastritis, ulcers and small bowel AVMs are also considered. EGD colonoscopy today. Further Recommendations to follow. (2) Rectal bleeding: (3) Atrial fibrillation with RVR: Met goal of INR 1.4 to prevent bleeding during endoscopy - with reversal using Vit K. Recommendation for safety of resuming warfarin will be provided dependent on findings of endoscopy. Admission and Anticipated Discharge Date Admission Date: July 05, 2020 Supervising Physician Co-Signing Physician Notes I performed a history and physical examination of the patient today, including specifically on physical exam - soft abdomen. I have discussed the patient's management with the advanced practitioner. Please refer to the nurse practitioner's note for the documented findings and plan of care. EGD/Colonoscopy today Subjective 75 male presented yesterday for black/red BMs, lightheadedness. Completed colonoscopy prep with fairly good results, most recent BM last night dark brown thin liquid. No events overnight. Hb this morning 7.8, down from 12 in May and 10.3 on arrival. BUN normal. Mild/moderate diffuse abd tenderness continues w/o any severe abd pain. Review of Systems Review of Systems: ROS: Gen: Denies weakness, fevers, weight loss Eyes: No eye redness, or pain, no recent vision changes Resp: No SOB, no cough Cardio:NO CP or palpitations; still a little light headed with standing to transfer to [facility] hospital. GI: See HPI : Denies pain on urination Skin: No jaundice, itching or new rashes Physical Exam Constitutional: WD/WN, vitals as above Eyes: PERRL, conjunctivae normal, anicteric sclerae ENMT: external ear and nose normal, oropharynx normal Neck: trachea midline, no thyromegaly Respiratory: normal respiratory effort, lungs clear to auscultation Cardiovascular: Rate/Rhythm: regular rhythm and + tachycardic Vessels: no JVD Extremities: + edema (mild bilat ankle) Gastrointestinal (Abdomen): Inspection/Auscultation: abdomen normal to inspection; abdomen not distended Percussion/Palpation: + abdomen tender (mild, diffuse) and abdomen soft Musculoskeletal: no cyanosis or clubbing, extremities motor strength 5/5 Skin: no rashes, warm and dry Neurologic: PERRL, EOMI, accommodation nl, no face palsy, no dysarthria Psychiatric: A+Ox3, euthymic affect Lymphatic: no cervical or axillary lymphadenopathy Results & Data ([facility]) Vital Signs (Past 12 Hours) Vital Signs Temp Pulse Resp BP Pulse Ox Pulse Ox 07/06/20 09:13 84 20 122/83 07/06/20 08:00 37.0 C 80 20 102/49 L 96 98 07/06/20 04:00 36.6 C 87 18 110/63 94 07/05/20 23:24 36.8 C 85 16 127/52 L 93 Laboratory Results WBC 3.8, Hb 7.8 Hct 23, Plts 189 INR 1.4, Na 139, K 3.5, Ch 104, CO2 32, BUN 14, Cr 0.78, glucose 120. Diagnostic Findings CT abd/pelvis with IV contrast on 07/05/20: 1. There are no acute infectious or inflammatory findings in the abdomen or pelvis. 2. Mild colonic diverticulosis without CT evidence of acute diverticulitis. 3. Right-sided nephrolithiasis. 4. Cardiomegaly. 5. Hepatomegaly and hepatic steatosis. 6. Chronic changes involving the proximal femora/left acetabulum as above. 7. Additional findings as above.
[2020-07-06] MEDS ORDERED: LIDOCAINE HCL 2% 2 ML VIAL/AMP(20MG/ML) INFIL ONE ×2 (10:07→12:34)
[2020-07-06] MEDS ORDERED: PROPOFOL IV EMULSION 10 MG/ML 20 ML VIAL IV ONE ×3 (10:07→13:12)
[2020-07-06] MEDS ORDERED: fentaNYL citrate 100 MCG/2 ML VIAL ONE (10:08)
[2020-07-06] MEDS: ACETAMINOPHEN 325 MG TAB PO PRN ×2 (11:03→19:39)
--- NOTE | 2020-07-06 11:48 | Anesthesiology Consultation ---
Date of Service July 06, 2020 Assessment & Plan (1) Anemia: Chart Review Chart Review: Acceptable Risk for Surgery and Patient NOT seen in Pre Admission Testing Consults Requested none ASA ASA4 Proposed Anesthesia Anesthesia Type: MAC Additional Comments: covid test negative est History Surgery Operation Date: 07/06/20 17:15 Proposed Procedures p Colonoscopy EGD Dr. Fields - Carlos Fields MD Height/Weight Height: 5 ft 11 in Weight: 88 kg Allergies Allergy/AdvReac Type Severity Reaction Status Date / Time trazodone AdvReac Severe prolonged Verified 07/05/20 06:14 QTc cephalexin [From Keflex] AdvReac Hives Verified 07/05/20 06:14 Medications Home Medications Medication Instructions Recorded Confirmed Last Taken Flovent HFA 2 puff INHALATION BID 04/12/20 07/05/20 05/15/20 albuterol sulfate 2 puff INHALATION Q4H PRN 04/12/20 07/05/20 Unknown azelastine 1 spray INTRANASAL BID 04/12/20 07/05/20 05/15/20 buspirone 15 mg PO BID 04/12/20 07/05/20 05/15/20 cetirizine [Zyrtec] 10 mg PO DAILY 04/12/20 07/05/20 05/15/20 cyanocobalamin (vitamin B-12) 1,000 mcg PO DAILY 04/12/20 07/05/20 05/15/20 [Vitamin B-12] fluoxetine 10 mg PO DAILY 04/12/20 07/05/20 05/15/20 furosemide 20 mg PO DAILY 04/12/20 07/05/20 05/15/20 gabapentin 100 mg PO BID 04/12/20 07/05/20 05/15/20 magnesium oxide 400 mg PO DAILY 04/12/20 07/05/20 05/15/20 multivitamin with minerals 1 tab PO DAILY 04/12/20 07/05/20 05/15/20 [Multiple Vitamin-Minerals] potassium chloride 20 meq PO DAILY 04/12/20 07/05/20 05/15/20 tamsulosin 0.4 mg PO HS 04/12/20 07/05/20 05/14/20 verapamil 180 mg PO BID 04/12/20 07/05/20 05/15/20 pantoprazole 40 mg PO DAILY #30 tab 04/17/20 07/05/20 05/15/20 spironolactone 12.5 mg PO DAILY 05/15/20 07/05/20 05/15/20 docusate sodium 100 mg PO BID PRN #30 cap 05/18/20 07/05/20 Unknown folic acid 1 mg PO QAM #30 tab 05/18/20 07/05/20 Unknown polyethylene glycol 3350 [Miralax] 17 g PO DAILY PRN #30 ea 05/18/20 07/05/20 Unknown thiamine HCl (vitamin B1) [Vitamin 100 mg PO QAM #30 tab 05/18/20 07/05/20 Unknown B-1] ferrous sulfate 325 mg PO DAILY 06/15/20 07/05/20 Unknown levothyroxine 100 mcg PO QAM 07/05/20 07/05/20 Unknown tiotropium-olodaterol [Stiolto 1 spray INHALATION DAILY PRN 07/05/20 07/05/20 Unknown Respimat] trazodone 100 mg PO HS 07/05/20 07/05/20 Unknown warfarin 5 mg PO UD 07/05/20 07/05/20 07/04/202 tab Active Medications Generic Name Dose Route Start Last Admin Trade Name Freq PRN Reason Stop Dose Admin Acetaminophen 650 mg 07/05/20 11:28 07/06/20 11:03 Acetaminophen 325 Mg Tab PO 08/04/20 11:27 650 mg Q4H PRN Administration Pain or Fever Buspirone HCl 15 mg 07/05/20 21:00 07/06/20 08:59 Buspirone 15 Mg Tab PO 08/04/20 20:59 15 mg BID MAXIMILIANO Administration Fluoxetine HCl 10 mg 07/05/20 12:00 07/06/20 09:05 Fluoxetine Hcl 10 Mg Cap PO 08/04/20 11:59 10 mg DAILY MAXIMILIANO Administration Fluticasone Furoate 1 puffs 07/06/20 09:00 07/06/20 07:42 Fluticasone Furoate 200mcg 14 Puffs/Inhaler INH 08/05/20 08:59 1 puffs DAILY MAXIMILIANO Administration Folic Acid 1 mg 07/05/20 12:00 07/05/20 13:18 Folic Acid 1 Mg Tab PO 08/04/20 11:59 1 mg QAM MAXIMILIANO Administration Gabapentin 100 mg 07/05/20 12:00 07/06/20 08:59 Gabapentin 100 Mg Cap PO 08/04/20 11:59 100 mg BID MAXIMILIANO Administration Hydromorphone HCl 0.5 mg 07/05/20 05:41 07/05/20 11:40 Hydromorphone Inj 0.5 Mg/0.5 Ml Syr IV 07/19/20 05:40 0.5 mg Q15M PRN Administration Pain Pantoprazole Sodium 40 mg/ 100 mls @ 20 mls/hr 07/05/20 08:30 07/06/20 07:42 Dextrose IV 08/04/20 08:29 8 mg/hr Q5H MAXIMILIANO 20 mls/hr Administration 8 MG/HR Levothyroxine Sodium 100 mcg 07/06/20 06:30 07/06/20 06:32 Levothyroxine Sodium 100 Mcg Tablet PO 08/05/20 06:29 100 mcg DAILYBB MAXIMILIANO Administration Magnesium Oxide 400 mg 07/06/20 09:00 07/06/20 08:59 Magnesium Oxide 400 Mg Tab PO 08/05/20 08:59 400 mg DAILY MAXIMILIANO Administration Miscellaneous 1 ea 07/05/20 16:00 07/06/20 09:07 Azelastine- Order Awaiting Action N/A 08/04/20 15:59 1 ea QS MAXIMILIANO Administration Tamsulosin HCl 0.4 mg 07/05/20 21:00 07/05/20 21:03 Tamsulosin Hcl 0.4 Mg Cap PO 08/04/20 20:59 0.4 mg HS MAXIMILIANO Administration Thiamine HCl 100 mg 07/05/20 12:00 07/05/20 13:19 Thiamine Hcl 100 Mg Tab PO 08/04/20 11:59 100 mg QAM MAXIMILIANO Administration Verapamil HCl 180 mg 07/05/20 12:00 07/06/20 08:59 Verapamil Hcl 180 Mg Tabcr PO 08/04/20 11:59 180 mg BID MAXIMILIANO Administration NPO Date Last Intake of Fluids: 07/05/20 Date Last Intake of Solids: 07/05/20 Time Last Intake of Solids: 23:58 Past Medical History Medical History BPH (benign prostatic hyperplasia) Chronic atrial fibrillation Chronic heart failure with preserved ejection fraction (HFpEF) COPD (chronic obstructive pulmonary disease) 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 Depression with anxiety HLD (hyperlipidemia) HTN (hypertension) ALLEY (obstructive sleep apnea) Intolerant to CPAP Prolonged QT interval Exercise / Class Metabolic Activity III < 4 Walking/Shop/Light housework Past Family History Family History Father Stroke Mother Stroke Past Surgical History Surgical History History of cataract extraction History of colonoscopy History of total left hip arthroplasty Past Anesthesia History No Hx of Anesthesia Complications and No Family Hx of Anesthesia Complications History of PONV No Hx of PONV and No Hx of Motion Sickness Social History Smoking Status: Never smoker Do You Dip or Chew Tobacco: No Hx Alcohol Use: Yes Alcohol type: beer alcohol intake frequency: a few times a month Hx Substance Use: No substance use type: does not use Physical Exam Vital Signs Last Vital Signs Temp 36.5 C 07/06/20 11:00 Pulse 89 07/06/20 11:00 Resp 20 07/06/20 11:00 BP 105/54 L 07/06/20 11:00 Pulse Ox 93 07/06/20 11:00 Testing Laboratory Results 07/06/20 05:15 07/06/20 05:15 PT 14.7 Seconds (9.0-12.0) H 07/06/20 05:15 INR 1.4 (0.9-1.1) H 07/06/20 05:15 APTT 83.4 Seconds (21.0-31.0) H* 07/05/20 07:15 Blood Type O Positive 07/05/20 05:55 Antibody Screen NEGATIVE 07/05/20 05:55 Electrocardiogram Date: 07/05/20 Findings: + NSST changes and + AFIB @ (at 102;infer. infarct age ?;prolonged QT)
[2020-07-06] MEDS ORDERED: ATROPINE SULFATE 0.1 MG/ML 10ML SYR IV PRN (12:03)
[2020-07-06] MEDS ORDERED: ePHEDrine sulfate 50 MG/ML AMP IV PRN (12:03)
[2020-07-06] MEDS ORDERED: ONDANSETRON INJ 2 MG/ML 2 ML VIAL ONE (12:34)
[2020-07-06] MEDS ORDERED: PHENYLEPHRINE HCL 10 MG/ML VIAL ONE (13:12)
--- NOTE | 2020-07-06 13:23 | GI REPORT ---
Patient Name: Wilber Isbell Procedure Date: 07/06/2020 12:22 PM Date of : 1945 Admit Type: Inpatient Age: 75 Gender: Male Attending MD: Carlos Fields MD Procedure: Upper GI endoscopy Providers: Carlos Fields MD Referring MD: Nasrin Anderson Do Indications: Hematochezia Medicines: Propofol per Anesthesia Complications: No immediate complications. Estimated Blood Loss: Estimated blood loss: none. Procedure: Pre-Anesthesia Assessment: - Prior to the procedure, a History and Physical was performed, and patient medications, allergies and sensitivities were reviewed. The patient's tolerance of previous anesthesia was reviewed. - The risks and benefits of the procedure and the sedation options and risks were discussed with the patient. All questions were answered and informed consent was obtained. - Patient identification and proposed procedure were verified prior to the procedure by the physician and the nurse. The procedure was verified in the procedure room. - Pre-procedure physical examination revealed no contraindications to sedation. After obtaining informed consent, the endoscope was passed under direct vision. Throughout the procedure, the patient's blood pressure, pulse, and oxygen saturations were monitored continuously. The scope was introduced through the mouth, and advanced to the second part of duodenum. The upper GI endoscopy was accomplished without difficulty. The patient tolerated the procedure well. Findings: [place]-colored mucosa was present. The maximum longitudinal extent of these esophageal mucosal changes was 1 cm in length. Biopsies were taken with a cold forceps for histology. Verification of patient identification for the specimen was done by the physician and nurse using the patient's name and date. The entire examined stomach was normal. The duodenal bulb and second portion of the duodenum were normal. Impression: - [place]-colored mucosa suspicious for short-segment Arana's esophagus. Biopsied. - Normal stomach. - Normal duodenal bulb and second portion of the duodenum. Recommendation: - Perform a colonoscopy today. Carlos Fields MD 07/06/2020 1:22:46 PM This report has been signed electronically. Note Initiated On: 07/06/2020 12:22 PM Number of Addenda: 0 I attest to the content of the Intraoperative Record and orders documented therein, exceptions below {[id number]}
--- NOTE | 2020-07-06 13:27 | Anesthesiology Progress Note ---
Date of Service July 06, 2020 Anesthesia Post Procedure Vital Signs Vital Signs: Temp Pulse Resp BP Pulse Ox Pulse Ox 07/06/20 13:17 83 16 92/41 L 96 07/06/20 12:01 36.4 C L 93 H 20 125/73 95 07/06/20 11:00 36.5 C 89 20 105/54 L 93 07/06/20 09:13 84 20 122/83 07/06/20 08:00 37.0 C 80 20 102/49 L 96 98 07/06/20 04:00 36.6 C 87 18 110/63 94 07/05/20 23:24 36.8 C 85 16 127/52 L 93 07/05/20 20:00 36.9 C 87 19 111/56 L 93 07/05/20 15:06 36.8 C 108 H 18 125/74 98 Transfer of Care Handoff Completed per policy Notes Mental Status: alert / awake / arousable Patient Amnestic to Procedure: Yes Nausea / Vomiting: adequately controlled Pain: adequately controlled Airway Patency, RR, SpO2: stable & adequate BP & HR: stable & adequate Hydration State: stable & adequate Anesthetic Complications: no major complications apparent
--- NOTE | 2020-07-06 13:29 | GI REPORT ---
Patient Name: Wilber Isbell Procedure Date: 07/06/2020 12:21 PM Date of : 1945 Admit Type: Inpatient Age: 75 Gender: Male Attending MD: Carlos Fields MD Procedure: Colonoscopy Providers: Carlos Fields MD Referring MD: Nasrin Anderson Do Indications: Rectal bleeding Medicines: Propofol per Anesthesia Complications: No immediate complications. Estimated Blood Loss: Estimated blood loss: none. Procedure: Pre-Anesthesia Assessment: - Prior to the procedure, a History and Physical was performed, and patient medications, allergies and sensitivities were reviewed. The patient's tolerance of previous anesthesia was reviewed. - The risks and benefits of the procedure and the sedation options and risks were discussed with the patient. All questions were answered and informed consent was obtained. - Patient identification and proposed procedure were verified prior to the procedure by the physician and the nurse. The procedure was verified in the procedure room. - Pre-procedure physical examination revealed no contraindications to sedation. After I obtained informed consent, the scope was passed under direct vision. Throughout the procedure, the patient's blood pressure, pulse, and oxygen saturations were monitored continuously. The Colonoscope was introduced through the anus and advanced to the terminal ileum. The colonoscopy was performed without difficulty. The patient tolerated the procedure well. The quality of the bowel preparation was fair. The terminal ileum, ileocecal valve, appendiceal orifice, and rectum were photographed. Findings: The perianal and digital rectal examinations were normal. The terminal ileum appeared normal. A 6 mm polyp was found in the sigmoid colon. The polyp was sessile. The polyp was removed with a cold snare. Resection and retrieval were complete. Verification of patient identification for the specimen was done by the physician and nurse using the patient's name and date. Multiple small and large-mouthed diverticula were found in the entire colon. Non-bleeding internal hemorrhoids were found during retroflexion. The hemorrhoids were small. Impression: - No evidence of ongoing GI bleeding, likely had diverticular bleed which resolved spontaneously. - The examined portion of the ileum was normal. - One 6 mm polyp in the sigmoid colon, removed with a cold snare. Resected and retrieved. - Diverticulosis in the entire examined colon. - Non-bleeding internal hemorrhoids. Recommendation: - Return patient to hospital weeks for ongoing care. - Await pathology results. - Repeat colonoscopy for surveillance based on pathology results. - Resume regular diet. - Resume Coumadin in 2 days if no rebleeding. - Recall GI if needed. Carlos Fields MD 07/06/2020 1:29:11 PM This report has been signed electronically. Note Initiated On: 07/06/2020 12:21 PM Number of Addenda: 0 I attest to the content of the Intraoperative Record and orders documented therein, exceptions below {[id number]}
--- NOTE | 2020-07-06 14:17 | Hospitalist Progress Note ---
Date of Service July 06, 2020 Assessment & Plan (1) Gastrointestinal hemorrhage on warfarin therapy: INR resolved to normal with vitamin K administration. Bleeding has stopped and no evidence of active bleeding on scopes today. Presumed diverticular bleed. PPI drip stopped. Resume daily Protonix per home regimen. Restart coumadin in next two days. Recheck H/H to ensure no need for blood transfusion. Recommend stop drinking alcohol completely. Path pending from scopes today. (2) Acute blood loss anemia: Hb down to 7.8 from baseline 13 2/2 acute GI bleed. Currently asymptomatic, but if continues to go down, he may need blood transfusion in am. Repeat H/H in am. (3) Atrial fibrillation with RVR: chronic atrial fibrillation on warfarin with recent changes to dosing per patient. Rate controlled with bleeding controlled and verapamil on board for rate control. (4) Supratherapeutic INR: 2/2 warfarin use. Resolved with vitamin K. Restart in two days. (5) Hypomagnesemia: Replaced-recheck in am. (6) Alcohol abuse: Monitor closely for Withdrawal symptoms and Ativan PRN. Cont home gabapentin. (7) ALLEY (obstructive sleep apnea): Known issue for him but he is intolerant of CPAP. This is likley contributing to falls at home. (8) BPH (benign prostatic hyperplasia): Cont tamsulosin per home regimen. (9) COPD (chronic obstructive pulmonary disease): chronic, stable. Cont home inhaler therapy. (10) Chronic heart failure with preserved ejection fraction (HFpEF): Restart Lasix in am. (11) DVT prophylaxis: chemoprophylaxis contraindicated in setting of acute GI bleeding Full Code per my discussion with the patient on admission. Dispo-likely home in two days as long as anemia is stable. Spent 25 minutes on the phone with daughter, Ramandeep. We discussed the cause of his falling and contributing factors such as drinking, medication side effects, and polypharmacy. I suggested she attend the next PCP visit with him and review the medications making efforts to eliminate specific ones that may be problematic (Zyrtec, gabapentin, trazodone). 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 NOACs are another option but without a reversal agent, these may be more dangerous. All these topics reviewed thoroughly with Ramandeep who verbalized understanding with intent to comply. Nasrin Anderson DO [facility] Hospitalist Admission and Anticipated Discharge Date Admission Date: July 05, 2020 Subjective 75 yo M with alcohol abuse issues on coumadin who presented with acute GI bleeding. EGD today reveals evidence of pink mucosa which was biopsied CSP with a small polyp that was biopsied and no signs of active bleeding. Patient feels well and is tolerating a clear liquid diet. Denies pain or other issues at this time. No evidence of alcohol withdrawal at this time. We briefly discussed symptomatic anemia and what symptoms look like-he is currently asymptomatic. Hb level was 7.8 this am. We discussed ? blood transfusion based on blood levels in am but no formal consent was performed. Review of Systems Review of Systems: All systems reviewed & are unremarkable except as noted in Subjective Physical Exam Physical Exam: CONSTITUTIONAL: WNWD, vitals as above, generally well- appearing EYES: PERRL, normal conjunctivae, no scleral icterus ENT: external ear and nose normal, MMM NECK: trachea midline RESPIRATORY: clear to auscultation bilaterally, no crackles, rales or wheezes, normal respiratory effort CARDIOVASCULAR: regular rate and irregular rhythm, S1 and 2 heard without murmurs, gallops or rubs, no JVD, no peripheral edema GASTROINTESTINAL: soft, generalized tenderness is improved overall. Nondistended. MUSCULOSKELETAL: strength 5/5 throughout, head is normocephalic with traumatic ecchymosis to supraorbital area of right eye and periorbital area of left eye. some palpation of tenderness to right anterior chest wall along lower intercostal spaces. SKIN: warm and dry, ecchymosis noted that is significant along left leg, especially posteriorly. NEUROLOGIC: normal cognition, normal speech, no tremor. PSYCHIATRIC: alert cooperative and oriented to person, place and time. Results & Data Results & Data ([facility]) Vital Signs (Past 12 Hours) Vital Signs Temp Pulse Resp BP Pulse Ox Pulse Ox 07/06/20 13:44 82 16 126/61 96 07/06/20 13:30 86 16 103/52 L 96 07/06/20 13:17 83 16 92/41 L 96 07/06/20 12:01 36.4 C L 93 H 20 125/73 95 07/06/20 11:00 36.5 C 89 20 105/54 L 93 07/06/20 09:13 84 20 122/83 07/06/20 08:00 37.0 C 80 20 102/49 L 96 98 07/06/20 04:00 36.6 C 87 18 110/63 94 Laboratory Results Short CBC 07/05/20 07/06/20 Range/Units 18:08 05:15 WBC 3.81 L (4.8-10.8) K/uL Hgb 8.8 L 7.8 L (14.0-18.0) g/dL Hct 25.7 L 23.3 L (42-52) % Plt Count 187 (130-400) K/uL BMP 07/06/20 05:15 Sodium 139 Potassium 3.5 D Chloride 104 Carbon Dioxide 32 BUN 14 Creatinine 0.78 D Glucose 120 H Calcium 8.1 L Medications Administered Current Inpatient Medications Acetaminophen (Acetaminophen 325 Mg Tab) 650 mg PO Q4H PRN PRN Reason: Pain or Fever Stop: 08/04/20 11:27 Last Admin: 07/06/20 11:03 Dose: 650 mg Documented by: Albuterol (Albuterol Hfa 8 Gm Inhaler) 2 puffs INH Q4H PRN PRN Reason: Wheezing Stop: 08/04/20 11:27 Atropine Sulfate (Atropine Sulfate 0.1 Mg/Ml 10ml Syr) 0.5 mg IV Q1M PRN PRN Reason: PACU Use-HR<40 &/or Bradycardi Stop: 07/06/20 20:03 Buspirone HCl (Buspirone 15 Mg Tab) 15 mg PO BID [facility] Stop: 08/04/20 20:59 Last Admin: 07/06/20 08:59 Dose: 15 mg Documented by: Cetirizine HCl (Cetirizine Hcl 10 Mg Tablet) 10 mg PO DAILY [facility] Stop: 08/05/20 08:59 Cyanocobalamin (Cyanocobalamin 500 Mcg Tablet (Vitamin B-12)) 1,000 mcg PO DAILY [facility] Stop: 08/05/20 08:59 Ephedrine Sulfate (Ephedrine Sulfate 50 Mg/Ml Amp) 5 mg IV Q5M PRN PRN Reason: PACU Use Only-SBP<90 mmHg Stop: 07/06/20 20:03 Ferrous Sulfate (Ferrous Sulfate 325 Mg Tab) 325 mg PO DAILY [facility] Stop: 08/05/20 08:59 Fluoxetine HCl (Fluoxetine Hcl 10 Mg Cap) 10 mg PO DAILY [facility] Stop: 08/04/20 11:59 Last Admin: 07/06/20 09:05 Dose: 10 mg Documented by: Fluticasone Furoate (Fluticasone Furoate 200mcg 14 Puffs/Inhaler) 1 puffs INH DAILY [facility] Stop: 08/05/20 08:59 Last Admin: 07/06/20 07:42 Dose: 1 puffs Documented by: Folic Acid (Folic Acid 1 Mg Tab) 1 mg PO QAM [facility] Stop: 08/04/20 11:59 Last Admin: 07/05/20 13:18 Dose: 1 mg Documented by: Gabapentin (Gabapentin 100 Mg Cap) 100 mg PO BID [facility] Stop: 08/04/20 11:59 Last Admin: 07/06/20 08:59 Dose: 100 mg Documented by: Hydromorphone HCl (Hydromorphone Inj 0.5 Mg/0.5 Ml Syr) 0.5 mg IV Q15M PRN PRN Reason: Pain Stop: 07/19/20 05:40 Last Admin: 07/05/20 11:40 Dose: 0.5 mg Documented by: Pantoprazole Sodium 40 mg/ (Dextrose) 100 mls @ 20 mls/hr IV Q5H [facility] Stop: 08/04/20 08:29 Last Admin: 07/06/20 07:42 Dose: 8 mg/hr, 20 mls/hr Documented by: Lorazepam (Ativan) 1 mg in 2 mls @ 2 mls/min IV ONE PRN; Protocol PRN Reason: EtoH Withdrawal AWSS 6-10 Stop: 08/04/20 11:43 Magnesium Sulfate/Dextrose (Magnesium Sulfate / D5w) 1 gm in 100 mls @ 50 mls/hr IV Q2H [facility] Stop: 07/06/20 19:29 Levothyroxine Sodium (Levothyroxine Sodium 100 Mcg Tablet) 100 mcg PO DAILYBB [facility] Stop: 08/05/20 06:29 Last Admin: 07/06/20 06:32 Dose: 100 mcg Documented by: Lorazepam (Lorazepam 1 Mg Tab) 1 mg PO ONE PRN; Protocol PRN Reason: EtoH Withdrawal AWSS 6-10 Magnesium Oxide (Magnesium Oxide 400 Mg Tab) 400 mg PO DAILY [facility] Stop: 08/05/20 08:59 Last Admin: 07/06/20 08:59 Dose: 400 mg Documented by: Miscellaneous (Azelastine- Order Awaiting Action) 1 ea N/A QS [facility] Stop: 08/04/20 15:59 Last Admin: 07/06/20 09:07 Dose: 1 ea Documented by: Multivitamins (Multivitamin Tab) 1 tab PO QAM [facility] Stop: 08/05/20 08:59 Tamsulosin HCl (Tamsulosin Hcl 0.4 Mg Cap) 0.4 mg PO HS [facility] Stop: 08/04/20 20:59 Last Admin: 07/05/20 21:03 Dose: 0.4 mg Documented by: Thiamine HCl (Thiamine Hcl 100 Mg Tab) 100 mg PO QAM [facility] Stop: 08/04/20 11:59 Last Admin: 07/05/20 13:19 Dose: 100 mg Documented by: Umeclidinium/Vilanterol (Umeclidinium/Vilanterol 62.5/25mcg 7 Puffs/Inhaler) 1 puffs INH DAILY PRN PRN Reason: SOB/wheezing Stop: 08/04/20 11:34 Verapamil HCl (Verapamil Hcl 180 Mg Tabcr) 180 mg PO BID [facility] Stop: 08/04/20 11:59 Last Admin: 07/06/20 08:59 Dose: 180 mg Documented by:
[2020-07-06] MEDS: CETIRIZINE HCL 10 MG TABLET PO SCH (15:32)
[2020-07-06] MEDS: FOLIC ACID 1 MG TAB PO SCH (15:32)
[2020-07-06] MEDS: THIAMINE HCL 100 MG TAB PO SCH (15:32)
[2020-07-06] MEDS: FERROUS SULFATE 325 MG TAB PO SCH (15:32)
[2020-07-06] MEDS: CYANOCOBALAMIN 500 MCG TABLET (VITAMIN B-12) PO SCH (15:32)
[2020-07-06] MEDS: MULTIVITAMIN TAB PO SCH (15:33)
[2020-07-06] MEDS: MAGNESIUM SULFATE / D5W 1 GM/100 ML BAG IV SCH ×4 (15:34→20:32)
[2020-07-06] MEDS: TAMSULOSIN HCL 0.4 MG CAP PO SCH (19:41)
[2020-07-07] MEDS: ACETAMINOPHEN 325 MG TAB PO PRN ×2 (02:15→08:57)
[2020-07-07] MEDS: LEVOTHYROXINE SODIUM 100 MCG TABLET PO SCH (05:52)
[2020-07-07 06:03] LABS: Hematocrit (blood only) 22.1 % (42-52); Hemoglobin 7.3 g/dL (14.0-18.0); Mean Corpuscular Hemoglobin 34.8 pg (25-34); Mean Corpuscular Volume 105.2 fL (80-100); Mean Platelet Volume 9.3 fL (7.4-10.4); Nucleated RBC # (auto) 0.05 K/uL (0-0); Nucleated RBC % (auto) 1.3 %; Platelet Count 183 K/uL (130-400); RDW Coefficient of Variation 16.7 % (11.5-14.5); White Blood Count 4.23 K/uL (4.8-10.8)
[2020-07-07 06:36] LABS: BUN Creatinine Ratio 9.3 (10-20); Calcium 8.3 mg/dl (8.5-10.1); Creatinine Clr Calc Pharmacy 84.2 ml/min; Est GFR (Non-African American) 87.1; Magnesium 2.2 mg/dl (1.8-2.4); Potassium 3.4 mmol/L (3.5-5.1)
[2020-07-07] MEDS: FLUTICASONE FUROATE 200MCG 14 PUFFS/INHALER INH SCH (08:49)
[2020-07-07] MEDS: FERROUS SULFATE 325 MG TAB PO SCH (08:49)
[2020-07-07] MEDS: CYANOCOBALAMIN 500 MCG TABLET (VITAMIN B-12) PO SCH (08:49)
[2020-07-07] MEDS: MULTIVITAMIN TAB PO SCH (08:49)
[2020-07-07] MEDS: GABAPENTIN 100 MG CAP PO SCH ×2 (08:49→20:36)
[2020-07-07] MEDS: FOLIC ACID 1 MG TAB PO SCH (08:49)
[2020-07-07] MEDS: CETIRIZINE HCL 10 MG TABLET PO SCH (08:49)
[2020-07-07] MEDS: THIAMINE HCL 100 MG TAB PO SCH (08:49)
[2020-07-07] MEDS: FLUoxetine HCL 10 MG CAP PO SCH (08:49)
[2020-07-07] MEDS: busPIRone 15 MG TAB PO SCH ×2 (08:49→20:36)
[2020-07-07] MEDS: SPIRONOLACTONE 12.5 MG TAB PO SCH (08:50)
[2020-07-07] MEDS: PANTOprazole 40 MG TAB PO SCH (08:50)
[2020-07-07] MEDS: POTASSIUM CHLORIDE CRTAB 20 MEQ TABCR PO SCH (08:50)
[2020-07-07] MEDS: VERAPAMIL HCL 180 MG TABCR PO SCH ×2 (08:50→20:35)
[2020-07-07] MEDS: FUROSEMIDE 20 MG TAB PO SCH (08:50)
--- NOTE | 2020-07-07 09:38 | Anesthesiology Progress Note ---
Date of Service July 07, 2020 Anesthesia Post Procedure Vital Signs Vital Signs: Temp Pulse Pulse Pulse Resp BP BP 07/07/20 07:08 36.3 C L 87 19 115/68 07/06/20 23:01 36.6 C 83 16 115/85 07/06/20 20:31 36.6 C 87 18 07/06/20 19:04 36.7 C 86 16 07/06/20 15:45 87 25 H 07/06/20 15:32 75 19 119/51 L 07/06/20 15:30 81 18 07/06/20 15:15 80 21 119/51 L 07/06/20 15:00 37.0 C 81 20 119/62 07/06/20 14:45 80 16 07/06/20 14:30 95 H 20 117/65 07/06/20 14:15 100 H 19 07/06/20 14:02 36.8 C 80 18 112/62 07/06/20 13:44 82 16 07/06/20 13:30 86 16 07/06/20 13:17 83 16 07/06/20 12:01 36.4 C L 93 H 20 07/06/20 11:00 36.5 C 89 20 BP Pulse Ox 07/07/20 07:08 96 07/06/20 23:01 96 07/06/20 20:31 133/65 94 07/06/20 19:04 116/60 96 07/06/20 15:45 97 07/06/20 15:32 97 07/06/20 15:30 97 07/06/20 15:15 95 07/06/20 15:00 96 07/06/20 14:45 93 07/06/20 14:30 92 07/06/20 14:15 85 L 07/06/20 14:02 97 07/06/20 13:44 126/61 96 07/06/20 13:30 103/52 L 96 07/06/20 13:17 92/41 L 96 07/06/20 12:01 125/73 95 07/06/20 11:00 105/54 L 93 Pain Intensity Generalized: Pain Intensity: 7 Notes Mental Status: alert / awake / arousable and participated in evaluation Patient Amnestic to Procedure: Yes Nausea / Vomiting: adequately controlled Pain: adequately controlled Airway Patency, RR, SpO2: stable & adequate BP & HR: stable & adequate Hydration State: stable & adequate Anesthetic Complications: no major complications apparent and Pt Satisfied with anesthetic care
[2020-07-07] MEDS: MAGNESIUM OXIDE 400 MG TAB PO SCH (09:49)
[2020-07-07] MEDS: traMADol HCL 50 MG TABLET PO PRN ×2 (11:32→19:52)
[2020-07-07] MEDS ORDERED: SODIUM CHLORIDE 0.9% 250 ML IV PRN (12:14)
[2020-07-07] MEDS ORDERED: diphenhydrAMINE Capsule 25 MG CAP PO ONE (13:00)
[2020-07-07] MEDS ORDERED: ACETAMINOPHEN 325 MG TAB PO ONE (13:00)
--- NOTE | 2020-07-07 19:27 | Hospitalist Progress Note ---
Date of Service July 07, 2020 Assessment & Plan (1) Gastrointestinal hemorrhage on warfarin therapy: INR resolved to normal with vitamin K administration. Bleeding has stopped and no evidence of active bleeding on endoscopy this admission. Presumed diverticular bleed. PPI drip stopped. Resume daily Protonix per home regimen. Restart coumadin in next two days-ecchymosis on head and posterior thigh improving. Recommend stop drinking alcohol completely. Path consistent with possible Barretts esophagus. Defer to GI for outpatient monitoring. (2) Acute blood loss anemia: Symptomatic with weakness and lightheadedness. Transfusing 2 units at this time. (3) Atrial fibrillation with RVR: chronic atrial fibrillation on warfarin with recent changes to dosing per patient. Rate controlled with bleeding controlled and verapamil on board for rate control. (4) Supratherapeutic INR: 2/2 warfarin use. Resolved with vitamin K. Restart in two days. (5) Hypomagnesemia: repleted (6) Alcohol abuse: Monitor closely for Withdrawal symptoms and Ativan PRN. Cont home gabapentin. (7) ALLEY (obstructive sleep apnea): Known issue for him but he is intolerant of CPAP. This is likley contributing to falls at home. Discussed this with daughter by phone. (8) BPH (benign prostatic hyperplasia): Cont tamsulosin per home regimen. (9) COPD (chronic obstructive pulmonary disease): chronic, stable. Cont home inhaler therapy. (10) Chronic heart failure with preserved ejection fraction (HFpEF): Cont home Lasix. (11) DVT prophylaxis: chemoprophylaxis contraindicated in setting of acute GI bleeding Full Code per my discussion with the patient on admission. Dispo-home this weekend. PT OT to evaluate in setting of weakness from anemia prior to discharging home. Nasrin Anderson DO [facility] Hospitalist Admission and Anticipated Discharge Date Admission Date: July 05, 2020 Subjective 75 yo M with alcohol abuse issues on coumadin who presented with acute GI bleeding. No evidence of withdrawal Some weakness and lightheadedness reported consented for 2 units of blood denies abdominal pain and currenlty tolerating PO No further GI bleeding noted. Review of Systems Review of Systems: All systems reviewed & are unremarkable except as noted in Subjective Physical Exam Physical Exam: CONSTITUTIONAL: WNWD, vitals as above, generally well- appearing EYES: PERRL, normal conjunctivae, no scleral icterus ENT: external ear and nose normal, MMM RESPIRATORY: clear to auscultation bilaterally, no crackles, rales or wheezes, normal respiratory effort CARDIOVASCULAR: regular rate and irregular rhythm, S1 and 2 heard without murmurs, gallops or rubs, no JVD, no peripheral edema GASTROINTESTINAL: soft, generalized tenderness is improved overall. Non distended. MUSCULOSKELETAL: strength 5/5 throughout, head is normocephalic with traumatic ecchymosis to supraorbital area of right eye and periorbital area of left eye- healing well. SKIN: warm and dry, ecchymosis noted that is significant along left leg, especially posteriorly. NEUROLOGIC: normal cognition, normal speech, no tremor. PSYCHIATRIC: alert cooperative and oriented to person, place and time. Results & Data Results & Data ([facility]) Vital Signs (Past 12 Hours) Vital Signs Temp Pulse Pulse Resp BP BP Pulse Ox 07/07/20 19:15 36.9 C 78 18 121/65 97 07/07/20 19:00 36.9 C 80 18 125/61 97 07/07/20 18:42 36.8 C 77 18 117/60 97 07/07/20 17:13 36.6 C 74 18 113/61 98 07/07/20 16:13 36.4 C L 73 18 108/58 L 94 07/07/20 16:12 36.4 C L 73 18 108/58 L 94 07/07/20 15:13 36.5 C 79 20 101/50 L 95 07/07/20 15:10 36.5 C 81 20 101/50 L 94 07/07/20 14:43 36.4 C L 82 18 111/53 L 95 07/07/20 14:28 36.6 C 75 17 112/65 95 07/07/20 14:05 36.6 C 61 18 107/58 L Laboratory Results Short CBC 07/07/20 Range/Units 05:31 WBC 4.23 L (4.8-10.8) K/uL Hgb 7.3 L (14.0-18.0) g/dL Hct 22.1 L (42-52) % Plt Count 183 (130-400) K/uL BMP 07/07/20 05:31 Sodium 139 Potassium 3.4 L Chloride 103 Carbon Dioxide 31 BUN 8 D Creatinine 0.82 Glucose 95 Calcium 8.3 L Medications Administered Current Inpatient Medications Acetaminophen (Acetaminophen 325 Mg Tab) 650 mg PO Q4H PRN PRN Reason: Pain or Fever Stop: 08/04/20 11:27 Last Admin: 07/07/20 08:57 Dose: 650 mg Documented by: Albuterol (Albuterol Hfa 8 Gm Inhaler) 2 puffs INH Q4H PRN PRN Reason: Wheezing Stop: 08/04/20 11:27 Buspirone HCl (Buspirone 15 Mg Tab) 15 mg PO BID [facility] Stop: 08/04/20 20:59 Last Admin: 07/07/20 08:49 Dose: 15 mg Documented by: Cetirizine HCl (Cetirizine Hcl 10 Mg Tablet) 10 mg PO DAILY [facility] Stop: 08/05/20 08:59 Last Admin: 07/07/20 08:49 Dose: 10 mg Documented by: Cyanocobalamin (Cyanocobalamin 500 Mcg Tablet (Vitamin B-12)) 1,000 mcg PO DAILY [facility] Stop: 08/05/20 08:59 Last Admin: 07/07/20 08:49 Dose: 1,000 mcg Documented by: Ferrous Sulfate (Ferrous Sulfate 325 Mg Tab) 325 mg PO DAILY [facility] Stop: 08/05/20 08:59 Last Admin: 07/07/20 08:49 Dose: 325 mg Documented by: Fluoxetine HCl (Fluoxetine Hcl 10 Mg Cap) 10 mg PO DAILY [facility] Stop: 08/04/20 11:59 Last Admin: 07/07/20 08:49 Dose: 10 mg Documented by: Fluticasone Furoate (Fluticasone Furoate 200mcg 14 Puffs/Inhaler) 1 puffs INH DAILY [facility] Stop: 08/05/20 08:59 Last Admin: 07/07/20 08:49 Dose: 1 puffs Documented by: Folic Acid (Folic Acid 1 Mg Tab) 1 mg PO QAM [facility] Stop: 08/04/20 11:59 Last Admin: 07/07/20 08:49 Dose: 1 mg Documented by: Furosemide (Furosemide 20 Mg Tab) 20 mg PO DAILY [facility] Stop: 08/06/20 08:59 Last Admin: 07/07/20 08:50 Dose: 20 mg Documented by: Gabapentin (Gabapentin 100 Mg Cap) 100 mg PO BID [facility] Stop: 08/04/20 11:59 Last Admin: 07/07/20 08:49 Dose: 100 mg Documented by: Lorazepam (Ativan) 1 mg in 2 mls @ 2 mls/min IV ONE PRN; Protocol PRN Reason: EtoH Withdrawal AWSS 6-10 Stop: 08/04/20 11:43 Sodium Chloride (Nss) 250 mls @ 15 mls/hr IV .[id number] PRN PRN Reason: For Transfusion Stop: 07/07/20 22:15 Last Infusion: 07/07/20 19:08 Dose: 0 mls/hr Documented by: Levothyroxine Sodium (Levothyroxine Sodium 100 Mcg Tablet) 100 mcg PO DAILYBB [facility] Stop: 08/05/20 06:29 Last Admin: 07/07/20 05:52 Dose: 100 mcg Documented by: Lorazepam (Lorazepam 1 Mg Tab) 1 mg PO ONE PRN; Protocol PRN Reason: EtoH Withdrawal AWSS 6-10 Magnesium Oxide (Magnesium Oxide 400 Mg Tab) 400 mg PO DAILY [facility] Stop: 08/05/20 08:59 Last Admin: 07/07/20 09:49 Dose: 400 mg Documented by: Miscellaneous (Azelastine- Order Awaiting Action) 1 ea N/A QS [facility] Stop: 08/04/20 15:59 Last Admin: 07/07/20 15:23 Dose: Not Given Documented by: Multivitamins (Multivitamin Tab) 1 tab PO QAM [facility] Stop: 08/05/20 08:59 Last Admin: 07/07/20 08:49 Dose: 1 tab Documented by: Pantoprazole Sodium (Pantoprazole 40 Mg Tab) 40 mg PO DAILY [facility] Stop: 08/06/20 08:59 Last Admin: 07/07/20 08:50 Dose: 40 mg Documented by: Potassium Chloride (Potassium Chloride Crtab 20 Meq Tabcr) 20 meq PO DAILY [facility] Stop: 08/06/20 08:59 Last Admin: 07/07/20 08:50 Dose: 20 meq Documented by: Spironolactone (Spironolactone 12.5 Mg Tab) 12.5 mg PO DAILY [facility] Stop: 08/06/20 08:59 Last Admin: 07/07/20 08:50 Dose: 12.5 mg Documented by: Tamsulosin HCl (Tamsulosin Hcl 0.4 Mg Cap) 0.4 mg PO HS [facility] Stop: 08/04/20 20:59 Last Admin: 07/06/20 19:41 Dose: 0.4 mg Documented by: Thiamine HCl (Thiamine Hcl 100 Mg Tab) 100 mg PO QAM [facility] Stop: 08/04/20 11:59 Last Admin: 07/07/20 08:49 Dose: 100 mg Documented by: Tramadol HCl (Tramadol Hcl 50 Mg Tablet) 50 mg PO Q4H PRN PRN Reason: Pain Stop: 08/06/20 11:02 Last Admin: 07/07/20 11:32 Dose: 50 mg Documented by: Umeclidinium/Vilanterol (Umeclidinium/Vilanterol 62.5/25mcg 7 Puffs/Inhaler) 1 puffs INH DAILY PRN PRN Reason: SOB/wheezing Stop: 08/04/20 11:34 Verapamil HCl (Verapamil Hcl 180 Mg Tabcr) 180 mg PO BID [facility] Stop: 08/04/20 11:59 Last Admin: 07/07/20 08:50 Dose: 180 mg Documented by:
[2020-07-07] MEDS: TAMSULOSIN HCL 0.4 MG CAP PO SCH (20:35)
[2020-07-08] MEDS ORDERED: diphenhydrAMINE Capsule 25 MG CAP PO ONE (05:15)
[2020-07-08] MEDS: LEVOTHYROXINE SODIUM 100 MCG TABLET PO SCH (05:19)
[2020-07-08] MEDS: VERAPAMIL HCL 180 MG TABCR PO SCH ×2 (08:04→20:19)
[2020-07-08] MEDS: FUROSEMIDE 20 MG TAB PO SCH (08:04)
[2020-07-08] MEDS: CYANOCOBALAMIN 500 MCG TABLET (VITAMIN B-12) PO SCH (08:04)
[2020-07-08] MEDS: GABAPENTIN 100 MG CAP PO SCH ×2 (08:04→20:18)
[2020-07-08] MEDS: busPIRone 15 MG TAB PO SCH ×2 (08:04→20:19)
[2020-07-08] MEDS: FOLIC ACID 1 MG TAB PO SCH (08:04)
[2020-07-08] MEDS: THIAMINE HCL 100 MG TAB PO SCH (08:05)
[2020-07-08] MEDS: MULTIVITAMIN TAB PO SCH (08:05)
[2020-07-08] MEDS: FLUoxetine HCL 10 MG CAP PO SCH (08:05)
[2020-07-08] MEDS: PANTOprazole 40 MG TAB PO SCH (08:05)
[2020-07-08] MEDS: MAGNESIUM OXIDE 400 MG TAB PO SCH (08:05)
[2020-07-08] MEDS: CETIRIZINE HCL 10 MG TABLET PO SCH (08:05)
[2020-07-08] MEDS: POTASSIUM CHLORIDE CRTAB 20 MEQ TABCR PO SCH (08:05)
[2020-07-08] MEDS: FERROUS SULFATE 325 MG TAB PO SCH (08:06)
[2020-07-08] MEDS: FLUTICASONE FUROATE 200MCG 14 PUFFS/INHALER INH SCH (08:06)
[2020-07-08] MEDS: SPIRONOLACTONE 12.5 MG TAB PO SCH (08:06)
[2020-07-08 09:03] LABS: Hematocrit (blood only) 29.5 % (42-52); Hemoglobin 9.9 g/dL (14.0-18.0); Mean Corpuscular Hemoglobin 33.7 pg (25-34); Mean Corpuscular Hgb Conc 33.6 g/dL (32-36); Mean Corpuscular Volume 100.3 fL (80-100); Mean Platelet Volume 9.5 fL (7.4-10.4); Nucleated RBC # (auto) 0.07 K/uL (0-0); Nucleated RBC % (auto) 1.3 %; Platelet Count 177 K/uL (130-400); RDW Coefficient of Variation 20.3 % (11.5-14.5); Red Blood Count 2.94 M/uL (4.7-6.1); White Blood Count 5.18 K/uL (4.8-10.8)
[2020-07-08 09:28] LABS: BUN Creatinine Ratio 9.3 (10-20); Calcium 8.9 mg/dl (8.5-10.1); Creatinine Clr Calc Pharmacy 86.3 ml/min; Potassium 3.6 mmol/L (3.5-5.1)
[2020-07-08] MEDS: traMADol HCL 50 MG TABLET PO PRN (10:46)
[2020-07-08] MEDS ORDERED: POLYETHYLENE (MIRALAX) 17 GM PACK PO PRN (12:59)
--- NOTE | 2020-07-08 15:24 | Hospitalist Progress Note ---
Date of Service July 08, 2020 Assessment & Plan (1) Gastrointestinal hemorrhage on warfarin therapy: INR resolved to normal with vitamin K administration. Bleeding has stopped and no evidence of active bleeding on endoscopy this admission. Presumed diverticular bleed. PPI drip stopped. Resume daily Protonix per home regimen. Restart coumadin tomorrow-ecchymosis on head and posterior thigh improving. Recommend stop drinking alcohol completely. Path consistent with possible Barretts esophagus. Defer to GI for outpatient monitoring. (2) Acute blood loss anemia: Symptomatic with weakness and lightheadedness yesterday. Transfused two units of blood overnight with appropriate response in H/H. No further GI bleeding was noted. (3) Chronic back pain: Avoid excessive tramadol dependence as he is not on this as outpatient and is high risk for narcotic dependence. We are scheduling Tylenol and have increased gabapentin today from 100mg BID to 200mg BID. We discussed this issues surrounding fall risk as adverse side effects of these medications. (4) Chronic atrial fibrillation: chronic atrial fibrillation on warfarin with recent changes to dosing per patient. Rate controlled with bleeding controlled and verapamil on board for rate control. Restart warfarin tomorrow. (5) Ambulatory dysfunction: Issues with ambulation in general related to weakness and dysequilibrium. He cannot climb a flight of stairs, and therefore, cannot safely go home at this time. He also has concerns getting into and out of the shower, and has used modifications of bathing at home. He will be working with PT in am regarding stair climbing. Rehab discussed as an option vs outpatient PT/OT. He was counseled to stop drinking and that meds will need to be adjusted by his PCP. He verbalized understanding. (6) Supratherapeutic INR: 2/2 warfarin use. Resolved with vitamin K. (7) Alcohol abuse: Monitor closely for Withdrawal symptoms and Ativan PRN. Cont home gabapentin. (8) ALLEY (obstructive sleep apnea): Known issue for him but he is intolerant of CPAP. This is likley contributing to falls at home. Discussed this with daughter by phone. (9) BPH (benign prostatic hyperplasia): Cont tamsulosin per home regimen. (10) COPD (chronic obstructive pulmonary disease): chronic, stable. Cont home inhaler therapy. (11) Chronic heart failure with preserved ejection fraction (HFpEF): Cont home Lasix. (12) DVT prophylaxis: chemoprophylaxis contraindicated in setting of acute GI bleeding Full Code per my discussion with the patient on admission. Dispo-home this weekend. PT/OT to evaluate in setting of weakness from anemia prior to discharging home. DO Arabella Mendes Hospitalist Admission and Anticipated Discharge Date Admission Date: July 05, 2020 Subjective 75 yo M with alcohol abuse issues on coumadin who presented with acute GI bleeding. Continues to have no evidence of withdrawal Feels concerned that he cannot climb steps up into his apt which doesn't have a working elevator Plans to work with PT on stairs in the morning Patient also has concerns about dysequilibrium, and we spoke about the option of rehab which he is considering. Feels improved after the blood Still using Tramadol for some chronic back pain. We spoke about his h/o hy drocodone dependence for chronic pain management in the past and how he has gotten away from this. We spoke about options that are non-narcotic and decided to increase his gabapentin and schedule some tylenol No further GI bleeding noted. Review of Systems Review of Systems: All systems reviewed & are unremarkable except as noted in Subjective Physical Exam Physical Exam: CONSTITUTIONAL: WNWD, vitals as above, generally well-fernando earing EYES: PERRL, normal conjunctivae, no scleral icterus ENT: external ear and nose normal, MMM RESPIRATORY: clear to auscultation bilaterally, no crackles, rales or wheezes, normal respiratory effort CARDIOVASCULAR: regular rate and irregular rhythm, S1 and 2 heard without murmurs, gallops or rubs, no JVD, no peripheral edema GASTROINTESTINAL: soft, generalized tenderness is improved overall. Nondistended. MUSCULOSKELETAL: strength 5/5 throughout, head is normocephalic with traumatic ecchymosis to supraorbital area of right eye resolved. SKIN: warm and dry NEUROLOGIC: normal cognition, normal speech, no tremor. PSYCHIATRIC: alert cooperative and oriented to person, place and time. Results & Data Results & Data ([facility]) Vital Signs (Past 12 Hours) Vital Signs Temp Pulse Resp BP Pulse Ox 07/08/20 15:03 36.6 C 69 17 117/64 94 07/08/20 08:01 36.3 C L 76 16 122/69 94 Laboratory Results Short CBC 07/08/20 Range/Units 08:51 WBC 5.18 (4.8-10.8) K/uL Hgb 9.9 L (14.0-18.0) g/dL Hct 29.5 L (42-52) % Plt Count 177 (130-400) K/uL [facility] 07/08/20 08:51 Sodium 137 Potassium 3.6 Chloride 104 Carbon Dioxide 28 BUN 8 Creatinine 0.80 Glucose 111 H Calcium 8.9 Medications Administered Current Inpatient Medications Acetaminophen (Acetaminophen 325 Mg Tab) 650 mg PO Q6H [facility] Stop: 08/07/20 15:59 Last Admin: 07/08/20 15:31 Dose: 650 mg Documented by: Albuterol (Albuterol Hfa 8 Gm Inhaler) 2 puffs INH Q4H PRN PRN Reason: Wheezing Stop: 08/04/20 11:27 Buspirone HCl (Buspirone 15 Mg Tab) 15 mg PO BID [facility]O Stop: 08/04/20 20:59 Last Admin: 07/08/20 08:04 Dose: 15 mg Documented by: Cetirizine HCl (Cetirizine Hcl 10 Mg Tablet) 10 mg PO DAILY [facility] Stop: 08/05/20 08:59 Last Admin: 07/08/20 08:05 Dose: 10 mg Documented by: Cyanocobalamin (Cyanocobalamin 500 Mcg Tablet (Vitamin B-12)) 1,000 mcg PO DAILY [facility] Stop: 08/05/20 08:59 Last Admin: 07/08/20 08:04 Dose: 1,000 mcg Documented by: Ferrous Sulfate (Ferrous Sulfate 325 Mg Tab) 325 mg PO DAILY [facility] Stop: 08/05/20 08:59 Last Admin: 07/08/20 08:06 Dose: 325 mg Documented by: Fluoxetine HCl (Fluoxetine Hcl 10 Mg Cap) 10 mg PO DAILY [facility] Stop: 08/04/20 11:59 Last Admin: 07/08/20 08:05 Dose: 10 mg Documented by: Fluticasone Furoate (Fluticasone Furoate 200mcg 14 Puffs/Inhaler) 1 puffs INH DAILY [facility] Stop: 08/05/20 08:59 Last Admin: 07/08/20 08:06 Dose: 1 puffs Documented by: Folic Acid (Folic Acid 1 Mg Tab) 1 mg PO QAM [facility] Stop: 08/04/20 11:59 Last Admin: 07/08/20 08:04 Dose: 1 mg Documented by: Furosemide (Furosemide 20 Mg Tab) 20 mg PO DAILY [facility] Stop: 08/06/20 08:59 Last Admin: 07/08/20 08:04 Dose: 20 mg Documented by: Gabapentin (Gabapentin 100 Mg Cap) 200 mg PO BID [facility] Stop: 08/07/20 20:59 Lorazepam (Ativan) 1 mg in 2 mls @ 2 mls/min IV ONE PRN; Protocol PRN Reason: EtoH Withdrawal AWSS 6-10 Stop: 08/04/20 11:43 Levothyroxine Sodium (Levothyroxine Sodium 100 Mcg Tablet) 100 mcg PO DAILYBB [facility] Stop: 08/05/20 06:29 Last Admin: 07/08/20 05:19 Dose: 100 mcg Documented by: Lorazepam (Lorazepam 1 Mg Tab) 1 mg PO ONE PRN; Protocol PRN Reason: EtoH Withdrawal AWSS 6-10 Magnesium Oxide (Magnesium Oxide 400 Mg Tab) 400 mg PO DAILY [facility] Stop: 08/05/20 08:59 Last Admin: 07/08/20 08:05 Dose: 400 mg Documented by: Miscellaneous (Azelastine- Order Awaiting Action) 1 ea N/A QS [facility] Stop: 08/04/20 15:59 Last Admin: 07/08/20 15:11 Dose: Not Given Documented by: Multivitamins (Multivitamin Tab) 1 tab PO QAM [facility] Stop: 08/05/20 08:59 Last Admin: 07/08/20 08:05 Dose: 1 tab Documented by: Pantoprazole Sodium (Pantoprazole 40 Mg Tab) 40 mg PO DAILY [facility] Stop: 08/06/20 08:59 Last Admin: 07/08/20 08:05 Dose: 40 mg Documented by: Polyethylene Glycol (Polyethylene (Miralax) 17 Gm Pack) 17 gm PO DAILY PRN PRN Reason: Constipation Stop: 08/07/20 12:58 Potassium Chloride (Potassium Chloride Crtab 20 Meq Tabcr) 20 meq PO DAILY [facility] Stop: 08/06/20 08:59 Last Admin: 07/08/20 08:05 Dose: 20 meq Documented by: Spironolactone (Spironolactone 12.5 Mg Tab) 12.5 mg PO DAILY [facility] Stop: 08/06/20 08:59 Last Admin: 07/08/20 08:06 Dose: 12.5 mg Documented by: Tamsulosin HCl (Tamsulosin Hcl 0.4 Mg Cap) 0.4 mg PO HS [facility] Stop: 08/04/20 20:59 Last Admin: 07/07/20 20:35 Dose: 0.4 mg Documented by: Thiamine HCl (Thiamine Hcl 100 Mg Tab) 100 mg PO QAM [facility] Stop: 08/04/20 11:59 Last Admin: 07/08/20 08:05 Dose: 100 mg Documented by: Tramadol HCl (Tramadol Hcl 50 Mg Tablet) 50 mg PO Q4H PRN PRN Reason: Pain Stop: 08/06/20 11:02 Last Admin: 07/08/20 10:46 Dose: 50 mg Documented by: Umeclidinium/Vilanterol (Umeclidinium/Vilanterol 62.5/25mcg 7 Puffs/Inhaler) 1 puffs INH DAILY PRN PRN Reason: SOB/wheezing Stop: 08/04/20 11:34 Verapamil HCl (Verapamil Hcl 180 Mg Tabcr) 180 mg PO BID [facility] Stop: 08/04/20 11:59 Last Admin: 07/08/20 08:04 Dose: 180 mg Documented by:
[2020-07-08] MEDS: ACETAMINOPHEN 325 MG TAB PO SCH ×2 (15:31→20:20)
[2020-07-08] MEDS: TAMSULOSIN HCL 0.4 MG CAP PO SCH (20:20)
[2020-07-09] MEDS: ACETAMINOPHEN 325 MG TAB PO SCH ×4 (04:30→20:58)
[2020-07-09] MEDS: LEVOTHYROXINE SODIUM 100 MCG TABLET PO SCH (05:41)
[2020-07-09] MEDS: FLUTICASONE FUROATE 200MCG 14 PUFFS/INHALER INH SCH (07:47)
[2020-07-09] MEDS: GABAPENTIN 100 MG CAP PO SCH ×2 (07:47→20:58)
[2020-07-09] MEDS: MULTIVITAMIN TAB PO SCH (07:48)
[2020-07-09] MEDS: VERAPAMIL HCL 180 MG TABCR PO SCH ×2 (07:48→20:57)
[2020-07-09] MEDS: CETIRIZINE HCL 10 MG TABLET PO SCH (07:49)
[2020-07-09] MEDS: FUROSEMIDE 20 MG TAB PO SCH (07:49)
[2020-07-09] MEDS: THIAMINE HCL 100 MG TAB PO SCH (07:49)
[2020-07-09] MEDS: busPIRone 15 MG TAB PO SCH ×2 (07:49→20:58)
[2020-07-09] MEDS: FLUoxetine HCL 10 MG CAP PO SCH (07:49)
[2020-07-09] MEDS: FOLIC ACID 1 MG TAB PO SCH (07:49)
[2020-07-09] MEDS: SPIRONOLACTONE 12.5 MG TAB PO SCH (07:49)
[2020-07-09] MEDS: POTASSIUM CHLORIDE CRTAB 20 MEQ TABCR PO SCH (07:50)
[2020-07-09] MEDS: MAGNESIUM OXIDE 400 MG TAB PO SCH (07:50)
[2020-07-09] MEDS: FERROUS SULFATE 325 MG TAB PO SCH (07:50)
[2020-07-09] MEDS: CYANOCOBALAMIN 500 MCG TABLET (VITAMIN B-12) PO SCH (07:50)
[2020-07-09] MEDS: PANTOprazole 40 MG TAB PO SCH (07:52)
[2020-07-09 09:01] LABS: Codeine Urine NEGATIVE ng/mL (<50); Hydrocodone Urine NEGATIVE ng/mL (<50); Hydromor Urine 407 ng/mL (<50); MDA negative; MDEA negative; MDMA (Ecstasy) Urine, Confirm negative; Morphine Urine NEGATIVE ng/mL (<50); Norhydrocodone Conf Ur NEGATIVE ng/mL (<50); Noroxycodone Urine NEGATIVE ng/mL (<50); Oxycodone Urine NEGATIVE ng/mL (<50); Oxymorph Urine NEGATIVE ng/mL (<50)
[2020-07-09] MEDS: traMADol HCL 50 MG TABLET PO PRN ×2 (12:49→23:11)
[2020-07-09] MEDS ORDERED: WARFARIN SOD 5 MG TAB PO SCH (16:00)
--- NOTE | 2020-07-09 16:53 | Hospitalist Progress Note ---
Date of Service July 09, 2020 Assessment & Plan (1) Gastrointestinal hemorrhage on warfarin therapy: INR resolved to normal with vitamin K administration. Bleeding has stopped and no evidence of active bleeding on endoscopy this admission. Presumed diverticular bleed. PPI drip stopped. Resume daily Protonix per home regimen. couamdin restarted. Recommend stop drinking alcohol completely. Path consistent with possible Barretts esophagus. Defer to GI for outpatient monitoring. (2) Acute blood loss anemia: Symptomatic with weakness and lightheadedness yesterday. Transfused two units of blood this admission with appropriate response in H/H. No further GI bleeding was noted. (3) Chronic back pain: Avoid excessive tramadol dependence as he is not on this as outpatient and is high risk for narcotic dependence. Provided scheduled Tylenol and increased gabapentin today from 100mg BID to 200mg BID. We discussed this issues surrounding fall risk as adverse side effects of these medications. (4) Chronic atrial fibrillation: chronic atrial fibrillation on warfarin with recent changes to dosing per patient. Rate controlled with bleeding controlled and verapamil on board for rate control. warfarin (5) Ambulatory dysfunction: Issues with ambulation in general related to weakness and dysequilibrium. He cannot climb a flight of stairs, and therefore, cannot safely go home at this time. He also has concerns getting into and out of the shower, and has used modifications of bathing at home. He will be working with PT in am regarding stair climbing. He was counseled to stop drinking and that meds will need to be adjusted by his PCP. He verbalized understanding. (6) Supratherapeutic INR: 2/2 warfarin use. Resolved with vitamin K. (7) Alcohol abuse: Monitor closely for Withdrawal symptoms and Ativan PRN. Cont home gabapentin. (8) ALLEY (obstructive sleep apnea): Known issue for him but he is intolerant of CPAP. This is likley contributing to falls at home. Discussed this with daughter by phone. (9) BPH (benign prostatic hyperplasia): Cont tamsulosin per home regimen. (10) COPD (chronic obstructive pulmonary disease): chronic, stable. Cont home inhaler therapy. (11) Chronic heart failure with preserved ejection fraction (HFpEF): Cont home Lasix. (12) DVT prophylaxis: chemoprophylaxis contraindicated in setting of acute GI bleeding Full Code per my discussion with the patient on admission. Dispo-to home in am. Nasrin Justin, DO [facility] Admission and Anticipated Discharge Date Admission Date: July 05, 2020 Subjective 75 yo M with alcohol abuse issues on coumadin who presented with acute GI bleeding. Continues to have no evidence of withdrawal Continues to report concerns with ambulation Plans to work with PT on stairs in the morning Back pain improved on the Tramadol/Tylenol Tolerating PO No further GI bleeding noted. Review of Systems Review of Systems: All systems reviewed & are unremarkable except as noted in Subjective Physical Exam Physical Exam: CONSTITUTIONAL: WNWD, vitals as above, generally well- appearing EYES: PERRL, normal conjunctivae, no scleral icterus ENT: external ear and nose normal, MMM RESPIRATORY: clear to auscultation bilaterally, no crackles, rales or wheezes, normal respiratory effort CARDIOVASCULAR: regular rate and irregular rhythm, S1 and 2 heard without murmurs, gallops or rubs, no JVD, no peripheral edema GASTROINTESTINAL: soft, generalized tenderness is improved overall. Nondistended. MUSCULOSKELETAL: strength 5/5 throughout, head is normocephalic with traumatic ecchymosis to supraorbital area of right eye resolved. SKIN: warm and dry NEUROLOGIC: normal cognition, normal speech, no tremor. PSYCHIATRIC: alert cooperative and oriented to person, place and time. Results & Data Results & Data ([facility]) Vital Signs (Past 12 Hours) Vital Signs Temp Pulse Resp BP Pulse Ox 07/09/20 15:50 36.7 C 73 16 121/60 96 07/09/20 08:35 36.3 C L 78 20 129/67 95 Medications Administered Current Inpatient Medications Acetaminophen (Acetaminophen 325 Mg Tab) 650 mg PO Q6H [facility] Stop: 08/07/20 15:59 Last Admin: 07/09/20 16:12 Dose: 650 mg Documented by: Albuterol (Albuterol Hfa 8 Gm Inhaler) 2 puffs INH Q4H PRN PRN Reason: Wheezing Stop: 08/04/20 11:27 Buspirone HCl (Buspirone 15 Mg Tab) 15 mg PO BID [facility] Stop: 08/04/20 20:59 Last Admin: 07/09/20 07:49 Dose: 15 mg Documented by: Cetirizine HCl (Cetirizine Hcl 10 Mg Tablet) 10 mg PO DAILY [facility] Stop: 08/05/20 08:59 Last Admin: 07/09/20 07:49 Dose: 10 mg Documented by: Cyanocobalamin (Cyanocobalamin 500 Mcg Tablet (Vitamin B-12)) 1,000 mcg PO DAILY [facility] Stop: 08/05/20 08:59 Last Admin: 07/09/20 07:50 Dose: 1,000 mcg Documented by: Ferrous Sulfate (Ferrous Sulfate 325 Mg Tab) 325 mg PO DAILY [facility] Stop: 08/05/20 08:59 Last Admin: 07/09/20 07:50 Dose: 325 mg Documented by: Fluoxetine HCl (Fluoxetine Hcl 10 Mg Cap) 10 mg PO DAILY [facility] Stop: 08/04/20 11:59 Last Admin: 07/09/20 07:49 Dose: 10 mg Documented by: Fluticasone Furoate (Fluticasone Furoate 200mcg 14 Puffs/Inhaler) 1 puffs INH DAILY [facility] Stop: 08/05/20 08:59 Last Admin: 07/09/20 07:47 Dose: 1 puffs Documented by: Folic Acid (Folic Acid 1 Mg Tab) 1 mg PO QAM [facility] Stop: 08/04/20 11:59 Last Admin: 07/09/20 07:49 Dose: 1 mg Documented by: Furosemide (Furosemide 20 Mg Tab) 20 mg PO DAILY [facility] Stop: 08/06/20 08:59 Last Admin: 07/09/20 07:49 Dose: 20 mg Documented by: Gabapentin (Gabapentin 100 Mg Cap) 200 mg PO BID [facility] Stop: 08/07/20 20:59 Last Admin: 07/09/20 07:47 Dose: 200 mg Documented by: Lorazepam (Ativan) 1 mg in 2 mls @ 2 mls/min IV ONE PRN; Protocol PRN Reason: EtoH Withdrawal AWSS 6-10 Stop: 08/04/20 11:43 Levothyroxine Sodium (Levothyroxine Sodium 100 Mcg Tablet) 100 mcg PO DAILYBB [facility] Stop: 08/05/20 06:29 Last Admin: 07/09/20 05:41 Dose: 100 mcg Documented by: Lorazepam (Lorazepam 1 Mg Tab) 1 mg PO ONE PRN; Protocol PRN Reason: EtoH Withdrawal AWSS 6-10 Magnesium Oxide (Magnesium Oxide 400 Mg Tab) 400 mg PO DAILY [facility] Stop: 08/05/20 08:59 Last Admin: 07/09/20 07:50 Dose: 400 mg Documented by: Miscellaneous (Azelastine- Order Awaiting Action) 1 ea N/A QS [facility] Stop: 08/04/20 15:59 Last Admin: 07/09/20 15:29 Dose: Not Given Documented by: Multivitamins (Multivitamin Tab) 1 tab PO QAM [facility] Stop: 08/05/20 08:59 Last Admin: 07/09/20 07:48 Dose: 1 tab Documented by: Pantoprazole Sodium (Pantoprazole 40 Mg Tab) 40 mg PO DAILY [facility] Stop: 08/06/20 08:59 Last Admin: 07/09/20 07:52 Dose: 40 mg Documented by: Polyethylene Glycol (Polyethylene (Miralax) 17 Gm Pack) 17 gm PO DAILY PRN PRN Reason: Constipation Stop: 08/07/20 12:58 Potassium Chloride (Potassium Chloride Crtab 20 Meq Tabcr) 20 meq PO DAILY [facility] Stop: 08/06/20 08:59 Last Admin: 07/09/20 07:50 Dose: 20 meq Documented by: Spironolactone (Spironolactone 12.5 Mg Tab) 12.5 mg PO DAILY [facility] Stop: 08/06/20 08:59 Last Admin: 07/09/20 07:49 Dose: 12.5 mg Documented by: Tamsulosin HCl (Tamsulosin Hcl 0.4 Mg Cap) 0.4 mg PO HS [facility] Stop: 08/04/20 20:59 Last Admin: 07/08/20 20:20 Dose: 0.4 mg Documented by: Thiamine HCl (Thiamine Hcl 100 Mg Tab) 100 mg PO QAM [facility] Stop: 08/04/20 11:59 Last Admin: 07/09/20 07:49 Dose: 100 mg Documented by: Tramadol HCl (Tramadol Hcl 50 Mg Tablet) 50 mg PO Q4H PRN PRN Reason: Pain Stop: 08/06/20 11:02 Last Admin: 07/09/20 12:49 Dose: 50 mg Documented by: Umeclidinium/Vilanterol (Umeclidinium/Vilanterol 62.5/25mcg 7 Puffs/Inhaler) 1 puffs INH DAILY PRN PRN Reason: SOB/wheezing Stop: 08/04/20 11:34 Verapamil HCl (Verapamil Hcl 180 Mg Tabcr) 180 mg PO BID [facility] Stop: 08/04/20 11:59 Last Admin: 07/09/20 07:48 Dose: 180 mg Documented by: Warfarin Sodium (Warfarin Sod 5 Mg Tab) 5 mg PO DAILY@1600 [facility] Stop: 08/08/20 15:59 Last Admin: 07/09/20 16:12 Dose: 5 mg Documented by:
[2020-07-09] MEDS: TAMSULOSIN HCL 0.4 MG CAP PO SCH (20:57)
[2020-07-10] MEDS: ACETAMINOPHEN 325 MG TAB PO SCH ×2 (03:49→08:49)
[2020-07-10] MEDS: LEVOTHYROXINE SODIUM 100 MCG TABLET PO SCH (05:36)
[2020-07-10 06:33] LABS: INR 1.1 (0.9-1.1); Prothrombin Time 11.2 Seconds (9.0-12.0)
[2020-07-10] MEDS: FLUTICASONE FUROATE 200MCG 14 PUFFS/INHALER INH SCH (08:30)
[2020-07-10] MEDS: GABAPENTIN 100 MG CAP PO SCH (08:31)
[2020-07-10] MEDS: busPIRone 15 MG TAB PO SCH (08:31)
[2020-07-10] MEDS: VERAPAMIL HCL 180 MG TABCR PO SCH (08:31)
[2020-07-10] MEDS: FERROUS SULFATE 325 MG TAB PO SCH (08:31)
[2020-07-10] MEDS: POTASSIUM CHLORIDE CRTAB 20 MEQ TABCR PO SCH (08:32)
[2020-07-10] MEDS: CYANOCOBALAMIN 500 MCG TABLET (VITAMIN B-12) PO SCH (08:32)
[2020-07-10] MEDS: CETIRIZINE HCL 10 MG TABLET PO SCH (08:32)
[2020-07-10] MEDS: SPIRONOLACTONE 12.5 MG TAB PO SCH (08:32)
[2020-07-10] MEDS: MAGNESIUM OXIDE 400 MG TAB PO SCH (08:32)
[2020-07-10] MEDS: FOLIC ACID 1 MG TAB PO SCH (08:32)
[2020-07-10] MEDS: THIAMINE HCL 100 MG TAB PO SCH (08:32)
[2020-07-10] MEDS: MULTIVITAMIN TAB PO SCH (08:32)
[2020-07-10] MEDS: FUROSEMIDE 20 MG TAB PO SCH (08:32)
[2020-07-10] MEDS: FLUoxetine HCL 10 MG CAP PO SCH (08:33)
[2020-07-10] MEDS: PANTOprazole 40 MG TAB PO SCH (08:33)
[2020-07-10] MEDS ORDERED: EUCERIN CR 120 GM JAR EXT PRN (10:58)
--- NOTE | 2020-07-10 12:58 | Discharge Summary ---
Date of Service July 10, 2020 Admission HPI Per Admitting Provider 75 yo man with a h/o consistent alcohol use (3 vodka drinks per night) presents with dark red blood per rectum. He reports waking up from sleep around 0400 with th eurge to have a BM which was dark red in color. He had a subsequent bloody BM 30 minutes later and this was associated with lightheadedness and generalized weakness impeding his ability to ambulate. He was just admitted for melena two months ago. At that time, and today he had an elevated INR as he is on coumadin for stroke prophylaxis in atrial fibrillation. He reports adjustments being made to his coumadin recently, and he reports generalized joint pain for which he has taken 650mg ASA 4 days out of the last 10 for increased pain control above typical use of Tylenol. Hb is 10 with a baseline of 13. INR was >9.7 and he was given vitamin K 5mg IV x one dose in the ER. Review of the records reveals a recent EGD with [facility] on 05.16.20 revealing antral gastritis without evidence of bleeding or esophageal or gastric varices. Recent colonoscopy was on 05/26/2020 revealing a 6mm polyp in the ascending colon, diverticulosis in the ascending and sigmoid colon and nonbleeding internal hemorrhoids. He was advised to take a PPI once daily with which he reports compliance. ROS reveals no blood per rectum until today since colonoscopy in May. He does reports epistaxis from his left nare that began one month ago. He packs it with gauze and this resolves spontaneously. He denies taking aspirin today or yesterday but still reports generalized joint pain which began approximately two months ago. He reports feeling dizzy and lightheaded for the past 1.5 weeks, worse in the past couple of days. He has a small area of ecchymosis over his right eyebrow and on his left upper eyelid and reports a fall on 06/15/20. He was evaluated in the ER with ribs xray, head CT, c-spine CT and face CT all within normal limits and without evidence of acute trauma from that fall outside of a soft tissue contusion. He denies any stroke like symptoms. He reports a headache around the crown of his head this morning. He denies chest pain or shortness of breath. Although record reports he has an allergy to trazodone ( prolonged QTc) he takes 100mg regularly every night. Admission Exam Per Admitting Provider CONSTITUTIONAL: WNWD, vitals as above, generally well-appearing EYES: EOMI bilaterally, PERRL, normal conjunctivae, no scleral icterus ENT: external ear and nose normal, MMM NECK: trachea midline RESPIRATORY: clear to auscultation bilaterally, no crackles, rales or wheezes, normal respiratory effort CARDIOVASCULAR: regular rate and irregular rhythm, S1 and 2 heard without murmurs, gallops or rubs, no JVD, no peripheral edema GASTROINTESTINAL: soft, generalized tenderness to palpation, worse in the LLQ area. Nondistended and no guarding. MUSCULOSKELETAL: strength 5/5 throughout, head is normocephalic with traumatic ecchymosis to supraorbital area of right eye and periorbital area of left eye. some palpation of tenderness to right anterior chest wall along lower intercostal spaces. SKIN: warm and dry, ecchymosis noted that is significant along left leg, especially posteriorly. NEUROLOGIC: No facial palsy, no dysarthria. Touch, pain and proprioception normal. normal cognition, normal speech, no tremor PSYCHIATRIC: alert cooperative and oriented to person, place and time. Principal Diagnosis Gastrointestinal bleeding on warfarin therapy Acute blood loss anemia Chronic back pain Supratherapeutic INR Ambulatory Dysfunction Alcohol abuse ALLEY h/o multiple falls at home Discharge Exam CONSTITUTIONAL: WNWD, vitals as above, generally well-appearing EYES: PERRL, normal conjunctivae, no scleral icterus ENT: external ear and nose normal, MMM RESPIRATORY: clear to auscultation bilaterally, no crackles, rales or wheezes, normal respiratory effort CARDIOVASCULAR: regular rate and irregular rhythm, S1 and 2 heard without murmurs, gallops or rubs, no JVD, no peripheral edema GASTROINTESTINAL: soft, generalized tenderness is improved overall. Nondistended. MUSCULOSKELETAL: strength 5/5 throughout, head is normocephalic with traumatic ecchymosis to supraorbital area of right eye resolved. SKIN: warm and dry NEUROLOGIC: normal cognition, normal speech, no tremor. PSYCHIATRIC: alert cooperative and oriented to person, place and time. Discharge Data Allergies Allergy/AdvReac Type Severity Reaction Status Date / Time trazodone AdvReac Severe prolonged Verified 07/05/20 06:14 QTc cephalexin [From Keflex] AdvReac Hives Verified 07/05/20 06:14 Consultations 07/05/20 07:30 ED Decision to Admit Stat 07/05/20 11:28 Consult Case Management - Discharge Planning Routine Consult Gastroenterology Routine Procedures Performed Operation Date: 07/06/20 17:15 Actual Procedures p EGD Biopsy Cytology - Carlos Fields MD s Colonoscopy Polypectomy - Carlos Fields MD Ordered Studies [facility], [phone] CT Scan Report Patient: VEL CAPUTOAdmit Date: 07/05/20#: [id number]: [address]Acct ID:[id number]: Date: 1945[facility] Zip: [place] [id number]: 75Location: EDSex: MRoom/Bed:Att Phy:Diagnosis: GI BLEEDPri Phy: Lidia Faulkner MDService Date: 07/05/20Fam Phy:Interpreting Phy: Abdirashid Santana MDAdmit Phy: Ordering Phy: Cruz Stokes MD cc: ~ CT SCAN OF THE ABDOMEN AND PELVIS WITH IV CONTRAST CLINICAL HISTORY: Left lower quadrant abdominal pain. COMPARISON STUDY: Abdominal CT dated 05/17/2020. TECHNIQUE: Following the IV administration of 94 cc of Optiray 320, CT scan of the abdomen and pelvis is performed from the lung bases to the proximal femora. Images are reviewed in the axial, sagittal, and coronal planes. IV contrast was administered without complication. A dose lowering technique was utilized adhering to the principles of ALARA. CT DOSE: 879.34 mGycm FINDINGS: Lung bases: The heart is enlarged and without pericardial effusion. The coronary arteries are densely calcified. There is a small hiatal hernia. The lung bases are clear noting bibasilar scarring/atelectasis. Liver: The contrast-enhanced liver is enlarged, measuring 18.4 cm in length. The liver demonstrates diffusely diminished attenuation consistent with hepatic steatosis. There is no intrahepatic biliary ductal dilatation. The hepatic veins and portal veins are patent. Gallbladder: Unremarkable. Spleen: Normal in size and attenuation. Pancreas: Moderately atrophic and grossly unremarkable. Adrenal glands: Unremarkable. Kidneys: The contrast enhanced kidneys demonstrate cortical atrophy and are without hydronephrosis. The kidneys enhance symmetrically. Foci of cortical scarring are noted in the left kidney. A 4.[address] arises from left upper pole. There is a 4 mm nonobstructing calculus in the right upper pole. Abdominal vasculature: There is advanced atherosclerotic calcification and mild ectasia of the abdominal aorta. Bowel: There is no bowel obstruction. There is mild colonic diverticulosis without CT evidence of acute diverticulitis. The appendix is well-visualized and normal. Peritoneum: There is no intraperitoneal free air or abdominal ascites. There is a fat-containing umbilical hernia. Lymphadenopathy: None. Pelvic viscera: Evaluation of the pelvis is degraded by streak artifact from a left hip arthroplasty. The prostate gland is enlarged and heterogeneous noting median lobe hypertrophy. The bladder wall is thickened and trabeculated indicating chronic outlet obstruction. Skeletal structures: The skeletal structures are osteopenic. No lytic or blastic lesions are seen. A left hip arthroplasty is in place. There is disruption of the medial wall of the left acetabulum with cement material present along the left pelvic sidewall. This is unchanged from previous. No acute fracture is clearly identified. 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 IMPRESSION: 1. There are no acute infectious or inflammatory findings in the abdomen or pelvis. 2. Mild colonic diverticulosis without CT evidence of acute diverticulitis. 3. Right-sided nephrolithiasis. 4. Cardiomegaly. 5. Hepatomegaly and hepatic steatosis. 6. Chronic changes involving the proximal femora/left acetabulum as above. 7. Additional findings as above. ACT 112: Negative or not required by law. Electronically signed by: Abdirashid Santana M.D. 07/05/2020 8:07 AM Dictated: 07/05/20 0800Transcribed: 07/05/20 0800 Hospital Course (1) Gastrointestinal hemorrhage on warfarin therapy: INR resolved to normal with vitamin K administration. Bleeding has stopped and no evidence of active bleeding on endoscopy this admission. Colonoscopy performed on 07/06 revealed no evidence of ongoing GI bleeding, likely had diverticular bleed which resolved spontaneously. The examined portion of the ileum was normal. 1 6 mm polyp in the sigmoid colon was removed with a snare resected and retrieved with path consistent with a hyperplastic polyp. Diverticulosis was seen in the entire examined colon with nonbleeding internal hemorrhoids. Upper endoscopy revealed a normal stomach and normal duodenal bulb and second portion of the duodenum. 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 Pathology consistent with possible Barretts esophagus. Defer to GI for outpatient monitoring. Resume daily Protonix per home regimen. Coumadin was restarted prior to discharge. Recommend stop drinking alcohol completely. (2) Acute blood loss anemia: Symptomatic with weakness and lightheadedness yesterday. Transfused two units of blood this admission with appropriate response in H/H. No further GI bleeding was noted. (3) Chronic back pain: Avoid excessive tramadol dependence as he is not on this as outpatient and is high risk for narcotic dependence. Gave scheduled Tylenol and increased ga bapentin from 100mg BID to 200mg BID. We discussed this issues surrounding fall risk as adverse side effects of these medications. (4) Ambulatory dysfunction: Issues with ambulation in general related to weakness and dysequilibrium. He cannot climb a flight of stairs, and therefore, cannot safely go home at this time. He also has concerns getting into and out of the shower, and has used modifications of bathing at home. He will be working with PT in am regarding stair climbing. Rehab discussed as an option vs outpatient PT/OT. He was counseled to stop drinking and that meds will need to be adjusted by his PCP. He verbalized understanding. (5) Supratherapeutic INR: 2/2 warfarin use. Resolved with vitamin K. (6) Alcohol abuse: Monitor closely for Withdrawal symptoms and Ativan PRN. Cont home gabapentin. (7) ALLEY (obstructive sleep apnea): Known issue for him but he is intolerant of CPAP. This is likley contributing to falls at home. Discussed this with daughter by phone. At time of discharge she was mentating and ambulating at baseline and tolerating p.o. He was oxygenating well on room air and hemodynamically stable and afebrile. He was sent home in stable condition with close primary care follow- up recommended. Total Time Total Time Spent Total Time Spent (In Minutes): 60 Total Time Includes: Examination of the Patient, Discharge Planning, Medication Reconciliation and Communication With Other Providers Discharge Plan Discharge Items Patient Disposition: Home - Home Health Services Reason For Visit: ACUTE GI BLEEDING Discharge Diagnosis: Gastrointestinal bleeding on warfarin therapy Acute blood loss anemia Chronic back pain Supratherapeutic INR Ambulatory Dysfunction Alcohol abuse ALLEY h/o multiple falls at home Condition on Discharge: Good Activity: Resume your previous activity Non-emergency contact: Primary Care Provider Call non-emergency contact if: you have any medication questions and your symptoms worsen Follow-up/Referrals: Lidia Faulkner MD [Primary Care Provider] - (Date & Time 07/11/2020 11:00 AM Provider Lidia Faulkner MD Department General Internal Medicine [facility] ) Diet: Regular Diet Texture: Easy to Chew Addtl Attending Provider Instructions: Please take all medications as instructed on discharge list below. You will need to carefully review your medications with your primary care provider (PCP) on follow-up with your recent history of multiple falls at home. Additional considerations will be continued use of coumadin vs a different blood thinner vs no blood thinner moving forward. All options have pros and cons that should be considered carefully. It is strongly recommended that you stay quit from alcohol as this is bad for your health. Please follow-up closely with the Anticoagulation clinic after discharge. Frequent monitoring of your INR to ensure you are staying with a goal range of 2-3 is strongly recommended. It is recommended that you follow-up with your PCP within 1-2 weeks of hospital discharge to review medications and issues that resulted in this hospitalization. It was a pleasure taking care of you! Please call if you have any questions or problems. You can reach a [facility] hospitalist on duty at [facility] 24 hours a day by calling [phone]. Take care of yourself. Nasrin Anderson, [facility]ist Pending Studies at Discharge: No Stand-Alone Forms: My [facility], Smoking Cessation Medications and DC Order Prescriptions: New gabapentin 100 mg Capsule 200 mg PO BID Qty: 60 RF: 1 Continued spironolactone 25 mg tablet 12.5 mg PO DAILY RF: 0 polyethylene glycol 3350 [Miralax] 17 gram Powder In Packet 17 g PO DAILY PRN (Reason: constipation) Qty: 30 RF: 0 docusate sodium 100 mg Capsule 100 mg PO BID PRN (Reason: Constipation) Qty: 30 RF: 0 thiamine HCl (vitamin B1) [Vitamin B-1] 100 mg Tablet 100 mg PO QAM Qty: 30 RF: 0 folic acid 1 mg Tablet 1 mg PO QAM Qty: 30 RF: 0 ferrous sulfate 325 mg (65 mg iron) tablet 325 mg PO DAILY RF: 0 levothyroxine 100 mcg tablet 100 mcg PO QAM RF: 0 Stiolto Respimat 2.5-2.5 mcg/actuation mist 1 spray INHALATION DAILY PRN (Reason: SOB/wheezing) RF: 0 warfarin 5 mg tablet 5 mg PO UD RF: 0 cetirizine [Zyrtec] 10 mg Tablet 10 mg PO DAILY RF: 0 verapamil 180 mg tablet extended release 180 mg PO BID RF: 0 cyanocobalamin (vitamin B-12) [Vitamin B-12] 1,000 mcg Tablet 1,000 mcg PO DAILY RF: 0 potassium chloride 20 mEq tablet,ER particles/crystals 20 meq PO DAILY RF: 0 tamsulosin 0.4 mg capsule 0.4 mg PO HS RF: 0 fluoxetine 10 mg capsule 10 mg PO DAILY RF: 0 furosemide 20 mg tablet 20 mg PO DAILY RF: 0 azelastine 137 mcg (0.1 %) aerosol,spray 1 spray INTRANASAL BID RF: 0 multivitamin with minerals [Multiple Vitamin-Minerals] Tablet 1 tab PO DAILY RF: 0 albuterol sulfate 90 mcg/actuation HFA aerosol inhaler 2 puff INHALATION Q4H PRN (Reason: Wheezing) RF: 0 Flovent HFA 110 mcg/actuation HFA aerosol inhaler 2 puff INHALATION BID RF: 0 buspirone 15 mg tablet 15 mg PO BID RF: 0 magnesium oxide 400 mg magnesium Tablet 400 mg PO DAILY RF: 0 pantoprazole 40 mg tablet,delayed release (DR/EC) 40 mg PO DAILY Qty: 30 RF: 0 Discontinued trazodone 100 mg tablet 100 mg PO HS RF: 0 gabapentin 100 mg capsule 100 mg PO BID RF: 0 Discharge Orders: Discharge Order (Routine); Ordered 07/10/20 Ordered By: Nasrin Goff/Other Patient Handouts: What to Know When TakingWarfarin Admission Data Admit Date/Time: 07/05/20 07:52 Attending Provider: Nasrin Anderson Admit Provider: Nasrin Anderson Primary Care Provider: Lidia Faulkner Other Providers: [facility],Home Health ; Nasrin Anderson ; Carlos Fields Other Interventions: Discharge Summary Assessment (RN) Last Done: 07/10/20 13:37
--- NOTE | 2020-07-25 07:11 | Coding Query ---
CODING QUERY To promote full compliance with coding requirements relating to patient care, provider participation is requested in all cases of senior actuarial analyst uncertainty. Please assist us with the question(s) below: Coding Question: Please clarify if the GI bleeding was due to warfarin or diverticulosis (or both) as the documentation is unclear. Thank you so much for your help with this! Have a great day! ( ) GI bleed due to warfarin therapy ( ) GI bleed due to diverticulosis (x ) GI bleed due to both warfarin and diverticulosis ( ) Other explanation Thank you! Rocio Adams Principal Diagnosis: "that condition established after study, to be chiefly responsible for occasioning the admission of the patient to the hospital for care." Co-Existing Principal Diagnosis: "when two or more diagnoses equally meet the criteria for principal diagnosis as determined by the circumstances of admission, diagnostic work up, and/or therapy provided, and the Alphabetic Index, Tabular List, or another coding guideline does not provide sequencing direction, any one of the diagnoses may be sequenced first." "When the physician has documented what appears to be a current diagnosis in the body of the record, but has not included the diagnosis in the final diagnostic statement, the physician should be asked whether the diagnosis should be added." (Source [facility]oding [facility] 2 QTR90. p3-4) LUDIN
== END 2020-07-10 15:28 | disposition home health service (06) | DRG 813 ==
LOC: ED 05:18 → EDINP 07:52 → 1E 14:51 → 3N 07-06 20:18

== ENCOUNTER 2021-04-02 19:49 | Inpatient (IN) ==
[2021-04-02] MEDS ORDERED: SODIUM CHLORIDE 0.9% 1000ML 1,000 ML IV SCH (20:45)
[2021-04-02] MEDS ORDERED: SODIUM CHLORIDE 0.9% 1000ML 500 ML IV ONE (20:46)
--- NOTE | 2021-04-02 21:01 | XRay Report ---
XR chest 1V portable CLINICAL HISTORY: SOB TECHNIQUE: Single frontal radiograph of the chest was obtained. Comparison: Comparison is made to chest one view 03/28/2021 FINDINGS: No lines and tubes are seen. Calcification of the aortic knob is noted. Cardiac silhouette is stably enlarged. The lungs are clear. There is blunting of the left costophrenic angle which may represent u nderlying effusion. No pneumothorax is seen. No right effusion is seen. IMPRESSION: Blunting of the left costophrenic angle which may represent a small pleural effusion. No airspace opa cities are seen. ACT 112: Negative or not required by law. Electronically signed by: Deuce Witt M.D. 04/02/2021 8:59 PM
--- NOTE | 2021-04-02 21:12 | CT Scan Report ---
CT head/brain wo con CLINICAL HISTORY: fall Technique: Contiguous axial CT images of the head were acquired from the base of the skull to the varsha kirill without intravenous contrast administration. Images were viewed in brain, subdural and bone [facility]. Automated dose lowering techniques and/or adjustment according to patient size were utilized for this exam. Comparison: Comparison is made to CT head 06/15/2020 Findings: Areas of decreased attenuation are present in the periventricular and subcortical white matter bilate rally consistent with small vessel ischemic disease. Generalized cerebral atrophy with commensurate e nlargement of the ventricles, sulci, and cisterns is also present. There is no acute intracranial hem orrhage or evidence of acute territorial infarction. No shift of the midline structures, mass effect, or extra-axial abnormalities are shown. Atherosclerotic calcifications are present in the intracran ial segments of the internal carotid arteries. Imaged portions of the paranasal sinuses and mastoid air cells are clear. The orbits appear normal. There are no acute fractures of the calvaria or scalp swelling. Impression: No acute intracranial hemorrhage, evidence of acute territorial infarction, or other acute intracrani al disease process. ACT 112: Negative or not required by law. Electronically signed by: Deuce Witt M.D. 04/02/2021 9:10 PM
[2021-04-02 21:20] LABS: Basophils # (auto) 0.02 K/uL (0-0.2); Basophils % (auto) 0.3 %; Eosinophils # (auto) 0.06 K/uL (0-0.5); Eosinophils % (auto) 0.9 %; Hemoglobin 12.9 g/dL (14.0-18.0); Immature Granulocytes # (auto) 0.01 K/uL (0.00-0.02); Immature Granulocytes % (auto) 0.2 %; Lymphocytes # (auto) 0.78 K/uL (1.2-3.4); Mean Corpuscular Hemoglobin 33.1 pg (25-34); Mean Corpuscular Hgb Conc 34.9 g/dL (32-36); Mean Corpuscular Volume 94.9 fL (80-100); Mean Platelet Volume 10.2 fL (7.4-10.4); Monocytes # (auto) 0.39 K/uL (0.11-0.59); Neutrophils # (auto) 5.22 K/uL (1.4-6.5); Neutrophils % (auto) 80.6 %; Platelet Count 247 K/uL (130-400); RDW Coefficient of Variation 15.6 % (11.5-14.5); RDW Standard Deviation 53.1 fL (36.4-46.3); White Blood Count 6.48 K/uL (4.8-10.8)
--- NOTE | 2021-04-02 21:20 | CT Scan Report ---
CT lumbar spine wo con CLINICAL HISTORY: fell again, hx of compression fx continued back pain. TECHNIQUE: Multidetector row helical CT of the lumbar spine was performed without administration of i ntravenous contrast. Coronal and sagittal reformations were obtained. Automated dose lowering techniq ues and/or adjustment according to patient size were utilized for this exam. Comparison: Comparison is made to CT lumbar spine 03/28/2021 FINDINGS: For counting purposes, the last complete intervertebral disc space is considered L5-S1. Again noted are compression fractures of L3 and L4 without retropulsion. In addition, there is new an terior wedge deformity of L1 with approximately 30% loss of height, without retropulsion of fragments . Degenerative changes are noted in the visualized spine. Vertebral body alignment is within normal l imits. Surrounding soft tissues are unremarkable. IMPRESSION: New acute L1 compression fracture with anterior wedge deformity, without retropulsion. Redemonstratio n of L3 and L4 compression fractures which are unchanged from prior exam. ACT 112: Negative or not required by law. Electronically signed by: Deuce Witt M.D. 04/02/2021 9:19 PM
[2021-04-02 22:27] LABS: Alanine Aminotransferase 18 U/L (12-78); Albumin Level 2.5 gm/dl (3.4-5.0); Aspartate Aminotransferase 31 U/L (15-37); Bilirubin,Total 0.6 mg/dl (0.2-1); Calcium 8.4 mg/dl (8.5-10.1); Carbon Dioxide 24 mmol/L (21-32); Creatinine Clr Calc Pharmacy 57.3 ml/min; Est GFR (African American) 82.6 ml/min; Est GFR (Non-African American) 71.2 ml/min; Glucose 96 mg/dl (70-99); Magnesium 1.5 mg/dl (1.8-2.4)
[2021-04-02 22:28] LABS: Albumin Globulin Ratio 0.7 (0.9-2); Alkaline Phosphatase 155 U/L (45-117); BUN Creatinine Ratio 12.1 (10-20); Blood Urea Nitrogen 13 mg/dl (7-18); Chloride 103 mmol/L (98-107); Globulin 3.8 gm/dl (2.5-4.0); Potassium 2.5 mmol/L (3.5-5.1); Sodium 137 mmol/L (136-145); Total Protein 6.3 gm/dl (6.4-8.2); Troponin I < 0.015 ng/ml (0-0.045)
[2021-04-02] MEDS ORDERED: POTASSIUM CHLORIDE / WTR 10 MEQ/100 ML PLCT IV ONE (22:53)
[2021-04-02] MEDS ORDERED: POTASSIUM CHLORIDE CRTAB 20 MEQ TABCR PO STA (22:53)
[2021-04-02] MEDS ORDERED: MAGNESIUM SULFATE / D5W 1 GM/100 ML BAG IV STA (22:54)
--- NOTE | 2021-04-02 23:21 | Emergency Department Note ---
Impression & Plan Fall, Hypokalemia, Hypomagnesemia, Closed compression fracture of L1 vertebra, Generalized weakness ED Provider Note INFORMANT: Patient ED PROVIDER(S): Stevie Duque MD CHIEF COMPLAINT: Fall PLAN: Disposition: Admitted Condition: Good Outpatient prescription management: none Referral: None MEDICAL DECISION MAKING: Patient presented to the emergency department because of a fall. Work-up was initiated. He was found to be hypokalemic and hypomagnesemic. The patient had an unremarkable ECG. CT imaging of the head was negative. CT imaging of the lumbar spine reveals a new L1 compression fracture as well as his old L3-L4 compression fractures. The patient is neurologically intact. Patient was given IV potassium and magnesium supplementation. Oral potassium supplementation was also provided. He was hydrated. He will need further management in the hospital. Consultation was made with Dr. Abelardo Flanagan, [facility] hospitalist service. Patient was evaluated admitted for further management. Triage Nursing notes reviewed and agree them. Vital Signs: reviewed and remarkable for borderline low blood pressure. Differential diagnosis: Infection, dehydration, metabolic abnormality, hypo/hyperglycemia, electrolyte disturbance, anemia, hypoxia, cardiac sources, intracerebral event, toxicologic, neurologic, soft tissue injury, fracture, as well as other pathologies. Diagnostics interpreted by me: ECG: Twelve-lead ECG reveals atrial fibrillation at 81 bpm. Left axis deviation. Inferior Q waves present. Poor R wave progression. Cardiac Monitoring: Cardiac monitoring ordered by me: The patient was placed on continuous cardiac monitoring and observed. It revealed a atrial fibrillation at 86 beats per minute without ectopy or evidence of dysrhythmia. Imaging studies: Head CT: A noncontrast CT scan of the head was performed and was negative for tumor, fracture, intracranial hemorrhage, or other acute pathology. CT scan of the lumbar spine reveals new L1 compression fracture. I refer you to the EMR for further details. Chest x-ray. Findings: A chest x-ray was performed and revealed no pneumothorax, effusion, infiltrate, pulmonary edema, free air under the diaphragm, or wide mediastinum. Impression: No acute disease. HPI: The patient is a 75 year old male who presents to the Emergency Room with complaints of fall. This started couple hours ago and is described as accidental. Patient states he got generally weak and lost his balance. He was too weak to get himself up. The patient also notes the following associated symptoms, mild low back pain. Patient is a history of L3-L4 compression fractures. Patient lives alone and feels that he is not safe. He had a fall 10 days ago which caused the L3 and 4 of compression fractures the patient has taken no new medication for relieving factors. Current pain is rated as 3/10. Pt denies LOC, headache, fevers, chills, diaphoresis, visual changes, neck pain, chest pain, breathing difficulties, nausea, vomiting, abdominal pain, melena, hematochezia, urinary symptoms, numbness, saddle anesthesia, lymphadenopathy, rash, or other complaints. ROS: See above HPI for pertinent positives & negatives. A total of 10 systems reviewed and were otherwise negative. PAST MEDICAL HISTORY:See Below , A. fib PAST SURGICAL HISTORY:See Below, FAMILY HISTORY:See Below SOCIAL HISTORY:See Below, lives alone HOME MEDICATIONS:See Below ALLERGIES:See Below VITALS:See Below PHYSICAL EXAMINATION: GENERAL: Awake, tired appearing, in no distress HENT: Normocephalic, atraumatic. Oropharynx unremarkable. EYES: Normal conjunctiva. Sclera non-icteric. NECK: Inspection normal. Non-tender. Supple. No nuchal rigidity. FROM. No masses. RESPIRATORY: Clear to auscultation. No wheezes. No rales. Normal respiratory effort. CARDIAC: Normal rate. Irregular rhythm. No murmurs. No rubs. Extremities warm and well perfused. Pulses equal. No JVD. GI: Soft, non-distended. No tenderness to palpation. No rebound or guarding. No masses. RECTAL: Deferred. MUSCULOSKELETAL: Atraumatic. Chest examination reveals no tenderness. The back is symmetrical on inspection without obvious abnormality. There is low lumbar tenderness to palpation in the midline. No step-offs. There is no CVA tenderness to palpation. No joint edema. LOWER EXTREMITIES: Calves are equal size bilaterally and non-tender. No edema. No discoloration. NEURO: Normal sensorium. Generally weak but no focal no sensory or motor deficits noted. No saddle anesthesia SKIN: No rash or jaundice noted. Stevie Duque MD Past Med/Surg History Medical History Atrial fibrillation with RVR BPH (benign prostatic hyperplasia) Chronic atrial fibrillation Chronic heart failure with preserved ejection fraction (HFpEF) COPD (chronic obstructive pulmonary disease) Current use of mcc anticoagulation Depression with anxiety HLD (hyperlipidemia) HTN (hypertension) Melena ALLEY (obstructive sleep apnea) Intolerant to CPAP Prolonged QT interval Supratherapeutic INR Surgical History History of cataract extraction History of colonoscopy History of total left hip arthroplasty Family History Father Stroke Mother Stroke Social History Smoking Status: Never smoker Tobacco Type: Cigarettes Years Smoked: 18; Second Hand Exposure: No; Hx Alcohol Use: Yes Alcohol type: beer Alcohol Intake Frequency: 4 or More x per/Week Alcohol Intake Frequency Comment: 3-4 drinks nightly Hx Substance Use: No Preferred Language: Luxembourger Communication Ability: Effective Court Assistant Required: No Beliefs That Will Affect Care: None marital status: Current Living Situation: Spouse Feels Safe at Home: Hesitant to Answer Assistive Devices: Glasses Allergies Allergies Allergy/AdvReac Type Severity Reaction Status Date / Time trazodone AdvReac Severe prolonged Verified 04/02/21 22:44 QTc cephalexin [From Keflex] AdvReac Hives Verified 04/02/21 22:44 Home Meds Home Medications Medication Instructions Recorded Confirmed albuterol sulfate 90 mcg/actuation 2 puff INHALATION Q4H PRN 04/12/20 04/02/21 aerosol inhaler azelastine 137 mcg (0.1 %) nasal 1 spray INTRANASAL BID PRN 04/12/20 04/02/21 spray aerosol buspirone 15 mg tablet 15 mg PO BID 04/12/20 04/02/21 fluticasone propionate 110 1 puff INHALATION DAILY 04/12/20 04/02/21 mcg/actuation HFA aerosol inhaler (Flovent HFA) furosemide 20 mg tablet 20 mg PO DAILY 04/12/20 04/02/21 magnesium oxide 400 mg PO DAILY 04/12/20 04/02/21 multivitamin with minerals 1 tab PO DAILY 04/12/20 04/02/21 (Multiple Vitamin-Minerals) potassium chloride 20 mEq 20 meq PO DAILY 04/12/20 04/02/21 tablet,extended release(part/cryst) tamsulosin 0.4 mg capsule 0.4 mg PO HS 04/12/20 04/02/21 verapamil 180 mg tablet,extended 180 mg PO BID 04/12/20 04/02/21 release apixaban 5 mg tablet (Eliquis) 5 mg PO BID 03/28/21 04/02/21 ferrous sulfate 325 mg (65 mg 325 mg PO DAILY 03/28/21 04/02/21 iron) tablet (FeroSul) gabapentin 100 mg capsule 100 mg PO AMPM 03/28/21 04/02/21 levothyroxine 125 mcg tablet 125 mcg PO QAM 03/28/21 04/02/21 montelukast 10 mg tablet 10 mg PO DAILY 03/28/21 04/02/21 sertraline 100 mg tablet 100 mg PO DAILY 03/28/21 04/02/21 trazodone 100 mg tablet 100 mg PO HS 03/28/21 04/02/21 Previous Rx's Medication Instructions Recorded folic acid 1 mg tablet 1 mg PO QAM #30 tab 05/18/20 Results & Data (ED) Vital Signs Vital Signs - 24 hr 04/02/21 20:12 04/02/21 20:20 04/02/21 20:23 Temperature 36.5 C Temperature Source Oral Pulse Rate 79 81 83 Pulse Rhythm Regular Pulse Strength Normal Respiratory Rate 21 22 22 Respiratory Effort / Characteristics Non-Labored Respiratory Depth Normal Respiratory Pattern Regular Blood Pressure 102/60 Blood Pressure Mean 74 Pulse Oximetry 91 99 98 Oxygen Delivery Method Room Air Sepsis Recent Fever Within 48 Hours No Sepsis New/Unexplained Change in Mental Status No Sepsis Action Taken by Nursing No Action Required 04/02/21 20:30 04/02/21 20:40 04/02/21 20:50 Temperature Temperature Source Pulse Rate 85 83 96 H Pulse Rhythm Pulse Strength Respiratory Rate 20 16 22 Respiratory Effort / Characteristics Respiratory Depth Respiratory Pattern Blood Pressure 102/60 Blood Pressure Mean 74 Pulse Oximetry 98 99 93 Oxygen Delivery Method Sepsis Recent Fever Within 48 Hours Sepsis New/Unexplained Change in Mental Status Sepsis Action Taken by Nursing 04/02/21 21:11 04/02/21 21:20 04/02/21 21:30 Temperature Temperature Source Pulse Rate 93 H 82 78 Pulse Rhythm Pulse Strength Respiratory Rate 18 20 24 Respiratory Effort / Characteristics Respiratory Depth Respiratory Pattern Blood Pressure 118/74 Blood Pressure Mean 88 Pulse Oximetry 98 98 98 Oxygen Delivery Method Sepsis Recent Fever Within 48 Hours Sepsis New/Unexplained Change in Mental Status Sepsis Action Taken by Nursing 04/02/21 21:40 04/02/21 21:50 04/02/21 22:00 Temperature Temperature Source Pulse Rate 84 85 88 Pulse Rhythm Pulse Strength Respiratory Rate 23 22 17 Respiratory Effort / Characteristics Respiratory Depth Respiratory Pattern Blood Pressure Blood Pressure Mean Pulse Oximetry 94 99 99 Oxygen Delivery Method Sepsis Recent Fever Within 48 Hours Sepsis New/Unexplained Change in Mental Status Sepsis Action Taken by Nursing 04/02/21 22:10 04/02/21 22:20 04/02/21 22:30 Temperature Temperature Source Pulse Rate 79 86 87 Pulse Rhythm Pulse Strength Respiratory Rate 18 21 26 H Respiratory Effort / Characteristics Respiratory Depth Respiratory Pattern Blood Pressure Blood Pressure Mean Pulse Oximetry 98 97 97 Oxygen Delivery Method Sepsis Recent Fever Within 48 Hours Sepsis New/Unexplained Change in Mental Status Sepsis Action Taken by Nursing 04/02/21 22:40 04/02/21 22:50 04/02/21 23:00 Temperature Temperature Source Pulse Rate 80 86 85 Pulse Rhythm Pulse Strength Respiratory Rate 20 22 23 Respiratory Effort / Characteristics Respiratory Depth Respiratory Pattern Blood Pressure 126/73 Blood Pressure Mean 90 Pulse Oximetry 98 98 96 Oxygen Delivery Method Sepsis Recent Fever Within 48 Hours Sepsis New/Unexplained Change in Mental Status Sepsis Action Taken by Nursing 04/02/21 23:10 04/02/21 23:20 04/02/21 23:30 Temperature Temperature Source Pulse Rate 81 82 81 Pulse Rhythm Pulse Strength Respiratory Rate 22 20 26 H Respiratory Effort / Characteristics Respiratory Depth Respiratory Pattern Blood Pressure 117/67 Blood Pressure Mean 83 Pulse Oximetry 97 98 98 Oxygen Delivery Method Sepsis Recent Fever Within 48 Hours Sepsis New/Unexplained Change in Mental Status Sepsis Action Taken by Nursing 04/02/21 23:40 04/02/21 23:50 04/03/21 00:00 Temperature Temperature Source Pulse Rate 77 86 Pulse Rhythm Pulse Strength Respiratory Rate 15 24 18 Respiratory Effort / Characteristics Respiratory Depth Respiratory Pattern Blood Pressure Blood Pressure Mean Pulse Oximetry 96 97 Oxygen Delivery Method Sepsis Recent Fever Within 48 Hours Sepsis New/Unexplained Change in Mental Status Sepsis Action Taken by Nursing 04/03/21 00:10 04/03/21 00:20 04/03/21 00:30 Temperature Temperature Source Pulse Rate 90 83 83 Pulse Rhythm Pulse Strength Respiratory Rate 20 24 23 Respiratory Effort / Characteristics Respiratory Depth Respiratory Pattern Blood Pressure 124/73 Blood Pressure Mean 90 Pulse Oximetry 97 96 96 Oxygen Delivery Method Sepsis Recent Fever Within 48 Hours Sepsis New/Unexplained Change in Mental Status Sepsis Action Taken by Nursing 04/03/21 00:40 04/03/21 00:50 04/03/21 01:00 Temperature Temperature Source Pulse Rate 79 81 96 H Pulse Rhythm Pulse Strength Respiratory Rate 21 23 22 Respiratory Effort / Characteristics Respiratory Depth Respiratory Pattern Blood Pressure Blood Pressure Mean Pulse Oximetry 97 97 94 Oxygen Delivery Method Sepsis Recent Fever Within 48 Hours Sepsis New/Unexplained Change in Mental Status Sepsis Action Taken by Nursing 04/03/21 01:10 04/03/21 01:20 04/03/21 01:30 Temperature Temperature Source Pulse Rate 84 86 83 Pulse Rhythm Pulse Strength Respiratory Rate 17 21 17 Respiratory Effort / Characteristics Respiratory Depth Respiratory Pattern Blood Pressure Blood Pressure Mean Pulse Oximetry 97 97 Oxygen Delivery Method Sepsis Recent Fever Within 48 Hours Sepsis New/Unexplained Change in Mental Status Sepsis Action Taken by Nursing 04/03/21 01:40 Temperature Temperature Source Pulse Rate 93 H Pulse Rhythm Pulse Strength Respiratory Rate 19 Respiratory Effort / Characteristics Respiratory Depth Respiratory Pattern Blood Pressure 118/73 Blood Pressure Mean 88 Pulse Oximetry Oxygen Delivery Method Sepsis Recent Fever Within 48 Hours Sepsis New/Unexplained Change in Mental Status Sepsis Action Taken by Nursing Laboratory Data Result diagrams: 04/02/21 20:49 04/02/21 20:49 Lab Results 04/02/21 04/02/21 04/02/21 Range/Units 20:49 20:49 Unknown WBC 6.48 (4.8-10.8) K/uL RBC 3.90 L (4.7-6.1) M/uL Hgb 12.9 L (14.0-18.0) g/dL Hct 37.0 L (42-52) % MCV 94.9 (80-100) fL MCH 33.1 (25-34) pg MCHC 34.9 (32-36) g/dL RDW Std Deviation 53.1 H (36.4-46.3) fL RDW Coeff of Vijaya 15.6 H (11.5-14.5) % Plt Count 247 (130-400) K/uL MPV 10.2 (7.4-10.4) fL Immature Gran % (Auto) 0.2 % Neut % (Auto) 80.6 % Lymph % (Auto) 12.0 % Hutchinson % (Auto) 6.0 % Eos % (Auto) 0.9 % Baso % (Auto) 0.3 % Neut # (Auto) 5.22 (1.4-6.5) K/uL Lymph # (Auto) 0.78 L (1.2-3.4) K/uL Hutchinson # (Auto) 0.39 (0.11-0.59) K/uL Eos # (Auto) 0.06 (0-0.5) K/uL Baso # (Auto) 0.02 (0-0.2) K/uL Immature Gran # (Auto) 0.01 (0.00-0.02) K/uL Sodium 137 (136-145) mmol/L Potassium 2.5 L* (3.5-5.1) mmol/L Chloride 103 (98-107) mmol/L Carbon Dioxide 24 (21-32) mmol/L Anion Gap 10.0 (3-11) BUN 13 (7-18) mg/dl Creatinine 1.03 (0.6-1.4) mg/dl Est Cr Clr Drug Dosing 57.3 ml/min Est GFR ( Amer) 82.6 ml/min Est GFR (Non-Af Amer) 71.2 ml/min BUN/Creatinine Ratio 12.1 (10-20) Glucose 96 (70-99) mg/dl Calcium 8.4 L (8.5-10.1) mg/dl Magnesium 1.5 L (1.8-2.4) mg/dl Total Bilirubin 0.6 (0.2-1) mg/dl AST 31 (15-37) U/L ALT 18 (12-78) U/L Alkaline Phosphatase 155 H (45-117) U/L Troponin I < 0.015 (0-0.045) ng/ml Total Protein 6.3 L (6.4-8.2) gm/dl Albumin 2.5 L (3.4-5.0) gm/dl Globulin 3.8 (2.5-4.0) gm/dl Albumin/Globulin Ratio 0.7 L (0.9-2) TSH 3.380 (0.300-4.500) uIu/ml Urine Color Urine Appearance (Clear) Urine pH (4.5-7.5) Ur Specific [place] (1.000-1.030) Urine Protein (Negative) Urine Glucose (UA) (Negative) Urine Ketones (Negative) Urine Blood (Negative) Urine Nitrite (Negative) Urine Bilirubin (Negative) Urine Urobilinogen (Negative) Ur Leukocyte Esterase (Negative) COVID-19 Eval Order Covid19 at [facility] SARS-CoV-2 (PCR) (Negative) 04/02/21 04/03/21 Range/Units Unknown Unknown WBC (4.8-10.8) K/uL RBC (4.7-6.1) M/uL Hgb (14.0-18.0) g/dL Hct (42-52) % MCV (80-100) fL MCH (25-34) pg MCHC (32-36) g/dL RDW Std Deviation (36.4-46.3) fL RDW Coeff of Vijaya (11.5-14.5) % Plt Count (130-400) K/uL MPV (7.4-10.4) fL Immature Gran % (Auto) % Neut % (Auto) % Lymph % (Auto) % [place] % (Auto) % Eos % (Auto) % Baso % (Auto) % Neut # (Auto) (1.4-6.5) K/uL Lymph # (Auto) (1.2-3.4) K/uL [place] # (Auto) (0.11-0.59) K/uL Eos # (Auto) (0-0.5) K/uL Baso # (Auto) (0-0.2) K/uL Immature Gran # (Auto) (0.00-0.02) K/uL Sodium (136-145) mmol/L Potassium (3.5-5.1) mmol/L Chloride (98-107) mmol/L Carbon Dioxide (21-32) mmol/L Anion Gap (3-11) BUN (7-18) mg/dl Creatinine (0.6-1.4) mg/dl Est Cr Clr Drug Dosing ml/min Est GFR ( Amer) ml/min Est GFR (Non-Af Amer) ml/min BUN/Creatinine Ratio (10-20) Glucose (70-99) mg/dl Calcium (8.5-10.1) mg/dl Magnesium (1.8-2.4) mg/dl Total Bilirubin (0.2-1) mg/dl AST (15-37) U/L ALT (12-78) U/L Alkaline Phosphatase (45-117) U/L Troponin I (0-0.045) ng/ml Total Protein (6.4-8.2) gm/dl Albumin (3.4-5.0) gm/dl Globulin (2.5-4.0) gm/dl Albumin/Globulin Ratio (0.9-2) TSH (0.300-4.500) uIu/ml Urine Color Dark Yellow Urine Appearance Clear (Clear) Urine pH 5.5 (4.5-7.5) Ur Specific [place] 1.031 H (1.000-1.030) Urine Protein Negative (Negative) Urine Glucose (UA) Negative (Negative) Urine Ketones Trace H (Negative) Urine Blood Negative (Negative) Urine Nitrite Negative (Negative) Urine Bilirubin 1+ H (Negative) Urine Urobilinogen Negative (Negative) Ur Leukocyte Esterase Negative (Negative) COVID-19 Eval Order SARS-CoV-2 (PCR) NEGATIVE (Negative) Administered Medications Potassium Chloride 40 meq/ (Sodium Chloride) 1,020 mls @ 50 mls/hr IV .[id number] ONE Stop: 04/03/21 22:21 Last Admin: 04/03/21 02:30 Dose: 50 mls/hr Documented by: [id number] Magnesium Sulfate/Dextrose (Magnesium Sulfate / D5w) 1 gm in 100 mls @ 50 mls/hr IV ONE ONE Stop: 04/03/21 03:57 Last Admin: 04/03/21 02:28 Dose: 50 mls/hr Documented by: [id number] Discontinued Medications Sodium Chloride (Nss 1000ml) 1,000 mls @ 999 mls/hr IV .[id number] MAXIMILIANO Stop: 04/02/21 21:45 Last Admin: 04/02/21 21:06 Dose: Not Given Documented by: [id number] Sodium Chloride (Nss 1000ml) 500 mls @ 999 mls/hr IV .Q31M ONE Stop: 04/02/21 21:16 Last Infusion: 04/02/21 22:04 Dose: 999 mls/hr Documented by: [id number] Admin: 04/02/21 21:22 Dose: 999 mls/hr Documented by: [id number] Potassium Chloride (K Mak / Wtr) 10 meq in 100 mls @ 100 mls/hr IV ONE ONE Stop: 04/02/21 23:52 Last Infusion: 04/03/21 01:34 Dose: 100 mls/hr Documented by: [id number] Admin: 04/02/21 23:17 Dose: 100 mls/hr Documented by: [id number] Magnesium Sulfate/Dextrose (Magnesium Sulfate / D5w) 1 gm in 100 mls @ 100 mls/hr IV NOW STA Stop: 04/02/21 23:53 Last Infusion: 04/03/21 00:40 Dose: 100 mls/hr Documented by: [id number] Admin: 04/02/21 23:17 Dose: 100 mls/hr Documented by: [id number] Thiamine HCl 100 mg/ Syringe 10 mls @ 2 mls/min IV NOW STA Stop: 04/03/21 01:56 Last Admin: 04/03/21 02:26 Dose: 2 mls/min Documented by: [id number] Lidocaine (Lidocaine 5% 1 Patch) 1 patch TD ONE STA Stop: 04/02/21 23:37 Last Admin: 04/03/21 01:51 Dose: 1 patch Documented by: [id number] Lidocaine (Lidocaine 5% 1 Patch) Confirm Administered Dose 1 patch TD .STK-MED ONE Stop: 04/03/21 01:49 Last Admin: 04/03/21 02:15 Dose: Not Given Documented by: [id number] Oxycodone HCl (Oxycodone Hcl Ir 5 Mg Tab (Immediate Release)) 5 mg PO NOW STA Stop: 04/03/21 01:59 Last Admin: 04/03/21 02:30 Dose: 5 mg Documented by: [id number] Potassium Chloride (Potassium Chloride Crtab 20 Meq Tabcr) 40 meq PO NOW STA Stop: 04/02/21 22:54 Last Admin: 04/02/21 23:17 Dose: 40 meq Documented by: [id number] Potassium Chloride (Potassium Chloride Crtab 20 Meq Tabcr) 40 meq PO NOW STA Stop: 04/03/21 01:59 Last Admin: 04/03/21 02:28 Dose: 40 meq Documented by: [id number] Imaging Data Radiologist's Impression: Chest X-Ray 04/02/21 20:41 XR chest 1V portable CLINICAL HISTORY: SOB TECHNIQUE: Single frontal radiograph of the chest was obtained. Comparison: Comparison is made to chest one view 03/28/2021 FINDINGS: No lines and tubes are seen. Calcification of the aortic knob is noted. Cardiac silhouette is stably enlarged. The lungs are clear. There is blunting of the left costophrenic angle which may represent underlying effusion. No pneumothorax is seen. No right effusion is seen. IMPRESSION: Blunting of the left costophrenic angle which may represent a small pleural effusion. No airspace opacities are seen. ACT 112: Negative or not required by law. Electronically signed by: Deuce Witt M.D. 04/02/2021 8:[address] 04/02/21 20:41 CT head/brain wo con CLINICAL HISTORY: fall Technique: Contiguous axial CT images of the head were acquired from the base of the skull to the vertex without intravenous contrast administration. Images were viewed in brain, subdural and bone windows. Automated dose lowering techniques and/or adjustment according to patient size were utilized for this exam. Comparison: Comparison is made to CT head 06/15/2020 Findings: Areas of decreased attenuation are present in the periventricular and subcortical white matter bilaterally consistent with small vessel ischemic disease. Generalized cerebral atrophy with commensurate enlargement of the ventricles, sulci, and cisterns is also present. There is no acute intracranial hemorrhage or evidence of acute territorial infarction. No shift of the midline structures, mass effect, or extra-axial abnormalities are shown. Atherosclerotic calcifications are present in the intracranial segments of the internal carotid arteries. Imaged portions of the paranasal sinuses and mastoid air cells are clear. The orbits appear normal. There are no acute fractures of the calvaria or scalp swelling. Impression: No acute intracranial hemorrhage, evidence of acute territorial infarction, or other acute intracranial disease process. ACT 112: Negative or not required by law. Electronically signed by: Deuce Witt M.D. 04/02/2021 9:[address] 04/02/21 20:41 CT lumbar spine wo con CLINICAL HISTORY: fell again, hx of compression fx continued back pain. TECHNIQUE: Multidetector row helical CT of the lumbar spine was performed without administration of intravenous contrast. Coronal and sagittal reformations were obtained. Automated dose lowering techniques and/or adjustment according to patient size were utilized for this exam. Comparison: Comparison is made to CT lumbar spine 03/28/2021 FINDINGS: For counting purposes, the last complete intervertebral disc space is considered L5-S1. Again noted are compression fractures of L3 and L4 without retropulsion. In addition, there is new anterior wedge deformity of L1 with approximately 30% loss of height, without retropulsion of fragments. Degenerative changes are noted in the visualized spine. Vertebral body alignment is within normal limits. Surrounding soft tissues are unremarkable. IMPRESSION: New acute L1 compression fracture with anterior wedge deformity, without retropulsion. Redemonstration of L3 and L4 compression fractures which are unchanged from prior exam. ACT 112: Negative or not required by law. Electronically signed by: Deuce Witt M.D. 04/02/2021 9:19 PM Discharge Plan Visit Data Chief Complaint: Fall Stated Complaint: SOB ED Provider: Stevie Duque Discharge Problem: Fall, Hypokalemia, Hypomagnesemia, Closed compression fracture of L1 vertebra, Generalized weakness Forms Stand Alone Forms: My [facility] [employer] Prescriptions Prescriptions: No Action folic acid 1 mg Tablet 1 mg PO QAM Qty: 30 RF: 0 verapamil 180 mg tablet extended release 180 mg PO BID RF: 0 potassium chloride 20 mEq tablet,ER particles/crystals 20 meq PO DAILY RF: 0 tamsulosin 0.4 mg capsule 0.4 mg PO HS RF: 0 furosemide 20 mg tablet 20 mg PO DAILY RF: 0 azelastine 137 mcg (0.1 %) aerosol,spray 1 spray INTRANASAL BID PRN (Reason: Congestion) RF: 0 multivitamin with minerals [Multiple Vitamin-Minerals] Tablet 1 tab PO DAILY RF: 0 albuterol sulfate 90 mcg/actuation HFA aerosol inhaler 2 puff INHALATION Q4H PRN (Reason: Wheezing) RF: 0 Flovent HFA 110 mcg/actuation HFA aerosol inhaler 1 puff INHALATION DAILY RF: 0 buspirone 15 mg tablet 15 mg PO BID RF: 0 magnesium oxide 400 mg magnesium Tablet 400 mg PO DAILY RF: 0 montelukast 10 mg tablet 10 mg PO DAILY RF: 0 levothyroxine 125 mcg tablet 125 mcg PO QAM RF: 0 gabapentin 100 mg capsule 100 mg PO AMPM RF: 0 sertraline 100 mg tablet 100 mg PO DAILY RF: 0 Eliquis 5 mg tablet 5 mg PO BID RF: 0 trazodone 100 mg tablet 100 mg PO HS RF: 0 ferrous sulfate [FeroSul] 325 mg (65 mg iron) tablet 325 mg PO DAILY RF: 0 Referrals Referrals: Lidia Faulkner MD [Primary Care Provider] -
[2021-04-02] MEDS ORDERED: LIDOCAINE 5% 1 PATCH TD STA (23:36)
--- NOTE | 2021-04-03 01:41 | History & Physical Report ---
Date of Service April 03, 2021 Assessment & Plan (1) Hypokalemia: Plan: Secondary to home diuretic Rx for hx CHF chronic diastolic heart failure (EF 64%, TTE 2018), patient on the dry side Hypomagnesemia Multifactorial: Diuretic Rx ? Alcohol abuse Lumbar radiculopathy/compression fracture secondary to recurrent falls/ambulatory dysfunction A. fib on Eliquis, rate controlled COPD, past tobacco abuse, lung status at baseline Anemia, some progression from blood work from last ER visit, FOBT done at the ER was negative hypothyroidism, euthyroid as of today's TSH Medical telemetry Replace electrolytes Hold home diuretic for now Watch out for alcohol withdrawal Fall precautions PT OT eval Social service RE discharge planning DVT prophylaxis Eliquis Full code Patient requests that his daughter be updated of his progress. Ms. Ramandeep Isbell, contact #[phone]. Text document was generated using [employer] voice recognition software. It may contain grammatical or spelling errors. Kindly contact undersigned for clarification of any documentation item in question. History of Present Illness Chief Complaint: Fall Primary Care Provider: Lidia Faulkner MD History obtained from patient and records. Medical history significant for chronic diastolic heart failure (EF 64%, TTE 2018), valvular heart disease (mild AR, mild TR on TTE 2018), pulmonary hypertension on TTE , A. fib on Eliquis, hypertension, hyperlipidemia COPD, past tobacco abuse, daily alcohol intake, hypothyroidism, Araan's esophagus, history of avascular necrosis right hip, BPH, ALLEY (CPAP intolerance). Last confinement June 2020 for GI bleed in the setting of Coumadin Rx/supratherapeutic INR. EGD showed salmon-colored mucosa suspicious for short segment Arana's esophagus. Colonoscopy showed nonbleeding internal hemorrhoids and hyperplastic polyp. Patient discharged on Protonix. Patient Coumadin eventually transitioned to Eliquis outpatient. 5 days ago, patient noted low back/tailbone pain with some radiation to the right lower extremity after a fall at home. No head trauma, LOC. Patient denies chest pain or S OB. Patient seen at the ER. Lumbar spine CT showed acute compression fractures L3 and L4. No retropulsed fragments identified. Patient discharged home. Uncontrolled back pain at home. No unusual incontinence symptoms. Patient felt weak and lost balance again yesterday. Unable to get up. Posterior headache. Patient denies chest pain. Usual shortness of breath on exertion which patient attributes to his COPD. Patient brought to the ER for evaluation. Medical History as above Surgical History : Cataract surgery, hip surgery Family History : Stroke Personal/Social history : Past tobacco abuse, daily alcohol intake which patient occasionally feels excessive, retired from the [employer]. Allergies Allergy/AdvReac Type Severity Reaction Status Date / Time trazodone AdvReac Severe prolonged Verified 04/02/21 22:44 QTc cephalexin [From Keflex] AdvReac Hives Verified 04/02/21 22:44 Home Medications Medication Instructions Recorded Confirmed Type albuterol sulfate 90 mcg/actuation 2 puff INHALATION Q4H PRN 04/12/20 04/02/21 History aerosol inhaler azelastine 137 mcg (0.1 %) nasal 1 spray INTRANASAL BID PRN 04/12/20 04/02/21 History spray aerosol buspirone 15 mg tablet 15 mg PO BID 04/12/20 04/02/21 History fluticasone propionate 110 1 puff INHALATION DAILY 04/12/20 04/02/21 History mcg/actuation HFA aerosol inhaler (Flovent HFA) furosemide 20 mg tablet 20 mg PO DAILY 04/12/20 04/02/21 History magnesium oxide 400 mg PO DAILY 04/12/20 04/02/21 History multivitamin with minerals 1 tab PO DAILY 04/12/20 04/02/21 History (Multiple Vitamin-Minerals) potassium chloride 20 mEq 20 meq PO DAILY 04/12/20 04/02/21 History tablet,extended release(part/cryst) tamsulosin 0.4 mg capsule 0.4 mg PO HS 04/12/20 04/02/21 History verapamil 180 mg tablet,extended 180 mg PO BID 04/12/20 04/02/21 History release folic acid 1 mg tablet 1 mg PO QAM #30 tab 05/18/20 04/02/21 Rx apixaban 5 mg tablet (Eliquis) 5 mg PO BID 03/28/21 04/02/21 History ferrous sulfate 325 mg (65 mg 325 mg PO DAILY 03/28/21 04/02/21 History iron) tablet (FeroSul) gabapentin 100 mg capsule 100 mg PO AMPM 03/28/21 04/02/21 History levothyroxine 125 mcg tablet 125 mcg PO QAM 03/28/21 04/02/21 History montelukast 10 mg tablet 10 mg PO DAILY 03/28/21 04/02/21 History sertraline 100 mg tablet 100 mg PO DAILY 03/28/21 04/02/21 History trazodone 100 mg tablet 100 mg PO HS 03/28/21 04/02/21 History Past Med/Surg History Medical History Atrial fibrillation with RVR BPH (benign prostatic hyperplasia) Chronic atrial fibrillation Chronic heart failure with preserved ejection fraction (HFpEF) COPD (chronic obstructive pulmonary disease) Current use of long-term anticoagulation Depression with anxiety HLD (hyperlipidemia) HTN (hypertension) Melena ALLEY (obstructive sleep apnea) Intolerant to CPAP Prolonged QT interval Supratherapeutic INR Surgical History History of cataract extraction History of colonoscopy History of total left hip arthroplasty Family History Father Stroke Mother Stroke Social History Smoking Status: Never smoker Tobacco Type: Cigarettes Years Smoked: 18; Second Hand Exposure: No; Hx Alcohol Use: Yes Alcohol type: beer Alcohol Intake Frequency: 4 or More x per/Week Alcohol Intake Frequency Comment: 3-4 drinks nightly Hx Substance Use: No Preferred Language: Bulgarian Communication Ability: Effective Operating Room Registered Nurse Required: No Beliefs That Will Affect Care: None marital status: Current Living Situation: Spouse Feels Safe at Home: Hesitant to Answer Assistive Devices: Glasses Review of Systems Review of Systems: As per HPI, all 10 systems reviewed, episodic dark stools, all other ROS negative Physical Exam Physical Exam: GENERAL: Slightly uncomfortable, slightly hard of hearing, no respiratory distress SKIN: Pallor, warm HEENT: Bespectacled, pale palpebral conjunctivae, no ptosis, dry buccal mucosa NECK : Supple, no tenderness CHEST : Decreased breath sounds, no tenderness HEART : Irregular, no obvious murmurs ABDOMEN: Some distention, nontender RECTAL : Intact sphincter, dark stool stool (FOBT negative) BACK : Low back tenderness, positive straight leg raise test R EXTREMITIES : No LE swelling/tenderness, no other conspicuous deformities noted NEUROLOGIC : Coherent, no facial asymmetry, slightly hard of hearing, gait and stance not assessed Results & Data Results & Data ([facility]) Vital Signs (Past 12 Hours) Vital Signs Temp Pulse Resp BP Pulse Ox 04/03/21 00:40 79 21 97 04/03/21 00:30 83 23 124/73 96 04/03/21 00:20 83 24 96 04/03/21 00:10 90 20 97 04/03/21 00:00 86 18 97 04/02/21 23:50 77 24 96 04/02/21 23:40 15 04/02/21 23:30 81 26 H 98 04/02/21 23:20 82 20 98 04/02/21 23:10 81 22 117/67 97 04/02/21 23:00 85 23 96 04/02/21 22:50 86 22 126/73 98 04/02/21 22:40 80 20 98 04/02/21 22:30 87 26 H 97 04/02/21 22:20 86 21 97 04/02/21 22:10 79 18 98 04/02/21 22:00 88 17 99 04/02/21 21:50 85 22 99 04/02/21 21:40 84 23 94 04/02/21 21:30 78 24 118/74 98 04/02/21 21:20 82 20 98 04/02/21 21:11 93 H 18 98 04/02/21 20:50 96 H 22 102/60 93 04/02/21 20:40 83 16 99 04/02/21 20:30 85 20 98 04/02/21 20:23 36.5 C 83 22 102/60 98 04/02/21 20:20 81 22 99 04/02/21 20:12 79 21 91 Laboratory Results Laboratory Results WBC 6.48 K/uL (4.8-10.8) 04/02/21 20:49 RBC 3.90 M/uL (4.7-6.1) L 04/02/21 20:49 Hgb 12.9 g/dL (14.0-18.0) L 04/02/21 20:49 Hct 37.0 % (42-52) L 04/02/21 20:49 MCV 94.9 fL (80-100) 04/02/21 20:49 MCH 33.1 pg (25-34) 04/02/21 20:49 MCHC 34.9 g/dL (32-36) 04/02/21 20:49 RDW Std Deviation 53.1 fL (36.4-46.3) H 04/02/21 20:49 RDW Coeff of Vijaya 15.6 % (11.5-14.5) H 04/02/21 20:49 Plt Count 247 K/uL (130-400) 04/02/21 20:49 MPV 10.2 fL (7.4-10.4) 04/02/21 20:49 Immature Gran % (Auto) 0.2 % 04/02/21 20:49 Neut % (Auto) 80.6 % 04/02/21 20:49 Lymph % (Auto) 12.0 % 04/02/21 20:49 [place] % (Auto) 6.0 % 04/02/21 20:49 Eos % (Auto) 0.9 % 04/02/21 20:49 Baso % (Auto) 0.3 % 04/02/21 20:49 Neut # (Auto) 5.22 K/uL (1.4-6.5) 04/02/21 20:49 Lymph # (Auto) 0.78 K/uL (1.2-3.4) L 04/02/21 20:49 [place] # (Auto) 0.39 K/uL (0.11-0.59) 04/02/21 20:49 Eos # (Auto) 0.06 K/uL (0-0.5) 04/02/21 20:49 Baso # (Auto) 0.02 K/uL (0-0.2) 04/02/21 20:49 Immature Gran # (Auto) 0.01 K/uL (0.00-0.02) 04/02/21 20:49 Sodium 137 mmol/L (136-145) 04/02/21 20:49 Potassium 2.5 mmol/L (3.5-5.1) L* 04/02/21 20:49 Chloride 103 mmol/L (98-107) 04/02/21 20:49 Carbon Dioxide 24 mmol/L (21-32) 04/02/21 20:49 Anion Gap 10.0 (3-11) 04/02/21 20:49 BUN 13 mg/dl (7-18) 04/02/21 20:49 Creatinine 1.03 mg/dl (0.6-1.4) 04/02/21 20:49 Est Cr Clr Drug Dosing 57.3 ml/min 04/02/21 20:49 Est GFR ( Amer) 82.6 ml/min 04/02/21 20:49 Est GFR (Non-Af Amer) 71.2 ml/min 04/02/21 20:49 BUN/Creatinine Ratio 12.1 (10-20) 04/02/21 20:49 Glucose 96 mg/dl (70-99) 04/02/21 20:49 Calcium 8.4 mg/dl (8.5-10.1) L 04/02/21 20:49 Magnesium 1.5 mg/dl (1.8-2.4) L 04/02/21 20:49 Total Bilirubin 0.6 mg/dl (0.2-1) 04/02/21 20:49 AST 31 U/L (15-37) 04/02/21 20:49 ALT 18 U/L (12-78) 04/02/21 20:49 Alkaline Phosphatase 155 U/L (45-117) H 04/02/21 20:49 Troponin I < 0.015 ng/ml (0-0.045) 04/02/21 20:49 Total Protein 6.3 gm/dl (6.4-8.2) L 04/02/21 20:49 Albumin 2.5 gm/dl (3.4-5.0) L 04/02/21 20:49 Globulin 3.8 gm/dl (2.5-4.0) 04/02/21 20:49 Albumin/Globulin Ratio 0.7 (0.9-2) L 04/02/21 20:49 TSH 3.380 uIu/ml (0.300-4.500) 04/02/21 20:49 COVID-19 Eval Order Covid19 at [facility] 04/02/21 Unknown SARS-CoV-2 (PCR) NEGATIVE (Negative) 04/02/21 Unknown Impressions Chest X-Ray 04/02/21 20:41 XR chest 1V portable CLINICAL HISTORY: SOB TECHNIQUE: Single frontal radiograph of the chest was obtained. Comparison: Comparison is made to chest one view 03/28/2021 FINDINGS: No lines and tubes are seen. Calcification of the aortic knob is noted. Cardiac silhouette is stably enlarged. The lungs are clear. There is blunting of the left costophrenic angle which may represent underlying effusion. No pneumothorax is seen. No right effusion is seen. IMPRESSION: Blunting of the left costophrenic angle which may represent a small pleural effusion. No airspace opacities are seen. ACT 112: Negative or not required by law. Electronically signed by: Deuce Witt M.D. 04/02/2021 8:[address] 04/02/21 20:41 CT head/brain wo con CLINICAL HISTORY: fall Technique: Contiguous axial CT images of the head were acquired from the base of the skull to the vertex without intravenous contrast administration. Images were viewed in brain, subdural and bone windows. Automated dose lowering techniques and/or adjustment according to patient size were utilized for this exam. Comparison: Comparison is made to CT head 06/15/2020 Findings: Areas of decreased attenuation are present in the periventricular and subcortical white matter bilaterally consistent with small vessel ischemic disease. Generalized cerebral atrophy with commensurate enlargement of the ventricles, sulci, and cisterns is also present. There is no acute intracranial hemorrhage or evidence of acute territorial infarction. No shift of the midline structures, mass effect, or extra-axial abnormalities are shown. Atherosclerotic calcifications are present in the intracranial segments of the internal carotid arteries. Imaged portions of the paranasal sinuses and mastoid air cells are clear. The orbits appear normal. There are no acute fractures of the calvaria or scalp swelling. Impression: No acute intracranial hemorrhage, evidence of acute territorial infarction, or other acute intracranial disease process. ACT 112: Negative or not required by law. Electronically signed by: Deuce Witt M.D. 04/02/2021 9:[address] 04/02/21 20:41 CT lumbar spine wo con CLINICAL HISTORY: fell again, hx of compression fx continued back pain. TECHNIQUE: Multidetector row helical CT of the lumbar spine was performed without administration of intravenous contrast. Coronal and sagittal reformations were obtained. Automated dose lowering techniques and/or adjustment according to patient size were utilized for this exam. Comparison: Comparison is made to CT lumbar spine 03/28/2021 FINDINGS: For counting purposes, the last complete intervertebral disc space is considered L5-S1. Again noted are compression fractures of L3 and L4 without retropulsion. In addition, there is new anterior wedge deformity of L1 with approximately 30% loss of height, without retropulsion of fragments. Degenerative changes are noted in the visualized spine. Vertebral body alignment is within normal limits. Surrounding soft tissues are unremarkable. IMPRESSION: New acute L1 compression fracture with anterior wedge deformity, without retropulsion. Redemonstration of L3 and L4 compression fractures which are unchanged from prior exam. ACT 112: Negative or not required by law. Electronically signed by: Deuce Witt M.D. 04/02/2021 9:19 PM Diagnostic Findings EKG as per my interpretation: Rate 80, A. fib, LAD, LAFB, inferior infarct, diffuse T wave abnormalities, multiple artifacts
[2021-04-03] MEDS ORDERED: LIDOCAINE 5% 1 PATCH TD ONE (01:48)
[2021-04-03] MEDS ORDERED: THIAMINE HCL 100 MG in SYRINGE 9 ML IV STA (01:52)
[2021-04-03] MEDS ORDERED: POTASSIUM CHLORIDE CRTAB 20 MEQ TABCR PO STA (01:58)
[2021-04-03] MEDS ORDERED: MAGNESIUM SULFATE / D5W 1 GM/100 ML BAG IV ONE (01:58)
[2021-04-03] MEDS ORDERED: oxyCODONE HCL IR 5 MG TAB (IMMEDIATE RELEASE) PO STA (01:58)
[2021-04-03] MEDS ORDERED: POTASSIUM CHLORIDE 40 MEQ in SODIUM CHLORIDE 0.9% 1000ML 1,000 ML IV ONE (01:58)
[2021-04-03 01:59] LABS: Appearance Urine Clear (Clear); Blood Urine Negative (Negative); Color Urine Dark Yellow; Glucose Urine UA Negative (Negative); Ketones Urine Trace (Negative); Leukocyte Esterase Urine Negative (Negative); Nitrite Urine Negative (Negative); Protein Urine Negative (Negative); Specific Gravity Urine 1.031 (1.000-1.030); Urobilinogen Urine Negative (Negative); pH Urine 5.5 (4.5-7.5)
[2021-04-03 02:04] LABS: Bilirubin Urine 1+ (Negative)
[2021-04-03] MEDS ORDERED: POTASSIUM CHLORIDE CRTAB 20 MEQ TABCR PO ONE (04:30)
[2021-04-03] MEDS ORDERED: LORazepam 0.5 MG/1 ML VIAL IV PRN (04:55)
[2021-04-03] MEDS ORDERED: PROMETHAZINE HCL 12.5 MG in SODIUM CHLORIDE 0.9% 50 ML IV PRN (04:55)
[2021-04-03 06:06] LABS: Basophils # (auto) 0.01 K/uL (0-0.2); Basophils % (auto) 0.2 %; Eosinophils # (auto) 0.03 K/uL (0-0.5); Eosinophils % (auto) 0.7 %; Hematocrit (blood only) 33.8 % (42-52); Hemoglobin 11.9 g/dL (14.0-18.0); Lymphocytes # (auto) 0.88 K/uL (1.2-3.4); Lymphocytes % (auto) 21.1 %; Mean Corpuscular Hemoglobin 33.3 pg (25-34); Mean Corpuscular Hgb Conc 35.2 g/dL (32-36); Mean Corpuscular Volume 94.7 fL (80-100); Mean Platelet Volume 9.7 fL (7.4-10.4); Monocytes # (auto) 0.27 K/uL (0.11-0.59); Monocytes % (auto) 6.5 %; Neutrophils # (auto) 2.99 K/uL (1.4-6.5); Neutrophils % (auto) 71.5 %; Platelet Count 185 K/uL (130-400); RDW Coefficient of Variation 15.5 % (11.5-14.5); Red Blood Count 3.57 M/uL (4.7-6.1); White Blood Count 4.18 K/uL (4.8-10.8)
[2021-04-03] MEDS: LEVOTHYROXINE SODIUM 125 MCG TABLET PO SCH (06:33)
[2021-04-03] MEDS: GABAPENTIN 100 MG CAP PO SCH ×2 (06:33→21:35)
[2021-04-03 06:43] LABS: BUN Creatinine Ratio 14.7 (10-20); Calcium 8.3 mg/dl (8.5-10.1); Creatinine Clr Calc Pharmacy 73.8 ml/min; Magnesium 2.2 mg/dl (1.8-2.4); Potassium 3.4 mmol/L (3.5-5.1)
[2021-04-03] MEDS ORDERED: [UNRECOGNIZED DRUG - OTHER] PO SCH (09:00)
[2021-04-03] MEDS ORDERED: FOLIC ACID 1 MG TAB PO SCH (09:00)
[2021-04-03] MEDS ORDERED: MULTIVITAMIN WITH MINERALS PO SCH (09:00)
[2021-04-03] MEDS: busPIRone 15 MG TAB PO SCH ×2 (09:31→21:37)
[2021-04-03] MEDS: APIXABAN 5 MG TABLET PO SCH ×2 (09:31→21:36)
[2021-04-03] MEDS: MONTELUKAST SODIUM 10 MG TABLET PO SCH (09:32)
[2021-04-03] MEDS: FERROUS SULFATE 325 MG TAB PO SCH (09:32)
[2021-04-03] MEDS: MULTIVITAMIN TAB PO SCH (09:32)
[2021-04-03] MEDS: MAGNESIUM OXIDE 400 MG TAB PO SCH (09:32)
[2021-04-03] MEDS: FLUTICASONE FUROATE 100MCG 14 PUFFS/INHALER INH SCH (09:32)
[2021-04-03] MEDS: VERAPAMIL HCL 180 MG TABCR PO SCH ×2 (09:33→21:35)
[2021-04-03] MEDS: POTASSIUM CHLORIDE CRTAB 20 MEQ TABCR PO SCH ×2 (09:33→21:36)
[2021-04-03] MEDS: SERTRALINE HCL 100 MG TABLET PO SCH (09:34)
[2021-04-03] MEDS ORDERED: LORazepam 1 MG TAB PO PRN (16:11)
[2021-04-03] MEDS ORDERED: THIAMINE HCL 100 MG/ML 2 ML VIAL IM STA (16:11)
--- NOTE | 2021-04-03 16:11 | Hospitalist Progress Note ---
Date of Service April 03, 2021 Assessment & Plan (1) Fall: Plan: PT/OT evaluation (2) Closed compression fracture of L1 vertebra: Plan: Lumbar radiculopathy/compression fracture secondary to recurrent falls/ambulatory dysfunction. Recent electrolyte disturbance, medications and chronic heavy alcohol use may all be contributing. Cont supportive care with pain management and request ortho spine evaluation for consideration of surgical treatment or brace therapy. PT/OT to assess prior to discharge. (3) Hypokalemia: Plan: Secondary to home diuretic Rx forchronic diastolic heart failure. No evidence of overload. Potassium has been replaced since admission. BMP in am. Also, check Mg and replace as needed. (4) Hypomagnesemia: Plan: Replaced and now within normal range. (5) Alcohol abuse: Plan: Lorazepam PRN, CIWA assessment for withdrawal. Daily thiamine and folate. Currently no signs of withdrawal (6) Depression with anxiety: Plan: cont Buspar and sertraline per home regimen. (7) ALLEY (obstructive sleep apnea): Plan: intolerant of CPAP mask per notes. (8) Chronic atrial fibrillation: Plan: A. fib on Eliquis, rate controlled (9) DVT prophylaxis: Plan: Eliquis Full Code Dispo-pending PT/OT recommendations. Nasrin Anderson DO [facility] Hospitalist Admission and Anticipated Discharge Date Admission Date: April 03, 2021 Subjective 75 yo M with pain in lower back after a fall. He has recently taken pain meds and reports some fatigue. His story is somewhat wandering, also. Pt reports a history of heavy alcohol use, including 2-3 vodka drinks daily. He has sustai anisa multiple recurrent falls with the last being just outside the [employer] [place]. He feels this was related to his potassium being low and agrees alcohol may have contributed. He reports a h/o COPD and atrial fibrillation and reports chronic shortness of breath with no chest pain but "I have pings" that happen on occasion. No current chest pain present at this time. Review of Systems Review of Systems: At least ten systems were reviewed and negative except as indicated in HPI above. Physical Exam Physical Exam: CONSTITUTIONAL: WNWD, vitals as above, generally well- appearing, NAD EYES: normal conjunctivae, no scleral icterus ENT: external ear and nose normal, MMM NECK: trachea midline RESPIRATORY: clear to auscultation bilaterally, no crackles, rales or wheezes, normal respiratory effort CARDIOVASCULAR: regular rate and rhythm, S1 and 2 heard without murmurs, gallops or rubs, no JVD, no peripheral edema GASTROINTESTINAL: soft, nontender, nondistended, no guarding. MUSCULOSKELETAL: strength 5/5 throughout, head is normocephalic and atraumatic,he is able to reposition himself independently and sit on the edge of the bed. No paraspinal muscle tenderness. No spinous process tenderness on palpation. Lower extremity strength is 5/5 throughout and sensation is intact. 2/4 DTR in knees bilaterally. Dorsi and plantarflexion is intact bilaterally. There is no other apparent trauma from a fall that is visible externally. SKIN: warm and dry NEUROLOGIC: patellar DTRs 2+ bilat. No facial palsy, no dysarthria. CN 2-12 grossly intact, no sensory deficit, slight fatigue, normal speech, no tremor PSYCHIATRIC: alert cooperative and oriented to person, place and time. Results & Data Results & Data ([facility]) Vital Signs (Past 12 Hours) Vital Signs Temp Pulse Resp BP Pulse Ox 04/03/21 12:00 37 C 77 18 113/70 98 04/03/21 08:00 36.8 C 87 18 136/89 98 Laboratory Results Short CBC 04/02/21 04/03/21 Range/Units 20:49 05:57 WBC 6.48 4.18 L (4.8-10.8) K/uL Hgb 12.9 L 11.9 L (14.0-18.0) g/dL Hct 37.0 L 33.8 L (42-52) % Plt Count 247 185 (130-400) K/uL BMP 04/02/21 04/03/21 20:49 05:57 Sodium 137 139 Potassium 2.5 L* 3.4 L D Chloride 103 108 H Carbon Dioxide 24 25 BUN 13 12 Creatinine 1.03 0.80 Glucose 96 100 H Calcium 8.4 L 8.3 L Cardiac Enzymes 04/02/21 Range/Units 20:49 Troponin I < 0.015 (0-0.045) ng/ml Liver Function 04/02/21 Range/Units 20:49 Total Bilirubin 0.6 (0.2-1) mg/dl AST 31 (15-37) U/L ALT 18 (12-78) U/L Alkaline Phosphatase 155 H (45-117) U/L Albumin 2.5 L (3.4-5.0) gm/dl Urine 04/03/21 Range/Units Unknown Urine Color Dark Yellow Urine Appearance Clear (Clear) Urine pH 5.5 (4.5-7.5) Ur Specific [place] 1.031 H (1.000-1.030) Urine Protein Negative (Negative) Urine Glucose (UA) Negative (Negative) Medications Administered Current Inpatient Medications Acetaminophen (Acetaminophen 325 Mg Tab) 650 mg PO Q4H PRN PRN Reason: Pain or Fever Stop: 05/03/21 04:54 Apixaban (Apixaban 5 Mg Tablet) 5 mg PO BID MAXIMILIANO Stop: 05/03/21 08:59 Last Admin: 04/03/21 09:31 Dose: 5 mg Documented by: Buspirone HCl (Buspirone 15 Mg Tab) 15 mg PO BID MAXIMILIANO Stop: 05/03/21 08:59 Last Admin: 04/03/21 09:31 Dose: 15 mg Documented by: Ferrous Sulfate (Ferrous Sulfate 325 Mg Tab) 325 mg PO DAILY MAXIMILIANO Stop: 05/03/21 08:59 Last Admin: 04/03/21 09:32 Dose: 325 mg Documented by: Fluticasone Furoate (Fluticasone Furoate 100mcg 14 Puffs/Inhaler) 1 puffs INH DAILY MAXIMILIANO Stop: 05/03/21 08:59 Last Admin: 04/03/21 09:32 Dose: 1 puffs Documented by: Folic Acid (Folic Acid 1 Mg Tab) 1 mg PO QAM MAXIMILIANO Stop: 05/03/21 08:59 Last Admin: 04/03/21 09:32 Dose: 1 mg Documented by: Gabapentin (Gabapentin 100 Mg Cap) 100 mg PO BID MAXIMILIANO Stop: 05/03/21 05:14 Last Admin: 04/03/21 06:33 Dose: 100 mg Documented by: Potassium Chloride 40 meq/ (Sodium Chloride) 1,020 mls @ 50 mls/hr IV .[id number] ONE Stop: 04/03/21 22:21 Last Admin: 04/03/21 02:30 Dose: 50 mls/hr Documented by: Promethazine HCl 12.5 mg/ (Sodium Chloride) 50.5 mls @ 202 mls/hr IV Q6H PRN PRN Reason: Nausea And Vomiting Stop: 05/03/21 04:54 Lorazepam (Ativan) 0.5 mg in 1 mls @ 1 mls/min IV Q4H PRN PRN Reason: Anxiety/Agitation Stop: 05/03/21 04:54 Levothyroxine Sodium (Levothyroxine Sodium 125 Mcg Tablet) 125 mcg PO DAILYBB [facility] Stop: 05/03/21 06:29 Last Admin: 04/03/21 06:33 Dose: 125 mcg Documented by: Lidocaine (Lidocaine 5% 1 Patch) 1 patch TD [facility] Stop: 05/03/21 20:59 Magnesium Oxide (Magnesium Oxide 400 Mg Tab) 400 mg PO DAILY [facility] Stop: 05/03/21 08:59 Last Admin: 04/03/21 09:32 Dose: 400 mg Documented by: Miscellaneous (Remove Lidoderm Patch) [facility] Stop: 05/03/21 08:59 Last Admin: 04/03/21 09:33 Dose: 1 ea Documented by: Montelukast Sodium (Montelukast Sodium 10 Mg Tablet) 10 mg PO DAILY [facility] Stop: 05/03/21 08:59 Last Admin: 04/03/21 09:32 Dose: 10 mg Documented by: Multivitamins (Multivitamin Tab) 1 tab PO [facility] Stop: 05/03/21 08:59 Last Admin: 04/03/21 09:32 Dose: 1 tab Documented by: Oxycodone HCl (Oxycodone Hcl Ir 5 Mg Tab (Immediate Release)) 5 mg PO Q4H PRN PRN Reason: Pain Stop: 04/17/21 04:54 Potassium Chloride (Potassium Chloride Crtab 20 Meq Tabcr) 20 meq PO BID [facility] Stop: 05/03/21 08:59 Last Admin: 04/03/21 09:33 Dose: 20 meq Documented by: Sertraline HCl (Sertraline Hcl 100 Mg Tablet) 100 mg PO DAILY [facility] Stop: 05/03/21 08:59 Last Admin: 04/03/21 09:34 Dose: 100 mg Documented by: Tamsulosin HCl (Tamsulosin Hcl 0.4 Mg Cap) 0.4 mg PO [facility] Stop: 05/03/21 20:59 Thiamine HCl (Thiamine Hcl 100 Mg Tab) [facility] Stop: 05/04/21 08:59 Trazodone HCl (Trazodone Hcl 100 Mg Tab) 100 mg PO HS MAXIMILIANO Stop: 05/03/21 20:59 Verapamil HCl (Verapamil Hcl 180 Mg Tabcr) 180 mg PO BID MAXIMILIANO Stop: 05/03/21 08:59 Last Admin: 04/03/21 09:33 Dose: 180 mg Documented by:
[2021-04-03] MEDS: THIAMINE HCL 100 MG TAB PO SCH (17:43)
[2021-04-03] MEDS: FOLIC ACID 1 MG TAB PO SCH (17:43)
[2021-04-03] MEDS: TAMSULOSIN HCL 0.4 MG CAP PO SCH (21:37)
[2021-04-03] MEDS: traZODone HCL 100 MG TAB PO SCH (21:37)
[2021-04-03] MEDS: LIDOCAINE 5% 1 PATCH TD SCH (21:42)
[2021-04-03] MEDS: oxyCODONE HCL IR 5 MG TAB (IMMEDIATE RELEASE) PO PRN (21:53)
[2021-04-04] MEDS: LEVOTHYROXINE SODIUM 125 MCG TABLET PO SCH (05:45)
[2021-04-04 07:15] LABS: Basophils # (auto) 0.02 K/uL (0-0.2); Basophils % (auto) 0.5 %; Eosinophils # (auto) 0.11 K/uL (0-0.5); Eosinophils % (auto) 2.7 %; Hematocrit (blood only) 34.2 % (42-52); Hemoglobin 11.4 g/dL (14.0-18.0); Immature Granulocytes # (auto) 0.02 K/uL (0.00-0.02); Immature Granulocytes % (auto) 0.5 %; Lymphocytes # (auto) 1.01 K/uL (1.2-3.4); Lymphocytes % (auto) 25.2 %; Mean Corpuscular Hemoglobin 32.7 pg (25-34); Mean Corpuscular Hgb Conc 33.3 g/dL (32-36); Mean Platelet Volume 9.4 fL (7.4-10.4); Monocytes # (auto) 0.35 K/uL (0.11-0.59); Monocytes % (auto) 8.7 %; Neutrophils % (auto) 62.4 %; Platelet Count 167 K/uL (130-400); RDW Coefficient of Variation 16.3 % (11.5-14.5); RDW Standard Deviation 57.1 fL (36.4-46.3); Red Blood Count 3.49 M/uL (4.7-6.1); White Blood Count 4.01 K/uL (4.8-10.8)
[2021-04-04 07:58] LABS: BUN Creatinine Ratio 15.8 (10-20); Calcium 8.9 mg/dl (8.5-10.1); Creatinine Clr Calc Pharmacy 86.8 ml/min; Est GFR (African American) 109.7 ml/min; Est GFR (Non-African American) 94.7 ml/min; Magnesium 2.1 mg/dl (1.8-2.4); Potassium 4.3 mmol/L (3.5-5.1)
[2021-04-04] MEDS ORDERED: THIAMINE HCL 100 MG TAB PO SCH (09:00)
[2021-04-04] MEDS: FLUTICASONE FUROATE 100MCG 14 PUFFS/INHALER INH SCH (09:05)
[2021-04-04] MEDS: MONTELUKAST SODIUM 10 MG TABLET PO SCH (09:06)
[2021-04-04] MEDS: THIAMINE HCL 100 MG TAB PO SCH (09:06)
[2021-04-04] MEDS: FOLIC ACID 1 MG TAB PO SCH (09:06)
[2021-04-04] MEDS: MULTIVITAMIN TAB PO SCH (09:06)
[2021-04-04] MEDS: SERTRALINE HCL 100 MG TABLET PO SCH (09:06)
[2021-04-04] MEDS: MAGNESIUM OXIDE 400 MG TAB PO SCH (09:06)
[2021-04-04] MEDS: APIXABAN 5 MG TABLET PO SCH ×2 (09:06→20:50)
[2021-04-04] MEDS: VERAPAMIL HCL 180 MG TABCR PO SCH ×2 (09:06→20:51)
[2021-04-04] MEDS: FERROUS SULFATE 325 MG TAB PO SCH (09:06)
[2021-04-04] MEDS: busPIRone 15 MG TAB PO SCH ×2 (09:07→20:48)
[2021-04-04] MEDS: GABAPENTIN 100 MG CAP PO SCH ×2 (09:07→20:48)
[2021-04-04] MEDS: POTASSIUM CHLORIDE CRTAB 20 MEQ TABCR PO SCH (09:07)
[2021-04-04] MEDS: oxyCODONE HCL IR 5 MG TAB (IMMEDIATE RELEASE) PO PRN ×2 (09:12→14:21)
--- NOTE | 2021-04-04 17:54 | Hospitalist Progress Note ---
Date of Service April 04, 2021 Assessment & Plan (1) Fall: (2) Closed compression fracture of L3 vertebra: (3) Closed compression fracture of L1 vertebra: (4) Compression fracture of L4 vertebra: Plan: #. Fall: Fall precaution PT/OT evaluation - to SNF on DC. #. Closed compression fracture of L1 vertebra: Lumbar radiculopathy/compression fracture secondary to recurrent falls/ambulatory dysfunction. Recent electrolyte disturbance, medications and chronic heavy alcohol use may all be contributing. Cont supportive care with pain management and request ortho spine evaluation for consideration of surgical treatment or brace therapy. Continue with PT/OT, await orthopedics recommendation. #. Hypokalemia: #. Hypomagnesium Secondary to home diuretic Rx for chronic diastolic heart failure versus diarrhea [employer] [diarrhea resolved]. No evidence of overload. Potassium has been replaced since admission. Daily BMP. Potassium supplementation decreased to home dose. Resume Lasix while inpatient and monitor potassium daily. Also, check Mg and replace as needed. #. Alcohol abuse: Lorazepam PRN, CIWA assessment for withdrawal. Daily thiamine and folate. Currently no signs of withdrawal #. Depression with anxiety: cont Buspar and sertraline per home regimen. #. ALLEY (obstructive sleep apnea): intolerant of CPAP mask per notes. #. Chronic atrial fibrillation: A. fib on Eliquis, rate controlled #. DVT prophylaxis: Eliquis Full Code Dispo-PT/OT, recommending SNF. CM to assist with DC planning. Admission and Anticipated Discharge Date Admission Date: April 03, 2021 Subjective Patient lying semiupright, on room air, NAD, no acute events overnight. Reports some low back pain but it is under control. Patient denies any headache/dizziness/chest pain/palpitation/other review of symptoms. Is eating and moving bowels okay. Physical Exam Physical Exam: GENERAL: Alert and oriented x3. NAD, on RA. HEENT: No pallor, no icterus. Pupils equal, round and reactive to light. Oral mucosa moist. NECK: No JVD, no neck masses. HEART: S1 and S2 heard. Regular rate and rhythm. No murmur, no gallop. RESPIRATORY SYSTEM: Normal AP diameter. No accessory muscle use. No wheezing, no crackles. ABDOMEN: Soft, bowel sounds present, nontender, no distention. CENTRAL NERVOUS SYSTEM: Alert and oriented x3. No facial droop. Speech is clear. Obeys simple commands. Moves extremities. EXTREMITIES: No edema, no erythema seen. Results & Data Results & Data ([facility]) Vital Signs (Past 12 Hours) Vital Signs Temp Pulse Pulse Resp BP BP Pulse Ox 04/04/21 16:13 85 04/04/21 15:10 36.4 C L 73 18 117/69 95 04/04/21 11:15 36.6 C 71 18 117/66 96 04/04/21 07:44 36.4 C L 74 18 120/77 97 04/04/21 07:34 66 (1) Fall Encounter type: initial encounter Qualified Code(s): W19.XXXA - Unspecified fall, initial encounter
[2021-04-04] MEDS: traZODone HCL 100 MG TAB PO SCH (20:48)
[2021-04-04] MEDS: LIDOCAINE 5% 1 PATCH TD SCH (20:51)
[2021-04-04] MEDS: TAMSULOSIN HCL 0.4 MG CAP PO SCH (20:51)
[2021-04-05] MEDS: LEVOTHYROXINE SODIUM 125 MCG TABLET PO SCH (05:33)
[2021-04-05 07:16] LABS: BUN Creatinine Ratio 14.9 (10-20); Calcium 9.2 mg/dl (8.5-10.1); Creatinine Clr Calc Pharmacy 93.2 ml/min; Est GFR (African American) 112.5 ml/min; Est GFR (Non-African American) 97.1 ml/min; Potassium 4.4 mmol/L (3.5-5.1)
[2021-04-05] MEDS: FLUTICASONE FUROATE 100MCG 14 PUFFS/INHALER INH SCH (08:54)
[2021-04-05] MEDS: POTASSIUM CHLORIDE CRTAB 20 MEQ TABCR PO SCH (08:54)
[2021-04-05] MEDS: busPIRone 15 MG TAB PO SCH ×2 (08:54→21:04)
[2021-04-05] MEDS: MULTIVITAMIN TAB PO SCH (08:55)
[2021-04-05] MEDS: SERTRALINE HCL 100 MG TABLET PO SCH (08:55)
[2021-04-05] MEDS: VERAPAMIL HCL 180 MG TABCR PO SCH ×2 (08:55→20:59)
[2021-04-05] MEDS: APIXABAN 5 MG TABLET PO SCH ×2 (08:55→21:04)
[2021-04-05] MEDS: MAGNESIUM OXIDE 400 MG TAB PO SCH (08:55)
[2021-04-05] MEDS: FERROUS SULFATE 325 MG TAB PO SCH (08:55)
[2021-04-05] MEDS: THIAMINE HCL 100 MG TAB PO SCH (08:55)
[2021-04-05] MEDS: FOLIC ACID 1 MG TAB PO SCH (08:56)
[2021-04-05] MEDS: GABAPENTIN 100 MG CAP PO SCH ×2 (08:56→21:03)
[2021-04-05] MEDS: FUROSEMIDE 20 MG TAB PO SCH (08:56)
[2021-04-05] MEDS: MONTELUKAST SODIUM 10 MG TABLET PO SCH (08:56)
[2021-04-05] MEDS: oxyCODONE HCL IR 5 MG TAB (IMMEDIATE RELEASE) PO PRN ×2 (09:19→16:46)
--- NOTE | 2021-04-05 15:35 | Magnetic Resonance Report ---
LUMBAR SPINE MRI HISTORY: back and leg pain TECHNIQUE: Multiplanar multisequence MRI of the lumbar spine was performed without the use of contras t. COMPARISON: Lumbar spine CT 04/02/2021. FINDINGS: For the purpose of the report the L5-S1 disc space will be located on axial image 27 of 30. There again noted acute mild to moderate anterior wedge-shaped superior endplate compression fracture s at L1, L3, and L4. These demonstrate up to 30% loss of height. No associated retropulsion. There is motion artifact seen throughout the lumbar spine resulting in suboptimal evaluation. Paravertebral e cj adjacent to the fracture sites is expected. No epidural fluid collections identified. The conus terminates at the L1 level. Mild disc space narrowing at L2-L3, L3-L4, and L5-S1. The visualized sacr um appears intact. L1-L2: No significant central canal or neural foraminal narrowing. L2-L3: Small broad-based posterior disc bulge without significant central canal or neural foraminal n arrowing. L3-L4: Small broad-based posterior disc bulge without significant central canal or neural foraminal n arrowing. L4-L5: Small broad-based posterior disc bulge asymmetric to the right without significant central can al or right-sided neural foraminal narrowing. There is mild left-sided neural foraminal narrowing. L5-S1: No significantly central canal or left-sided neural foraminal narrowing. There is moderate rig ht-sided neural foraminal narrowing due to a small broad-based posterior disc bulge and facet hypertr ophy. IMPRESSION: 1. Mild to moderate acute superior endplate compression fractures at L1, L3, L4 again noted. No assoc iated retropulsion. 2. Mild degenerative changes as described above. ACT 112: Negative or not required by law. Electronically signed by: Tavon Faulkner M.D. 04/05/2021 3:34 PM
--- NOTE | 2021-04-05 17:55 | Hospitalist Progress Note ---
Date of Service April 05, 2021 Assessment & Plan (1) Fall: (2) Closed compression fracture of L3 vertebra: (3) Closed compression fracture of L1 vertebra: (4) Compression fracture of L4 vertebra: Plan: #. Fall: Fall precaution PT/OT evaluation - to SNF on DC. #. Closed compression fracture of L1 vertebra: Lumbar radiculopathy/compression fracture secondary to recurrent falls/ambulatory dysfunction. Recent electrolyte disturbance, medications and chronic heavy alcohol use may all be contributing. Cont supportive care with pain management and request ortho spine evaluation for consideration of surgical treatment or brace therapy. 04/05 lumbar spine MRI: Mild to moderate acute superior endplate compression fractures at L1, L3, L4 with no associated retropulsion. Continue with PT/OT with Ortho's recs, await orthopedics recommendation. #. Hypokalemia: #. 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 No evidence of overload. Potassium has been replaced since admission. Daily BMP. Potassium supplementation decreased to home dose. Continue with home Lasix while inpatient and monitor potassium daily. Also, check Mg and replace as needed. #. Alcohol abuse: Lorazepam PRN, CIWA assessment for withdrawal. Daily thiamine and folate. Currently no signs of withdrawal #. Depression with anxiety: cont Buspar and sertraline per home regimen. #. ALLEY (obstructive sleep apnea): intolerant of CPAP mask per notes. #. Chronic atrial fibrillation: A. fib on Eliquis, rate controlled #. DVT prophylaxis: Eliquis Full Code Dispo-PT/OT, recommending SNF. CM to assist with DC planning. Admission and Anticipated Discharge Date Admission Date: April 03, 2021 Subjective Patient lying semiupright, on room air, NAD, no acute events overnight. Reports some low back pain but it is under control. Patient denies any headache/dizziness/chest pain/palpitation/other review of symptoms. Is eating and moving bowels okay. Physical Exam Physical Exam: GENERAL: Alert and oriented x3. NAD, on RA. HEENT: No pallor, no icterus. Pupils equal, round and reactive to light. Oral mucosa moist. NECK: No JVD, no neck masses. HEART: S1 and S2 heard. Regular rate and rhythm. No murmur, no gallop. RESPIRATORY SYSTEM: Normal AP diameter. No accessory muscle use. No wheezing, no crackles. ABDOMEN: Soft, bowel sounds present, nontender, no distention. CENTRAL NERVOUS SYSTEM: Alert and oriented x3. No facial droop. Speech is clear. Obeys simple commands. Moves extremities. EXTREMITIES: No edema, no erythema seen. Results & Data Results & Data ([facility]) Vital Signs (Past 12 Hours) Vital Signs Temp Pulse Pulse Resp BP Pulse Ox 04/05/21 14:57 76 04/05/21 11:05 36.6 C 63 18 94/55 L 96 04/05/21 07:35 67 04/05/21 07:16 36.6 C 67 18 105/52 L 95 (1) Fall Encounter type: initial encounter Qualified Code(s): W19.XXXA - Unspecified fall, initial encounter
[2021-04-05] MEDS: traZODone HCL 100 MG TAB PO SCH (21:00)
[2021-04-05] MEDS: TAMSULOSIN HCL 0.4 MG CAP PO SCH (21:00)
[2021-04-05] MEDS: LIDOCAINE 5% 1 PATCH TD SCH (21:01)
[2021-04-06] MEDS: LEVOTHYROXINE SODIUM 125 MCG TABLET PO SCH (05:41)
[2021-04-06 08:30] LABS: BUN Creatinine Ratio 14.1 (10-20); Calcium 9.2 mg/dl (8.5-10.1); Creatinine Clr Calc Pharmacy 97.1 ml/min; Est GFR (African American) 114.8 ml/min; Est GFR (Non-African American) 99.1 ml/min; Potassium 4.4 mmol/L (3.5-5.1)
[2021-04-06] MEDS: busPIRone 15 MG TAB PO SCH ×2 (08:31→20:06)
[2021-04-06] MEDS: THIAMINE HCL 100 MG TAB PO SCH (08:31)
[2021-04-06] MEDS: MAGNESIUM OXIDE 400 MG TAB PO SCH (08:31)
[2021-04-06] MEDS: VERAPAMIL HCL 180 MG TABCR PO SCH ×2 (08:31→20:07)
[2021-04-06] MEDS: SERTRALINE HCL 100 MG TABLET PO SCH (08:32)
[2021-04-06] MEDS: FUROSEMIDE 20 MG TAB PO SCH (08:32)
[2021-04-06] MEDS: APIXABAN 5 MG TABLET PO SCH ×2 (08:32→20:06)
[2021-04-06] MEDS: MULTIVITAMIN TAB PO SCH (08:32)
[2021-04-06] MEDS: MONTELUKAST SODIUM 10 MG TABLET PO SCH (08:32)
[2021-04-06] MEDS: FERROUS SULFATE 325 MG TAB PO SCH (08:32)
[2021-04-06] MEDS: POTASSIUM CHLORIDE CRTAB 20 MEQ TABCR PO SCH (08:32)
[2021-04-06] MEDS: GABAPENTIN 100 MG CAP PO SCH ×2 (08:32→20:06)
[2021-04-06] MEDS: FOLIC ACID 1 MG TAB PO SCH (08:32)
[2021-04-06] MEDS: FLUTICASONE FUROATE 100MCG 14 PUFFS/INHALER INH SCH (08:32)
--- NOTE | 2021-04-06 11:28 | Orthopedic Consultation ---
Date of Consultation April 06, 2021 Assessment & Plan (1) Closed compression fracture of L3 vertebra: Patient does have evidence of acute compression fracture L1 L3 and L4. I will order him a TLSO brace to wear when he is out of bed and undergoing his physical therapy. I discussed with him that if his pain fails to improve over the next several days we could consider kyphoplasty. However would like to avoid surgery in light of his health history and the fact that he would need a three-level kyphoplasty which does increase the risks of complication. History of Present Illness Reason for Consultation: Back pain Attending Physician: Alex Irwin MD History of Present Illness This is a 75-year-old male who presents with back pain as well as multiple medical issues. He states he lives alone. He states he does have several falls over the past several weeks. His pain is in the lumbar region. Does not radiate down the legs. Denies any numbness and tingling in the legs. Allergies Allergy/AdvReac Type Severity Reaction Status Date / Time trazodone AdvReac Severe prolonged Verified 04/02/21 22:44 QTc cephalexin [From Keflex] AdvReac Hives Verified 04/02/21 22:44 Home Medications Medication Instructions Recorded Confirmed Type albuterol sulfate 90 mcg/actuation 2 puff INHALATION Q4H PRN 04/12/20 04/02/21 History aerosol inhaler azelastine 137 mcg (0.1 %) nasal 1 spray INTRANASAL BID PRN 04/12/20 04/02/21 History spray aerosol buspirone 15 mg tablet 15 mg PO BID 04/12/20 04/02/21 History fluticasone propionate 110 1 puff INHALATION DAILY 04/12/20 04/02/21 History mcg/actuation HFA aerosol inhaler (Flovent HFA) furosemide 20 mg tablet 20 mg PO DAILY 04/12/20 04/02/21 History magnesium oxide 400 mg PO DAILY 04/12/20 04/02/21 History multivitamin with minerals 1 tab PO DAILY 04/12/20 04/02/21 History (Multiple Vitamin-Minerals) potassium chloride 20 mEq 20 meq PO DAILY 04/12/20 04/02/21 History tablet,extended release(part/cryst) tamsulosin 0.4 mg capsule 0.4 mg PO HS 04/12/20 04/02/21 History verapamil 180 mg tablet,extended 180 mg PO BID 04/12/20 04/02/21 History release folic acid 1 mg tablet 1 mg PO QAM #30 tab 05/18/20 04/02/21 Rx apixaban 5 mg tablet (Eliquis) 5 mg PO BID 03/28/21 04/02/21 History ferrous sulfate 325 mg (65 mg 325 mg PO DAILY 03/28/21 04/02/21 History iron) tablet (FeroSul) gabapentin 100 mg capsule 100 mg PO AMPM 03/28/21 04/02/21 History levothyroxine 125 mcg tablet 125 mcg PO QAM 03/28/21 04/02/21 History montelukast 10 mg tablet 10 mg PO DAILY 03/28/21 04/02/21 History sertraline 100 mg tablet 100 mg PO DAILY 03/28/21 04/02/21 History trazodone 100 mg tablet 100 mg PO HS 03/28/21 04/02/21 History Patient History Medical History Atrial fibrillation with RVR BPH (benign prostatic hyperplasia) Chronic atrial fibrillation Chronic heart failure with preserved ejection fraction (HFpEF) COPD (chronic obstructive pulmonary disease) 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 Depression with anxiety HLD (hyperlipidemia) HTN (hypertension) Melena ALLEY (obstructive sleep apnea) Intolerant to CPAP Prolonged QT interval Supratherapeutic INR Surgical History History of cataract extraction History of colonoscopy History of total left hip arthroplasty Family History Father Stroke Mother Stroke Social History Smoking Status: Never smoker Tobacco Type: Cigarettes Years Smoked: 18; Second Hand Exposure: No; Hx Alcohol Use: Yes Alcohol type: hard liquor Alcohol Intake Frequency: 4 or More x per/Week Alcohol Intake Frequency Comment: 3-4 drinks nightly Hx Substance Use: No Preferred Language: Chilean Communication Ability: Effective 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 He has reasonable strength to testing lower extremities as well as full sensation. Results & Data ([facility]) Vital Signs (Past 12 Hours) Vital Signs Temp Pulse Resp BP Pulse Ox 04/06/21 07:03 36.7 C 73 20 127/71 94 04/06/21 03:00 36.7 C 68 20 127/76 94
[2021-04-06] MEDS ORDERED: Influenza Vaccine-High Dose (Fluzone-HD) PF 65+ 0.7 ML SYR IM ONE (13:45)
--- NOTE | 2021-04-06 14:22 | Hospitalist Progress Note ---
Date of Service April 06, 2021 Assessment & Plan (1) Fall: (2) Closed compression fracture of L3 vertebra: (3) Closed compression fracture of L1 vertebra: (4) Compression fracture of L4 vertebra: Plan: #. Fall: Fall precaution PT/OT evaluation - to SNF on DC. #. Closed compression fracture of L1 vertebra: Lumbar radiculopathy/compression fracture secondary to recurrent falls/ambulatory dysfunction. Recent electrolyte disturbance, medications and chronic heavy alcohol use may all be contributing. Cont supportive care with pain management and request ortho spine evaluation for consideration of surgical treatment or brace therapy. 04/05 lumbar spine MRI: Mild to moderate acute superior endplate compression fractures at L1, L3, L4 with no associated retropulsion. Continue with PT/OT with Ortho's recs, Orthopedics consulted: Recommends TLSO brace when he is OOB and undergoing physical therapy. #. Hypokalemia: #. 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 No evidence of overload. Potassium has been replaced since admission. Daily BMP. Potassium supplementation decreased to home dose. Patient electrolyte level fairly within normal limit. Continue with home Lasix while inpatient and monitor potassium daily. Also, check Mg and replace as needed. #. Alcohol abuse: Lorazepam PRN, CIWA assessment for withdrawal. Daily thiamine and folate. Currently no signs of withdrawal #. Depression with anxiety: cont Buspar and sertraline per home regimen. #. ALLEY (obstructive sleep apnea): intolerant of CPAP mask per notes. #. Chronic atrial fibrillation: A. fib on Eliquis, rate controlled #. DVT prophylaxis: Eliquis Full Code Dispo-PT/OT, recommending SNF. CM to assist with DC planning. Medically stable to DC, awaiting placement. Admission and Anticipated Discharge Date Admission Date: April 03, 2021 Subjective Patient lying in bed, on room air, NAD, no acute events overnight. AOx3. Reports some low back pain but it is under control. Patient denies any headache/dizziness/chest pain/palpitation/other review of symptoms. Is eating and moving bowels okay. Physical Exam Physical Exam: GENERAL: Alert and oriented x3. NAD, on RA. HEENT: No pallor, no icterus. Pupils equal, round and reactive to light. Oral mucosa moist. NECK: No JVD, no neck masses. HEART: S1 and S2 heard. Regular rate and rhythm. No murmur, no gallop. RESPIRATORY SYSTEM: Normal AP diameter. No accessory muscle use. No wheezing, no crackles. ABDOMEN: Soft, bowel sounds present, nontender, no distention. CENTRAL NERVOUS SYSTEM: Alert and oriented x3. No facial droop. Speech is clear. Obeys simple commands. Moves extremities. EXTREMITIES: No edema, no erythema seen. Results & Data Results & Data ([facility]) Vital Signs (Past 12 Hours) Vital Signs Temp Pulse Resp BP Pulse Ox 04/06/21 11:36 36.5 C 67 18 106/59 L 95 04/06/21 07:03 36.7 C 73 20 127/71 94 04/06/21 03:00 36.7 C 68 20 127/76 94 (1) Fall Encounter type: initial encounter Qualified Code(s): W19.XXXA - Unspecified fall, initial encounter
[2021-04-06] MEDS: oxyCODONE HCL IR 5 MG TAB (IMMEDIATE RELEASE) PO PRN (14:47)
[2021-04-06] MEDS: LIDOCAINE 5% 1 PATCH TD SCH (20:06)
[2021-04-06] MEDS: traZODone HCL 100 MG TAB PO SCH (20:07)
[2021-04-06] MEDS: TAMSULOSIN HCL 0.4 MG CAP PO SCH (20:07)
[2021-04-07] MEDS: LEVOTHYROXINE SODIUM 125 MCG TABLET PO SCH (05:34)
[2021-04-07 06:20] LABS: BUN Creatinine Ratio 18.7 (10-20); Calcium 9.2 mg/dl (8.5-10.1); Est GFR (African American) 107.1 ml/min; Est GFR (Non-African American) 92.4 ml/min; Magnesium 2.2 mg/dl (1.8-2.4)
[2021-04-07] MEDS: MONTELUKAST SODIUM 10 MG TABLET PO SCH (08:18)
[2021-04-07] MEDS: POTASSIUM CHLORIDE CRTAB 20 MEQ TABCR PO SCH (08:18)
[2021-04-07] MEDS: MULTIVITAMIN TAB PO SCH (08:18)
[2021-04-07] MEDS: APIXABAN 5 MG TABLET PO SCH ×2 (08:18→20:06)
[2021-04-07] MEDS: busPIRone 15 MG TAB PO SCH ×2 (08:18→20:06)
[2021-04-07] MEDS: FUROSEMIDE 20 MG TAB PO SCH (08:18)
[2021-04-07] MEDS: FOLIC ACID 1 MG TAB PO SCH (08:18)
[2021-04-07] MEDS: SERTRALINE HCL 100 MG TABLET PO SCH (08:19)
[2021-04-07] MEDS: VERAPAMIL HCL 180 MG TABCR PO SCH ×2 (08:19→20:08)
[2021-04-07] MEDS: GABAPENTIN 100 MG CAP PO SCH ×2 (08:19→20:07)
[2021-04-07] MEDS: THIAMINE HCL 100 MG TAB PO SCH (08:19)
[2021-04-07] MEDS: MAGNESIUM OXIDE 400 MG TAB PO SCH (08:19)
[2021-04-07] MEDS: FLUTICASONE FUROATE 100MCG 14 PUFFS/INHALER INH SCH (08:19)
[2021-04-07] MEDS: FERROUS SULFATE 325 MG TAB PO SCH (08:19)
[2021-04-07] MEDS: oxyCODONE HCL IR 5 MG TAB (IMMEDIATE RELEASE) PO PRN (09:48)
[2021-04-07] MEDS: POLYETHYLENE (MIRALAX) 17 GM PACK PO SCH (11:00)
--- NOTE | 2021-04-07 15:40 | Hospitalist Progress Note ---
Date of Service April 07, 2021 Assessment & Plan (1) Fall: (2) Closed compression fracture of L3 vertebra: (3) Closed compression fracture of L1 vertebra: (4) Compression fracture of L4 vertebra: Plan: #. Fall: Fall precaution PT/OT evaluation - to SNF on DC. #. Closed compression fracture of L1 vertebra: Lumbar radiculopathy/compression fracture secondary to recurrent falls/ambulatory dysfunction. Recent electrolyte disturbance, medications and chronic heavy alcohol use may all be contributing. Cont supportive care with pain management and request ortho spine evaluation for consideration of surgical treatment or brace therapy. 04/05 lumbar spine MRI: Mild to moderate acute superior endplate compression fractures at L1, L3, L4 with no associated retropulsion. Continue with PT/OT with Ortho's recs, Orthopedics consulted: Recommends TLSO brace when he is OOB and undergoing physical therapy. #. Hypokalemia: #. 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 No evidence of overload. Home Lasix and potassium supplementation resumed, electrolytes level stable since last few days, check electrolytes as needed and replace as appropriate. #. Alcohol abuse: Lorazepam PRN, CIWA assessment for withdrawal. Daily thiamine and folate. Currently no signs of withdrawal #. Depression with anxiety: cont Buspar and sertraline per home regimen. #. ALLEY (obstructive sleep apnea): intolerant of CPAP mask per notes. #. Chronic atrial fibrillation: A. fib on Eliquis, rate controlled #. DVT prophylaxis: Eliquis Full Code Dispo-PT/OT, recommending SNF. CM to assist with DC planning. Medically stable to DC, awaiting placement. Admission and Anticipated Discharge Date Admission Date: April 03, 2021 Subjective Patient lying in bed, on room air, NAD, no acute events overnight. AOx3. Reports some improvement in low back pain. Patient denies any headache/dizziness/chest pain/palpitation/other review of symptoms. Is eating okay. Patient has not moved bowels in few days. Physical Exam Physical Exam: GENERAL: Alert and oriented x3. NAD, on RA. HEENT: No pallor, no icterus. Pupils equal, round and reactive to light. Oral mucosa moist. NECK: No JVD, no neck masses. HEART: S1 and S2 heard. Regular rate and rhythm. No murmur, no gallop. RESPIRATORY SYSTEM: Normal AP diameter. No accessory muscle use. No wheezing, no crackles. ABDOMEN: Soft, bowel sounds present, nontender, no distention. CENTRAL NERVOUS SYSTEM: Alert and oriented x3. No facial droop. Speech is clear. Obeys simple commands. Moves extremities. EXTREMITIES: No edema, no erythema seen. Results & Data Results & Data ([facility]) Vital Signs (Past 12 Hours) Vital Signs Temp Pulse Resp BP BP Pulse Ox 04/07/21 14:49 36.4 C L 71 20 122/73 95 04/07/21 11:47 36.3 C L 67 18 101/61 97 04/07/21 08:06 36.7 C 74 18 108/58 L 92 04/07/21 04:00 36.4 C L 76 18 108/66 96 (1) Fall Encounter type: initial encounter Qualified Code(s): W19.XXXA - Unspecified fall, initial encounter
[2021-04-07] MEDS: DOCUSATE SODIUM 100 MG CAP PO SCH (20:07)
[2021-04-07] MEDS: TAMSULOSIN HCL 0.4 MG CAP PO SCH (20:08)
[2021-04-07] MEDS: traZODone HCL 100 MG TAB PO SCH (20:08)
[2021-04-07] MEDS: LIDOCAINE 5% 1 PATCH TD SCH (20:09)
[2021-04-08] MEDS: LEVOTHYROXINE SODIUM 125 MCG TABLET PO SCH (05:43)
[2021-04-08] MEDS: VERAPAMIL HCL 180 MG TABCR PO SCH ×2 (08:57→20:34)
[2021-04-08] MEDS: FUROSEMIDE 20 MG TAB PO SCH (08:57)
[2021-04-08] MEDS: MONTELUKAST SODIUM 10 MG TABLET PO SCH (08:57)
[2021-04-08] MEDS: GABAPENTIN 100 MG CAP PO SCH ×2 (08:57→20:29)
[2021-04-08] MEDS: FLUTICASONE FUROATE 100MCG 14 PUFFS/INHALER INH SCH (08:57)
[2021-04-08] MEDS: DOCUSATE SODIUM 100 MG CAP PO SCH ×2 (08:57→20:29)
[2021-04-08] MEDS: MAGNESIUM OXIDE 400 MG TAB PO SCH (08:57)
[2021-04-08] MEDS: APIXABAN 5 MG TABLET PO SCH ×2 (08:57→20:28)
[2021-04-08] MEDS: THIAMINE HCL 100 MG TAB PO SCH (08:57)
[2021-04-08] MEDS: POTASSIUM CHLORIDE CRTAB 20 MEQ TABCR PO SCH (08:57)
[2021-04-08] MEDS: MULTIVITAMIN TAB PO SCH (08:57)
[2021-04-08] MEDS: FOLIC ACID 1 MG TAB PO SCH (08:57)
[2021-04-08] MEDS: SERTRALINE HCL 100 MG TABLET PO SCH (08:57)
[2021-04-08] MEDS: busPIRone 15 MG TAB PO SCH ×2 (08:57→20:29)
[2021-04-08] MEDS: FERROUS SULFATE 325 MG TAB PO SCH (08:58)
[2021-04-08] MEDS: POLYETHYLENE (MIRALAX) 17 GM PACK PO SCH (08:58)
--- NOTE | 2021-04-08 17:01 | Hospitalist Progress Note ---
Date of Service April 08, 2021 Assessment & Plan (1) Fall: (2) Closed compression fracture of L3 vertebra: (3) Closed compression fracture of L1 vertebra: (4) Compression fracture of L4 vertebra: Plan: #. Fall: Fall precaution PT/OT evaluation - to SNF on DC. #. Closed compression fracture of L1 vertebra: Lumbar radiculopathy/compression fracture secondary to recurrent falls/ambulatory dysfunction. Recent electrolyte disturbance, medications and chronic heavy alcohol use may all be contributing. Cont supportive care with pain management and request ortho spine evaluation for consideration of surgical treatment or brace therapy. 04/05 lumbar spine MRI: Mild to moderate acute superior endplate compression fractures at L1, L3, L4 with no associated retropulsion. Continue with PT/OT with Ortho's recs, Orthopedics consulted: Recommends TLSO brace when he is OOB and undergoing physical therapy. #. Hypokalemia: #. 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 No evidence of overload. Home Lasix and potassium supplementation resumed, electrolytes level stable since last few days, check electrolytes as needed and replace as appropriate. #. Alcohol abuse: Lorazepam PRN, CIWA assessment for withdrawal. Daily thiamine and folate. Currently no signs of withdrawal #. Depression with anxiety: cont Buspar and sertraline per home regimen. #. ALLEY (obstructive sleep apnea): intolerant of CPAP mask per notes. #. Chronic atrial fibrillation: A. fib on Eliquis, rate controlled #. DVT prophylaxis: Eliquis Full Code Dispo-PT/OT, recommending SNF. CM to assist with DC planning. Medically stable to DC, awaiting placement. Admission and Anticipated Discharge Date Admission Date: April 03, 2021 Subjective Patient lying in bed, on room air, NAD, no acute events overnight. AOx3. Repor ts improing low back pain. Patient denies any headache/dizziness/chest pain/palpitation/other review of symptoms. Is eating okay. Patient has moved bowel yesterday. Physical Exam Physical Exam: GENERAL: Alert and oriented x3. NAD, on RA. HEENT: No pallor, no icterus. Pupils equal, round and reactive to light. Oral mucosa moist. NECK: No JVD, no neck masses. HEART: S1 and S2 heard. Regular rate and rhythm. No murmur, no gallop. RESPIRATORY SYSTEM: Normal AP diameter. No accessory muscle use. No wheezing, no crackles. ABDOMEN: Soft, bowel sounds present, nontender, no distention. CENTRAL NERVOUS SYSTEM: Alert and oriented x3. No facial droop. Speech is clear. Obeys simple commands. Moves extremities. EXTREMITIES: No edema, no erythema seen. Results & Data Results & Data ([facility]) Vital Signs (Past 12 Hours) Vital Signs Temp Pulse Resp BP Pulse Ox 04/08/21 16:37 36.4 C L 89 20 101/61 98 04/08/21 12:15 36.6 C 77 20 112/55 L 96 04/08/21 06:48 36.5 C 78 18 113/64 93 (1) Fall Encounter type: initial encounter Qualified Code(s): W19.XXXA - Unspecified fall, initial encounter
[2021-04-08] MEDS: traZODone HCL 100 MG TAB PO SCH (20:30)
[2021-04-08] MEDS: TAMSULOSIN HCL 0.4 MG CAP PO SCH (20:30)
[2021-04-08] MEDS: LIDOCAINE 5% 1 PATCH TD SCH (20:30)
[2021-04-09] MEDS: LEVOTHYROXINE SODIUM 125 MCG TABLET PO SCH (05:45)
[2021-04-09] MEDS: DOCUSATE SODIUM 100 MG CAP PO SCH (07:51)
[2021-04-09] MEDS: GABAPENTIN 100 MG CAP PO SCH ×2 (07:51→21:03)
[2021-04-09] MEDS: MONTELUKAST SODIUM 10 MG TABLET PO SCH (07:52)
[2021-04-09] MEDS: FUROSEMIDE 20 MG TAB PO SCH (07:52)
[2021-04-09] MEDS: FOLIC ACID 1 MG TAB PO SCH (07:52)
[2021-04-09] MEDS: VERAPAMIL HCL 180 MG TABCR PO SCH ×2 (07:52→21:04)
[2021-04-09] MEDS: MAGNESIUM OXIDE 400 MG TAB PO SCH (07:52)
[2021-04-09] MEDS: POTASSIUM CHLORIDE CRTAB 20 MEQ TABCR PO SCH (07:52)
[2021-04-09] MEDS: MULTIVITAMIN TAB PO SCH (07:52)
[2021-04-09] MEDS: FLUTICASONE FUROATE 100MCG 14 PUFFS/INHALER INH SCH (07:53)
[2021-04-09] MEDS: SERTRALINE HCL 100 MG TABLET PO SCH (07:53)
[2021-04-09] MEDS: APIXABAN 5 MG TABLET PO SCH ×2 (07:53→21:03)
[2021-04-09] MEDS: THIAMINE HCL 100 MG TAB PO SCH (07:53)
[2021-04-09] MEDS: busPIRone 15 MG TAB PO SCH ×2 (07:53→21:03)
[2021-04-09] MEDS: FERROUS SULFATE 325 MG TAB PO SCH (07:53)
[2021-04-09] MEDS: POLYETHYLENE (MIRALAX) 17 GM PACK PO SCH (07:54)
[2021-04-09] MEDS: oxyCODONE HCL IR 5 MG TAB (IMMEDIATE RELEASE) PO PRN ×2 (09:48→14:40)
[2021-04-09] MEDS: ACETAMINOPHEN 325 MG TAB PO PRN (11:34)
--- NOTE | 2021-04-09 16:01 | Hospitalist Progress Note ---
Date of Service April 09, 2021 Assessment & Plan (1) Fall: (2) Closed compression fracture of L3 vertebra: (3) Closed compression fracture of L1 vertebra: (4) Compression fracture of L4 vertebra: Plan: #. Fall: Fall precaution PT/OT evaluation - to SNF on DC. #. Closed compression fracture of L1 vertebra: Lumbar radiculopathy/compression fracture secondary to recurrent falls/ambulatory dysfunction. Recent electrolyte disturbance, medications and chronic heavy alcohol use may all be contributing. Cont supportive care with pain management and request ortho spine evaluation for consideration of surgical treatment or brace therapy. 04/05 lumbar spine MRI: Mild to moderate acute superior endplate compression fractures at L1, L3, L4 with no associated retropulsion. Continue with PT/OT with Ortho's recs, Orthopedics consulted: Recommends TLSO brace when he is OOB and undergoing physical therapy. #. Hypokalemia: #. 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 No evidence of overload. Home Lasix and potassium supplementation resumed, electrolytes level stable since last few days, check electrolytes as needed and replace as appropriate. #. Alcohol abuse: Lorazepam PRN, CIWA assessment for withdrawal. Daily thiamine and folate. Currently no signs of withdrawal #. Depression with anxiety: cont Buspar and sertraline per home regimen. #. ALLEY (obstructive sleep apnea): intolerant of CPAP mask per notes. #. Chronic atrial fibrillation: A. fib on Eliquis, rate controlled #. DVT prophylaxis: Eliquis Full Code Dispo-PT/OT, recommending SNF. CM to assist with DC planning. Medically stable to DC, awaiting placement. 04/09: Had [id number] discussion with Dr. Jones, his admission denial is upheld, open for appeal. floral manager notified. Admission and Anticipated Discharge Date Admission Date: April 03, 2021 Subjective Patient lying in bed, on room air, NAD, no acute events overnight. AOx3. Reports improing low back pain. Patient denies any headache/dizziness/chest pain/palpitation/other review of symptoms. Is eating okay. Patient has moved bowel 2 days ago. Physical Exam Physical Exam: GENERAL: Alert and oriented x3. NAD, on RA. HEENT: No pallor, no icterus. Pupils equal, round and reactive to light. Oral mucosa moist. NECK: No JVD, no neck masses. HEART: S1 and S2 heard. Regular rate and rhythm. No murmur, no gallop. RESPIRATORY SYSTEM: Normal AP diameter. No accessory muscle use. No wheezing, no crackles. ABDOMEN: Soft, bowel sounds present, nontender, no distention. CENTRAL NERVOUS SYSTEM: Alert and oriented x3. No facial droop. Speech is clear. Obeys simple commands. Moves extremities. EXTREMITIES: No edema, no erythema seen. Results & Data Results & Data ([facility]) Vital Signs (Past 12 Hours) Vital Signs Temp Pulse Resp BP Pulse Ox 04/09/21 15:35 36.3 C L 70 18 101/62 97 04/09/21 11:49 36.8 C 75 18 104/65 96 04/09/21 07:16 36.4 C L 78 18 127/80 95 (1) Fall Encounter type: initial encounter Qualified Code(s): W19.XXXA - Unspecified fall, initial encounter
[2021-04-09] MEDS: traZODone HCL 100 MG TAB PO SCH (21:03)
[2021-04-09] MEDS: TAMSULOSIN HCL 0.4 MG CAP PO SCH (21:03)
[2021-04-09] MEDS: LIDOCAINE 5% 1 PATCH TD SCH (21:05)
[2021-04-10] MEDS: LEVOTHYROXINE SODIUM 125 MCG TABLET PO SCH (05:30)
[2021-04-10] MEDS: oxyCODONE HCL IR 5 MG TAB (IMMEDIATE RELEASE) PO PRN ×3 (06:22→16:04)
[2021-04-10] MEDS: POTASSIUM CHLORIDE CRTAB 20 MEQ TABCR PO SCH (08:42)
[2021-04-10] MEDS: SERTRALINE HCL 100 MG TABLET PO SCH (08:42)
[2021-04-10] MEDS: FUROSEMIDE 20 MG TAB PO SCH (08:42)
[2021-04-10] MEDS: busPIRone 15 MG TAB PO SCH ×2 (08:42→20:13)
[2021-04-10] MEDS: APIXABAN 5 MG TABLET PO SCH ×2 (08:42→20:13)
[2021-04-10] MEDS: VERAPAMIL HCL 180 MG TABCR PO SCH ×2 (08:42→20:14)
[2021-04-10] MEDS: FOLIC ACID 1 MG TAB PO SCH (08:42)
[2021-04-10] MEDS: THIAMINE HCL 100 MG TAB PO SCH (08:42)
[2021-04-10] MEDS: MULTIVITAMIN TAB PO SCH (08:42)
[2021-04-10] MEDS: MAGNESIUM OXIDE 400 MG TAB PO SCH (08:42)
[2021-04-10] MEDS: MONTELUKAST SODIUM 10 MG TABLET PO SCH (08:42)
[2021-04-10] MEDS: GABAPENTIN 100 MG CAP PO SCH ×2 (08:43→20:19)
[2021-04-10] MEDS: FERROUS SULFATE 325 MG TAB PO SCH (08:43)
[2021-04-10] MEDS: POLYETHYLENE (MIRALAX) 17 GM PACK PO SCH ×2 (08:43→17:26)
[2021-04-10] MEDS: FLUTICASONE FUROATE 100MCG 14 PUFFS/INHALER INH SCH (08:43)
--- NOTE | 2021-04-10 16:36 | Hospitalist Progress Note ---
Date of Service April 10, 2021 Assessment & Plan (1) Fall: (2) Closed compression fracture of L3 vertebra: (3) Closed compression fracture of L1 vertebra: (4) Compression fracture of L4 vertebra: Plan: #. Fall: Fall precaution PT/OT evaluation - to SNF on DC. #. Closed compression fracture of L1 vertebra: Lumbar radiculopathy/compression fracture secondary to recurrent falls/ambulatory dysfunction. Recent electrolyte disturbance, medications and chronic heavy alcohol use may all be contributing. Cont supportive care with pain management and request ortho spine evaluation for consideration of surgical treatment or brace therapy. 04/05 lumbar spine MRI: Mild to moderate acute superior endplate compression fractures at L1, L3, L4 with no associated retropulsion. Continue with PT/OT with Ortho's recs, Orthopedics consulted: Recommends TLSO brace when he is OOB and undergoing physical therapy. #. Hypokalemia: #. 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 No evidence of overload. Home Lasix and potassium supplementation resumed, electrolytes level stable since last few days, check electrolytes as needed and replace as appropriate. #. Alcohol abuse: Lorazepam PRN, CIWA assessment for withdrawal. Daily thiamine and folate. Currently no signs of withdrawal #. Depression with anxiety: cont Buspar and sertraline per home regimen. #. ALLEY (obstructive sleep apnea): intolerant of CPAP mask per notes. #. Chronic atrial fibrillation: A. fib on Eliquis, rate controlled #. DVT prophylaxis: Eliquis Full Code Dispo-PT/OT, recommending SNF. CM to assist with DC planning. Medically stable to DC, awaiting placement. 04/09: Had [id number] discussion with Dr. Jones, his admission denial is upheld, open for appeal. life manager notified. Admission and Anticipated Discharge Date Admission Date: April 03, 2021 Subjective Patient lying in bed, on room air, NAD, no acute events overnight. AOx3. Reports improving low back pain. Patient denies any headache/dizziness/chest pain/palpitation/other review of symptoms. Is eating okay. Patient has moved bowel 3 days ago. will increase bowel regimen Physical Exam Physical Exam: GENERAL: Alert and oriented x3. NAD, on RA. HEENT: No pallor, no icterus. Pupils equal, round and reactive to light. Oral mucosa moist. NECK: No JVD, no neck masses. HEART: S1 and S2 heard. Regular rate and rhythm. No murmur, no gallop. RESPIRATORY SYSTEM: Normal AP diameter. No accessory muscle use. No wheezing, no crackles. ABDOMEN: Soft, bowel sounds present, nontender, no distention. CENTRAL NERVOUS SYSTEM: Alert and oriented x3. No facial droop. Speech is clear. Obeys simple commands. Moves extremities. EXTREMITIES: No edema, no erythema seen. Results & Data Results & Data ([facility]) Vital Signs (Past 12 Hours) Vital Signs Temp Pulse Pulse Resp BP BP Pulse Ox 04/10/21 16:05 36.5 C 81 20 104/64 95 04/10/21 14:59 75 04/10/21 11:18 36.5 C 71 20 106/67 95 04/10/21 07:37 36.6 C 80 18 111/50 L 96 04/10/21 07:09 73 (1) Fall Encounter type: initial encounter Qualified Code(s): W19.XXXA - Unspecified fall, initial encounter
[2021-04-10] MEDS: traZODone HCL 100 MG TAB PO SCH (20:13)
[2021-04-10] MEDS: TAMSULOSIN HCL 0.4 MG CAP PO SCH (20:13)
[2021-04-10] MEDS: LIDOCAINE 5% 1 PATCH TD SCH (20:14)
[2021-04-10] MEDS: DOCUSATE SODIUM 100 MG CAP PO SCH (20:17)
[2021-04-11] MEDS: LEVOTHYROXINE SODIUM 125 MCG TABLET PO SCH (05:41)
[2021-04-11] MEDS: oxyCODONE HCL IR 5 MG TAB (IMMEDIATE RELEASE) PO PRN ×2 (08:13→14:03)
[2021-04-11] MEDS: APIXABAN 5 MG TABLET PO SCH ×2 (08:14→20:43)
[2021-04-11] MEDS: THIAMINE HCL 100 MG TAB PO SCH (08:14)
[2021-04-11] MEDS: MULTIVITAMIN TAB PO SCH (08:14)
[2021-04-11] MEDS: DOCUSATE SODIUM 100 MG CAP PO SCH ×2 (08:14→20:44)
[2021-04-11] MEDS: SERTRALINE HCL 100 MG TABLET PO SCH (08:14)
[2021-04-11] MEDS: MONTELUKAST SODIUM 10 MG TABLET PO SCH (08:14)
[2021-04-11] MEDS: FERROUS SULFATE 325 MG TAB PO SCH (08:14)
[2021-04-11] MEDS: FUROSEMIDE 20 MG TAB PO SCH (08:14)
[2021-04-11] MEDS: MAGNESIUM OXIDE 400 MG TAB PO SCH (08:14)
[2021-04-11] MEDS: GABAPENTIN 100 MG CAP PO SCH ×2 (08:14→20:44)
[2021-04-11] MEDS: busPIRone 15 MG TAB PO SCH ×2 (08:14→20:43)
[2021-04-11] MEDS: FOLIC ACID 1 MG TAB PO SCH (08:14)
[2021-04-11] MEDS: VERAPAMIL HCL 180 MG TABCR PO SCH ×2 (08:14→20:45)
[2021-04-11] MEDS: POTASSIUM CHLORIDE CRTAB 20 MEQ TABCR PO SCH (08:14)
[2021-04-11] MEDS: POLYETHYLENE (MIRALAX) 17 GM PACK PO SCH ×2 (08:15)
[2021-04-11] MEDS: FLUTICASONE FUROATE 100MCG 14 PUFFS/INHALER INH SCH (08:15)
--- NOTE | 2021-04-11 11:34 | Hospitalist Progress Note ---
Date of Service April 11, 2021 Assessment & Plan (1) Fall: (2) Closed compression fracture of L3 vertebra: (3) Closed compression fracture of L1 vertebra: (4) Compression fracture of L4 vertebra: Plan: #. Fall: Fall precaution PT/OT evaluation #. Closed compression fracture of L1 vertebra: Lumbar radiculopathy/compression fracture secondary to recurrent falls/ambulatory dysfunction. Recent electrolyte disturbance, medications and chronic heavy alcohol use may all be contributing. Cont supportive care with pain management and request ortho spine evaluation for consideration of surgical treatment or brace therapy. 04/05 lumbar spine MRI: Mild to moderate acute superior endplate compression fractures at L1, L3, L4 with no associated retropulsion. Continue with PT/OT with Ortho's recs, Orthopedics consulted: Recommends TLSO brace when he is OOB and undergoing physical therapy. #. Hypokalemia: #. 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 No evidence of overload. Home Lasix and potassium supplementation resumed, electrolytes level stable #. Alcohol abuse: Daily thiamine and folate. Currently no signs of withdrawal #. Depression with anxiety: Cont Buspar and sertraline per home regimen. #. ALLEY (obstructive sleep apnea): intolerant of CPAP mask per notes. #. Chronic atrial fibrillation: A. fib on Eliquis, rate controlled #. DVT prophylaxis: Eliquis Full Code Previous Provider had [id number] discussion with Dr. Jones, his admission denial is upheld, open for appeal. internet technology manager notified. CM working on SNF placement Admission and Anticipated Discharge Date Admission Date: April 03, 2021 Subjective 75-year-old man with history of chronic diastolic heart failure, valvular heart disease, hypertension, A. fib on Eliquis, hypertension, COPD, past tobacco use, daily alcohol intake, hypothyroidism, Arana's esophagus, avascular necrosis of right hip, BPH, ALLEY with CPAP intolerance who presented with low back pain associated with fall at home. Being managed for L3/L4 compression fractures. Patient seen and examined today Reports only occasional dry cough which he stated was chronic. Still reports low back pain especially with movement. Denies any other complaints at this time Review of Systems Constitutional: no fever, no chills and no anorexia Respiratory: + cough; no dyspnea Cardiovascular: no chest pain, no dyspnea, no palpitations and no lightheadedness Gastrointestinal: no abdominal pain, no nausea, no vomiting and no diarrhea/loose stools Genitourinary: no dysuria, no difficulty urinating or no urinary frequency Musculoskeletal: Low back pain Neurologic: no tremor(s), no syncope and no headache(s) Psychiatric: no depression and no anxiety Physical Exam Constitutional: + well hydrated; no acute distress Eyes: PERRL, conjunctivae normal, anicteric sclerae Respiratory: normal respiratory effort, lungs clear to auscultation Cardiovascular: RRR, S1-S2 Gastrointestinal (Abdomen): normal bowel sounds, soft, nontender, no hepatosplenomegaly Musculoskeletal: No pedal edema Neurologic: PERRL, EOMI, accommodation nl, no face palsy, no dysarthria Psychiatric: A+Ox3, euthymic affect Results & Data Results & Data ([facility]) Vital Signs (Past 12 Hours) Vital Signs Temp Pulse Pulse Resp BP Pulse Ox 04/11/21 10:54 36.4 C L 77 16 100/65 95 04/11/21 07:30 66 04/11/21 06:59 36.6 C 71 20 112/66 95 04/11/21 03:20 36.6 C 71 20 109/67 94 (1) Fall Encounter type: initial encounter Qualified Code(s): W19.XXXA - Unspecified fall, initial encounter
[2021-04-11] MEDS: traZODone HCL 100 MG TAB PO SCH (20:42)
[2021-04-11] MEDS: LIDOCAINE 5% 1 PATCH TD SCH (20:42)
[2021-04-11] MEDS: TAMSULOSIN HCL 0.4 MG CAP PO SCH (20:43)
[2021-04-12] MEDS: LEVOTHYROXINE SODIUM 125 MCG TABLET PO SCH (05:50)
[2021-04-12] MEDS: POTASSIUM CHLORIDE CRTAB 20 MEQ TABCR PO SCH (08:17)
[2021-04-12] MEDS: VERAPAMIL HCL 180 MG TABCR PO SCH ×2 (08:17→21:39)
[2021-04-12] MEDS: FOLIC ACID 1 MG TAB PO SCH (08:18)
[2021-04-12] MEDS: MONTELUKAST SODIUM 10 MG TABLET PO SCH (08:18)
[2021-04-12] MEDS: MULTIVITAMIN TAB PO SCH (08:18)
[2021-04-12] MEDS: MAGNESIUM OXIDE 400 MG TAB PO SCH (08:18)
[2021-04-12] MEDS: GABAPENTIN 100 MG CAP PO SCH ×2 (08:18→21:38)
[2021-04-12] MEDS: FERROUS SULFATE 325 MG TAB PO SCH (08:18)
[2021-04-12] MEDS: busPIRone 15 MG TAB PO SCH ×2 (08:19→21:38)
[2021-04-12] MEDS: FUROSEMIDE 20 MG TAB PO SCH (08:19)
[2021-04-12] MEDS: SERTRALINE HCL 100 MG TABLET PO SCH (08:19)
[2021-04-12] MEDS: APIXABAN 5 MG TABLET PO SCH ×2 (08:19→21:38)
[2021-04-12] MEDS: THIAMINE HCL 100 MG TAB PO SCH (08:19)
[2021-04-12] MEDS: DOCUSATE SODIUM 100 MG CAP PO SCH (08:19)
[2021-04-12] MEDS: FLUTICASONE FUROATE 100MCG 14 PUFFS/INHALER INH SCH (08:20)
[2021-04-12] MEDS: POLYETHYLENE (MIRALAX) 17 GM PACK PO SCH ×2 (08:21→08:23)
--- NOTE | 2021-04-12 08:45 | Hospitalist Progress Note ---
Date of Service April 12, 2021 Assessment & Plan (1) Fall: (2) Closed compression fracture of L3 vertebra: (3) Closed compression fracture of L1 vertebra: (4) Compression fracture of L4 vertebra: Plan: #. Fall: Fall precaution PT/OT evaluation #. Closed compression fracture of L1 vertebra: Lumbar radiculopathy/compression fracture secondary to recurrent falls/ambulatory dysfunction. Recent electrolyte disturbance, medications and chronic heavy alcohol use may all be contributing. Cont supportive care with pain management and request ortho spine evaluation for consideration of surgical treatment or brace therapy. 04/05 lumbar spine MRI: Mild to moderate acute superior endplate compression fractures at L1, L3, L4 with no associated retropulsion. Continue with PT/OT with Ortho's recs, Orthopedics consulted: Recommends TLSO brace when he is OOB and undergoing physical therapy. #. Hypokalemia: #. 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 No evidence of overload. Home Lasix and potassium supplementation resumed, electrolytes level stable #. Alcohol abuse: Daily thiamine and folate. #. Depression with anxiety: Cont Buspar and sertraline per home regimen. #. ALLEY (obstructive sleep apnea): intolerant of CPAP mask per notes. #. Chronic atrial fibrillation: A. fib on Eliquis, rate controlled #. DVT prophylaxis: Eliquis Full Code Previous Provider had [id number] discussion with Dr. Jones, his admission denial is upheld, open for appeal. sugar cane farm manager notified. CM working on SNF placement Admission and Anticipated Discharge Date Admission Date: April 03, 2021 Subjective 75-year-old man with history of chronic diastolic heart failure, valvular heart disease, hypertension, A. fib on Eliquis, hypertension, COPD, past tobacco use, daily alcohol intake, hypothyroidism, Arana's esophagus, avascular necrosis of right hip, BPH, ALLEY with CPAP intolerance who presented with low back pain associated with fall at home. Being managed for L3/L4 compression fractures. Been waiting on placement Patient seen and examined this morning Reports only occasional dry cough which is chronic. Reports low back pain especially with movement. Denies any other complaints at this time Review of Systems Constitutional: no fever, no chills and no anorexia Respiratory: + cough; no dyspnea Cardiovascular: no chest pain, no dyspnea, no palpitations and no lightheadedness Gastrointestinal: no abdominal pain, no nausea, no vomiting and no diarrhea/loose stools Genitourinary: no dysuria, no difficulty urinating or no urinary frequency Musculoskeletal: Low back pain Neurologic: no tremor(s), no syncope and no headache(s) Psychiatric: no depression and no anxiety Physical Exam Constitutional: + well hydrated; no acute distress Eyes: PERRL, conjunctivae normal, anicteric sclerae Respiratory: normal respiratory effort, lungs clear to auscultation Cardiovascular: RRR S1 S2 Gastrointestinal (Abdomen): normal bowel sounds, soft, nontender, no hepatosplenomegaly Neurologic: PERRL, EOMI, accommodation nl, no face palsy, no dysarthria Psychiatric: A+Ox3, euthymic affect Results & Data Results & Data ([facility]) Vital Signs (Past 12 Hours) Vital Signs Temp Pulse Pulse Resp BP Pulse Ox Pulse Ox 04/12/21 07:38 69 04/12/21 07:32 36.5 C 66 18 107/58 L 95 04/12/21 04:00 36.5 C 76 18 122/66 96 04/12/21 01:16 81 04/12/21 00:00 36.7 C 83 18 116/69 94 95 (1) Fall Encounter type: initial encounter Qualified Code(s): W19.XXXA - Unspecified fall, initial encounter
[2021-04-12] MEDS: oxyCODONE HCL IR 5 MG TAB (IMMEDIATE RELEASE) PO PRN (10:26)
[2021-04-12] MEDS: LIDOCAINE 5% 1 PATCH TD SCH (21:38)
[2021-04-12] MEDS: traZODone HCL 100 MG TAB PO SCH (21:39)
[2021-04-12] MEDS: TAMSULOSIN HCL 0.4 MG CAP PO SCH (21:39)
[2021-04-13] MEDS: LEVOTHYROXINE SODIUM 125 MCG TABLET PO SCH (06:35)
[2021-04-13] MEDS: FLUTICASONE FUROATE 100MCG 14 PUFFS/INHALER INH SCH (08:59)
[2021-04-13] MEDS: MULTIVITAMIN TAB PO SCH (09:01)
[2021-04-13] MEDS: FUROSEMIDE 20 MG TAB PO SCH (09:01)
[2021-04-13] MEDS: MAGNESIUM OXIDE 400 MG TAB PO SCH (09:02)
[2021-04-13] MEDS: VERAPAMIL HCL 180 MG TABCR PO SCH ×2 (09:02→20:11)
[2021-04-13] MEDS: THIAMINE HCL 100 MG TAB PO SCH (09:02)
[2021-04-13] MEDS: FERROUS SULFATE 325 MG TAB PO SCH (09:02)
[2021-04-13] MEDS: MONTELUKAST SODIUM 10 MG TABLET PO SCH (09:03)
[2021-04-13] MEDS: SERTRALINE HCL 100 MG TABLET PO SCH (09:03)
[2021-04-13] MEDS: POTASSIUM CHLORIDE CRTAB 20 MEQ TABCR PO SCH (09:03)
[2021-04-13] MEDS: busPIRone 15 MG TAB PO SCH ×2 (09:03→20:12)
[2021-04-13] MEDS: APIXABAN 5 MG TABLET PO SCH ×2 (09:04→20:11)
[2021-04-13] MEDS: GABAPENTIN 100 MG CAP PO SCH ×2 (09:05→20:11)
[2021-04-13] MEDS: POLYETHYLENE (MIRALAX) 17 GM PACK PO SCH (09:05)
[2021-04-13] MEDS: FOLIC ACID 1 MG TAB PO SCH (09:05)
[2021-04-13] MEDS: oxyCODONE HCL IR 5 MG TAB (IMMEDIATE RELEASE) PO PRN ×2 (09:07→20:09)
--- NOTE | 2021-04-13 09:10 | Hospitalist Progress Note ---
Date of Service April 13, 2021 Assessment & Plan (1) Fall: (2) Closed compression fracture of L3 vertebra: (3) Closed compression fracture of L1 vertebra: (4) Compression fracture of L4 vertebra: Plan: #. Fall: Fall precaution PT/OT evaluation #. Closed compression fracture of L1 vertebra: Lumbar radiculopathy/compression fracture secondary to recurrent falls/ambulatory dysfunction. Recent electrolyte disturbance, medications and chronic heavy alcohol use may all be contributing. Cont supportive care with pain management and request ortho spine evaluation for consideration of surgical treatment or brace therapy. 04/05 lumbar spine MRI: Mild to moderate acute superior endplate compression fractures at L1, L3, L4 with no associated retropulsion. Continue with PT/OT with Ortho's recs, Orthopedics consulted: Recommends TLSO brace when he is OOB and undergoing physical therapy. #. Hypokalemia: #. 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 No evidence of overload. Home Lasix and potassium supplementation resumed, electrolytes level stable #. Alcohol abuse: Daily thiamine and folate. #. Depression with anxiety: Cont Buspar and sertraline per home regimen. #. ALLEY (obstructive sleep apnea): intolerant of CPAP mask per notes. #. Chronic atrial fibrillation: A. fib on Eliquis, rate controlled #. DVT prophylaxis: Eliquis Full Code Previous Provider had [id number] discussion with Dr. Jones, his admission denial is upheld, open for appeal. clinique counter manager notified. CM working on SNF placement Admission and Anticipated Discharge Date Admission Date: April 03, 2021 Subjective 75-year-old man with history of chronic diastolic heart failure, valvular heart disease, hypertension, A. fib on Eliquis, hypertension, COPD, past tobacco use, daily alcohol intake, hypothyroidism, Arana's esophagus, avascular necrosis of right hip, BPH, ALLEY with CPAP intolerance who presented with low back pain associated with fall at home. Being managed for L3/L4 compression fractures. Been waiting on placement Patient seen and examined today Reports low back pain especially with movement. Review of Systems Constitutional: no fever, no chills and no anorexia Respiratory: + cough; no dyspnea Cardiovascular: no chest pain, no dyspnea, no palpitations and no lightheadedness Gastrointestinal: no abdominal pain, no nausea, no vomiting and no diarrhea/loose stools Genitourinary: no dysuria, no difficulty urinating or no urinary frequency Musculoskeletal: Low back pain Neurologic: no tremor(s), no syncope and no headache(s) Psychiatric: no depression and no anxiety Physical Exam Constitutional: + well hydrated; no acute distress Eyes: PERRL, conjunctivae normal, anicteric sclerae Respiratory: normal respiratory effort, lungs clear to auscultation Cardiovascular: RRR S1 S2 Gastrointestinal (Abdomen): normal bowel sounds, soft, nontender, no hepatosplenomegaly Neurologic: PERRL, EOMI, accommodation nl, no face palsy, no dysarthria Psychiatric: A+Ox3, euthymic affect Results & Data Results & Data ([facility]) Vital Signs (Past 12 Hours) Vital Signs Temp Pulse Resp BP Pulse Ox 04/13/21 08:00 36.4 C L 73 18 118/66 95 04/12/21 22:48 36.5 C 99 H 19 119/71 95 (1) Fall Encounter type: initial encounter Qualified Code(s): W19.XXXA - Unspecified fall, initial encounter
[2021-04-13] MEDS: ACETAMINOPHEN 325 MG TAB PO PRN (11:09)
[2021-04-13] MEDS: LIDOCAINE 5% 1 PATCH TD SCH (20:10)
[2021-04-13] MEDS: TAMSULOSIN HCL 0.4 MG CAP PO SCH (20:10)
[2021-04-13] MEDS: traZODone HCL 100 MG TAB PO SCH (20:11)
[2021-04-14] MEDS: LEVOTHYROXINE SODIUM 125 MCG TABLET PO SCH (05:38)
[2021-04-14] MEDS: FLUTICASONE FUROATE 100MCG 14 PUFFS/INHALER INH SCH (09:06)
--- NOTE | 2021-04-14 09:06 | Hospitalist Progress Note ---
Date of Service April 14, 2021 Assessment & Plan (1) Fall: (2) Closed compression fracture of L3 vertebra: (3) Closed compression fracture of L1 vertebra: (4) Compression fracture of L4 vertebra: Plan: #. Fall: Fall precaution PT/OT evaluation #. Closed compression fracture of L1 vertebra: Lumbar radiculopathy/compression fracture secondary to recurrent falls/ambulatory dysfunction. Recent electrolyte disturbance, medications and chronic heavy alcohol use may all be contributing. Cont supportive care with pain management and request ortho spine evaluation for consideration of surgical treatment or brace therapy. 04/05 lumbar spine MRI: Mild to moderate acute superior endplate compression fractures at L1, L3, L4 with no associated retropulsion. Continue with PT/OT with Ortho's recs, Orthopedics consulted: Recommends TLSO brace when he is OOB and undergoing physical therapy. Awaiting placement Stop oxycodone. Manage with tylenol prn mild pain, lidocaine patch and tramadol prn moderate/severe pain #. Hypokalemia: #. 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 No evidence of overload. Home Lasix and potassium supplementation resumed, last electrolytes level stable #. Alcohol abuse: Daily thiamine and folate. #. Depression with anxiety: Cont Buspar and sertraline per home regimen. #. ALLEY (obstructive sleep apnea): intolerant of CPAP mask per notes. #. Chronic atrial fibrillation: A. fib on Eliquis, rate controlled #. DVT prophylaxis: Eliquis Full Code Previous Provider had [id number] discussion with Dr. Jones, his admission denial is upheld, open for appeal. manager maintenance notified. CM working on SNF placement Admission and Anticipated Discharge Date Admission Date: April 03, 2021 Subjective 75-year-old man with history of chronic diastolic heart failure, valvular heart disease, hypertension, A. fib on Eliquis, hypertension, COPD, past tobacco use, daily alcohol intake, hypothyroidism, Arana's esophagus, avascular necrosis of right hip, BPH, ALLEY with CPAP intolerance who presented with low back pain associated with fall at home. Being managed for L3/L4 compression fractures. Been waiting on placement Patient seen and examined this morning Reports low back pain especially with movement controlled on current regimen Review of Systems Constitutional: no fever, no chills and no anorexia Respiratory: + cough (chronic); no dyspnea Cardiovascular: no chest pain, no dyspnea, no palpitations and no lightheadedness Gastrointestinal: no abdominal pain, no nausea, no vomiting and no diarrhea/loose stools Genitourinary: no dysuria, no difficulty urinating or no urinary frequency Musculoskeletal: Low back pain Neurologic: no tremor(s), no syncope and no headache(s) Psychiatric: no depression and no anxiety Physical Exam Constitutional: + well hydrated; no acute distress Eyes: PERRL, conjunctivae normal, anicteric sclerae Respiratory: normal respiratory effort, lungs clear to auscultation Cardiovascular: RRR S1 S2 Gastrointestinal (Abdomen): normal bowel sounds, soft, nontender, no hepatosplenomegaly Neurologic: PERRL, EOMI, accommodation nl, no face palsy, no dysarthria Psychiatric: A+Ox3, euthymic affect Results & Data Results & Data ([facility]) Vital Signs (Past 12 Hours) Vital Signs Temp Pulse Pulse Resp BP BP Pulse Ox 04/14/21 07:58 36.4 C L 67 14 114/63 96 04/13/21 23:00 36.4 C L 79 16 126/77 95 (1) Fall Encounter type: initial encounter Qualified Code(s): W19.XXXA - Unspecified fall, initial encounter
[2021-04-14] MEDS: POTASSIUM CHLORIDE CRTAB 20 MEQ TABCR PO SCH (09:07)
[2021-04-14] MEDS: busPIRone 15 MG TAB PO SCH ×2 (09:07→20:59)
[2021-04-14] MEDS: MAGNESIUM OXIDE 400 MG TAB PO SCH (09:07)
[2021-04-14] MEDS: FUROSEMIDE 20 MG TAB PO SCH (09:07)
[2021-04-14] MEDS: MONTELUKAST SODIUM 10 MG TABLET PO SCH (09:08)
[2021-04-14] MEDS: THIAMINE HCL 100 MG TAB PO SCH (09:09)
[2021-04-14] MEDS: GABAPENTIN 100 MG CAP PO SCH ×2 (09:09→20:58)
[2021-04-14] MEDS: MULTIVITAMIN TAB PO SCH (09:09)
[2021-04-14] MEDS: SERTRALINE HCL 100 MG TABLET PO SCH (09:09)
[2021-04-14] MEDS: FOLIC ACID 1 MG TAB PO SCH (09:09)
[2021-04-14] MEDS: FERROUS SULFATE 325 MG TAB PO SCH (09:10)
[2021-04-14] MEDS: APIXABAN 5 MG TABLET PO SCH ×2 (09:10→20:56)
[2021-04-14] MEDS: POLYETHYLENE (MIRALAX) 17 GM PACK PO SCH (09:12)
[2021-04-14] MEDS: VERAPAMIL HCL 180 MG TABCR PO SCH ×2 (09:16→20:57)
[2021-04-14] MEDS: traMADol HCL 50 MG TABLET PO PRN (13:32)
[2021-04-14] MEDS: TAMSULOSIN HCL 0.4 MG CAP PO SCH (20:56)
[2021-04-14] MEDS: traZODone HCL 100 MG TAB PO SCH (20:58)
[2021-04-14] MEDS: LIDOCAINE 5% 1 PATCH TD SCH (20:59)
[2021-04-15] MEDS: LEVOTHYROXINE SODIUM 125 MCG TABLET PO SCH (05:53)
[2021-04-15] MEDS: FLUTICASONE FUROATE 100MCG 14 PUFFS/INHALER INH SCH (08:48)
[2021-04-15] MEDS: THIAMINE HCL 100 MG TAB PO SCH (08:48)
[2021-04-15] MEDS: POTASSIUM CHLORIDE CRTAB 20 MEQ TABCR PO SCH (08:48)
[2021-04-15] MEDS: FUROSEMIDE 20 MG TAB PO SCH (08:49)
[2021-04-15] MEDS: VERAPAMIL HCL 180 MG TABCR PO SCH ×2 (08:51→20:43)
[2021-04-15] MEDS: FERROUS SULFATE 325 MG TAB PO SCH (08:51)
[2021-04-15] MEDS: MAGNESIUM OXIDE 400 MG TAB PO SCH (08:51)
[2021-04-15] MEDS: POLYETHYLENE (MIRALAX) 17 GM PACK PO SCH (08:52)
[2021-04-15] MEDS: busPIRone 15 MG TAB PO SCH ×2 (08:52→20:42)
[2021-04-15] MEDS: GABAPENTIN 100 MG CAP PO SCH ×2 (08:52→20:42)
[2021-04-15] MEDS: SERTRALINE HCL 100 MG TABLET PO SCH (08:52)
[2021-04-15] MEDS: FOLIC ACID 1 MG TAB PO SCH (08:53)
[2021-04-15] MEDS: MULTIVITAMIN TAB PO SCH (08:53)
[2021-04-15] MEDS: APIXABAN 5 MG TABLET PO SCH ×2 (08:53→20:42)
[2021-04-15] MEDS: MONTELUKAST SODIUM 10 MG TABLET PO SCH (08:54)
[2021-04-15] MEDS: ACETAMINOPHEN 325 MG TAB PO PRN ×2 (10:17→20:48)
--- NOTE | 2021-04-15 11:46 | Hospitalist Progress Note ---
Date of Service April 15, 2021 Assessment & Plan (1) Fall: (2) Closed compression fracture of L3 vertebra: (3) Closed compression fracture of L1 vertebra: (4) Compression fracture of L4 vertebra: Plan: #. Fall: Fall precaution PT/OT evaluation #. Closed compression fracture of L1 vertebra: Lumbar radiculopathy/compression fracture secondary to recurrent falls/ambulatory dysfunction. Recent electrolyte disturbance, medications and chronic heavy alcohol use may all be contributing. Cont supportive care with pain management and request ortho spine evaluation for consideration of surgical treatment or brace therapy. 04/05 lumbar spine MRI: Mild to moderate acute superior endplate compression fractures at L1, L3, L4 with no associated retropulsion. Continue with PT/OT with Ortho's recs, Orthopedics consulted: Recommends TLSO brace when he is OOB and undergoing physical therapy. Awaiting placement Pain being managed with tylenol prn mild pain, lidocaine patch and tramadol prn moderate/severe pain #. Hypokalemia: #. 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 No evidence of overload. Home Lasix and potassium supplementation resumed, last electrolytes level stable #. Alcohol abuse: Daily thiamine and folate. #. Depression with anxiety: Cont Buspar and sertraline per home regimen. #. ALLEY (obstructive sleep apnea): intolerant of CPAP mask per notes. #. Chronic atrial fibrillation: A. fib on Eliquis, rate controlled #. DVT prophylaxis: Eliquis Full Code Previous Provider had [id number] discussion with Dr. Jones, his admission denial is upheld, open for appeal. cytology laboratory manager notified. CM working on SNF placement Admission and Anticipated Discharge Date Admission Date: April 03, 2021 Subjective 75-year-old man with history of chronic diastolic heart failure, valvular heart disease, hypertension, A. fib on Eliquis, hypertension, COPD, past tobacco use, daily alcohol intake, hypothyroidism, Arana's esophagus, avascular necrosis of right hip, BPH, ALLEY with CPAP intolerance who presented with low back pain associated with fall at home. Being managed for L3/L4 compression fractures. Been waiting on placement Patient seen and examined this morning Reports no low back pain today. Stated current regimen has pain controlled Review of Systems Constitutional: no fever, no chills and no anorexia Respiratory: + cough (chronic); no dyspnea Cardiovascular: no chest pain, no dyspnea, no palpitations and no lightheadedness Gastrointestinal: no abdominal pain, no nausea, no vomiting and no diarrhea/loose stools Genitourinary: no dysuria, no difficulty urinating or no urinary frequency Neurologic: no tremor(s), no syncope and no headache(s) Psychiatric: no depression and no anxiety Physical Exam Constitutional: + well hydrated; no acute distress Eyes: PERRL, conjunctivae normal, anicteric sclerae Respiratory: normal respiratory effort, lungs clear to auscultation Cardiovascular: RRR S1 s2 Gastrointestinal (Abdomen): normal bowel sounds, soft, nontender, no hepatosplenomegaly Musculoskeletal: No pedal edema Neurologic: PERRL, EOMI, accommodation nl, no face palsy, no dysarthria Psychiatric: A+Ox3, euthymic affect Results & Data Results & Data ([facility]) Vital Signs (Past 12 Hours) Vital Signs Temp Pulse Resp BP Pulse Ox 04/15/21 11:19 36.4 C L 71 20 113/63 97 04/15/21 07:23 36.5 C 75 18 112/71 95 (1) Fall Encounter type: initial encounter Qualified Code(s): W19.XXXA - Unspecified fall, initial encounter
[2021-04-15] MEDS: LIDOCAINE 5% 1 PATCH TD SCH (20:42)
[2021-04-15] MEDS: traZODone HCL 100 MG TAB PO SCH (20:43)
[2021-04-15] MEDS: TAMSULOSIN HCL 0.4 MG CAP PO SCH (20:43)
[2021-04-16] MEDS: LEVOTHYROXINE SODIUM 125 MCG TABLET PO SCH (05:37)
[2021-04-16] MEDS: FUROSEMIDE 20 MG TAB PO SCH (08:23)
[2021-04-16] MEDS: FOLIC ACID 1 MG TAB PO SCH (08:23)
[2021-04-16] MEDS: VERAPAMIL HCL 180 MG TABCR PO SCH ×2 (08:23→21:02)
[2021-04-16] MEDS: busPIRone 15 MG TAB PO SCH ×2 (08:24→21:01)
[2021-04-16] MEDS: MULTIVITAMIN TAB PO SCH (08:24)
[2021-04-16] MEDS: SERTRALINE HCL 100 MG TABLET PO SCH (08:24)
[2021-04-16] MEDS: MAGNESIUM OXIDE 400 MG TAB PO SCH (08:24)
[2021-04-16] MEDS: FERROUS SULFATE 325 MG TAB PO SCH (08:24)
[2021-04-16] MEDS: THIAMINE HCL 100 MG TAB PO SCH (08:24)
[2021-04-16] MEDS: POTASSIUM CHLORIDE CRTAB 20 MEQ TABCR PO SCH (08:24)
[2021-04-16] MEDS: GABAPENTIN 100 MG CAP PO SCH ×2 (08:24→21:03)
[2021-04-16] MEDS: MONTELUKAST SODIUM 10 MG TABLET PO SCH (08:24)
[2021-04-16] MEDS: FLUTICASONE FUROATE 100MCG 14 PUFFS/INHALER INH SCH (08:24)
[2021-04-16] MEDS: APIXABAN 5 MG TABLET PO SCH ×2 (08:24→21:02)
[2021-04-16] MEDS: POLYETHYLENE (MIRALAX) 17 GM PACK PO SCH (08:25)
[2021-04-16] MEDS: traMADol HCL 50 MG TABLET PO PRN ×2 (09:13→15:33)
--- NOTE | 2021-04-16 09:33 | Hospitalist Progress Note ---
Date of Service April 16, 2021 Assessment & Plan (1) Fall: (2) Closed compression fracture of L3 vertebra: (3) Closed compression fracture of L1 vertebra: (4) Compression fracture of L4 vertebra: Plan: #. Fall: Fall precaution PT/OT evaluation #. Closed compression fracture of L1 vertebra: Lumbar radiculopathy/compression fracture secondary to recurrent falls/ambulatory dysfunction. Recent electrolyte disturbance, medications and chronic heavy alcohol use may all be contributing. Cont supportive care with pain management and request ortho spine evaluation for consideration of surgical treatment or brace therapy. 04/05 lumbar spine MRI: Mild to moderate acute superior endplate compression fractures at L1, L3, L4 with no associated retropulsion. Continue with PT/OT with Ortho's recs, Orthopedics consulted: Recommends TLSO brace when he is OOB and undergoing physical therapy. Awaiting placement Pain being managed with tylenol prn mild pain, lidocaine patch and tramadol prn moderate/severe pain #. Hypokalemia: #. Hypomagnesium Secondary to home diuretic Rx for chronic diastolic heart failure versus diarrhea [employer] [diarrhea resolved]. No evidence of overload. Home Lasix and potassium supplementation resumed, last electrolytes level stable #. Alcohol abuse: Daily thiamine and folate. #. Depression with anxiety: Cont Buspar and sertraline per home regimen. #. ALLEY (obstructive sleep apnea): intolerant of CPAP mask per notes. #. Chronic atrial fibrillation: A. fib on Eliquis, rate controlled #. DVT prophylaxis: Eliquis Full Code Previous Provider had [id number] discussion with Dr. Jones, his admission denial is upheld, open for appeal. manager residential notified. CM working on SNF placement Admission and Anticipated Discharge Date Admission Date: April 03, 2021 Subjective 75-year-old man with history of chronic diastolic heart failure, valvular heart disease, hypertension, A. fib on Eliquis, hypertension, COPD, past tobacco use, daily alcohol intake, hypothyroidism, Arana's esophagus, avascular necrosis of right hip, BPH, ALLEY with CPAP intolerance who presented with low back pain associated with fall at home. Being managed for L3/L4 compression fractures. Been waiting on placement Patient seen and examined Low back pain is controlled Review of Systems Constitutional: no fever, no chills and no anorexia Respiratory: + cough (chronic); no dyspnea Cardiovascular: no chest pain, no dyspnea, no palpitations and no lightheadedness Gastrointestinal: no abdominal pain, no nausea, no vomiting and no diarrhea/loose stools Genitourinary: no dysuria, no difficulty urinating or no urinary frequency Musculoskeletal: Low back pain Neurologic: no tremor(s), no syncope and no headache(s) Psychiatric: no depression and no anxiety Physical Exam Constitutional: + well hydrated; no acute distress Eyes: PERRL, conjunctivae normal, anicteric sclerae Respiratory: normal respiratory effort, lungs clear to auscultation Cardiovascular: RRR S1 S2 Gastrointestinal (Abdomen): normal bowel sounds, soft, nontender, no hepatosplenomegaly Musculoskeletal: No pedal edema Neurologic: PERRL, EOMI, accommodation nl, no face palsy, no dysarthria Psychiatric: A+Ox3, euthymic affect Results & Data Results & Data ([facility]) Vital Signs (Past 12 Hours) Vital Signs Temp Pulse Pulse Resp BP Pulse Ox 04/16/21 08:00 36.4 C L 70 18 123/57 L 96 04/15/21 23:13 36.9 C 78 16 126/65 95 (1) Fall Encounter type: initial encounter Qualified Code(s): W19.XXXA - Unspecified fall, initial encounter
[2021-04-16] MEDS: ACETAMINOPHEN 325 MG TAB PO PRN (18:32)
[2021-04-16] MEDS: LIDOCAINE 5% 1 PATCH TD SCH (21:00)
[2021-04-16] MEDS: traZODone HCL 100 MG TAB PO SCH (21:01)
[2021-04-16] MEDS: TAMSULOSIN HCL 0.4 MG CAP PO SCH (21:01)
[2021-04-17] MEDS: LEVOTHYROXINE SODIUM 125 MCG TABLET PO SCH (05:30)
--- NOTE | 2021-04-17 08:27 | Discharge Summary ---
Date of Service April 17, 2021 Admission HPI Per Admitting Provider History obtained from patient and records. Medical history significant for chronic diastolic heart failure (EF 64%, TTE 2018), valvular heart disease (mild AR, mild TR on TTE 2018), pulmonary hypertension on TTE , A. fib on Eliquis, hypertension, hyperlipidemia COPD, past tobacco abuse, daily alcohol intake, hypothyroidism, Arana's esophagus, history of avascular necrosis right hip, BPH, ALLEY (CPAP intolerance). Last confinement June 2020 for GI bleed in the setting of Coumadin Rx/supratherapeutic INR. EGD showed salmon-colored mucosa suspicious for short segment Arana's esophagus. Colonoscopy showed nonbleeding internal hemorrhoids and hyperplastic polyp. Patient discharged on Protonix. Patient Coumadin eventually transitioned to Eliquis outpatient. 5 days ago, patient noted low back/tailbone pain with some radiation to the right lower extremity after a fall at home. No head trauma, LOC. Patient denies chest pain or S OB. Patient seen at the ER. Lumbar spine CT showed acute compression fractures L3 and L4. No retropulsed fragments identified. Patient discharged home. Uncontrolled back pain at home. No unusual incontinence symptoms. Patient felt weak and lost balance again yesterday. Unable to get up. Posterior headache. Patient denies chest pain. Usual shortness of breath on exertion which patient attributes to his COPD. Patient brought to the ER for evaluation. Medical History as above Surgical History : Cataract surgery, hip surgery Family History : Stroke Personal/Social history : Past tobacco abuse, daily alcohol intake which patient occasionally feels excessive, retired from the [employer] industry. Admission Exam Per Admitting Provider GENERAL: Slightly uncomfortable, slightly hard of hearing, no respiratory distress SKIN: Pallor, warm HEENT: Bespectacled, pale palpebral conjunctivae, no ptosis, dry buccal mucosa NECK : Supple, no tenderness CHEST : Decreased breath sounds, no tenderness HEART : Irregular, no obvious murmurs ABDOMEN: Some distention, nontender RECTAL : Intact sphincter, dark stool stool (FOBT negative) BACK : Low back tenderness, positive straight leg raise test R EXTREMITIES : No LE swelling/tenderness, no other conspicuous deformities noted NEUROLOGIC : Coherent, no facial asymmetry, slightly hard of hearing, gait and stance not assessed Principal Diagnosis Fall Closed compression fracture of L3 vertebra Closed compression fracture of L1 vertebra Compression fracture of L4 vertebra Hypokalemia Discharge Exam Constitutional + well hydrated; no acute distress Eyes PERRL, conjunctivae normal, anicteric sclerae Respiratory normal respiratory effort, lungs clear to auscultation Cardiovascular RRR S1 S2 Gastrointestinal (Abdomen) normal bowel sounds, soft, nontender, no hepatosplenomegaly Musculoskeletal No pedal edema Neurologic PERRL, EOMI, accommodation nl, no face palsy, no dysarthria Psychiatric A+Ox3, euthymic affect Discharge Data Allergies Allergy/AdvReac Type Severity Reaction Status Date / Time trazodone AdvReac Severe prolonged Verified 04/02/21 22:44 QTc cephalexin [From Keflex] AdvReac Hives Verified 04/02/21 22:44 Consultations 04/02/21 22:55 ED Decision to Admit Stat 04/03/21 09:41 Consult Orthopedic Surgery Routine Ordered Studies 04/02/21 20:41 CT head/brain wo con Stat Areas of decreased attenuation are present in the periventricular and subcortical white matter bilaterally consistent with small vessel ischemic disease. Generalized cerebral atrophy with commensurate enlargement of the ventricles, sulci, and cisterns is also present. There is no acute intracranial hemorrhage or evidence of acute territorial infarction. No shift of the midline structures, mass effect, or extra-axial abnormalities are shown. Atherosclerotic calcifications are present in the intracranial segments of the internal carotid arteries. Imaged portions of the paranasal sinuses and mastoid air cells are clear. The orbits appear normal. There are no acute fractures of the calvaria or scalp swelling. Impression: No acute intracranial hemorrhage, evidence of acute territorial infarction, or other acute intracranial disease process. CT lumbar spine wo con Stat For counting purposes, the last complete intervertebral disc space is considered L5-S1. Again noted are compression fractures of L3 and L4 without retropulsion. In addition, there is new anterior wedge deformity of L1 with approximately 30% loss of height, without retropulsion of fragments. Degenerative changes are n oted in the visualized spine. Vertebral body alignment is within normal limits. Surrounding soft tissues are unremarkable. IMPRESSION: New acute L1 compression fracture with anterior wedge deformity, without retropulsion. Redemonstration of L3 and L4 compression fractures which are unchanged from prior exam. 04/05/21 10:35 MR lumbar spine wo con Routine For the purpose of the report the L5-S1 disc space will be located on axial image 27 of 30. There again noted acute mild to moderate anterior wedge-shaped superior endplate compression fractures at L1, L3, and L4. These demonstrate up to 30% loss of height. No associated retropulsion. There is motion artifact seen throughout the lumbar spine resulting in suboptimal evaluation. Paravertebral edema adjacent to the fracture sites is expected. No epidural fluid collections identified. The conus terminates at the L1 level. Mild disc space narrowing at L2-L3, L3-L4, and L5-S1. The visualized sacrum appears intact. L1-L2: No significant central canal or neural foraminal narrowing. L2-L3: Small broad-based posterior disc bulge without significant central canal or neural foraminal narrowing. L3-L4: Small broad-based posterior disc bulge without significant central canal or neural foraminal narrowing. L4-L5: Small broad-based posterior disc bulge asymmetric to the right without significant central canal or right-sided neural foraminal narrowing. There is mild left-sided neural foraminal narrowing. L5-S1: No significantly central canal or left-sided neural foraminal narrowing. There is moderate right-sided neural foraminal narrowing due to a small broad- based posterior disc bulge and facet hypertrophy. IMPRESSION: 1. Mild to moderate acute superior endplate compression fractures at L1, L3, L4 again noted. No associated retropulsion. 2. Mild degenerative changes as described above. Hospital Course (1) Fall: (2) Closed compression fracture of L3 vertebra: (3) Closed compression fracture of L1 vertebra: (4) Compression fracture of L4 vertebra: #. Fall: Fall precaution PT/OT evaluation #. Closed compression fracture of L1 vertebra: Lumbar radiculopathy/compression fracture secondary to recurrent falls/ambulatory dysfunction. Recent electrolyte disturbance, medications and chronic heavy alcohol use may all be contributing. Cont supportive care with pain management and request ortho spine evaluation for consideration of surgical treatment or brace therapy. 04/05 lumbar spine MRI: Mild to moderate acute superior endplate compression fractures at L1, L3, L4 with no associated retropulsion. Continue with PT/OT with Ortho's recs, Orthopedics consulted: Recommends TLSO brace when he is OOB and undergoing physical therapy. Pain being managed with tylenol prn mild pain, lidocaine patch and tramadol prn moderate/severe pain Patient discharged to SNF for rehab. If pain persists, patient can follow up with Ortho (Dr Aragon) who may reassess surgical therapy #. Hypokalemia: #. Hypomagnesium Secondary to home diuretic Rx for chronic diastolic heart failure versus diarrhea [employer] [diarrhea resolved]. No evidence of overload. Home Lasix and potassium supplementation resumed, last electrolytes level stable #. Alcohol abuse: Daily thiamine and folate. #. Depression with anxiety: Cont Buspar and sertraline per home regimen. Patient's home trazodone reduced to 50mg HS due to QTc #. ALLEY (obstructive sleep apnea): intolerant of CPAP mask per notes. #. Chronic atrial fibrillation: A. fib on Eliquis, rate controlled Total Time Total Time Spent Total Time Spent (In Minutes): 45 Total Time Includes: Examination of the Patient, Discharge Planning and Medication Reconciliation Discharge Plan Discharge Items Patient Disposition: Transfer Half-Way Fac Reason For Visit: Low back pain Discharge Diagnosis: Fall Closed compression fracture of L3 vertebra Closed compression fracture of L1 vertebra Compression fracture of L4 vertebra Hypokalemia Activity: As commented below Activity Comment: Per Physical therapist recommendations Weightbearing: Full weightbearing Non-emergency contact: Primary Care Provider Call non-emergency contact if: you have any medication questions and your symptoms worsen Follow-up/Referrals: Lidia Faulkner MD [Primary Care Provider] - 04/25/21 11:00 am (Arrive by 10:45 am ) Diet: Heart Healthy Addtl Attending Provider Instructions: Mr Isbell. You came to the hospital complaining of low back and tailbone pain. You had recently fallen at home. You were evaluated and found to have lumbar compression fractures as well as electrolyte abnormalities. You were evaluated by Orthopedic surgery who recommended use of TLSO brace and physical therapy. If pain does not improve, consider following up with Orthopedic surgery (Dr Aragon) who may consider surgery. You are being discharged to snf facility for rehab. Your Trazodone dose was reduced to 50mg HS due to Long QTc. Please ensure follow up with your Primary Doctor. It was a pleasure taking care of you. Pending Studies at Discharge: No Stand-Alone Forms: My [facility] Skilled Items Patient informed of condition?: Yes DNR: No Discharge Level of Care: Skilled Communicable Disease: No Discharge Prognosis: Stable Lines: None Urinary Catheter: No Medications and DC Order Prescriptions: New acetaminophen 325 mg Tablet 650 mg PO Q4H PRN (Reason: pain) Qty: 50 RF: 0 tramadol 50 mg Tablet 25 mg PO BID PRN (Reason: severe pain (scale score 7-10)) Qty: 6 RF: 0 thiamine HCl (vitamin B1) [Vitamin B-1] 100 mg Tablet 100 mg PO QAM Qty: 30 RF: 0 lidocaine 5 % Adhesive Patch,Medicated 1 patch transdermal HS Qty: 15 RF: 0 Continued azelastine 137 mcg (0.1 %) aerosol,spray 1 spray INTRANASAL BID PRN (Reason: Congestion) RF: 0 sertraline 100 mg tablet 100 mg PO DAILY Qty: 30 RF: 0 verapamil 180 mg tablet extended release 180 mg PO BID Qty: 30 RF: 0 potassium chloride 20 mEq tablet,ER particles/crystals 20 meq PO DAILY Qty: 30 RF: 0 tamsulosin 0.4 mg capsule 0.4 mg PO HS Qty: 30 RF: 0 ferrous sulfate [FeroSul] 325 mg (65 mg iron) tablet 325 mg PO DAILY Qty: 30 RF: 0 levothyroxine 125 mcg tablet 125 mcg PO QAM Qty: 30 RF: 0 folic acid 1 mg Tablet 1 mg PO QAM Qty: 30 RF: 0 montelukast 10 mg tablet 10 mg PO DAILY Qty: 30 RF: 0 furosemide 20 mg tablet 20 mg PO DAILY Qty: 30 RF: 0 gabapentin 100 mg capsule 100 mg PO AMPM Qty: 60 RF: 0 multivitamin with minerals [Multiple Vitamin-Minerals] Tablet 1 tab PO DAILY Qty: 30 RF: 0 albuterol sulfate 90 mcg/actuation HFA aerosol inhaler 2 puff INHALATION Q4H PRN (Reason: Wheezing) Qty: 8.5 RF: 0 Flovent HFA 110 mcg/actuation HFA aerosol inhaler 1 puff INHALATION DAILY Qty: 12 RF: 0 buspirone 15 mg tablet 15 mg PO BID Qty: 30 RF: 0 Eliquis 5 mg tablet 5 mg PO BID Qty: 30 RF: 0 magnesium oxide 400 mg magnesium Tablet 400 mg PO DAILY Qty: 30 RF: 0 Changed trazodone 100 mg tablet 50 mg PO HS Qty: 15 RF: 0 Discharge Orders: Discharge Order (Routine); Ordered 04/17/21 Ordered By: Arely Feldman Admission Data Admit Date/Time: 04/03/21 01:51 Attending Provider: Arely Feldman I. Admit Provider: Abelardo Flanagan Primary Care Provider: Lidia Faulkner Other Providers: [place],[facility], [place] ; Mony Hern[facility]dez at [place] ; [facility], ; [facility] ; Alex Irwin ; Abelardo Flanagan ; Dayday Aragon Other Interventions: Discharge Summary Assessment (RN) Last Done: 04/17/21 10:42
[2021-04-17] MEDS: FERROUS SULFATE 325 MG TAB PO SCH (08:30)
[2021-04-17] MEDS: FLUTICASONE FUROATE 100MCG 14 PUFFS/INHALER INH SCH (08:30)
[2021-04-17] MEDS: POLYETHYLENE (MIRALAX) 17 GM PACK PO SCH (08:30)
[2021-04-17] MEDS: FOLIC ACID 1 MG TAB PO SCH (08:30)
[2021-04-17] MEDS: POTASSIUM CHLORIDE CRTAB 20 MEQ TABCR PO SCH (08:30)
[2021-04-17] MEDS: MONTELUKAST SODIUM 10 MG TABLET PO SCH (08:30)
[2021-04-17] MEDS: busPIRone 15 MG TAB PO SCH (08:30)
[2021-04-17] MEDS: FUROSEMIDE 20 MG TAB PO SCH (08:31)
[2021-04-17] MEDS: SERTRALINE HCL 100 MG TABLET PO SCH (08:31)
[2021-04-17] MEDS: VERAPAMIL HCL 180 MG TABCR PO SCH (08:31)
[2021-04-17] MEDS: APIXABAN 5 MG TABLET PO SCH (08:31)
[2021-04-17] MEDS: MAGNESIUM OXIDE 400 MG TAB PO SCH (08:31)
[2021-04-17] MEDS: GABAPENTIN 100 MG CAP PO SCH (08:31)
[2021-04-17] MEDS: THIAMINE HCL 100 MG TAB PO SCH (08:31)
[2021-04-17] MEDS: MULTIVITAMIN TAB PO SCH (08:31)
[2021-04-17] MEDS: traMADol HCL 50 MG TABLET PO PRN (08:37)
[2021-04-17] MEDS: ACETAMINOPHEN 325 MG TAB PO PRN (08:38)
[2021-04-17] MEDS ORDERED: INFLUENZA VACCINE HIGH DOSE PF 65+ 0.7 ML SYR IM ONE (10:45)
== END 2021-04-17 11:24 | DRG 552 ==
LOC: ED 19:49 → SUATTDRO 04-03 01:51 → EDINP 04-03 01:51 → 2N 04-03 18:52